=== PATIENT | male | born 1945 | race Caucasian/White ===

== ENCOUNTER 2018-06-19 23:06 | Inpatient (IN) | payer MEDICARE, OTHER, SELFPAY ==
[2018-06-19 23:06] VITALS: PULSE 99; RESP 20; O2SAT 93; BMI 30.7
--- NOTE | 2018-06-19 23:19 | EKG12_ITS ---
Test Reason : CP Blood Pressure : / mmHG Vent. Rate : 100 BPM Atrial Rate : 100 BPM P-R Int : 170 ms QRS Dur : 088 ms QT Int : 332 ms P-R-T Axes : 064 059 052 degrees QTc Int : 428 ms Normal sinus rhythm Normal ECG Confirmed by NELLY MARTINEZ, LIS ([id number]), art editor NADEEM VARNER ([id number] on 06/21/2018 3:23:55 PM Referred By: JOYN Confirmed By:LIS VILLEGAS MD
--- NOTE | 2018-06-19 23:20 | RAD_ITS ---
STUDY: X-RAY CHEST REASON FOR EXAM: Male, 73 years old. LEFT RIB PAIN TECHNIQUE: Single frontal view of the chest. COMPARISON: None. FINDINGS: Chronic appearing increased interstitial lung markings. There is an elevated right hemidiaphragm. There is no demonstrated pleural abnormality. Enlarged heart size. Normal mediastinum and jamey. Normal visualized pulmonary arteries. There is atherosclerotic calcification of the aortic arch with tortuosity. There are diffuse degenerative changes of the visualized thoracic spine. There is degenerative osteoarthritis of the bilateral shoulders. There is no demonstrated abnormality of the visualized soft tissue structures of the upper abdomen. RAD/Chest 1 View (Portable) IMPRESSION: There are no acute findings. Electronically Signed: Jass Garcia MD at 23:32 EDT , Service support ,
[2018-06-19] MEDS: Aspirin 81 MG TAB.CHEW 162 MG PO (23:27)
[2018-06-19 23:32] VITALS: BP 109/76; PULSE 98
[2018-06-19] MEDS: 0.9% Normal Saline 1,000 ML 150 ML IV (23:32)
[2018-06-19 23:34] VITALS: O2SAT 98
[2018-06-19 23:34] LABS: Absolute Lymphocyte Count 2.51 X10^3/ul (0.83-4.51); Basophil# 0.06 X10^3/uL; Basophil% 0.8 % (0-1); Eosinophil# 0.34 X10^3/uL; Eosinophils% 4.4 % (0-5); Hematocrit 47.7 % (40-54); Hemoglobin 16.1 g/dl (13.0-16.5); Lymphocyte # 2.51 X10^3/ul (4.0); Lymphocyte % 32.6 % (19-41); Mean Corp Hgb Conc 33.8 g/gl (32-36); Mean Corpuscular Hgb 33.3 pg (27.0-32.0); Mean Corpuscular Volume 98.6 fL (80-94); Mean Platelet Vol. 9.5 fl (6.2-12.0); Monocyte# 0.75 X10^3/uL; Monocyte% 9.7 % (0-10); Neutrophil # 3.98 X10^3/uL (2.7-7.7); Neutrophil % 51.7 % (47-70); Platelet Count 286 K/mm3 (150-450); RBC Distribution Width CV 13.4 % (11.6-14.6); RBC Distribution Width SD 48.3 fl (35.1-43.9); Red Blood Count 4.84 M/mm3 (4.6-6.2); White Blood Count 7.7 K/mm3 (4.4-11.0)
[2018-06-19 23:38] LABS: POSITIVE COUNT NO; POSITIVE DIFFERENTIAL NO; POSITIVE MORPHOLOGY NO
[2018-06-19 23:39] LABS: Prothrombin Time (Protime)PT. 12.9 SECONDS (11.7-14.9)
[2018-06-19 23:40] LABS: Partial Thromboplast Time 28.1 Seconds (24.1-36.2)
--- NOTE | 2018-06-19 23:40 | ED.VISSUMM ---
- ER Visit Summary Date of Service: 06/19/18 Chief Complaint: Left-sided chest pain History of Present Illness: The patient is a 73 M sudden left-sided chest pain at rest. States pain is a 10. Dyspnea. No radicular symptoms. History of COPD, diabetes, hypercholesterolemia. Family reports family history of MIs at a young age. Stress test over 25 years ago. Patient does admit to drinking alcohol this evening. Denies any similar pains in the past. History of DVT in his leg years ago with anticoagulation treatment. No recent travel, surgeries, or immobilizations. No history of heart cath. Tobacco history. Patient takes baby aspirin every morning. Physical Examination: General: Alert and oriented, mild intoxication with slurring of speech, appears mod distress HEENT: Normocephalic, atraumatic. Moist mucosa membranes Neck: supple, nontender. Cardiovascular: Regular rate and rhythm, no murmurs. Respiratory: Normal breath sounds, symmetric, no distress Abdomen: Soft, nontender, nondistended Extremities: Nontender, no edema, pulses intact ?4 Neuro: no focal neurological deficits. Test Results: EKG: Sinus rate of 100, no ST changes. EKG #2 unchanged. Chest x-ray negative. Cardiac workup negative. D-dimer L of 0.81. Alcohol 211. CTA chest no PE. Left-sided rib fractures 5 and 6. Nonspecific nodules. Emergency Department Course and Treatment: Patient presented with sudden left-sided chest pain. Cardiac workup negative. Given aspirin, one nitro was given with no improvement. Blood pressure dropped improved with IV fluids. Patient had DVT in the past, d-dimer obtained elevated. CT scan obtain no PE. No left-sided rib fractures 5 and 6. Nonspecific nodules right lung. He was treated with fentanyl IV x2. Given oxycodone. Alcohol is 211. Initial started out cardiac workup, later discussion with CT scan rib fracture, family then reports he had a fall shortly prior to arrival. This was not stated on his arrival with 3 family members present. Where patient continued pain on the left side, discuss with Dr. Butler who admit for pain control. Treatment Plan: [] Disposition: Admission Impression: 1. Chest wall pain 2. Acute left rib fractures 5 and 6 3. Alcohol intoxication This note was generated with [employer] software. It may contain incorrect words, spelling, and punctuation that were not noted in review of the chart prior to signing ED Disposition - Plan for ED Patient: Disposition: Acute Care Hospital [facility] Chief Complaint: Chest Pain Diagnosis: Left rib fracture, Chest wall pain, Alcohol intoxication Referrals: Tadeo Ferrer MD [Primary Care Provider] -
[2018-06-19 23:44] LABS: Anion Gap 7 (5-15); BUN 8 mg/dL (7-18); BUN/Creat Ratio 10.4 RATIO (10-20); Calcium,Total 8.8 mg/dL (8.5-10.1); Chloride 99 mmol/L (98-107); Creatinine, Serum 0.77 mg/dL (0.70-1.30); EST Glomerular Filtration Rate 107 mL/min (>60); Est Glom Filt Rate - Afr Amer 129 mL/min (>60); Estimated Creatinine Clearance 61.14 ml/min; Glucose 129 mg/dL (74-106); Potassium 4.2 mmol/L (3.5-5.1); Sodium Level 136 mmol/L (136-145)
[2018-06-19 23:48] VITALS: BP 81/71; PULSE 92; RESP 15
[2018-06-19 23:50] LABS: D-Dimer Quantitative (DVT/PE) 0.81 FEU/ug/m (0.27-0.49)
--- NOTE | 2018-06-19 23:52 | CT_ITS ---
STUDY: CTA CHEST REASON FOR EXAM: Male, 73 years old. Chest pain with with radiation to the left arm. Patient has elevated d-dimer. RADIATION DOSAGE (If Supplied By Facility): CTDIvol = ( 14.36 ) mGy, DLP = ( 658.30 ) mGycm TECHNIQUE: The examination was performed with the intravenous administration of 100 ml of Isovue 370 contrast material. Post-processing of the angiographic images was performed, with multiplanar reformation and 3D reconstruction. Individualized dose optimization techniques were used for this CT. COMPARISON: Chest radiograph dated June 19, 2018. FINDINGS: Cardiac monitoring leads are present. Normal enhancement of the main pulmonary artery and right and left pulmonary arteries. Normal enhancement of the bilateral peripheral pulmonary arteries. There is no demonstrated pulmonary embolism. There is prominence of the main pulmonary arteries without peripheral pulmonary vascular congestion. There is atherosclerotic calcification of the aortic arch with tortuosity. Maximum transverse dimension of the ascending thoracic aorta measures 3.3 cm. There is no demonstrated aortic dissection. Normal heart and pericardium. There is subcarinal lymphadenopathy with a prasanna mass measuring 3.9 x 2.1 x 1.4 cm in size. There is also a large right paratracheal node. There prominent left-sided hilar lymph nodes. The largest measure approximately 1.3 x 1.2 x 0.8 cm in size. The right hilar area also has a prominent lymph node to. Normal visualized trachea and bronchi. Patchy lucencies are visible at the right lung apex possibly related to sequela paraseptal emphysema. There is a nodular opacity within the anterior segment of the right upper lobe measuring approximately 6.4 mm in greatest dimension best seen on axial image #171. There is patchy bilateral basilar airspace consolidation and/or atelectasis. There is a well-circumscribed lucency in the right lower lobe that may represent a small pneumatocele. Normal pleura. Normal chest wall structures. There are degenerative changes of thoracic spine. There is increased thoracic kyphosis. There are acute left-sided rib fractures involving the fifth and sixth ribs. Normal visualized upper abdomen. CT/CTA Chest W/WO Contrast IMPRESSION: 1. No CTA demonstrated pulmonary embolism or arterial dissection. 2. Acute left-sided rib fractures. 3. Nonspecific mediastinal and hilar lymphadenopathy. 4. Nonspecific right apical pulmonary nodule. Suggest follow-up as per Fleischner criteria. 5. Bilateral basilar airspace disease and/or atelectasis. Electronically Signed: Alysia Ferrari MD at 1:28 EDT , Service support ,
--- NOTE | 2018-06-19 23:52 | ED.RN ---
D DIMER RESULT OF 0.[address] BORGES AWARE NITRO #2 & #3 HELD D/T HYPOTENSION
[2018-06-19] MEDS: fentaNYL 100 MCG/2 ML Ampul 50 MCG IV (23:56)
[2018-06-19 23:59] VITALS: BP 92/69; PULSE 99; RESP 22; O2SAT 94
[2018-06-20] VITALS (19 sets, daily range): BP systolic 107–135; BP diastolic 67–95; PULSE 87–109; RESP 16–22; TEMP 36.4–36.9; O2SAT 1–98; BMI 31.7
--- NOTE | 2018-06-20 00:43 | EKG12_ITS ---
Test Reason : REPEAT CP Blood Pressure : / mmHG Vent. Rate : 090 BPM Atrial Rate : 090 BPM P-R Int : 184 ms QRS Dur : 098 ms QT Int : 368 ms P-R-T Axes : 066 051 050 degrees QTc Int : 450 ms Normal sinus rhythm with sinus arrhythmia Normal ECG Confirmed by NELLY MARTINEZ, LIS ([id number]), deputy editor in chief NADEEM VARNER ([id number]) on 06/21/2018 3:23:44 PM Referred By: JONY Confirmed By:LIS VILLEGAS MD
[2018-06-20] MEDS: fentaNYL 100 MCG/2 ML Ampul 50 MCG IV (00:55)
[2018-06-20] MEDS: Ipratropium/Albuterol Sulfate 3 ML AMPUL.NEB INHALATION ×6 (01:20→23:01)
--- NOTE | 2018-06-20 01:38 | HP.PCM_ITS ---
Problem List (1) Left rib fracture Status: Acute Qualifiers: Encounter type: initial encounter Rib fracture type: multiple ribs Fracture type: closed Qualified Code(s): S22.42XA - Multiple fractures of ribs, left side, initial encounter for closed fracture (2) COPD with acute exacerbation Status: Acute (3) Alcohol abuse Status: Chronic (4) COPD (chronic obstructive pulmonary disease) Status: Chronic Qualifiers: COPD type: unspecified COPD Qualified Code(s): J44.9 - Chronic obstructive pulmonary disease, unspecified (5) Obesity (BMI 30.0-34.9) Status: Chronic (6) Diabetes mellitus, type II Status: Chronic Qualifiers: Diabetes mellitus terminal superintendent insulin use: without terminal superintendent use Diabetes mellitus complication status: with unspecified complications Qualified Code(s): E11.8 - Type 2 diabetes mellitus with unspecified complications (7) Tobacco use Status: Chronic (8) HLD (hyperlipidemia) Status: Chronic Qualifiers: Hyperlipidemia type: unspecified Qualified Code(s): E78.5 - Hyperlipidemia, unspecified (9) Chronic pain syndrome Status: Chronic History of Present Illness Date of Admission: 06/20/18 Chief Complaint: L sided chest pain, dyspnea The patient is a 73 y/o M w/ PMHx: Obesity, Hx DVT Remotely, Diabetes mellitus type II, Obesity, Chronic COPD, Tobacco use, Chronic Pain Syndrome, EtOH Abuse who presents to the [facility] ED on 06/20/18 with history of fall at home following significant EtOH intake (8-12 beers, occasional rum and coke also q , , Thursday) with fall onto his L side w/ onset severe sharp constant pain to the L side of his chest with worsened dyspnea, increased pain with movement, palpitation and deep inspiration at ~ 11:30 pm. Family notes that he appears baseline in regard to respiratory status; however, they do note that he tends to appear more short of breath w/ recent EtOH intake. In the ED patient has noted increased work of breathing, some accessory muscle usage and conversational dyspnea. In the ED work-up included afebrile, heart rate 99, BP 109/76--> 91/71 following nitroglycerin administration improvement to 118/95, Maurice rate 20, 93% on room air, CBC with WBC 7.7, hemoglobin 16.1, platelet 286 without market shift, unremarkable coags, d-dimer 0.81, BMP with glucose 129, troponin less than 0.015, alcohol 211, chest x-ray with no acute findings, CTPA w/ no evidence of PE or arterial dissection, acute left-sided fifth and sixth rib fractures, nonspecific mediastinal and hilar adenopathy, nonspecific right apical pulmonary nodule, bilateral basilar airspace disease and/or atelectasis. In the ED patient administered aspirin, DuoNeb, normal saline, fentanyl, nitroglycerin. Past Medical History Past Medical History (Chronic Problems): Chronic Problems Alcohol abuse (Chronic) COPD (chronic obstructive pulmonary disease) (Chronic) Obesity (BMI 30.0-34.9) (Chronic) Diabetes mellitus, type II (Chronic) Tobacco use (Chronic) HLD (hyperlipidemia) (Chronic) Chronic pain syndrome (Chronic) Allergies No Known Allergies Allergy (Verified 06/19/18 23:18) Home Medications: Ambulatory Orders Medication Instructions Recorded Albuterol IH (ProAir) [Proair Hfa 2 puff INHALATION Q4H PRN PRN 03/09/17 (SP)Vent Pts] Aspirin [Aspir-Low] 162 mg PO DAILY 03/09/17 Atorvastatin Calcium [Lipitor] 20 mg PO QHS 03/09/17 Budesonide/Formoterol 160/4.5 2 puff INHALATION BID 03/09/17 [Symbicort 160/4.5 Mcg Inhaler (SP)] Ipratropium/Albuterol Respimat 1 puff INHALATION BID 03/09/17 [Combivent Respimat Inhal [place]] Metformin HCl [Metformin HCl ER] 500 mg PO DAILY 03/09/17 Oxycodone HCl/Acetaminophen 1 tablet PO Q4H PRN PRN #10 tablet 03/09/17 [Percocet 5/325] Surgical History: no surgical history Psychiatric History: No pertinent psych hx Lives: Spouse/ Significant Other Smoking Status: Current every day smoker - 2 pack/day cigarette tobacco usage. Tobacco Use: Cigarettes Alcohol: Heavy - 8-12 beers, occasional rum and coke also q , , Thursday. Drugs: None - *Family History Maternal History Items: Diabetes Paternal History Items: Diabetes Review of Systems Constitutional: Reports: Weakness, Fatigue. Denies: Chills, Fever, Weight Change HEENT: Denies: Head Aches, Sinus Congestion, Sinus Drainage Cardiovascular: Reports: Chest Pain. Denies: Palpitations Respiratory: Reports: Shortness of Breath, Shortness of breath at rest, Shortne ss of breath upon exertion, Wheezing. Denies: Cough, Sputum production Gastrointestinal: Denies: Abdominal Pain, Nausea, Vomiting Genitourinary: Denies: Dysuria Musculoskeletal: Reports: Back Pain. Denies: Joint Pain, Joint Tenderness Skin: Denies: Rash, Wounds Neurological: Denies: Numbness, Tingling, Focal weakness Psychiatric: Denies: Anxiety, Depression, Homicidal Ideations, Suicidal Ideations Hematologic/ Lymphatic: Reports: Easy Bruising, Easy Bleeding VTE Information - Inpt Only VTE Present on Admission: No VTE Mechan Device Prophylaxis: SCD's VTE Pharm Prophylaxis ordered?: Yes Patient Problems: Active and Suspected Problems COPD with acute exacerbation (Acute) Left rib fracture (Acute) Subjective: Seated upright in the ED bed, fatigued appearing, increased work of breathing, accessory muscle usage, conversational dyspnea evident. Objective: Physical Examination: General: awake, alert, oriented x 3 and cooperative, seated upright in the ED bed, increased work of breathing, accessory muscle usage, increased RR, conversational dyspnea. Skin: normal color, turgor, no icterus, cyanosis. HEENT: AT/NC, EOMI, PERRLA, mildly dry MM, very thick neck, no carotid bruits, unable to discern JVD secondary to habitus. Lungs: Severely diminished BS, > BL bases, diffuse end expiratory wheezing, increased work of breathing, accessory muscle usage, increased RR, conversational dyspnea. Heart: Mildly tachycardic with regular rhythm; no gallop, rub audible, reproducible L sided lateral chest discomfort w/ palpation. Abdomen: soft, obese, NTTP, ND, normal BS, no HSM; however, habitus makes examination difficult. Extremities: no cyanosis, clubbing, or edema. Neurological: patient awake, alert, oriented x 3; cognitive function intact; pupils equally reactive to light and accomodation; cranial nerves II-XII grossly normal, moving all 4 extremities, no focal deficits, strength severely globally decreased secondary to acute presentation. Psychiatric: affect appears fatigued, no acute evidence of depressive or anxiety feelings. - Physical Exam Vital Signs Pulse Resp BP Pulse Ox 98 20 H 107/67 96 06/20/18 01:20 06/20/18 01:20 06/20/18 00:54 06/20/18 00:54 Oxygen Flow Rate (L/min) 2 Oxygen Delivery Method Nasal Cannula Weight: 190 lb 3.274 oz Body Mass Index (BMI) 30.7 Laboratory Tests Past 24 Hrs 06/19/18 06/19/18 06/19/18 23:10 23:10 23:10 WBC 7.7 RBC 4.84 Hgb 16.1 Hct 47.7 MCV 98.6 H MCH 33.3 H MCHC 33.8 RDW 13.4 RDW Differential 48.3 H Plt Count 286 MPV 9.5 Immature Gran % (Auto) 0.800 Neut % (Auto) 51.7 Lymph % (Auto) 32.6 Pepin % (Auto) 9.7 Eos % (Auto) 4.4 Baso % (Auto) 0.8 Absolute Neuts (auto) 4.0 Absolute Lymphs (auto) 2.51 Total Counted Not Reportable PT 12.9 INR 1.0 APTT 28.1 D-Dimer Quant (PE/DVT) 0.81 H* Sodium 136 Potassium 4.2 Chloride 99 Carbon Dioxide 30.0 Anion Gap 7 BUN 8 Creatinine 0.77 Estim Creat Clear Calc 61.14 Est GFR (MDRD) Af Amer 129 Est GFR (MDRD) Non-Af 107 BUN/Creatinine Ratio 10.4 Glucose 129 H Calcium 8.8 Troponin I < 0.015 Ethyl Alcohol 06/19/18 23:10 WBC RBC Hgb Hct MCV MCH MCHC RDW RDW Differential Plt Count MPV Immature Gran % (Auto) Neut % (Auto) Lymph % (Auto) Pepin % (Auto) Eos % (Auto) Baso % (Auto) Absolute Neuts (auto) Absolute Lymphs (auto) Total Counted PT INR APTT D-Dimer Quant (PE/DVT) Sodium Potassium Chloride Carbon Dioxide Anion Gap BUN Creatinine Estim Creat Clear Calc Est GFR (MDRD) Af Amer Est GFR (MDRD) Non-Af BUN/Creatinine Ratio Glucose Calcium Troponin I Ethyl Alcohol 211.0 Assessment/Plan All Active Problems COPD with acute exacerbation (Acute) Left rib fracture (Acute) The patient is a 73 y/o M w/ PMHx: Obesity, Hx DVT Remotely, Diabetes mellitus type II, Obesity, Chronic COPD, Tobacco use, Chronic Pain Syndrome, EtOH Abuse who presents to the [facility] ED on 06/20/18 with history of fall at home following significant EtOH intake (8-12 beers, occasional rum and coke also q , , Thursday) with fall onto his L side w/ onset severe sharp constant pain to the L side of his chest with worsened dyspnea, increased pain with movement, palpitation and deep inspiration at ~ 11:30 pm. (1) Acute Hypoxic Respiratory Failure secondary to Acute on chronic COPD exacerbation: Presentation w/ increased RR, accessory muscle usage, wheezing, conversational dyspnea, worsened by L sided rib fractures. CXR w/ chronic changes, CBC on admission w/ no marked WBC elevation or shift and afebrile. Will admit to MS, maintain on oxygen with wean as tolerated to room air, continue ATC duonebs, PRN albuterol, IV methylprednisolone, HOB, IS parameters, defer abx therapy. (2) Mechanical Fall w/ L sided 5-6th Rib Fractures: Encouraged safe sobriety, maintain on fall precautions, q 2 hour position changes, PT evaluation, PRN pain regimen. (3) EtOH Abuse w/ Acute Intoxication: Patient notes routine consumption of 8-12 beers and also 1-2 rum and coke every , , Thursday associated with social activities arranged weekly. Discussed that this is consistent with EtOH Abuse. Will maintain on CIWA protocol, MVI, thiamine and folic acid. (4) Diabetes mellitus type II: Hold oral home regimen, continue home insulin regimen, ADA diet, accu checks w/ ISS, nutrition consultation for education and teaching. (5) Chronic pain syndrome: Home percocet noted, holding w/ PRN oral and IV pain regimen as noted. (6) Tobacco Abuse: Encouraged cessation, inpatient consultation per RT, NR if desired. (7) Obesity: Weight loss and lifestyle changes encouraged, nutrition consulted for education and teaching. (8) Suspect FEMI: Encouraged outpatient sleep study, recently saw [facility], encouraged to set-up. (9) GERD: Famotidine. (10) Hx DVT: Noted remote history of LLE DVT, unclear if provoked, prophylaxis as noted. (11) DVT Prophylaxis: SCDs, lovenox. Code Visit Inpatient E&M: 89008 Init Hosp L3
[2018-06-20] MEDS: oxyCODONE 5 MG Tablet 10 MG PO (01:53)
[2018-06-20] MEDS: Morphine 2 MG/ML Syringe IV ×3 (02:20→23:41)
[2018-06-20 02:38] LABS: Absolute Neutrophil Count 11.8 X10^3/uL (2.0-7.7); Basophil# 0.03 X10^3/uL; Basophil% 0.2 % (0-1); Eosinophil# 0.05 X10^3/uL; Eosinophils% 0.3 % (0-5); Hemoglobin 15.5 g/dl (13.0-16.5); Lymphocyte % 9.8 % (19-41); Mean Corpuscular Hgb 32.6 pg (27.0-32.0); Mean Corpuscular Volume 98.7 fL (80-94); Mean Platelet Vol. 9.4 fl (6.2-12.0); Monocyte# 0.96 X10^3/uL; Monocyte% 6.7 % (0-10); Neutrophil # 11.83 X10^3/uL (2.7-7.7); Neutrophil % 82.6 % (47-70); Platelet Count 283 K/mm3 (150-450); RBC Distribution Width CV 13.5 % (11.6-14.6); RBC Distribution Width SD 48.3 fl (35.1-43.9); Red Blood Count 4.76 M/mm3 (4.6-6.2); White Blood Count 14.3 K/mm3 (4.4-11.0)
[2018-06-20 02:39] LABS: POSITIVE COUNT NO; POSITIVE DIFFERENTIAL NO; POSITIVE MORPHOLOGY NO
[2018-06-20 02:49] LABS: Magnesium 2.2 mg/dL (1.6-2.6); Phosphorus 3.6 mg/dL (2.5-4.9)
[2018-06-20] MEDS: MethylPREDNISolone 125 MG/2 ML Vial IV (02:51)
[2018-06-20] MEDS: Ketorolac 30 MG/ML Syringe IV ×3 (02:51→18:45)
[2018-06-20 03:00] LABS: Anion Gap 9 (5-15); BUN 10 mg/dL (7-18); BUN/Creat Ratio 10.5 RATIO (10-20); Calcium,Total 8.5 mg/dL (8.5-10.1); Chloride 99 mmol/L (98-107); Creatinine, Serum 0.95 mg/dL (0.70-1.30); EST Glomerular Filtration Rate 83 mL/min (>60); Est Glom Filt Rate - Afr Amer 101 mL/min (>60); Estimated Creatinine Clearance 64.36 ml/min; Glucose 156 mg/dL (74-106); Potassium 4.8 mmol/L (3.5-5.1); Sodium Level 134 mmol/L (136-145)
[2018-06-20] MEDS: LORazepam 2 MG/ML Syringe IV ×2 (03:22→14:13)
[2018-06-20 05:31] LABS: Bedside Glucose 165 mg/dL (70-110)
[2018-06-20] MEDS: Thiamine Hydrochloride 100 MG Tablet PO ×2 (08:48→16:39)
[2018-06-20] MEDS: Aspirin E.C. 81 MG Tablet 162 MG PO (08:48)
[2018-06-20] MEDS: Folic Acid 1 MG Tablet PO (08:49)
[2018-06-20] MEDS: Famotidine 20 MG Tablet PO ×2 (08:49→21:28)
[2018-06-20] MEDS: Enoxaparin 40 MG/0.4 ML Syringe SC (08:49)
[2018-06-20] MEDS: Multivitamins,Ther W-Minerals Tablet 1 TABLET PO (08:49)
[2018-06-20] MEDS: oxyCODONE 5 MG Tablet PO ×2 (09:09→21:26)
[2018-06-20] MEDS: Glucerna Shake 120 ML LIQUID PO ×4 (09:12→21:28)
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
[2018-06-20] MEDS: Insulin Lispro 100 UNIT/ML INSULN.PEN SQ ×3 (12:02→21:27)
[2018-06-20 12:16] LABS: Bedside Glucose 318 mg/dL (70-110)
[2018-06-20 16:50] LABS: Bedside Glucose 209 mg/dL (70-110)
[2018-06-20] MEDS: Acetaminophen 325 MG Tablet 650 MG PO (21:24)
[2018-06-20] MEDS: Atorvastatin Calcium 20 MG Tablet PO (21:28)
[2018-06-20 22:41] LABS: Bedside Glucose 261 mg/dL (70-110)
[2018-06-21] VITALS (16 sets, daily range): BP systolic 103–149; BP diastolic 63–86; PULSE 85–120; RESP 18–24; TEMP 36.3–36.9; O2SAT 89–95
[2018-06-21] MEDS: guaiFENesin 10 ML UDC (200MG/10ML) PO ×2 (00:25→05:04)
[2018-06-21] MEDS: Morphine 2 MG/ML Syringe IV ×3 (00:26→19:43)
[2018-06-21] MEDS: Ipratropium/Albuterol Sulfate 3 ML AMPUL.NEB INHALATION ×6 (02:07→22:46)
[2018-06-21 06:22] LABS: Absolute Lymphocyte Count 0.72 X10^3/ul (0.83-4.51); Absolute Neutrophil Count 15.7 X10^3/uL (2.0-7.7); Eosinophil# 0.01 X10^3/uL; Eosinophils% 0.1 % (0-5); Hematocrit 43.9 % (40-54); Hemoglobin 14.4 g/dl (13.0-16.5); Lymphocyte # 0.72 X10^3/ul (4.0); Mean Corp Hgb Conc 32.8 g/gl (32-36); Mean Corpuscular Hgb 32.5 pg (27.0-32.0); Mean Corpuscular Volume 99.1 fL (80-94); Mean Platelet Vol. 9.9 fl (6.2-12.0); Monocyte# 1.57 X10^3/uL; Monocyte% 8.7 % (0-10); Neutrophil # 15.65 X10^3/uL (2.7-7.7); Neutrophil % 86.9 % (47-70); Platelet Count 245 K/mm3 (150-450); RBC Distribution Width CV 13.5 % (11.6-14.6); RBC Distribution Width SD 49.1 fl (35.1-43.9); Red Blood Count 4.43 M/mm3 (4.6-6.2)
[2018-06-21 06:28] LABS: Differential Indicated SCAN CRITERIA MET; POSITIVE COUNT NO; POSITIVE DIFFERENTIAL YES; POSITIVE MORPHOLOGY NO
[2018-06-21] MEDS: Insulin Lispro 100 UNIT/ML INSULN.PEN SQ ×4 (06:37→21:47)
[2018-06-21 06:38] LABS: Anion Gap 10 (5-15); BUN 31 mg/dL (7-18); BUN/Creat Ratio 29.2 RATIO (10-20); Calcium,Total 8.6 mg/dL (8.5-10.1); Chloride 99 mmol/L (98-107); Creatinine, Serum 1.06 mg/dL (0.70-1.30); EST Glomerular Filtration Rate 73 mL/min (>60); Est Glom Filt Rate - Afr Amer 89 mL/min (>60); Estimated Creatinine Clearance 57.68 ml/min; Glucose 253 mg/dL (74-106); Magnesium 2.6 mg/dL (1.6-2.6); Potassium 5.1 mmol/L (3.5-5.1); Sodium Level 134 mmol/L (136-145)
[2018-06-21 06:46] LABS: Bedside Glucose 259 mg/dL (70-110)
[2018-06-21 07:18] LABS: Differential Comment SCANNED
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
[2018-06-21] MEDS: Acetaminophen 325 MG Tablet 650 MG PO (07:49)
[2018-06-21] MEDS: oxyCODONE 5 MG Tablet PO ×3 (07:50→22:32)
[2018-06-21] MEDS: Multivitamins,Ther W-Minerals Tablet 1 TABLET PO (08:06)
[2018-06-21] MEDS: Thiamine Hydrochloride 100 MG Tablet PO ×2 (08:07→16:37)
[2018-06-21] MEDS: Folic Acid 1 MG Tablet PO (08:07)
[2018-06-21] MEDS: Aspirin E.C. 81 MG Tablet 162 MG PO (08:10)
--- NOTE | 2018-06-21 09:32 | PCM.TXEXTCAR ---
- Diet 06/20/18 02:07 Diet: Calorie Controlled How many daily calories?: 1800 calorie - Routine Orders/Code Status Suppository Type: Dulcolax 10mg Suppository Frequency: Daily PRN Code Status: Full Code - Wound(s) left elbow Wound Type: Hematoma left forehead Wound Type: Abrasion - Therapies Physical Therapy: Eval and Treat Occupational Therapy: Eval and Treat Speech Therapy: Eval and Treat - Allergies/Procedures Done in Hospital Allergies/Adverse Reactions: Allergies No Known Allergies Allergy (Verified 06/20/18 02:14) - Type of Care/Length of Stay Estimated LOS: Convalescent Care Less Than 30 days Type of Care Needed: Skilled Rehab Potential: Good Prognosis: Good - Additional Orders/Day of Discharge Day of Discharge: 06/21/18 - Dietary and Speech Recommendations Dietitian Recommendations/Changes: Pt declines diet education - requesting he has a regular diet so he can order what he wants - he states he is starving on 1800 brandi diet and that he shouldn't have to starve and be in pain too. - Follow Up Care Primary Care Physician: Tadeo Ferrer MD [Primary Care Provider] - Please follow up with your Primary Care Physician in: in 2 weeks Please Follow Up With: Troy Jerry MD When: in 4 weeks
[2018-06-21] MEDS: Famotidine 20 MG Tablet PO ×2 (09:44→21:46)
[2018-06-21] MEDS: Enoxaparin 40 MG/0.4 ML Syringe SC (09:45)
[2018-06-21] MEDS: Glucerna Shake 120 ML LIQUID PO ×4 (09:46→21:47)
--- NOTE | 2018-06-21 10:21 | PCM.PN.HOSP ---
Patient Problems: Active and Suspected Problems COPD with acute exacerbation (Acute) Left rib fracture (Acute) Left rib fracture (Acute) Chest wall pain (Acute) Alcohol intoxication (Acute) Subjective: Seen and examined. Patient was found short of breath complaining of left-sided chest pain. Patient had left lower rib fracture and severe pain on cough or breathing. Chest x-ray reviewed. Shows small left apical pneumothorax with subcutaneous emphysema. Discussed with Dr. Jacob. Vitals/I&O's: Vital Signs Temp Pulse Resp BP Pulse Ox 98.1 F 101 H 20 H 122/63 H 92 06/21/18 07:46 06/21/18 08:00 06/21/18 07:54 06/21/18 07:46 06/21/18 07:46 Oxygen Flow Rate (L/min) 1 Oxygen Delivery Method Room Air Weight: 196 lb 10.437 oz Body Mass Index (BMI) 31.7 Intake and Output for Last 24 Hours 06/19/18 06/20/18 06/21/18 23:59 23:59 23:59 Intake Total 757 / 757 700 / 700 Output Total 475 / 475 Balance 282 / 282 700 / 700 General: Alert, Oriented x3, Cooperative HEENT: Atraumatic, PERRLA, EOMI, Normocephalic Neck: Supple, No JVD, Negative Carotid Bruits Lungs: Diminished, Rhonchi, Short of Breath, Tachypneic, Wheezes, - - Mild respiratory distress Cardiovascular: Regular rate, Normal S1, Normal S2, No murmurs Abdomen: Bowel Sounds Present, Soft, Non Tender Extremities: No edema, Capillary Refill Less than 3 Seconds Skin: No rashes, No breakdown Musculoskeletal: No Tenderness to Palpation of Joints or Extremities Neurological: Cranial nerves II-XII grossly intact Psych/Mental Status: Normal Affect, Appropriate Laboratory Results 06/20/18 11:58: POC Glucose 318 H 06/20/18 16:18: POC Glucose 209 H 06/20/18 21:23: POC Glucose 261 H 06/21/18 05:38: WBC 18.0 H, RBC 4.43 L, Hgb 14.4, Hct 43.9, MCV 99.1 H, MCH 32.5 H, MCHC 32.8, RDW 13.5, RDW Differential 49.1 H, Plt Count 245, MPV 9.9, Immature Gran % (Auto) 0.300, Neut % (Auto) 86.9 H, Lymph % (Auto) 4.0 L, Meigs % (Auto) 8.7, Eos % (Auto) 0.1, Baso % (Auto) 0.0, Absolute Neuts (auto) 15.7 H, Absolute Lymphs (auto) 0.72 L, Total Counted Not Reportable, Differential Comment SCANNED, Diff Path Review January06/21/18 05:38: Sodium 134 L, Potassium 5.1, Chloride 99, Carbon Dioxide 25.0, Anion Gap 10, BUN 31 H, Creatinine 1.06, Estim Creat Clear Calc 57.68, Est GFR (MDRD) Af Amer 89, Est GFR (MDRD) Non-Af 73, BUN/Creatinine Ratio 29.2 H, Glucose 253 H, Calcium 8.6, Magnesium 2.6 06/21/18 06:34: POC Glucose 259 H Current Medications Acetaminophen (Tylenol) 650 mg PO Q6H PRN PRN PRN Reason: Mild Pain (scale 0-3)/T>100.7 Last Admin: 06/21/18 07:49 Dose: 650 mg Al Hydroxide/Mg Hydroxide (Mylanta Ii) 30 ml PO Q6H PRN PRN PRN Reason: Gastric burning Albuterol Sulfate (Ventolin Aerosols) 2.5 mg INHALATION Q2H PRN PRN PRN Reason: SHORTNESS OF BREATH Albuterol/Ipratropium (Duoneb) 3 ml INHALATION Q4H.RT [facility] Last Admin: 06/21/18 07:32 Dose: 3 ml Aspir[facility] (Ecotrin) [facility] Last Admin: 06/21/18 08:10 Dose: 162 mg Atorvastatin Calcium (Lipitor) 20 mg PO QHS [facility] Last Admin: 06/20/18 21:28 Dose: 20 mg Dextrose (D50w Syringe) 0 gm IV X1 PRN; Protocol PRN Reason: Hypoglycemia Enoxaparin Sodium (Lovenox) 40 mg SC DAILY@1000 [facility] Last Admin: 06/21/18 09:45 Dose: 40 mg Famotidine (Pepcid) 20 mg PO BID [facility] Last Admin: 06/21/18 09:44 Dose: 20 mg Folic Acid (Folic Acid) 1 mg PO DAILY@0800 [facility] Stop: 06/22/18 08:01 Last Admin: 06/21/18 08:07 Dose: 1 mg Glucagon () 1 mg IM .X1 PRN PRN Reason: Hypoglycemia Guaifenesin (Robitussin) 10 ml PO Q4H PRN PRN PRN Reason: COUGH Last Admin: 06/21/18 05:04 Dose: 10 ml Insulin Human Lispro (Humalog Kwikpen (Bkc)) 0 unit SQ ACHS [facility]; Protocol Last Admin: 06/21/18 06:37 Dose: 3 units Lorazepam (Ativan) 2 mg PO Q2H PRN PRN; Protocol PRN Reason: CIWA score > 8 but <15 Lorazepam (Ativan) 2 mg IV Q2H PRN PRN; Protocol PRN Reason: CIWA score > 8 but <15 Last Admin: 06/20/18 14:13 Dose: 2 mg Lorazepam (Ativan) 2 mg PO UD PRN; Protocol PRN Reason: CIWA score >/=15. Lorazepam (Ativan) 2 mg IV UD PRN; Protocol PRN Reason: CIWA score >/=15. Magnesium Hydroxide (Milk Of Magnesia) 30 ml PO DAILY PRN PRN PRN Reason: Constipation Metformin HCl (Glucophage Xr) [facility] Last Admin: 06/21/18 08:06 Dose: 500 mg Methylprednisolone (Solu-Medrol) 40 mg IV Q8 [facility] Last Admin: 06/21/18 04:57 Dose: 40 mg Morphine Sulfate () 2 - 4 mg IV Q3H PRN PRN PRN Reason: Severe Pain (pain scale 6-10) Last Admin: 06/21/18 04:57 Dose: 4 mg Morphine Sulfate () 1 - 2 mg IV Q4H PRN PRN PRN Reason: Moderate Pain (pain scale 4-5) Multivitamins/Minerals (Multivitamin With Minerals) [facility] Last Admin: 06/21/18 08:06 Dose: 1 tablet Nicotine (Nicoderm Cq (Pbkc)) 21 mg TRANSDERM. DAILY [facility] Last Admin: 06/21/18 09:44 Dose: 21 mg Nicotine Polacrilex (Rugby Nicotine (Bkc)) 2 mg PO Q2H PRN PRN PRN Reason: nicotine craving breakthrough Nutritional Formula (Lactose Free) (Glucerna Shake) 120 ml PO 4X/DAY [facility] Last Admin: 06/21/18 09:46 Dose: 120 ml Ondansetron HCl (Zofran) 4 mg IV Q8H PRN PRN PRN Reason: NAUSEA Oxycodone HCl (Oxyir) 5 - 10 mg PO Q4H PRN PRN PRN Reason: Moderate Pain (pain scale 4-5) Last Admin: 06/21/18 07:50 Dose: 10 mg Promethazine HCl (Phenergan) 12.5 mg IV Q6H PRN PRN PRN Reason: NAUSEA/VOMITING Sodium Chloride () 5 - 30 ml IV UD PRN PRN Reason: SALINE FLUSH Thiamine HCl (Vitamin B1) 100 mg PO BIDCM [facility] Stop: 06/22/18 17:01 Last Admin: 06/21/18 08:07 Dose: 100 mg Medical Necessity - Tobacco Use Smoking Status: Current every day smoker Tobacco Use: Cigarettes Assessment/Plan All Active Problems COPD with acute exacerbation (Acute) Left rib fracture (Acute) Left rib fracture (Acute) Chest wall pain (Acute) Alcohol intoxication (Acute) This is a 73-year-old gentleman with history of chronic alcohol use, 8-12 cans beers along with vodka/hard drink about 4 days a week, COPD, nicotine dependence was admitted with left-sided chest pain after he fell down and hit his head after significant alcohol intake. Alcohol level in the ED is found 211. CT chest shows left-sided fifth and sixth rib fracture. Patient was admitted on the floor. 1. Acute left sided rib fractures due to mechanical fall: Patient was found to be short of breath, tachypneic and in severe left-sided lower chest pain, pulse ox 95% on 5 L of oxygen. Oxygen requirement has increased. Repeat chest x-ray today shows left lateral tiny pneumothorax. He advised intercostal nerve block by pain management. Positive pressure ventilation is contraindicated. PT and OT and respiratory therapy evaluation. 2. COPD exacerbation most probably exacerbated by recent fracture: CT chest reviewed shows emphysematous changes and right right lower lobe pneumatocele along with bibasilar atelectasis and infiltrates. On d bronchodilator. Discontinue Solu-Medrol and transition to prednisone. Incentive spirometry when pneumothorax resolved and pain is controlled. 3. Chronic alcohol use with acute alcohol intoxication, present on admission: On CIWA protocol. On multivitamin. Thiamine and folic acid. 4. Diabetes mellitus type 2: Blood sugar is uncontrolled. On IV Solu-Medrol also. Transition to prednisone. 5. Other chronic comorbidities include nicotine dependence, chronic alcohol use, obesity, GERD, suspected FEMI and remote history of DVT: Weight loss counseling done. Recommended outpatient sleep study when he is on baseline. Not on long-term anticoagulation. Multiple comorbidities complicates the present care and expect difficult and delay recovery DVT prophylaxis: On Lovenox Laboratory Results 06/20/18 16:18: POC Glucose 209 H 06/20/18 21:23: POC Glucose 261 H 06/21/18 05:38: WBC 18.0 H, RBC 4.43 L, Hgb 14.4, Hct 43.9, MCV 99.1 H, MCH 32.5 H, MCHC 32.8, RDW 13.5, RDW Differential 49.1 H, Plt Count 245, MPV 9.9, Immature Gran % (Auto) 0.300, Neut % (Auto) 86.9 H, Lymph % (Auto) 4.0 L, Meigs % (Auto) 8.7, Eos % (Auto) 0.1, Baso % (Auto) 0.0, Absolute Neuts (auto) 15.7 H, Absolute Lymphs (auto) 0.72 L, Total Counted Not Reportable, Differential Comment SCANNED, Diff Path Review January06/21/18 05:38: Sodium 134 L, Potassium 5.1, Chloride 99, Carbon Dioxide 25.0, Anion Gap 10, BUN 31 H, Creatinine 1.06, Estim Creat Clear Calc 57.68, Est GFR (MDRD) Af Amer 89, Est GFR (MDRD) Non-Af 73, BUN/Creatinine Ratio 29.2 H, Glucose 253 H, Calcium 8.6, Magnesium 2.6 06/21/18 06:34: POC Glucose 259 H 06/21/18 12:00: POC Glucose 319 H Clinical Impression(s) from Imaging Studies Chest X-Ray 06/19/18 23:20 IMPRESSION: There are no acute findings. Chest CTA 06/19/18 23:52 IMPRESSION: 1. No CTA demonstrated pulmonary embolism or arterial dissection. 2. Acute left-sided rib fractures. 3. Nonspecific mediastinal and hilar lymphadenopathy. 4. Nonspecific right apical pulmonary nodule. Suggest follow-up as per Fleischner criteria. 5. Bilateral basilar airspace disease and/or atelectasis. Chest X-Ray 06/21/18 10:32 IMPRESSION: Bibasilar atelectasis and/or infiltrates with blunting of both costo phrenic angles. Tiny lateral left pneumothorax. Subcutaneous emphysema overlying the lateral and anterior aspect of the left chest. Multiple left-sided rib fractures. Code Visit Inpatient E&M: 31961 Subs Hosp L3
--- NOTE | 2018-06-21 10:32 | RAD_ITS ---
STUDY: X-RAY CHEST REASON FOR EXAM: Male, 73 years old. History of left-sided fractures. Worsening shortness of breath. TECHNIQUE: PA and lateral views of the chest. COMPARISON: Comparison is made with prior examination dated June 19, 2018. FINDINGS: There now is evidence of a large amount of subcutaneous emphysema overlying the left thorax and anterior thorax. There is also evidence of increased markings at both lung bases suggestive of bibasilar atelectasis and/or infiltration. Tiny left lateral pneumothorax. Normal size heart. Normal mediastinum and jamey. Normal visualized pulmonary arteries. Normal visualized aortic arch and descending thoracic aorta. There are diffuse degenerative changes of the visualized thoracic spine. Once again, there is evidence of multiple left-sided rib fractures. There is no demonstrated abnormality of the visualized soft tissue structures of the upper abdomen. RAD/Chest PA and Lateral IMPRESSION: Bibasilar atelectasis and/or infiltrates with blunting of both costo phrenic angles. Tiny lateral left pneumothorax. Subcutaneous emphysema overlying the lateral and anterior aspect of the left chest. Multiple left-sided rib fractures. Electronically Signed: Uziel Balderas MD at 11:27 EDT Tel [phone], Service support ,
--- NOTE | 2018-06-21 10:59 | CASEMGMT ---
Social Work Note SW received consult for substance abuse. SW in to meet with pt. SW introduced self and role at [facility]. Pt is alert and orientated. Pt states that he lives with his who is able to assist pt when needed. Pt states that he is still in pain. SW informed pt that this worker will let medical staff know. SW discussed with pt HHC, outpatient therapy, and SNF. Pt states that he would like this worker to come back when his Oralia is at [facility]. SW explained that this worker will attempt to see pt later. SW explained Medicare requirements. Pt states understanding. Pt states that his was at [facility] before and that is probably where he would like to go if SNF is needed. Substance Abuse Hx: Pt confirms that he smokes a pack and half of cigarettes a day and that he drinks alcohol three times a week. Pt states that on Mondays and he drinks around 6-8 beers and on Thursday he drinks around 3-4. Pt states that he had too much to drink on Thursday and that is why he fell. Pt denied hurting himself any other time due to drinking. Pt denied receiving counseling services in the past and denied wanting substance abuse resources at this time. Mental Health Hx: Pt denied SW spoke with RN DAVID Palm who states pt will be made inpatient today but that medically pt won't get three midnight stay for qualifying stay at SNF. SW will follow up with pt once pt's Oralia is at [facility]. 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
[2018-06-21 12:05] LABS: Bedside Glucose 319 mg/dL (70-110)
[2018-06-21] MEDS: oxyCODONE CR 15 MG Tablet PO ×2 (12:08→21:46)
--- NOTE | 2018-06-21 13:50 | PCM.CONS.GEN ---
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-way use Diabetes mellitus complication status: with unspecified complications Qualified Code(s): E11.8 - Type 2 diabetes mellitus with unspecified complications (5) Tobacco use Status: Chronic (6) HLD (hyperlipidemia) Status: Chronic Qualifiers: Hyperlipidemia type: unspecified Qualified Code(s): E78.5 - Hyperlipidemia, unspecified (7) Chronic pain syndrome Status: Chronic (8) Left rib fracture Status: Acute Qualifiers: Encounter type: initial encounter Rib fracture type: multiple ribs Fracture type: closed Qualified Code(s): S22.42XA - Multiple fractures of ribs, left side, initial encounter for closed fracture (9) Left rib fracture Status: Acute Reason for Consult Date of Consultation: 06/21/18 Reason for Consultation: Pneumothorax History of Present Illness: The patient is a 73 year old M, with past medical history listed below, who presented to [facility] on 06/19/2018 secondary to left-sided chest pain. Patient reportedly has a history of alcoholism and had a fall at home after significant alcohol intake. Patient noted onset of severe pain with worsening dyspnea immediately after the fall. Patient was noted to have increased work of breathing, conversational dyspnea and some accessory muscle use. On presentation to the emergency room, patient was noted to be afebrile and saturating 93% on room air. D-dimer was within normal limits and alcohol level was increased at 211. A CT scan of the chest showed acute left-sided fifth and sixth rib fractures with nonspecific hilar adenopathy. Patient was given fentanyl, nitroglycerin and admitted to the floor. Over the last 2 days, patient has remained on room air, but was having significant pain. A chest x-ray completed today showed a tiny pneumothorax with subcutaneous emphysema. Patient's discharge was discontinued and a pulmonary consult was obtained. Patient reports his pain is unchanged from admission. Patient states that he has not been using the incentive spirometer secondary to pain. Patient does report attempting to walk around the hallways. Patient did describes the pain as sharp, 10 out of 10 and exacerbated with lying back. Patient does have a history of COPD and has been seen at the [facility] previously. Patient did have pulmonary function test, but is unaware of the results. Patient reports he has been compliant with his inhaler therapy and did not have any significant worsening in shortness of breath, change in sputum or cough prior to his fall. Patient does continue to smoke 2 packs/day. Patient denies any illicit drug use. Patient denies any occupational exposure. 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 Patient was placed on Coumadin in the past, but is currently only taking a baby aspirin for anticoagulation. Review of systems otherwise negative x10 systems. Past Medical History Past Medical History (Chronic Problems): Chronic Problems Alcohol abuse (Chronic) COPD (chronic obstructive pulmonary disease) (Chronic) Obesity (BMI 30.0-34.9) (Chronic) Diabetes mellitus, type II (Chronic) Tobacco use (Chronic) HLD (hyperlipidemia) (Chronic) Chronic pain syndrome (Chronic) Allergies No Known Allergies Allergy (Verified 06/20/18 02:14) Home Medications: Ambulatory Orders Medication Instructions Recorded Albuterol IH (ProAir) [Proair Hfa] 2 puff INHALATION Q4H PRN PRN 03/09/17 Aspirin [Aspir-Low] 81 mg PO DAILY 03/09/17 Atorvastatin Calcium [Lipitor] 20 mg PO QHS 03/09/17 Budesonide/Formoterol 160/4.5 2 puff INHALATION DAILY 03/09/17 [Symbicort 160/4.5 Mcg Inhaler (SP)] Ipratropium/Albuterol Respimat 1 puff INHALATION 4X/DAY PRN PRN 03/09/17 [Combivent Respimat Inhal [place]] Metformin HCl [Metformin HCl ER] 500 mg PO DAILY 03/09/17 Acetaminophen [Tylenol Tablet] 650 mg PO Q6H PRN PRN tablet 06/21/18 Cefadroxil [Duricef] 500 mg PO BID #3 cap 06/21/18 Folic Acid 1 mg PO DAILY@0800 tablet 06/21/18 Guaifenesin [Robitussin] 10 ml PO Q4H PRN PRN udc 06/21/18 Insulin Glargine,Hum.rec.anlog 75 unit SQ QHS #1 insuln.pen 06/21/18 [Lantus Solostar] Insulin Lispro [Humalog KwikPen] See Protocol SQ ACHS insuln.pen 06/21/18 Multivitamins,Ther W-Minerals 1 tablet PO DAILYCM tablet 06/21/18 [Multivitamin With Minerals] Nicotine Polacrilex [Nicotine Gum] 2 mg PO Q2H PRN PRN gum 06/21/18 Nicotine [Nicoderm Cq] 21 mg TRANSDERM. DAILY patch 06/21/18 Oxycodone HCl/Acetaminophen 1 tab PO Q4H PRN PRN #7 tab 06/21/18 [Percocet 5-325] Thiamine Hydrochloride [Vitamin B1] 100 mg PO DAILY tablet 06/21/18 Surgical History: no surgical history Psychiatric History: No pertinent psych hx Lives: Spouse/ Significant Other Smoking Status: Current every day smoker Tobacco Use: Cigarettes Alcohol: Heavy - 8-12 beers, occasional rum and coke also q , , Thursday. Drugs: None - *Family History Maternal History Items: Diabetes Paternal History Items: Diabetes Review of Systems Comment: See HPI Patient Problems: Active and Suspected Problems COPD with acute exacerbation (Acute) Left rib fracture (Acute) Left rib fracture (Acute) Chest wall pain (Acute) Alcohol intoxication (Acute) Objective: All imaging was personally reviewed. Patient does have some subpleural groundglass opacities with emphysematous changes on original CT. Patient also has rib fractures. Latest chest x-ray does show subcutaneous emphysema, but very minimal pneumothorax. - Physical Exam General: Alert, Oriented x3, Cooperative, No apparent distress, - - Agitated. Appears older than stated age. HEENT: Atraumatic, PERRLA, EOMI, Normocephalic, - - No scleral icterus or injection noted. Oral: Moist Mucosa, No Gingival or Mucosal Lesions/ Ulcerations, - - Mallampati 4 Neck: Supple, No JVD, No Nodes, Trachea Midline Lungs: No rhonchi, No wheeze, Diminished, Rales, - - Crepitus noted over the left chest Cardiovascular: Normal S1, Normal S2, No murmurs, No rub noted, No Gallop, Tachycardic Abdomen: Bowel Sounds Present, Soft, Non Tender, Non-Distended, Obese Extremities: No clubbing, No cyanosis, No edema, Capillary Refill Less than 3 Seconds Skin: No rashes, No breakdown, - - Overall rubor without diaphoresis was noted. Musculoskeletal: Tenderness - Palpation of the left chest Lymphatic: No Cervical, Supraclavicular, or Inguinal Adenopathy Neurological: Cranial nerves II-XII grossly intact, Neuro grossly intact, Motor Exam 5/5 strength throughout, Sensory exam intact to light touch and pain Psych/Mental Status: Agitated, Anxious, Restless Vital Signs Temp Pulse Resp BP Pulse Ox 36.7 C 120 H 20 H 122/63 H 92 06/21/18 07:46 06/21/18 11:37 06/21/18 11:37 06/21/18 07:46 06/21/18 07:46 Oxygen Flow Rate (L/min) 1 Oxygen Delivery Method Room Air Weight: 89.2 kg Body Mass Index (BMI) 31.7 Intake and Output for Last 24 Hours 06/19/18 06/20/18 06/21/18 23:59 23:59 23:59 Intake Total 757 / 757 700 / 700 Output Total 475 / 475 Balance 282 / 282 700 / 700 Laboratory Tests Past 24 Hrs 06/21/18 06/21/18 05:38 05:38 WBC 18.0 H RBC 4.43 L Hgb 14.4 Hct 43.9 MCV 99.1 H MCH 32.5 H MCHC 32.8 RDW 13.5 RDW Differential 49.1 H Plt Count 245 MPV 9.9 Immature Gran % (Auto) 0.300 Neut % (Auto) 86.9 H Lymph % (Auto) 4.0 L [place] % (Auto) 8.7 Eos % (Auto) 0.1 Baso % (Auto) 0.0 Absolute Neuts (auto) 15.7 H Absolute Lymphs (auto) 0.72 L Total Counted Not Reportable Differential Comment SCANNED Diff Path Review May foll Sodium 134 L Potassium 5.1 Chloride 99 Carbon Dioxide 25.0 Anion Gap 10 BUN 31 H Creatinine 1.06 Estim Creat Clear Calc 57.68 Est GFR (MDRD) Af Amer 89 Est GFR (MDRD) Non-Af 73 BUN/Creatinine Ratio 29.2 H Glucose 253 H Calcium 8.6 Magnesium 2.6 POC Glucose 06/21/18 06/21/18 06/20/18 12:00 06:34 21:23 POC Glucose 319 H 259 H 261 H 06/20/18 16:18 POC Glucose 209 H Clinical Impression(s) from Imaging Studies Chest X-Ray 06/19/18 23:20 IMPRESSION: There are no acute findings. Electronically Signed: Jass Garcia MD at 23:32 EDT , Service support , Chest CTA 06/19/18 23:52 IMPRESSION: 1. No CTA demonstrated pulmonary embolism or arterial dissection. 2. Acute left-sided rib fractures. 3. Nonspecific mediastinal and hilar lymphadenopathy. 4. Nonspecific right apical pulmonary nodule. Suggest follow-up as per Fleischner criteria. 5. Bilateral basilar airspace disease and/or atelectasis. Electronically Signed: Alysia Ferrari MD at 1:28 EDT , Service support , Chest X-Ray 06/21/18 10:32 IMPRESSION: Bibasilar atelectasis and/or infiltrates with blunting of both costo phrenic angles. Tiny lateral left pneumothorax. Subcutaneous emphysema overlying the lateral and anterior aspect of the left chest. Multiple left-sided rib fractures. Electronically Signed: Uziel Balderas MD at 11:27 EDT Tel [phone], Service support , Assessment/Plan All Active Problems COPD with acute exacerbation (Acute) Left rib fracture (Acute) Left rib fracture (Acute) Chest wall pain (Acute) Alcohol intoxication (Acute) RECOMMENDATIONS: 1. Add supplemental oxygen 2. Consult pain medicine for possible rib block 3. Encourage incentive spirometer 4. Likely okay to transition to prednisone therapy 5. Potential need for chest tube 6. NO NONINVASIVE VENTILATION without preemptive chest tube placement IMPRESSIONS: 1. Left pneumothorax secondary to acute left-sided rib fracture secondary to mechanical fall Patient with significant discomfort at this time and refusing to use incentive spirometer. Patient does have extensive subcutaneous emphysema appreciated, but lung is relatively expanded. Will attempt to add supplemental oxygen. Patient may require chest tube for control of pneumothorax. Attempting conservative management at this time. Will consult pain medicine for possible rib block. Patient should receive no positive pressure ventilation at this time unless a chest tube has been placed preemptively. Will obtain a chest x-ray in the morning. If patient has a pleural effusion, evaluation by cardiothoracic surgery may be indicated secondary to concern for hemothorax. If pneumothorax is worsened, a standard pneumo dart may be used to reduce tension. Any respiratory compromise over the next 24 hours should resulted in immediate chest x-ray. 2. COPD exacerbation secondary to rib fracture Patient does have extensive emphysematous changes and smoking history. Patient is currently on IV Solu-Medrol, but can likely be transitioned to prednisone therapy and wean over 12-14 days. Patient will be initiated on supplemental oxygen to help with pneumothorax. 3. Potential alcoholism Patient with reported significant alcohol intake. Patient is on CIWA protocol, multivitamin, thiamine and folic acid. Patient appears to be pre-contemplative at this time and is potentially going to sign out AMA secondary to an inability to smoke. 4. Diabetes mellitus/obesity/GERD/suspected FEMI/history of recurrent DVT Complicates care, management, recovery and prognosis. Patient should not receive any positive pressure ventilation at this time. Patient can have an outpatient sleep study. No anticoagulation given rib fractures. Code Visit Inpatient E&M: 99444 Init Hosp L3
--- NOTE | 2018-06-21 14:04 | CON.PCM_ITS ---
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 use Diabetes mellitus complication status: with unspecified complications Qualified Code(s): E11.8 - Type 2 diabetes mellitus with unspecified complications (5) Tobacco use Status: Chronic (6) HLD (hyperlipidemia) Status: Chronic Qualifiers: Hyperlipidemia type: unspecified Qualified Code(s): E78.5 - Hyperlipidemia, unspecified (7) Chronic pain syndrome Status: Chronic (8) Left rib fracture Status: Acute Qualifiers: Encounter type: initial encounter Rib fracture type: multiple ribs Fracture type: closed Qualified Code(s): S22.42XA - Multiple fractures of ribs, left side, initial encounter for closed fracture (9) Left rib fracture Status: Acute Reason for Consult Date of Consultation: 06/21/18 Reason for Consultation: Pneumothorax History of Present Illness: The patient is a 73 year old M, with past medical history listed below, who presented to [facility] on 06/19/2018 secondary to left-sided chest pain. Patient reportedly has a history of alcoholism and had a fall at home after significant alcohol intake. Patient noted onset of severe pain with worsening dyspnea immediately after the fall. Patient was noted to have increased work of breathing, conversational dyspnea and some accessory muscle use. On presentation to the emergency room, patient was noted to be afebrile and saturating 93% on room air. D-dimer was within normal limits and alcohol level was increased at 211. A CT scan of the chest showed acute left-sided fifth and sixth rib fractures with nonspecific hilar adenopathy. Patient was given fentanyl, nitroglycerin and admitted to the floor. Over the last 2 days, patient has remained on room air, but was having significant pain. A chest x-ray completed today showed a tiny pneumothorax with subcutaneous emphysema. Patient's discharge was discontinued and a pulmonary consult was obtained. Patient reports his pain is unchanged from admission. Patient states that he has not been using the incentive spirometer secondary to pain. Patient does report attempting to walk around the hallways. Patient did describes the pain as sharp, 10 out of 10 and exacerbated with lying back. Patient does have a history of COPD and has been seen at the [facility] previously. Patient did have pulmonary function test, but is unaware of the results. Patient reports he has been compliant with his inhaler therapy and did not have any significant worsening in shortness of breath, change in sputum or cough prior to his fall. Patient does continue to smoke 2 packs/day. Patient denies any illicit drug use. Patient denies any occupational exposure. 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 Patient was placed on Coumadin in the past, but is currently only taking a baby aspirin for anticoagulation. Review of systems otherwise negative x10 systems. Past Medical History Past Medical History (Chronic Problems): Chronic Problems Alcohol abuse (Chronic) COPD (chronic obstructive pulmonary disease) (Chronic) Obesity (BMI 30.0-34.9) (Chronic) Diabetes mellitus, type II (Chronic) Tobacco use (Chronic) HLD (hyperlipidemia) (Chronic) Chronic pain syndrome (Chronic) Allergies No Known Allergies Allergy (Verified 06/20/18 02:14) Home Medications: Ambulatory Orders Medication Instructions Recorded Albuterol IH (ProAir) [Proair Hfa] 2 puff INHALATION Q4H PRN PRN 03/09/17 Aspirin [Aspir-Low] 81 mg PO DAILY 03/09/17 Atorvastatin Calcium [Lipitor] 20 mg PO QHS 03/09/17 Budesonide/Formoterol 160/4.5 2 puff INHALATION DAILY 03/09/17 [Symbicort 160/4.5 Mcg Inhaler (SP)] Ipratropium/Albuterol Respimat 1 puff INHALATION 4X/DAY PRN PRN 03/09/17 [Combivent Respimat Inhal [place]] Metformin HCl [Metformin HCl ER] 500 mg PO DAILY 03/09/17 Acetaminophen [Tylenol Tablet] 650 mg PO Q6H PRN PRN tablet 06/21/18 Cefadroxil [Duricef] 500 mg PO BID #3 cap 06/21/18 Folic Acid 1 mg PO DAILY@0800 tablet 06/21/18 Guaifenesin [Robitussin] 10 ml PO Q4H PRN PRN udc 06/21/18 Insulin Glargine,Hum.rec.anlog 75 unit SQ QHS #1 insuln.pen 06/21/18 [Lantus Solostar] Insulin Lispro [Humalog KwikPen] See Protocol SQ ACHS insuln.pen 06/21/18 Multivitamins,Ther W-Minerals 1 tablet PO DAILYCM tablet 06/21/18 [Multivitamin With Minerals] Nicotine Polacrilex [Nicotine Gum] 2 mg PO Q2H PRN PRN gum 06/21/18 Nicotine [Nicoderm Cq] 21 mg TRANSDERM. DAILY patch 06/21/18 Oxycodone HCl/Acetaminophen 1 tab PO Q4H PRN PRN #7 tab 06/21/18 [Percocet 5-325] Thiamine Hydrochloride [Vitamin B1] 100 mg PO DAILY tablet 06/21/18 Surgical History: no surgical history Psychiatric History: No pertinent psych hx Lives: Spouse/ Significant Other Smoking Status: Current every day smoker Tobacco Use: Cigarettes Alcohol: Heavy - 8-12 beers, occasional rum and coke also q , , Thursday. Drugs: None - *Family History Maternal History Items: Diabetes Paternal History Items: Diabetes Review of Systems Comment: See HPI Patient Problems: Active and Suspected Problems COPD with acute exacerbation (Acute) Left rib fracture (Acute) Left rib fracture (Acute) Chest wall pain (Acute) Alcohol intoxication (Acute) Objective: All imaging was personally reviewed. Patient does have some subpleural groundglass opacities with emphysematous changes on original CT. Patient also has rib fractures. Latest chest x-ray does show subcutaneous emphysema, but very minimal pneumothorax. - Physical Exam General: Alert, Oriented x3, Cooperative, No apparent distress, - - Agitated. Appears older than stated age. HEENT: Atraumatic, PERRLA, EOMI, Normocephalic, - - No scleral icterus or injection noted. Oral: Moist Mucosa, No Gingival or Mucosal Lesions/ Ulcerations, - - Mallampati 4 Neck: Supple, No JVD, No Nodes, Trachea Midline Lungs: No rhonchi, No wheeze, Diminished, Rales, - - Crepitus noted over the left chest Cardiovascular: Normal S1, Normal S2, No murmurs, No rub noted, No Gallop, Tachycardic Abdomen: Bowel Sounds Present, Soft, Non Tender, Non-Distended, Obese Extremities: No clubbing, No cyanosis, No edema, Capillary Refill Less than 3 Seconds Skin: No rashes, No breakdown, - - Overall rubor without diaphoresis was noted. Musculoskeletal: Tenderness - Palpation of the left chest Lymphatic: No Cervical, Supraclavicular, or Inguinal Adenopathy Neurological: Cranial nerves II-XII grossly intact, Neuro grossly intact, Motor Exam 5/5 strength throughout, Sensory exam intact to light touch and pain Psych/Mental Status: Agitated, Anxious, Restless Vital Signs Temp Pulse Resp BP Pulse Ox 36.7 C 120 H 20 H 122/63 H 92 06/21/18 07:46 06/21/18 11:37 06/21/18 11:37 06/21/18 07:46 06/21/18 07:46 Oxygen Flow Rate (L/min) 1 Oxygen Delivery Method Room Air Weight: 89.2 kg Body Mass Index (BMI) 31.7 Intake and Output for Last 24 Hours 06/19/18 06/20/18 06/21/18 23:59 23:59 23:59 Intake Total 757 / 757 700 / 700 Output Total 475 / 475 Balance 282 / 282 700 / 700 Laboratory Tests Past 24 Hrs 06/21/18 06/21/18 05:38 05:38 WBC 18.0 H RBC 4.43 L Hgb 14.4 Hct 43.9 MCV 99.1 H MCH 32.5 H MCHC 32.8 RDW 13.5 RDW Differential 49.1 H Plt Count 245 MPV 9.9 Immature Gran % (Auto) 0.300 Neut % (Auto) 86.9 H Lymph % (Auto) 4.0 L [place] % (Auto) 8.7 Eos % (Auto) 0.1 Baso % (Auto) 0.0 Absolute Neuts (auto) 15.7 H Absolute Lymphs (auto) 0.72 L Total Counted Not Reportable Differential Comment SCANNED Diff Path Review May foll Sodium 134 L Potassium 5.1 Chloride 99 Carbon Dioxide 25.0 Anion Gap 10 BUN 31 H Creatinine 1.06 Estim Creat Clear Calc 57.68 Est GFR (MDRD) Af Amer 89 Est GFR (MDRD) Non-Af 73 BUN/Creatinine Ratio 29.2 H Glucose 253 H Calcium 8.6 Magnesium 2.6 POC Glucose 06/21/18 06/21/18 06/20/18 12:00 06:34 21:23 POC Glucose 319 H 259 H 261 H 06/20/18 16:18 POC Glucose 209 H Clinical Impression(s) from Imaging Studies Chest X-Ray 06/19/18 23:20 IMPRESSION: There are no acute findings. Electronically Signed: Jass Garcia MD at 23:32 EDT , Service support , Chest CTA 06/19/18 23:52 IMPRESSION: 1. No CTA demonstrated pulmonary embolism or arterial dissection. 2. Acute left-sided rib fractures. 3. Nonspecific mediastinal and hilar lymphadenopathy. 4. Nonspecific right apical pulmonary nodule. Suggest follow-up as per Fleischner criteria. 5. Bilateral basilar airspace disease and/or atelectasis. Electronically Signed: Alysia Ferrari MD at 1:28 EDT , Service support , Chest X-Ray 06/21/18 10:32 IMPRESSION: Bibasilar atelectasis and/or infiltrates with blunting of both costo phrenic angles. Tiny lateral left pneumothorax. Subcutaneous emphysema overlying the lateral and anterior aspect of the left chest. Multiple left-sided rib fractures. Electronically Signed: Uziel Balderas MD at 11:27 EDT Tel [phone], Service support , Assessment/Plan All Active Problems COPD with acute exacerbation (Acute) Left rib fracture (Acute) Left rib fracture (Acute) Chest wall pain (Acute) Alcohol intoxication (Acute) RECOMMENDATIONS: 1. Add supplemental oxygen 2. Consult pain medicine for possible rib block 3. Encourage incentive spirometer 4. Likely okay to transition to prednisone therapy 5. Potential need for chest tube 6. NO NONINVASIVE VENTILATION without preemptive chest tube placement IMPRESSIONS: 1. Left pneumothorax secondary to acute left-sided rib fracture secondary to mechanical fall Patient with significant discomfort at this time and refusing to use incentive spirometer. Patient does have extensive subcutaneous emphysema appreciated, but lung is relatively expanded. Will attempt to add supplemental oxygen. Patient may require chest tube for control of pneumothorax. Attempting conservative management at this time. Will consult pain medicine for possible rib block. Patient should receive no positive pressure ventilation at this time unless a chest tube has been placed preemptively. Will obtain a chest x-ray in the morning. If patient has a pleural effusion, evaluation by cardiothoracic surgery may be indicated secondary to concern for hemothorax. If pneumothorax is worsened, a standard pneumo dart may be used to reduce tension. Any respiratory compromise over the next 24 hours should resulted in immediate chest x-ray. 2. COPD exacerbation secondary to rib fracture Patient does have extensive emphysematous changes and smoking history. Patient is currently on IV Solu-Medrol, but can likely be transitioned to prednisone therapy and wean over 12-14 days. Patient will be initiated on supplemental oxygen to help with pneumothorax. 3. Potential alcoholism Patient with reported significant alcohol intake. Patient is on CIWA protocol, multivitamin, thiamine and folic acid. Patient appears to be pre- contemplative at this time and is potentially going to sign out AMA secondary to an inability to smoke. 4. Diabetes mellitus/obesity/GERD/suspected FEMI/history of recurrent DVT Complicates care, management, recovery and prognosis. Patient should not receive any positive pressure ventilation at this time. Patient can have an outpatient sleep study. No anticoagulation given rib fractures. Code Visit Inpatient E&M: 53378 Init Hosp L3
--- NOTE | 2018-06-21 14:34 | CASEMGMT ---
Social Work Note SW met with pt and pt's Oralia. SW discussed discharge planning with pt and pt's . SW educated pt and pt's Oralia on SNF, HHC, and outpatient therapy. SW explained that pt was in observation and that he is being made inpatient today so pt's first midnight won't be until tonight and pt will have to be at [facility] until for Medicare requirements. SW explained there has to be a medical reason to keep pt at [facility] and keeping him just for SNF placement is Medicare Fraud. SW informed pt that if he is medically ready to be discharged before it would be private pay for SNF. Pt states that if he is discharged before he will just go home at discharge. Pt states that his first choice for SNF would be [facility] and second choice would be [facility]. SW explained this worker will have to check on bed availability. Pt and pt's state understanding. SW faxed referral to Aide at [facility]. Plan: SNF pending acceptance and if pt will need to be medically kept at [facility] until . Brooklynn Bazan CLOCK ASSEMBLER, [employer]
--- NOTE | 2018-06-21 14:50 | CPS ---
Dr. Jacob wants 5 LPM no matter what SPO2 is.
--- NOTE | 2018-06-21 15:22 | CASEMGMT ---
Social Work Note ISRAEL spoke with Aide at [facility] [place]. Aide asked this worker about pt's behaviors. ISRAEL reviewed handoff communication and informed Aide that as of right now no behaviors have been reported. ISRAEL explained that when this worker talked to pt, pt was still in a lot of pain but was still able to answer questions and have a conversation with this worker. Aide states that she would like more updates on pt in the next few days and will make a determination based on pt's behaviors through the night and tomorrow. SW to follow along to assist with discharge planning. Plan: Discharge to [facility] [place] pending acceptance and three midnight stay Brooklynn Bazan TELEVISION MECHANIC, FACEPIECE LINE SUPERVISOR
[2018-06-21 17:35] LABS: Bedside Glucose 228 mg/dL (70-110)
[2018-06-21] MEDS: Lidocaine 5% Patch 2 PATCH TOPICAL (18:33)
[2018-06-21] MEDS: 0.9% NaCl Peripheral Flush Adult/Peds IV (19:43)
[2018-06-21] MEDS: Atorvastatin Calcium 20 MG Tablet PO (21:46)
[2018-06-21 22:10] LABS: Bedside Glucose 228 mg/dL (70-110)
[2018-06-22] VITALS (21 sets, daily range): BP systolic 115–147; BP diastolic 74–95; PULSE 84–109; RESP 16–22; TEMP 36.4–37.1; O2SAT 91–98; BMI 31.7
[2018-06-22] MEDS: Morphine 2 MG/ML Syringe IV ×3 (02:04→08:49)
[2018-06-22] MEDS: 0.9% NaCl Peripheral Flush Adult/Peds IV ×4 (02:04→23:10)
[2018-06-22] MEDS: oxyCODONE 5 MG Tablet PO ×4 (03:01→20:49)
[2018-06-22 05:36] LABS: Absolute Lymphocyte Count 1.01 X10^3/ul (0.83-4.51); Absolute Neutrophil Count 14.3 X10^3/uL (2.0-7.7); Hematocrit 44.6 % (40-54); Hemoglobin 14.8 g/dl (13.0-16.5); Lymphocyte # 1.01 X10^3/ul (4.0); Lymphocyte % 5.7 % (19-41); Mean Corp Hgb Conc 33.2 g/gl (32-36); Mean Corpuscular Volume 99.6 fL (80-94); Mean Platelet Vol. 9.7 fl (6.2-12.0); Monocyte% 13.5 % (0-10); Neutrophil # 14.26 X10^3/uL (2.7-7.7); Neutrophil % 80.3 % (47-70); Platelet Count 246 K/mm3 (150-450); RBC Distribution Width CV 13.7 % (11.6-14.6); RBC Distribution Width SD 50.1 fl (35.1-43.9); Red Blood Count 4.48 M/mm3 (4.6-6.2); White Blood Count 17.8 K/mm3 (4.4-11.0)
[2018-06-22 05:46] LABS: Anion Gap 7 (5-15); BUN 28 mg/dL (7-18); BUN/Creat Ratio 31.5 RATIO (10-20); Calcium,Total 8.7 mg/dL (8.5-10.1); Chloride 98 mmol/L (98-107); Creatinine, Serum 0.89 mg/dL (0.70-1.30); EST Glomerular Filtration Rate 90 mL/min (>60); Est Glom Filt Rate - Afr Amer 108 mL/min (>60); Glucose 174 mg/dL (74-106); Sodium Level 135 mmol/L (136-145)
[2018-06-22 05:53] LABS: Differential Indicated SCAN CRITERIA MET; POSITIVE COUNT NO; POSITIVE DIFFERENTIAL YES; POSITIVE MORPHOLOGY NO
--- NOTE | 2018-06-22 06:00 | RAD_ITS ---
STUDY: X-RAY CHEST REASON FOR EXAM: Male, 73 years old. History of rib fractures following a fall. TECHNIQUE: PA and lateral views of the chest. COMPARISON: Comparison is made with prior examination dated June 21, 2018. FINDINGS: EKG electrodes are seen. Since prior examination, there has been progression of the subcutaneous emphysema overlying the left anterior and lateral thoracic wall. There now is also evidence of subcutaneous emphysema overlying the right lateral upper abdominal wall. Stable increased markings at the lung bases suggestive of atelectasis. Stable tiny left lateral pneumothorax. Normal size heart. Normal mediastinum and jamey. Normal visualized pulmonary arteries. There is atherosclerotic calcification of the aortic arch with tortuosity. There are diffuse degenerative changes of the visualized thoracic spine. Stable multiple left-sided rib fractures. There is no demonstrated abnormality of the visualized soft tissue structures of the upper abdomen. RAD/Chest PA and Lateral IMPRESSION: Progressive subcutaneous emphysema worse in the left lateral chest. Stable atelectasis at the lung bases. Stable small left lateral pneumothorax. Electronically Signed: Uziel Balderas MD at 8:23 EDT Tel [phone], Service support ,
[2018-06-22 06:07] LABS: Differential Comment SCANNED
[2018-06-22] MEDS: Insulin Lispro 100 UNIT/ML INSULN.PEN SQ ×3 (06:28→20:55)
[2018-06-22 07:00] LABS: Bedside Glucose 169 mg/dL (70-110)
[2018-06-22] MEDS: Ipratropium/Albuterol Sulfate 3 ML AMPUL.NEB INHALATION ×5 (07:08→23:20)
--- NOTE | 2018-06-22 07:31 | CPS ---
Per Dr Jacob, pt needs to remain on 5L NC
[2018-06-22 07:59] LABS: Hemoglobin A1c 6.6 % (4.2-6.3)
--- NOTE | 2018-06-22 08:25 | PN_ITS ---
Patient Problems: Active and Suspected Problems COPD with acute exacerbation (Acute) Left rib fracture (Acute) Left rib fracture (Acute) Chest wall pain (Acute) Alcohol intoxication (Acute) Vitals/I&O's: Vital Signs Temp Pulse Resp BP Pulse Ox 98.2 F 107 H 22 H 134/74 H 98 06/22/18 01:59 06/22/18 07:08 06/22/18 07:08 06/22/18 01:59 06/22/18 07:14 Oxygen Flow Rate (L/min) 5 Oxygen Delivery Method Nasal Cannula Weight: 196 lb 10.437 oz Body Mass Index (BMI) 31.7 Intake and Output for Last 24 Hours 06/20/18 06/21/18 06/22/18 23:59 23:59 23:59 Intake Total 757 / 757 700 / 700 Output Total 475 / 475 825 / 825 200 / 200 Balance 282 / 282 -125 / -125 -200 / -200 Laboratory Results 06/21/18 12:00: POC Glucose 319 H 06/21/18 16:35: POC Glucose 228 H 06/21/18 21:45: POC Glucose 228 H 06/22/18 05:10: WBC 17.8 H, RBC 4.48 L, Hgb 14.8, Hct 44.6, MCV 99.6 H, MCH 33.0 H, MCHC 33.2, RDW 13.7, RDW Differential 50.1 H, Plt Count 246, MPV 9.7, Immature Gran % (Auto) 0.500, Neut % (Auto) 80.3 H, Lymph % (Auto) 5.7 L, Terrell % (Auto) 13.5 H, Eos % (Auto) 0.0, Baso % (Auto) 0.0, Absolute Neuts (auto) 14.3 H , Absolute Lymphs (auto) 1.01, Total Counted Not Reportable, Differential Comment SCANNED, Diff Path Review January06/22/18 05:10: Sodium 135 L, Potassium 5.0, Chloride 98, Carbon Dioxide 30.0, Anion Gap 7, BUN 28 H, Creatinine 0.89, Estim Creat Clear Calc 68.70, Est GFR (MDRD) Af Amer 108, Est GFR (MDRD) Non-Af 90, BUN/Creatinine Ratio 31.5 H, Glucose 174 H, Calcium 8.7 06/22/18 05:10: Hemoglobin A1c 6.6 H 06/22/18 06:26: POC Glucose 169 H Current Medications Acetaminophen (Tylenol) 650 mg PO Q6H PRN PRN PRN Reason: Mild Pain (scale 0-3)/T>100.7 Last Admin: 06/21/18 07:49 Dose: 650 mg Al Hydroxide/Mg Hydroxide (Mylanta Ii) 30 ml PO Q6H PRN PRN PRN Reason: Gastric burning Albuterol Sulfate (Ventolin Aerosols) 2.5 mg INHALATION Q2H PRN PRN PRN Reason: SHORTNESS OF BREATH Albuterol/Ipratropium (Duoneb) 3 ml INHALATION Q4H.RT [facility] Last Admin: 06/22/18 07:08 Dose: 3 ml [facility] Last Admin: 06/21/18 08:10 Dose: 162 mg Atorvastatin Calcium (Lipitor) 20 mg PO QHS [facility] Last Admin: 06/21/18 21:46 Dose: 20 mg Dextrose (D50w Syringe) 0 gm IV X1 PRN; Protocol PRN Reason: Hypoglycemia Enoxaparin Sodium (Lovenox) 40 mg SC DAILY@1000 [facility] Last Admin: 06/21/18 09:45 Dose: 40 mg Famotidine (Pepcid) 20 mg PO BID [facility] Last Admin: 06/21/18 21:46 Dose: 20 mg Glucagon () 1 mg IM .X1 PRN PRN Reason: Hypoglycemia Guaifenesin (Robitussin) 10 ml PO Q4H PRN PRN PRN Reason: COUGH Last Admin: 06/21/18 05:04 Dose: 10 ml Insulin Glargine (Lantus (Bkc)) 10 units SC DAILY [facility] Last Admin: 06/21/18 17:35 Dose: 10 u Insulin Human Lispro (Humalog Kwikpen (Bkc)) 0 unit SQ ACHS [facility]; Protocol Last Admin: 06/22/18 06:28 Dose: 1 units Lidocaine (Lidoderm Patch) 2 patch TOPICAL DAILY [facility]; Protocol Last Admin: 06/21/18 18:33 Dose: 2 patch Lorazepam (Ativan) 2 mg PO Q2H PRN PRN; Protocol PRN Reason: CIWA score > 8 but <15 Lorazepam (Ativan) 2 mg IV Q2H PRN PRN; Protocol PRN Reason: CIWA score > 8 but <15 Last Admin: 06/20/18 14:13 Dose: 2 mg Lorazepam (Ativan) 2 mg PO UD PRN; Protocol PRN Reason: CIWA score >/=15. Lorazepam (Ativan) 2 mg IV UD PRN; Protocol PRN Reason: CIWA score >/=15. Magnesium Hydroxide (Milk Of Magnesia) 30 ml PO DAILY PRN PRN PRN Reason: Constipation Metformin HCl [facility]ucophage Xr) [facility] Last Admin: 06/21/18 08:06 Dose: 500 mg Morphine Sulfate () 2 - 4 mg IV Q3H PRN PRN PRN Reason: Severe Pain (pain scale 6-10) Last Admin: 06/22/18 05:43 Dose: 2 mg Morphine Sulfate () 1 - 2 mg IV Q4H PRN PRN PRN Reason: Moderate Pain (pain scale 4-5) Multivitamins/Minerals ([facility]ivitamin With Minerals) [facility] Last Admin: 06/21/18 08:06 Dose: 1 tablet Nicotine (Nicoderm Cq (Pbkc)) 21 mg TRANSDERM. DAILY [facility] Last Admin: 06/21/18 09:44 Dose: 21 mg Nicotine Polacrilex (Rugby Nicotine (Bkc)) 2 mg PO Q2H PRN PRN PRN Reason: nicotine craving breakthrough Nutritional Formula (Lactose Free) (Glucerna Shake) 120 ml PO 4X/DAY [facility] Last Admin: 06/21/18 21:47 Dose: 120 ml Ondansetron HCl (Zofran) 4 mg IV Q8H PRN PRN PRN Reason: NAUSEA Oxycodone HCl (Oxyir) 5 - 10 mg PO Q4H PRN PRN PRN Reason: Moderate Pain (pain scale 4-5) Last Admin: 06/22/18 06:30 Dose: 10 mg Oxycodone HCl (Oxycontin) 15 mg PO BID [facility] Last Admin: 06/21/18 21:46 Dose: 15 mg Prednisone () 40 mg PO DAILY@0800 [facility] Promethazine HCl (Phenergan) 12.5 mg IV Q6H PRN PRN PRN Reason: NAUSEA/VOMITING Sodium Chloride () 5 - 30 ml IV UD PRN PRN Reason: SALINE FLUSH Last Admin: 06/22/18 05:43 Dose: 10 ml Thiamine HCl ([facility]itamin B1) [facility] Stop: 06/22/18 17:01 Last Admin: 06/21/18 16:37 Dose: 100 mg Medical Necessity - Tobacco Use Smoking Status: Current every day smoker Tobacco Use: Cigarettes Assessment/Plan All Active Problems COPD with acute exacerbation (Acute) Left rib fracture (Acute) Left rib fracture (Acute) Chest wall pain (Acute) Alcohol intoxication (Acute) This is a 73-year-old gentleman with history of chronic alcohol use, 8-12 cans beers along with vodka/hard drink about 4 days a week, COPD, nicotine dependence was admitted with left-sided chest pain after he fell down and hit his head after significant alcohol intake. Alcohol level in the ED is found 211. CT chest shows left-sided fifth and sixth rib fracture. Patient was admitted on the floor. 1. Acute left sided rib fractures due to mechanical fall: Patient was found to be short of breath, tachypneic and in severe left-sided lower chest pain, pulse ox 95% on 5 L of oxygen. Oxygen requirement has increased. Repeat chest x-ray today shows left lateral tiny pneumothorax. He advised intercostal nerve block by pain management. Positive pressure ventilation is contraindicated. PT and OT and respiratory therapy evaluation. 2. COPD exacerbation most probably exacerbated by recent fracture: CT chest reviewed shows emphysematous changes and right right lower lobe pneumatocele along with bibasilar atelectasis and infiltrates. On d bronchodilator. Discontinue Solu-Medrol and transition to prednisone. Incentive spirometry when pneumothorax resolved and pain is controlled. 3. Chronic alcohol use with acute alcohol intoxication, present on admission: On CIWA protocol. On multivitamin. Thiamine and folic acid. 4. Diabetes mellitus type 2: Blood sugar is uncontrolled. On IV Solu-Medrol also. Transition to prednisone. 5. Other chronic comorbidities include nicotine dependence, chronic alcohol use, obesity, GERD, suspected FEMI and remote history of DVT: Weight loss counseling done. Recommended outpatient sleep study when he is on baseline. Not on long-term anticoagulation. Multiple comorbidities complicates the present care and expect difficult and delay recovery DVT prophylaxis: On Lovenox Chest X-Ray 06/22/18 06:00 IMPRESSION: Progressive subcutaneous emphysema worse in the left lateral chest. Stable atelectasis at the lung bases. Stable small left lateral pneumothorax. Laboratory Results 06/20/18 16:18: POC Glucose 209 H 06/20/18 21:23: POC Glucose 261 H 06/21/18 05:38: WBC 18.0 H, RBC 4.43 L, Hgb 14.4, Hct 43.9, MCV 99.1 H, MCH 32.5 H, MCHC 32.8, RDW 13.5, RDW Differential 49.1 H, Plt Count 245, MPV 9.9, Immature Gran % (Auto) 0.300, Neut % (Auto) 86.9 H, Lymph % (Auto) 4.0 L, Terrell % (Auto) 8.7, Eos % (Auto) 0.1, Baso % (Auto) 0.0, Absolute Neuts (auto) 15.7 H, Absolute Lymphs (auto) 0.72 L, Total Counted Not Reportable, Differential Comment SCANNED, Diff Path Review January foll 06/21/18 05:38: Sodium 134 L, Potassium 5.1, Chloride 99, Carbon Dioxide 25.0, Anion Gap 10, BUN 31 H, Creatinine 1.06, Estim Creat Clear Calc 57.68, Est GFR (MDRD) Af Amer 89, Est GFR (MDRD) Non-Af 73, BUN/Creatinine Ratio 29.2 H, Glucose 253 H, Calcium 8.6, Magnesium 2.6 06/21/18 06:34: POC Glucose 259 H 06/21/18 12:00: POC Glucose 319 H Clinical Impression(s) from Imaging Studies Chest X-Ray 06/19/18 23:20 IMPRESSION: There are no acute findings. Chest CTA 06/19/18 23:52 IMPRESSION: 1. No CTA demonstrated pulmonary embolism or arterial dissection. 2. Acute left-sided rib fractures. 3. Nonspecific mediastinal and hilar lymphadenopathy. 4. Nonspecific right apical pulmonary nodule. Suggest follow-up as per Fleischner criteria. 5. Bilateral basilar airspace disease and/or atelectasis. Chest X-Ray 06/21/18 10:32 IMPRESSION: Bibasilar atelectasis and/or infiltrates with blunting of both costo phrenic angles. Tiny lateral left pneumothorax. Subcutaneous emphysema overlying the lateral and anterior aspect of the left chest. Multiple left-sided rib fractures.
--- NOTE | 2018-06-22 08:43 | PCM.PROGNOTE ---
Patient Problems: Active and Suspected Problems COPD with acute exacerbation (Acute) Left rib fracture (Acute) Left rib fracture (Acute) Chest wall pain (Acute) Alcohol intoxication (Acute) Subjective: Patient did okay overnight. Nursing reports that patient removed oxygen several times throughout the evening. Patient states the pain is well controlled, but nursing reports significant morphine and OxyIR overnight. Patient is reportedly to have a rib block later today. Patient reports subjective improvement in respiratory status. Objective: Chest x-ray was personally reviewed. There is increased subcutaneous emphysema, but pneumothorax appears to be stable. - Physical Exam General: Alert, Oriented x3, Cooperative, No apparent distress, - - More appropriate today. Obese. Speaking in full sentences. HEENT: Atraumatic, PERRLA, EOMI, Normocephalic, - - Scleral injection without icterus Oral: Moist Mucosa, No Gingival or Mucosal Lesions/ Ulcerations Neck: Supple, No JVD, No Nodes, Trachea Midline Lungs: No rhonchi, No wheeze, No rales, Diminished - Left, - - Crepitus noted throughout the left chest. Cardiovascular: Regular rate, Regular Rhythm, Normal S1, Normal S2, No murmurs, No rub noted, No Gallop Abdomen: Bowel Sounds Present, Soft, Non Tender, Non-Distended Extremities: No clubbing, No cyanosis, No edema, Capillary Refill Less than 3 Seconds Skin: No rashes, No breakdown, - - Ruber improved from yesterday Musculoskeletal: No Tenderness to Palpation of Joints or Extremities Lymphatic: No Cervical, Supraclavicular, or Inguinal Adenopathy Neurological: Cranial nerves II-XII grossly intact, Neuro grossly intact, Motor Exam 5/5 strength throughout Psych/Mental Status: Alert and oriented to time, place, person, mood and affect Vital Signs Temp Pulse Resp BP Pulse Ox 36.8 C 107 H 22 H 134/74 H 98 06/22/18 01:59 06/22/18 07:08 06/22/18 07:08 06/22/18 01:59 06/22/18 07:14 Oxygen Flow Rate (L/min) 5 Oxygen Delivery Method Nasal Cannula Weight: 89.2 kg Body Mass Index (BMI) 31.7 Intake and Output for Last 24 Hours 06/20/18 06/21/18 06/22/18 23:59 23:59 23:59 Intake Total 757 / 757 700 / 700 Output Total 475 / 475 825 / 825 200 / 200 Balance 282 / 282 -125 / -125 -200 / -200 Laboratory Tests Past 24 Hrs 06/22/18 06/22/18 06/22/18 05:10 05:10 05:10 WBC 17.8 H RBC 4.48 L Hgb 14.8 Hct 44.6 MCV 99.6 H MCH 33.0 H MCHC 33.2 RDW 13.7 RDW Differential 50.1 H Plt Count 246 MPV 9.7 Immature Gran % (Auto) 0.500 Neut % (Auto) 80.3 H Lymph % (Auto) 5.7 L Gregg % (Auto) 13.5 H Eos % (Auto) 0.0 Baso % (Auto) 0.0 Absolute Neuts (auto) 14.3 H Absolute Lymphs (auto) 1.01 Total Counted Not Reportable Differential Comment SCANNED Diff Path Review May foll Sodium 135 L Potassium 5.0 Chloride 98 Carbon Dioxide 30.0 Anion Gap 7 BUN 28 H Creatinine 0.89 Estim Creat Clear Calc 68.70 Est GFR (MDRD) Af Amer 108 Est GFR (MDRD) Non-Af 90 BUN/Creatinine Ratio 31.5 H Glucose 174 H Hemoglobin A1c 6.6 H Calcium 8.7 POC Glucose 06/22/18 06/21/18 06/21/18 06:26 21:45 16:35 POC Glucose 169 H 228 H 228 H 06/21/18 12:00 POC Glucose 319 H Clinical Impression(s) from Imaging Studies Chest X-Ray 06/21/18 10:32 IMPRESSION: Bibasilar atelectasis and/or infiltrates with blunting of both costo phrenic angles. Tiny lateral left pneumothorax. Subcutaneous emphysema overlying the lateral and anterior aspect of the left chest. Multiple left-sided rib fractures. Electronically Signed: Uziel Balderas MD at 11:27 EDT Tel [phone], Service support , Chest X-Ray 06/22/18 06:00 IMPRESSION: Progressive subcutaneous emphysema worse in the left lateral chest. Stable atelectasis at the lung bases. Stable small left lateral pneumothorax. Electronically Signed: Uziel Balderas MD at 8:23 EDT Tel [phone], Service support , Medical Necessity - Tobacco Use Smoking Status: Current every day smoker Tobacco Use: Cigarettes Assessment/Plan All Active Problems COPD with acute exacerbation (Acute) Left rib fracture (Acute) Left rib fracture (Acute) Chest wall pain (Acute) Alcohol intoxication (Acute) RECOMMENDATIONS: 1. Add supplemental oxygen 2. Await possible rib block 3. Encourage incentive spirometer 4. Transition to prednisone therapy 5. Potential need for chest tube 6. NO NONINVASIVE VENTILATION without preemptive chest tube placement IMPRESSIONS: 1. Left pneumothorax secondary to acute left-sided rib fracture secondary to mechanical fall Chest x-ray shows worsening subcutaneous emphysema, but pneumothorax is minimal. Patient has been removing oxygen for much of the evening. Stressed to the patient the importance of continuing supplemental oxygen to limit subcutaneous emphysema. Patient does not have any significant collapse of the lung, so chest tube is likely not indicated. Patient should not have any noninvasive ventilation and less chest tube is placed preemptively. 2. COPD exacerbation secondary to rib fracture Patient does have extensive emphysematous changes and smoking history. Wean prednisone therapy over 12-14 days. Patient will be initiated on supplemental oxygen to help with pneumothorax. Outpatient pulmonary function tests in 2-3 months would be appropriate. Patient will need to heal rib fracture prior to any breathing examination. 3. Potential alcoholism Patient with reported significant alcohol intake. Patient is on CIWA protocol, multivitamin, thiamine and folic acid. Patient appears to be pre-contemplative at this time and is potentially going to sign out AMA secondary to an inability to smoke. 4. Diabetes mellitus/obesity/GERD/suspected FEMI/history of recurrent DVT Complicates care, management, recovery and prognosis. Patient should not receive any positive pressure ventilation at this time. Patient can have an outpatient sleep study. No anticoagulation given rib fractures. Code Visit Inpatient E&M: 78317 Subs Hosp L3
--- NOTE | 2018-06-22 08:47 | PN_ITS ---
Patient Problems: Active and Suspected Problems COPD with acute exacerbation (Acute) Left rib fracture (Acute) Left rib fracture (Acute) Chest wall pain (Acute) Alcohol intoxication (Acute) Subjective: Patient did okay overnight. Nursing reports that patient removed oxygen several times throughout the evening. Patient states the pain is well controlled, but nursing reports significant morphine and OxyIR overnight. Patient is reportedly to have a rib block later today. Patient reports subjective improvement in respiratory status. Objective: Chest x-ray was personally reviewed. There is increased subcutaneous emphysema, but pneumothorax appears to be stable. - Physical Exam General: Alert, Oriented x3, Cooperative, No apparent distress, - - More appropriate today. Obese. Speaking in full sentences. HEENT: Atraumatic, PERRLA, EOMI, Normocephalic, - - Scleral injection without icterus Oral: Moist Mucosa, No Gingival or Mucosal Lesions/ Ulcerations Neck: Supple, No JVD, No Nodes, Trachea Midline Lungs: No rhonchi, No wheeze, No rales, Diminished - Left, - - Crepitus noted throughout the left chest. Cardiovascular: Regular rate, Regular Rhythm, Normal S1, Normal S2, No murmurs, No rub noted, No Gallop Abdomen: Bowel Sounds Present, Soft, Non Tender, Non-Distended Extremities: No clubbing, No cyanosis, No edema, Capillary Refill Less than 3 Seconds Skin: No rashes, No breakdown, - - Ruber improved from yesterday Musculoskeletal: No Tenderness to Palpation of Joints or Extremities Lymphatic: No Cervical, Supraclavicular, or Inguinal Adenopathy Neurological: Cranial nerves II-XII grossly intact, Neuro grossly intact, Motor Exam 5/5 strength throughout Psych/Mental Status: Alert and oriented to time, place, person, mood and affect Vital Signs Temp Pulse Resp BP Pulse Ox 36.8 C 107 H 22 H 134/74 H 98 06/22/18 01:59 06/22/18 07:08 06/22/18 07:08 06/22/18 01:59 06/22/18 07:14 Oxygen Flow Rate (L/min) 5 Oxygen Delivery Method Nasal Cannula Weight: 89.2 kg Body Mass Index (BMI) 31.7 Intake and Output for Last 24 Hours 06/20/18 06/21/18 06/22/18 23:59 23:59 23:59 Intake Total 757 / 757 700 / 700 Output Total 475 / 475 825 / 825 200 / 200 Balance 282 / 282 -125 / -125 -200 / -200 Laboratory Tests Past 24 Hrs 06/22/18 06/22/18 06/22/18 05:10 05:10 05:10 WBC 17.8 H RBC 4.48 L Hgb 14.8 Hct 44.6 MCV 99.6 H MCH 33.0 H MCHC 33.2 RDW 13.7 RDW Differential 50.1 H Plt Count 246 MPV 9.7 Immature Gran % (Auto) 0.500 Neut % (Auto) 80.3 H Lymph % (Auto) 5.7 L Rice % (Auto) 13.5 H Eos % (Auto) 0.0 Baso % (Auto) 0.0 Absolute Neuts (auto) 14.3 H Absolute Lymphs (auto) 1.01 Total Counted Not Reportable Differential Comment SCANNED Diff Path Review May foll Sodium 135 L Potassium 5.0 Chloride 98 Carbon Dioxide 30.0 Anion Gap 7 BUN 28 H Creatinine 0.89 Estim Creat Clear Calc 68.70 Est GFR (MDRD) Af Amer 108 Est GFR (MDRD) Non-Af 90 BUN/Creatinine Ratio 31.5 H Glucose 174 H Hemoglobin A1c 6.6 H Calcium 8.7 POC Glucose 06/22/18 06/21/18 06/21/18 06:26 21:45 16:35 POC Glucose 169 H 228 H 228 H 06/21/18 12:00 POC Glucose 319 H Clinical Impression(s) from Imaging Studies Chest X-Ray 06/21/18 10:32 IMPRESSION: Bibasilar atelectasis and/or infiltrates with blunting of both costo phrenic angles. Tiny lateral left pneumothorax. Subcutaneous emphysema overlying the lateral and anterior aspect of the left chest. Multiple left-sided rib fractures. Electronically Signed: Uziel Balderas MD at 11:27 EDT Tel [phone], Service support , Chest X-Ray 06/22/18 06:00 IMPRESSION: Progressive subcutaneous emphysema worse in the left lateral chest. Stable atelectasis at the lung bases. Stable small left lateral pneumothorax. Electronically Signed: Uziel Balderas MD at 8:23 EDT Tel [phone], Service support , Medical Necessity - Tobacco Use Smoking Status: Current every day smoker Tobacco Use: Cigarettes Assessment/Plan All Active Problems COPD with acute exacerbation (Acute) Left rib fracture (Acute) Left rib fracture (Acute) Chest wall pain (Acute) Alcohol intoxication (Acute) RECOMMENDATIONS: 1. Add supplemental oxygen 2. Await possible rib block 3. Encourage incentive spirometer 4. Transition to prednisone therapy 5. Potential need for chest tube 6. NO NONINVASIVE VENTILATION without preemptive chest tube placement IMPRESSIONS: 1. Left pneumothorax secondary to acute left-sided rib fracture secondary to mechanical fall Chest x-ray shows worsening subcutaneous emphysema, but pneumothorax is minimal. Patient has been removing oxygen for much of the evening. Stressed to the patient the importance of continuing supplemental oxygen to limit subcutaneous emphysema. Patient does not have any significant collapse of the lung, so chest tube is likely not indicated. Patient should not have any noninvasive ventilation and less chest tube is placed preemptively. 2. COPD exacerbation secondary to rib fracture Patient does have extensive emphysematous changes and smoking history. Wean prednisone therapy over 12-14 days. Patient will be initiated on supplemental oxygen to help with pneumothorax. Outpatient pulmonary function tests in 2-3 months would be appropriate. Patient will need to heal rib fracture prior to any breathing examination. 3. Potential alcoholism Patient with reported significant alcohol intake. Patient is on CIWA protocol, multivitamin, thiamine and folic acid. Patient appears to be pre- contemplative at this time and is potentially going to sign out AMA secondary to an inability to smoke. 4. Diabetes mellitus/obesity/GERD/suspected FEMI/history of recurrent DVT Complicates care, management, recovery and prognosis. Patient should not receive any positive pressure ventilation at this time. Patient can have an outpatient sleep study. No anticoagulation given rib fractures. Code Visit Inpatient E&M: 67334 Subs Hosp L3
--- NOTE | 2018-06-22 08:59 | PN_ITS ---
Patient Problems: Active and Suspected Problems COPD with acute exacerbation (Acute) Left rib fracture (Acute) Left rib fracture (Acute) Chest wall pain (Acute) Alcohol intoxication (Acute) Subjective: Pain is controlled now. As per the nursing note, patient had severe left-sided rib pain and was removing oxygen. Patient states if he does not move, his pain is controlled. Chest x-ray reviewed. Discussed with the vc++ developer. Vitals/I&O's: Vital Signs Temp Pulse Resp BP Pulse Ox 98.2 F 107 H 22 H 134/74 H 98 06/22/18 01:59 06/22/18 07:08 06/22/18 07:08 06/22/18 01:59 06/22/18 07:14 Oxygen Flow Rate (L/min) 5 Oxygen Delivery Method Nasal Cannula Weight: 196 lb 10.437 oz Body Mass Index (BMI) 31.7 Intake and Output for Last 24 Hours 06/20/18 06/21/18 06/22/18 23:59 23:59 23:59 Intake Total 757 / 757 700 / 700 Output Total 475 / 475 825 / 825 200 / 200 Balance 282 / 282 -125 / -125 -200 / -200 General: Alert, Oriented x3, Cooperative HEENT: Atraumatic, PERRLA, EOMI, Normocephalic Neck: Supple, No JVD, Negative Carotid Bruits Lungs: Diminished, Rhonchi, Short of Breath, - - Subcutaneous emphysema on left side. Tiny pneumothorax on left lateral site Left rib fracture Cardiovascular: Regular rate, No murmurs Abdomen: Bowel Sounds Present, Soft, Non Tender Extremities: No edema, Capillary Refill Less than 3 Seconds Skin: No rashes, No breakdown Musculoskeletal: No Tenderness to Palpation of Joints or Extremities Neurological: Cranial nerves II-XII grossly intact Psych/Mental Status: Normal Affect, Appropriate Laboratory Results 06/21/18 12:00: POC Glucose 319 H 06/21/18 16:35: POC Glucose 228 H 06/21/18 21:45: POC Glucose 228 H 06/22/18 05:10: WBC 17.8 H, RBC 4.48 L, Hgb 14.8, Hct 44.6, MCV 99.6 H, MCH 33.0 H, MCHC 33.2, RDW 13.7, RDW Differential 50.1 H, Plt Count 246, MPV 9.7, Immature Gran % (Auto) 0.500, Neut % (Auto) 80.3 H, Lymph % (Auto) 5.7 L, [place] % (Auto) 13.5 H, Eos % (Auto) 0.0, Baso % (Auto) 0.0, Absolute Neuts (auto) 14.3 H , Absolute Lymphs (auto) 1.01, Total Counted Not Reportable, Differential Comment SCANNED, Diff Path Review January06/22/18 05:10: Sodium 135 L, Potassium 5.0, Chloride 98, Carbon Dioxide 30.0, Anion Gap 7, BUN 28 H, Creatinine 0.89, Estim Creat Clear Calc 68.70, Est GFR (MDRD) Af Amer 108, Est GFR (MDRD) Non-Af 90, BUN/Creatinine Ratio 31.5 H, Glucose 174 H, Calcium 8.7 06/22/18 05:10: Hemoglobin A1c 6.6 H 06/22/18 06:26: POC Glucose 169 H Current Medications Acetaminophen (Tylenol) 650 mg PO Q6H PRN PRN PRN Reason: Mild Pain (scale 0-3)/T>100.7 Last Admin: 06/21/18 07:49 Dose: 650 mg Al Hydroxide/Mg Hydroxide (Mylanta Ii) 30 ml PO Q6H PRN PRN PRN Reason: Gastric burning Albuterol Sulfate (Ventolin Aerosols) 2.5 mg INHALATION Q2H PRN PRN PRN Reason: SHORTNESS OF BREATH Albuterol/Ipratropium (Duoneb) 3 ml INHALATION Q4H.RT [facility] Last Admin: 06/22/18 07:08 Dose: 3 ml Aspirin (Ecotrin) 162 mg PO DAILYCM [facility] Last Admin: 06/21/18 08:10 Dose: 162 mg Atorvastatin Calcium (Lipitor) 20 mg PO QHS [facility] Last Admin: 06/21/18 21:46 Dose: 20 mg Dextrose (D50w Syringe) 0 gm IV X1 PRN; Protocol PRN Reason: Hypoglycemia Enoxaparin Sodium (Lovenox) 40 mg SC DAILY@1000 [facility] Last Admin: 06/21/18 09:45 Dose: 40 mg Famotidine (Pepcid) 20 mg PO BID [facility] Last Admin: 06/21/18 21:46 Dose: 20 mg Glucagon () 1 mg IM .X1 PRN PRN Reason: Hypoglycemia Guaifenesin (Robitussin) 10 ml PO Q4H PRN PRN PRN Reason: COUGH Last Admin: 06/21/18 05:04 Dose: 10 ml Insulin Glargine (Lantus (Bkc)) 10 units SC DAILY [facility] Last Admin: 06/21/18 17:35 Dose: 10 u Insulin Human Lispro (Humalog Kwikpen (Bkc)) 0 unit SQ ACHS [facility]; Protocol Last Admin: 06/22/18 06:28 Dose: 1 units Lidocaine (Lidoderm Patch) 2 patch TOPICAL DAILY [facility]; Protocol Last Admin: 06/21/18 18:33 Dose: 2 patch Lorazepam (Ativan) 2 mg PO Q2H PRN PRN; Protocol PRN Reason: CIWA score > 8 but <15 Lorazepam (Ativan) 2 mg IV Q2H PRN PRN; Protocol PRN Reason: CIWA score > 8 but <15 Last Admin: 06/20/18 14:13 Dose: 2 mg Lorazepam (Ativan) 2 mg PO UD PRN; Protocol PRN Reason: CIWA score >/=15. Lorazepam (Ativan) 2 mg IV UD PRN; Protocol PRN Reason: CIWA score >/=15. Magnesium Hydroxide (Milk Of Magnesia) 30 ml PO DAILY PRN PRN PRN Reason: Constipation [facility]) [facility] Last Admin: 06/21/18 08:06 Dose: 500 mg Morphine Sulfate () 2 - 4 mg IV Q3H PRN PRN PRN Reason: Severe Pain (pain scale 6-10) Last Admin: 06/22/18 08:49 Dose: 2 mg Morphine Sulfate () 1 - 2 mg IV Q4H PRN PRN PRN Reason: Moderate Pain (pain scale 4-5) Multivitamins/Minerals (Multivitamin With Minerals) [facility] tablet [facility] Last Admin: 06/21/18 08:06 Dose: 1 tablet Nicotine (Nicoderm Cq (Pbkc)) 21 mg TRANSDERM. DAILY [facility] Last Admin: 06/21/18 09:44 Dose: 21 mg Nicotine Polacrilex (Rugby Nicotine (Bkc)) 2 mg PO Q2H PRN PRN PRN Reason: nicotine craving breakthrough Nutritional Formula (Lactose Free) (Glucerna Shake) 120 ml PO 4X/DAY [facility] Last Admin: 06/22/18 08:39 Dose: Not Given Ondansetron HCl (Zofran) 4 mg IV Q8H PRN PRN PRN Reason: NAUSEA Oxycodone HCl (Oxyir) 5 - 10 mg PO Q4H PRN PRN PRN Reason: Moderate Pain (pain scale 4-5) Last Admin: 06/22/18 06:30 Dose: 10 mg Oxycodone HCl (Oxycontin) 15 mg PO BID [facility] Last Admin: 06/21/18 21:46 Dose: 15 mg Prednisone () 40 mg PO DAILY@0800 [facility] Promethazine HCl (Phenergan) 12.5 mg IV Q6H PRN PRN PRN Reason: NAUSEA/VOMITING Sodium Chloride () 5 - 30 ml IV UD PRN PRN Reason: SALINE FLUSH Last Admin: 06/22/18 08:49 Dose: 10 ml Thiamine HCl (Vitamin B1) [facility] Stop: 06/22/18 17:01 Last Admin: 06/21/18 16:37 Dose: 100 mg Medical Necessity - Tobacco Use Smoking Status: Current every day smoker Tobacco Use: Cigarettes Assessment/Plan All Active Problems COPD with acute exacerbation (Acute) Left rib fracture (Acute) Left rib fracture (Acute) Chest wall pain (Acute) Alcohol intoxication (Acute) This is a 73-year-old gentleman with history of chronic alcohol use, 8-12 cans beers along with vodka/hard drink about 4 days a week, COPD, nicotine dependence was admitted with left-sided chest pain after he fell down and hit his head after significant alcohol intake. Alcohol level in the ED is found 211. CT chest shows left-sided fifth and sixth rib fracture. Patient was admitted on the floor. 1. Acute left sided rib fractures due to mechanical fall: Patient was found to be short of breath, tachypneic and in severe left-sided lower chest pain, pulse ox 95% on 5 L of oxygen. Oxygen requirement has increased. Repeat chest x-ray shows increase in subcutaneous emphysema but tiny left pneumothorax but left lung is not collapsed. At this point of time, chest tube is not indicated. Discussed with Dr. Jacob and he advised intercostal nerve block by pain management is a scheduled about 1 PM today. Positive pressure ventilation is contraindicated. PT and OT and respiratory therapy evaluation. 2. COPD exacerbation most probably exacerbated by recent fracture: CT chest reviewed shows emphysematous changes and right right lower lobe pneumatocele a long with bibasilar atelectasis and infiltrates. On d bronchodilator. Discontinue Solu-Medrol and transition to prednisone. Incentive spirometry when pneumothorax resolved and pain is controlled. 3. Chronic alcohol use with acute alcohol intoxication, present on admission: On CIWA protocol. On multivitamin. Thiamine and folic acid. 4. Diabetes mellitus type 2: Blood sugar is uncontrolled. On IV Solu-Medrol also. Transition to prednisone. 5. Other chronic comorbidities include nicotine dependence, chronic alcohol use, obesity, GERD, suspected FEMI and remote history of DVT: Weight loss counseling done. Recommended outpatient sleep study when he is on baseline. Not on long-term anticoagulation. Multiple comorbidities complicates the present care and expect difficult and delay recovery DVT prophylaxis: On Lovenox Laboratory Results 06/20/18 16:18: POC Glucose 209 H 06/20/18 21:23: POC Glucose 261 H 06/21/18 05:38: WBC 18.0 H, RBC 4.43 L, Hgb 14.4, Hct 43.9, MCV 99.1 H, MCH 32.5 H, MCHC 32.8, RDW 13.5, RDW Differential 49.1 H, Plt Count 245, MPV 9.9, Immature Gran % (Auto) 0.300, Neut % (Auto) 86.9 H, Lymph % (Auto) 4.0 L, [place] % (Auto) 8.7, Eos % (Auto) 0.1, Baso % (Auto) 0.0, Absolute Neuts (auto) 15.7 H, Absolute Lymphs (auto) 0.72 L, Total Counted Not Reportable, Differential Comment SCANNED, Diff Path Review January06/21/18 05:38: Sodium 134 L, Potassium 5.1, Chloride 99, Carbon Dioxide 25.0, Anion Gap 10, BUN 31 H, Creatinine 1.06, Estim Creat Clear Calc 57.68, Est GFR (MDRD) Af Amer 89, Est GFR (MDRD) Non-Af 73, BUN/Creatinine Ratio 29.2 H, Glucose 253 H, Calcium 8.6, Magnesium 2.6 06/21/18 06:34: POC Glucose 259 H 06/21/18 12:00: POC Glucose 319 H Clinical Impression(s) from Imaging Studies Chest X-Ray 06/19/18 23:20 IMPRESSION: There are no acute findings. Chest CTA 06/19/18 23:52 IMPRESSION: 1. No CTA demonstrated pulmonary embolism or arterial dissection. 2. Acute left-sided rib fractures. 3. Nonspecific mediastinal and hilar lymphadenopathy. 4. Nonspecific right apical pulmonary nodule. Suggest follow-up as per Fleischner criteria. 5. Bilateral basilar airspace disease and/or atelectasis. Chest X-Ray 06/21/18 10:32 IMPRESSION: Bibasilar atelectasis and/or infiltrates with blunting of both costo phrenic angles. Tiny lateral left pneumothorax. Subcutaneous emphysema overlying the lateral and anterior aspect of the left chest. Multiple left-sided rib fractures. Chest X-Ray 06/22/18 06:00 IMPRESSION: Progressive subcutaneous emphysema worse in the left lateral chest. Stable atelectasis at the lung bases. Stable small left lateral pneumothorax. Code Visit Inpatient E&M: 05297 [facility] Hosp L3
[2018-06-22 09:25] LABS: Pathologist Review Reviewed
--- NOTE | 2018-06-22 09:49 | CASEMGMT ---
Addendum entered by Brooklynn Bazan 06/22/18 11:37: SW updated pt and pt's that this worker is still waiting to hear from [facility] if they are able to accept. Pt and pt's states understanding. Original Note: Social Work Note SW faxed updated clinicals to [facility] [place]. Plan: Discharge to [facility] [place] pending acceptance Brooklynn Bazan BARREL BUILDER, CYLINDER PRESS OPERATOR HELPER
[2018-06-22 11:41] LABS: Bedside Glucose 144 mg/dL (70-110)
--- NOTE | 2018-06-22 12:09 | NURSING ---
REPORT CALLED TO [facility] IN [facility] FOR SURGERY
--- NOTE | 2018-06-22 13:15 | RAD_ITS ---
STUDY: X-RAY - THORACIC SPINE REASON FOR EXAM: Male, 73 years old. T4-6 intercostal block. TECHNIQUE: Fluoroscopic assistance was provided to Dr. Kolb. 40.1 seconds of fluoroscopy was used, and 3 fluoroscopic spot view(s) of the thoracic spine were obtained. COMPARISON: None. FINDINGS: The images demonstrate sequential positioning of a needle at the 4-6 costovertebral junctions. Small contrast injection is made at each site to document position. RAD/Thoracic Spine 3 Views IMPRESSION: 4-6 intercostal nerve blocks. Electronically Signed: Miguel Matias MD at 19:01 EDT , Service support ,
[2018-06-22 13:33] LABS: Pathologist Review Reviewed
[2018-06-22] MEDS: Bupivacaine Mpf 0.5% 30 ML VIAL (13:46)
[2018-06-22] MEDS: Triamcinolone Acetonide 40 MG/ML Vial (13:46)
[2018-06-22] MEDS: 0.9% Saline Lock 10 ML Syringe IV (13:47)
[2018-06-22] MEDS: Thiamine Hydrochloride 100 MG Tablet PO ×2 (14:52→16:41)
[2018-06-22] MEDS: Multivitamins,Ther W-Minerals Tablet 1 TABLET PO (14:52)
[2018-06-22] MEDS: predniSONE 20 MG Tablet 40 MG PO (14:52)
[2018-06-22] MEDS: Famotidine 20 MG Tablet PO ×2 (14:52→20:56)
[2018-06-22] MEDS: Aspirin E.C. 81 MG Tablet 162 MG PO (14:52)
[2018-06-22] MEDS: Lidocaine 5% Patch 2 PATCH TOPICAL (14:54)
[2018-06-22] MEDS: Enoxaparin 40 MG/0.4 ML Syringe SC (14:55)
[2018-06-22] MEDS: oxyCODONE CR 15 MG Tablet PO ×2 (14:58→23:08)
[2018-06-22] MEDS: Folic Acid 1 MG Tablet PO (15:04)
--- NOTE | 2018-06-22 16:29 | CASEMGMT ---
Social Work Note SW received call from Aide at [facility] [place] stating as long as pt doesn't develop any bizarre behaviors tonight pt is able to discharge to [facility] tomorrow. Plan: Discharge to [facility] tomorrow Brooklynn Bazan BRAND ACTIVATION MANAGER, PSYCHIATRIC NURSING AIDE
[2018-06-22] MEDS: Glucerna Shake 120 ML LIQUID PO ×2 (16:40→21:01)
[2018-06-22 16:45] LABS: Bedside Glucose 152 mg/dL (70-110)
[2018-06-22] MEDS: Atorvastatin Calcium 20 MG Tablet PO (20:56)
[2018-06-22 23:05] LABS: Bedside Glucose 337 mg/dL (70-110)
[2018-06-23 03:01] VITALS: PULSE 75
[2018-06-23 03:10] VITALS: BP 110/67; PULSE 79; RESP 20; TEMP 36.9; O2SAT 96
[2018-06-23 04:00] VITALS: PULSE 89; RESP 20
[2018-06-23] MEDS: Ipratropium/Albuterol Sulfate 3 ML AMPUL.NEB INHALATION ×2 (04:00→07:08)
--- NOTE | 2018-06-23 05:55 | RAD_ITS ---
STUDY: X-RAY CHEST REASON FOR EXAM: Male, 73 years old. Pneumothorax follow-up. TECHNIQUE: PA and lateral views of the chest. COMPARISON: PA and lateral chest x-ray June 22, 2018 FINDINGS: The residual lateral left pneumothorax is virtually resolved, with some minor thickening down the left lateral pleural stripe. The lungs are underexpanded, and there is persistent bibasilar volume loss and crowding/subsegmental atelectasis. The heart size is upper normal. Normal mediastinum and jamey. Normal visualized pulmonary arteries. There is stable atherosclerotic calcification of the aortic arch. There are stable multilevel degenerative changes of the visualized thoracic spine. 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 Subcutaneous emphysema in the soft tissues of the left chest wall grossly unchanged. There is been mild progression of subcutaneous emphysema now on the right, extending into the superficial right lateral chest wall/axilla. There is no demonstrated abnormality of the visualized soft tissue structures of the upper abdomen. RAD/Chest PA and Lateral IMPRESSION: 1. Left pneumothorax no longer apparent. There is mild pleural thickening at the lateral left base. 2. Suboptimal inspiratory effort with bibasilar crowding/atelectasis. 3. Mild worsening of subcutaneous emphysema on the right lateral chest wall/axilla. Subcutaneous emphysema on the left is unchanged. Electronically Signed: Miguel Matias MD at 12:12 EDT , Service support ,
[2018-06-23] MEDS: oxyCODONE 5 MG Tablet PO (06:49)
[2018-06-23] MEDS: Magnesium Hydroxide 30 ML UDC PO (06:49)
[2018-06-23] MEDS: Insulin Lispro 100 UNIT/ML INSULN.PEN SQ ×2 (06:50→12:17)
[2018-06-23 07:06] LABS: Bedside Glucose 169 mg/dL (70-110)
[2018-06-23 07:08] VITALS: PULSE 85; RESP 18; O2SAT 96
[2018-06-23 07:59] VITALS: PULSE 86
[2018-06-23 08:20] VITALS: BP 126/79; PULSE 98; RESP 18; TEMP 37; O2SAT 94
[2018-06-23 08:21] LABS: Absolute Lymphocyte Count 1.22 X10^3/ul (0.83-4.51); Absolute Neutrophil Count 9.1 X10^3/uL (2.0-7.7); Differential Indicated SCAN CRITERIA MET; Eosinophil# 0.01 X10^3/uL; Eosinophils% 0.1 % (0-5); Hemoglobin 14.5 g/dl (13.0-16.5); Lymphocyte # 1.22 X10^3/ul (4.0); Lymphocyte % 10.2 % (19-41); Mean Corp Hgb Conc 33.7 g/gl (32-36); Mean Corpuscular Hgb 32.7 pg (27.0-32.0); Mean Corpuscular Volume 97.1 fL (80-94); Mean Platelet Vol. 9.5 fl (6.2-12.0); Monocyte# 1.53 X10^3/uL; Monocyte% 12.8 % (0-10); Neutrophil # 9.11 X10^3/uL (2.7-7.7); Neutrophil % 76.4 % (47-70); POSITIVE COUNT NO; POSITIVE DIFFERENTIAL YES; POSITIVE MORPHOLOGY NO; Platelet Count 217 K/mm3 (150-450); RBC Distribution Width CV 13.7 % (11.6-14.6); RBC Distribution Width SD 49.5 fl (35.1-43.9); Red Blood Count 4.43 M/mm3 (4.6-6.2); White Blood Count 11.9 K/mm3 (4.4-11.0)
[2018-06-23] MEDS: Multivitamins,Ther W-Minerals Tablet 1 TABLET PO (08:25)
[2018-06-23] MEDS: Aspirin E.C. 81 MG Tablet 162 MG PO (08:25)
[2018-06-23] MEDS: Glucerna Shake 120 ML LIQUID PO (08:26)
[2018-06-23] MEDS: Famotidine 20 MG Tablet PO (08:26)
[2018-06-23] MEDS: predniSONE 20 MG Tablet 40 MG PO (08:26)
[2018-06-23 08:42] LABS: Anion Gap 5 (5-15); BUN 22 mg/dL (7-18); BUN/Creat Ratio 27.8 RATIO (10-20); Calcium,Total 8.6 mg/dL (8.5-10.1); Chloride 98 mmol/L (98-107); Creatinine, Serum 0.79 mg/dL (0.70-1.30); EST Glomerular Filtration Rate 103 mL/min (>60); Est Glom Filt Rate - Afr Amer 124 mL/min (>60); Estimated Creatinine Clearance 61.14 ml/min; Glucose 151 mg/dL (74-106); Potassium 4.6 mmol/L (3.5-5.1); Sodium Level 136 mmol/L (136-145)
[2018-06-23] MEDS: Enoxaparin 40 MG/0.4 ML Syringe SC (09:42)
[2018-06-23] MEDS: Lidocaine 5% Patch 2 PATCH TOPICAL (09:45)
[2018-06-23] MEDS: oxyCODONE CR 15 MG Tablet PO (09:46)
--- NOTE | 2018-06-23 09:53 | PN_ITS ---
Patient Problems: Active and Suspected Problems COPD with acute exacerbation (Acute) Left rib fracture (Acute) Left rib fracture (Acute) Chest wall pain (Acute) Alcohol intoxication (Acute) Subjective: Patient had rib block completed yesterday and reported some improvement following the procedure. However, after sleeping overnight, patient reports significant worsening this morning. Patient does not believe his dyspnea is any different compared to yesterday. Patient denies any productive cough. Objective: Morning chest x-ray was personally reviewed. Patient with extensive subcutaneous emphysema, but no pneumothorax changes noted. - Physical Exam General: Alert, Oriented x3, Cooperative, No apparent distress, - - More agitated today. Obese. Speaking in full sentences. HEENT: Atraumatic, PERRLA, EOMI, Normocephalic, - - Right scleral injection without icterus Oral: Moist Mucosa, No Gingival or Mucosal Lesions/ Ulcerations Neck: Supple, No JVD, No Nodes, Trachea Midline Lungs: No rhonchi, No wheeze, No rales, Diminished, - - Crepitus throughout the left chest Cardiovascular: Regular rate, Regular Rhythm, Normal S1, Normal S2, No murmurs, No rub noted, No Gallop Abdomen: Bowel Sounds Present, Soft, Non Tender, Non-Distended, Obese Extremities: No clubbing, No cyanosis, No edema, Capillary Refill Less than 3 Seconds Skin: No rashes, No breakdown Musculoskeletal: No Tenderness to Palpation of Joints or Extremities Lymphatic: No Cervical, Supraclavicular, or Inguinal Adenopathy Neurological: Cranial nerves II-XII grossly intact, Neuro grossly intact, Motor Exam 5/5 strength throughout Psych/Mental Status: Anxious, Restless Vital Signs Temp Pulse Resp BP Pulse Ox 37.0 C 98 18 126/79 H 94 06/23/18 08:20 06/23/18 08:20 06/23/18 08:20 06/23/18 08:20 06/23/18 08:20 Oxygen Flow Rate (L/min) 5 Oxygen Delivery Method Nasal Cannula Weight: 89.2 kg Body Mass Index (BMI) 31.7 Intake and Output for Last 24 Hours 06/21/18 06/22/18 06/23/18 23:59 23:59 23:59 Intake Total 700 / 700 300 / 300 610 / 610 Output Total 825 / 825 200 / 200 750 / 750 Balance -125 / -125 100 / 100 -140 / -140 Laboratory Tests Past 24 Hrs 06/22/18 06/23/18 06/23/18 05:10 08:00 08:00 WBC 11.9 H RBC 4.43 L Hgb 14.5 Hct 43.0 MCV 97.1 H MCH 32.7 H MCHC 33.7 RDW 13.7 RDW Differential 49.5 H Plt Count 217 MPV 9.5 Immature Gran % (Auto) 0.500 Neut % (Auto) 76.4 H Lymph % (Auto) 10.2 L [place] % (Auto) 12.8 H Eos % (Auto) 0.1 Baso % (Auto) 0.0 Absolute Neuts (auto) 9.1 H Absolute Lymphs (auto) 1.22 Total Counted Not Reportable Diff Path Review Reviewed Sodium 136 Potassium 4.6 Chloride 98 Carbon Dioxide 33.0 H Anion Gap 5 BUN 22 H Creatinine 0.79 Estim Creat Clear Calc 61.14 Est GFR (MDRD) Af Amer 124 Est GFR (MDRD) Non-Af 103 BUN/Creatinine Ratio 27.8 H Glucose 151 H Calcium 8.6 POC Glucose 06/23/18 06/22/18 06/22/18 06:48 20:54 16:39 POC Glucose 169 H 337 H 152 H 06/22/18 11:32 POC Glucose 144 H Clinical Impression(s) from Imaging Studies Thoracic Spine X-Ray 06/22/18 13:15 IMPRESSION: 4-6 intercostal nerve blocks. Electronically Signed: Miguel Matias MD at 19:01 EDT , Service support , Medical Necessity - Tobacco Use Smoking Status: Current every day smoker Tobacco Use: Cigarettes Assessment/Plan All Active Problems COPD with acute exacerbation (Acute) Left rib fracture (Acute) Left rib fracture (Acute) Chest wall pain (Acute) Alcohol intoxication (Acute) RECOMMENDATIONS: 1. Continue supplemental oxygen 2. Aggressive pain control 3. Encourage incentive spirometer 4. Wean steroid therapy over the next 12-14 days 5. Less potential need for chest tube 6. NO NONINVASIVE VENTILATION without preemptive chest tube placement IMPRESSIONS: 1. Left pneumothorax secondary to acute left-sided rib fracture secondary to mechanical fall Chest x-ray shows worsening subcutaneous emphysema, but pneumothorax is minimal. Patient has been better about continuing supplemental oxygen. Stressed to the patient the importance of continuing supplemental oxygen to limit subcutaneous emphysema. Patient does not have any significant collapse of the lung, so chest tube is likely not indicated. Patient should not have any noninvasive ventilation unless chest tube is placed preemptively. 2. COPD exacerbation secondary to rib fracture Patient does have extensive emphysematous changes and smoking history. Wean prednisone therapy over 12-14 days. Patient will be initiated on supplemental oxygen to help with pneumothorax. Outpatient pulmonary function tests in 2-3 months would be appropriate. Patient will need to heal rib fracture prior to any breathing examination. 3. Potential alcoholism Patient with reported significant alcohol intake. Patient is on CIWA protocol, multivitamin, thiamine and folic acid. Patient appears to be pre- contemplative at this time and is potentially going to sign out AMA secondary to an inability to smoke. 4. Diabetes mellitus/obesity/GERD/suspected FEMI/history of recurrent DVT Complicates care, management, recovery and prognosis. Patient should not receive any positive pressure ventilation at this time. Patient can have an outpatient sleep study. No anticoagulation given rib fractures. Code Visit Inpatient E&M: 98045 [facility] Hosp L2
--- NOTE | 2018-06-23 09:58 | CASEMGMT ---
Addendum entered by Laney Pang 06/23/18 13:50: is here now, SW spoke w/pt and in the hallway by the nurse's station. SW explained that physician is working on the discharge instructions at present, and we will get them sent off to [facility] as soon as they are completed. SW encouraged pt to stay at [facility] as he does not have oxygen set up for home if he goes there and leaves. Pt and state understanding, pt states that he would just call his PCP and get the prescription from him. SW explained that there is testing that needs done and that he would not be able to call the PCP. SW explained if he does not stay at [facility], he may need to come back to the ED. also reiterated to pt that he needs to wear the O2 or his lung could collapse. Pt acknowledged this and that it is his fault if he does not wear oxygen and his lung collapses. Pt is still insistent take pt to [facility], even though he will not have oxygen in transport. SW completed hospital exemption, faxed this with discharge instructions and med list to [facility], Schedule II to [facility]. SW explained to pt and that doctor wrote for O2 to be on to keep pt above 95%. SW explained to pt that this is the recommendation, he has the right to refuse. Pt states understanding. At this point pt is agreeing to go to [facility]. SW called Aide at [facility] and let her know that pt is on his way with his , let her know pt will want to talk w/them about his oxygen and that he will not wear it 13/04. Aide states that pt has that right, and they would just document pt is non compliant. ISRAEL explained that SW encouraged pt to stay at [facility] once he gets there. No further needs, pt to [facility] today. MASSIMO Akers, COMPUTER PATTERNMAKER Original Note: Addendum entered by Laney Pang 06/23/18 13:24: SW spoke w/physician, pt needs O2 to keep O2 level above 92%, also physician states pt should go to SNF for medical monitoring. SW spoke to pt about this, pt is now sitting fully dressed out by the elevators. Pt is in agreement w/going to [facility], but is going to talk to them before going in that he does not want to wear the oxygen all day every day. If they say he has to he will not stay. SW encouraged pt to stay as if he does not, oxygen is not set up for pt at home. Pt states understanding, states he will go without it or just ask his PCP to get it for him. SW again gently explained pt should really have oxygen when he leaves, so if he does not stay at [facility] it will not be set up. Pt then talked about [place] and that this is not [place], and that he cannot be made to do something he does not want to do, [place]. SW acknowledged it is his right to refuse the oxygen here and at [facility]. Pt also states his will drive him, SW explained he should wear O2 in transport, pt states he knows this but still wants his to drive him. Pt is asking for the papers to be done as soon as possible, SW explained the doctor is working on the papers now, and once they are done SW will give them to the to take w/them to [facility]. SW now awaiting discharge instructions. MASSIMO Akers, COMPUTER PATTERNMAKER Original Note: Addendum entered by Laney Pang 06/23/18 12:48: SW spoke w/pt and , explained that Medicare will cover custodial placement, pt has had a qualifying stay. Pt is walking with little to no assist, but does need oxygen, 5LPM at present. Pt does not have oxygen at home. Pt explained to SW that he wants to leave as soon as possible. Pt wants to take him to [facility]. SW spoke w/ about placement, she states that initially they were told pt had to go due to pain and difficulty ambulating. acknowledges that pt is doing better and having less pain. However, pt is to be on the oxygen and in the past would not wear it at home. states whatever the doctor thinks she will go along with. She did ask if [facility] is a smoking facility, as this may be a factor in whether or not pt would stay at the custodial. SW will find out, and SW also explained will speak to pt. SW spoke w/[facility], they do not allow smoking. SW spoke w/pt, let him know that [facility] does not allow smoking. Pt states he is okay with this. SW explained also that would not be able to take pt since he needs to be on the oxygen all the time. Pt states if the doctor writes in the orders he has to be on oxygen all the time and needs to be on oxygen all the time at [facility], he will just go home. SW explained will ask the doctor. SW texted physician, he is going to check w/the extension work director. SW also asked pt if he were to go home, we will likely need to order oxygen for pt at home. Pt is agreeable to this but again states he will not wear it all the time, states it's his choice, and that this is not [place]. SW waiting to hear back from physician regarding pt's oxygen needs, and will then speak w/pt and after that. MASSIMO Akers, COMPUTER PATTERNMAKER Original Note: As per the chart, pt was appropriate overnight. SW called [facility], confirmed that they can take pt today if he is ready. SW received a message from , SW called back, message left. SW will continue to follow for anticipated discharge to [facility] later today. MASSIMO Akers, COMPUTER PATTERNMAKER
--- NOTE | 2018-06-23 12:27 | NURSING ---
Addendum entered by Allyn Campbell 06/23/18 16:34: after multiple attempts to call report to the [facility], this RN was able to speak with a nurse at 1530. asked to give report about pt, and they stated that pt refused admission to their facility due to their non-smoking policy. they offered to refer him to a smoking facility, but he refused and stated he would just go home. spoke with ISRAEL Gillette as Laney had left for the day to update. they were also notified by the [facility] and informed ED about pt possibly returning due to O2 requirements. Original Note: Addendum entered by Allyn Campbell 06/23/18 14:09: pt was very belligerent regarding discharge. making demands about leaving prior to discharge paperwork, stating I have been patient for 4 days now and I have rights. agreed that the pt had rights which he was demonstrating by refusing to wear oxygen. pt very upset and would not wait for discharge information in room. informed pt that due to patient privacy, he cannot wait by the desk for the discharge, but that he is welcome to wait by the elevators or in the waiting room. pt chose to wait by elevators but frequently coming up to nurses station. pt has spoke multiple times with ISRAEL Davison, charge nurse, and this nurse. Original Note: pt is walking in hallway, stating he is ready to leave. requesting to go outside. states the hospital shouldn't be a group home. explained to patient we are still waiting on discharge orders. at this time, he is refusing to wear supplemental oxygen. explained purpose to pt and he continue to refuse.
[2018-06-23 12:36] LABS: Bedside Glucose 209 mg/dL (70-110)
--- NOTE | 2018-06-23 13:40 | PCM.TXEXTCAR ---
- Diet 06/22/18 14:57 ADA [Diet: Cardiac: Calorie-Controlled] Is pt able to select menu?: Yes How many daily calories?: 1800 calorie - Routine Orders/Code Status Suppository Type: Dulcolax 10mg Suppository Frequency: Daily PRN Code Status: Full Code - Wound(s) left elbow Wound Type: Hematoma left forehead Wound Type: Abrasion LT BACK AREA Wound Type: Puncture - Therapies Weight Bearing: Weight bearing as tolerated Physical Therapy: Eval and Treat Occupational Therapy: Eval and Treat Speech Therapy: Eval and Treat - Allergies/Procedures Done in Hospital Allergies/Adverse Reactions: Allergies No Known Allergies Allergy (Verified 06/20/18 02:14) - Type of Care/Length of Stay Estimated LOS: Convalescent Care Less Than 30 days Type of Care Needed: Skilled Rehab Potential: Good Prognosis: Good - Additional Orders/Day of Discharge Additional Orders: Patient had left lower rib fractures and subcutaneous emphysema. Needs further respiratory care like incentive spirometry and chest physiotherapy Day of Discharge: 06/21/18 - Dietary and Speech Recommendations Dietitian Recommendations/Changes: Pt declines diet education - requesting he has a regular diet so he can order what he wants - he states he is starving on 1800 brandi diet and that he shouldn't have to starve and be in pain too. - Follow Up Care Primary Care Physician: Tadeo Ferrer MD [Primary Care Provider] - Please follow up with your Primary Care Physician in: in 2 weeks Please Follow Up With: Souleymane Jacob MD When: in 4 weeks
--- NOTE | 2018-06-23 13:42 | DS.PCM_ITS ---
Discharge Date and Diagnosis Date of Admission: 06/20/18 Date of Discharge: 06/23/18 - Primary Discharge Diagnosis Active and Suspected Problems COPD with acute exacerbation (Acute) Left rib fracture (Acute) Left rib fracture (Acute) Chest wall pain (Acute) Alcohol intoxication (Acute) Acute left sided rib fractures due to mechanical fall with tiny left lateral pneumothorax: - Secondary Discharge Diagnosis Chronic Problems Alcohol abuse (Chronic) COPD (chronic obstructive pulmonary disease) (Chronic) Obesity (BMI 30.0-34.9) (Chronic) Diabetes mellitus, type II (Chronic) Tobacco use (Chronic) HLD (hyperlipidemia) (Chronic) Chronic pain syndrome (Chronic) Hospital Course and Treatment Imaging Results: 06/23/18 05:55 CXR [Chest PA and Lateral] [RAD] AM (NON MEDS) Summary of Care Provided: This is a 73-year-old gentleman with history of chronic alcohol use, 8-12 cans beers along with vodka/hard drink about 4 days a week, COPD, nicotine dependence was admitted with left-sided chest pain after he fell down and hit his head after significant alcohol intake. Alcohol level in the ED is found 211. CT chest shows left-sided fifth and sixth rib fracture. Patient was admitted on the floor. Patient was seen and examined today. Patient initially was upset but was advised SNF for further respiratory monitoring of refracture, pain control, incentive spirometry. Patient had mild shortness of breath when he slept but he felt comfortable on the recliner. Patient can move left upper extremity and has no significant rib pain. General: Alert, Oriented x3, Cooperative HEENT: Atraumatic, PERRLA, EOMI, Normocephalic Neck: Supple, No JVD, Negative Carotid Bruits Lungs: Diminished, Rhonchi, Short of Breath, - - Subcutaneous emphysema on left side. No significant rib tenderness. Cardiovascular: Regular rate, No murmurs Abdomen: Bowel Sounds Present, Soft, Non Tender Extremities: No edema, Capillary Refill Less than 3 Seconds Skin: No rashes, No breakdown Musculoskeletal: No Tenderness to Palpation of Joints or Extremities Neurological: Cranial nerves II no longer apparent seen XII grossly intact Psych/Mental Status: Normal Affect, Appropriate 1. Acute left sided rib fractures due to mechanical fall with tiny left lateral pneumothorax: Patient was found to be short of breath, tachypneic and in severe left-sided lower chest pain, pulse ox 95% on 5 L of oxygen. Oxygen requirement has increased. Repeat chest x-ray shows increase in subcutaneous emphysema but tiny left pneumothorax but left lung is not collapsed. At this point of time, chest tube is not indicated. Patient had intercostal nerve block by pain management on 06/22. Positive pressure ventilation is contraindicated. Repeat chest x-ray was done. Left pneumothorax was not seen on x-rays but mild pleural thickening at the lateral left base. 2. COPD exacerbation most probably exacerbated by recent fracture: CT chest reviewed shows emphysematous changes and right right lower lobe pneumatocele along with bibasilar atelectasis and infiltrates. On d bronchodilator. Discontinue Solu-Medrol and transition to prednisone. Incentive spirometry when pneumothorax resolved and pain is controlled. Patient is discharged on tapering dose of prednisone. Advised to continue incentive spirometry, chest physiotherapy. 3. Chronic alcohol use with acute alcohol intoxication, present on admission: On CIWA protocol. Discharged on vitamin, thiamine and folic acid. 4. Diabetes mellitus type 2: Blood sugar is uncontrolled. Transition to prednisone. 5. Other chronic comorbidities include nicotine dependence, chronic alcohol use, obesity, GERD, suspected FEMI and remote history of DVT: Weight loss counseling done. Recommended outpatient sleep study when he is on baseline. Not on long-term anticoagulation. Multiple comorbidities complicates the present care and expect difficult and delay recovery DVT prophylaxis: On Lovenox Discharge medication reconciliation done. Follow-up instructions completed. Patient discharged to SNF. His prescription was given for Percocet 1 tablet q. 4 hourly as needed for severe pain total 7 tablets. Total time spent, exact 35 minutes on discharge meds reconciliation, examination, review of imaging and blood test and discussion with the patient on follow-up instructions. Clinical Impression(s) from Imaging Studies Chest X-Ray 06/23/18 05:55 IMPRESSION: 1. Left pneumothorax no longer apparent. There is mild pleural thickening at the lateral left base. 2. Suboptimal inspiratory effort with bibasilar crowding/atelectasis. 3. Mild worsening of subcutaneous emphysema on the right lateral chest wall/axilla. Subcutaneous emphysema on the left is unchanged. Home Medications: Medications to take at Discharge Albuterol IH (ProAir) [Proair Hfa] 2 puff INHALATION Q4H PRN PRN 03/09/17 Aspirin [Aspir-Low] 81 mg PO DAILY 03/09/17 Atorvastatin Calcium [Lipitor] 20 mg PO QHS 03/09/17 Budesonide/Formoterol 160/4.5 [Symbicort 160/4.5 Mcg Inhaler (SP)] 2 puff INHALATION DAILY 03/09/17 Ipratropium/Albuterol Respimat [Combivent Respimat Inhal [place]] 1 puff INHALATION 4X/DAY PRN PRN 03/09/17 Metformin HCl [Metformin HCl ER] 500 mg PO DAILY 03/09/17 Acetaminophen [Tylenol Tablet] 650 mg PO Q6H PRN PRN tablet 06/21/18 Folic Acid 1 mg PO DAILY@0800 tablet 06/21/18 Guaifenesin [Robitussin] 10 ml PO Q4H PRN PRN udc 06/21/18 Insulin Glargine,Hum.rec.anlog [Lantus Solostar] 75 unit SQ QHS #1 insuln.pen 06/21/18 Insulin Lispro [Humalog KwikPen] See Protocol SQ ACHS insuln.pen 06/21/18 Multivitamins,Ther W-Minerals [Multivitamin With Minerals] 1 tablet PO DAILYCM tablet 06/21/18 Nicotine Polacrilex [Nicotine Gum] 2 mg PO Q2H PRN PRN gum 06/21/18 Nicotine [Nicoderm Cq] 21 mg TRANSDERM. DAILY patch 06/21/18 Oxycodone HCl/Acetaminophen [Percocet 5-325] 1 tab PO Q4H PRN PRN #7 tab 06/21/18 Thiamine Hydrochloride [Vitamin B1] 100 mg PO DAILY tablet 06/21/18 Following Prescrptions Were Given to Patient: Oxycodone HCl/Acetaminophen [Percocet 5-325] 1 tab PO Q4H PRN PRN #7 tab PRN Reason: Severe Pain (6-06/30) Insulin Glargine,Hum.rec.anlog [Lantus Solostar] 75 unit SQ QHS #1 insuln.pen Primary Care Physician: Tadeo Ferrer MD [Primary Care Provider] - Please follow up with your Primary Care Physician in: in 2 weeks Please Follow Up With: Souleymane Jacob MD When: in 4 weeks Medical Necessity - Tobacco Use Smoking Status: Current every day smoker Tobacco Use: Cigarettes Meaningful Use Info Meaningful Use Diagnoses (Choose all that apply): None applicable Code Visit Inpatient E&M: 37046 Disch Hosp
== END 2018-06-23 13:52 | disposition home or self-care (01) | DRG 184 ==
LOC: ED 06-20 01:48 → MS2 06-20 02:01 → ED 06-20 02:10 → MS2 06-20 07:18
PROVIDERS: Anesthesiology; Anesthesiology Pain Medicine; Student in an Organized Health Care Education/Training Program; Admitting Provider Family Medicine; Emergency Provider Emergency Medicine; Family Provider Internal Medicine; PCP Internal Medicine; Visit Provider Internal Medicine
PROC: 3E0R3BZ Introduction of Anesthetic Agent into Spinal Canal, Percutaneous Approach (ICD-10-PCS; CPT 62281; principal; 2018-06-22 08:05)
DX: S22.42XA Multiple fractures of ribs, left side, initial encounter for closed fracture (principal); J44.1 Chronic obstructive pulmonary disease with (acute) exacerbation; S27.0XXA Traumatic pneumothorax, initial encounter; F10.129 Alcohol abuse with intoxication, unspecified; Y90.7 Blood alcohol level of 200-239 mg/100 ml; W10.9XXA Fall (on) (from) unspecified stairs and steps, initial encounter; F17.210 Nicotine dependence, cigarettes, uncomplicated; E11.65 Type 2 diabetes mellitus with hyperglycemia; K21.9 Gastro-esophageal reflux disease without esophagitis; E66.9 Obesity, unspecified; G89.4 Chronic pain syndrome; Z79.4 Long term (current) use of insulin; Z68.31 Body mass index [BMI] 31.0-31.9, adult; E78.5 Hyperlipidemia, unspecified; Z86.718 Personal history of other venous thrombosis and embolism
CPT/HCPCS: 36415; 64490; 71045; 71046; 71275; 72072; 80048; 80320; 82962; 83036; 83735; 84100; 84484; 85025; 85379; 85610; 85730; 93005; 94640; 97116; 97161; 97165; 97530; 97802; 99283; 99406; Q9967; A4216; G0480

== ENCOUNTER 2024-03-18 17:40 | Emergency (ER) | payer MEDICARE, OTHER, SELFPAY ==
[2024-03-18 17:41] VITALS: BP 142/62; PULSE 101; RESP 20; TEMP 36.1; O2SAT 94
[2024-03-18 18:01] VITALS: BMI 31.5
[2024-03-18] MEDS: HYDROcodone Bitartrate/Apap 5/325 Tablet PO (18:20)
[2024-03-18 18:28] LABS: Mucous, Urine 0 SEEN /hpf (<or=2+)
[2024-03-18 18:31] LABS: Color, Urine Yellow (Yellow); Glucose, Dipstick Normal (Normal); Ketone-Dipstick 5 mg/dl (Negative); Leukocyte Esterase-Dipstick 25 /ul (Negative); Nitrite-Dipstick Negative (Negative); Occult Blood-Urine Negative /ul (Negative); Protein-Dipstick 30 mg/dl (Negative); Specific Gravity, Urine 1.025 (1.002-1.030); Urine Bilirubin Dipstick Negative (Negative); Urine Clarity Sl. Cloudy (Clear); Urine Urobilinogen 1 mg/dl (Normal)
[2024-03-18 18:55] LABS: Red Blood Cells-Urine 0-5 SEEN /hpf (0-5); White Blood Cells 0-5 SEEN /hpf (0-5)
[2024-03-18 18:56] LABS: Bacteria 2+ /hpf (None Seen); Renal Epithelial Cells 0-5 SEEN /hpf (0-5); Squamous Epithelial Cells - UA 0-5 SEEN /hpf (0-5); Transitional Epithelial - Ur 0-5 SEEN /hpf (0-5)
[2024-03-18 18:57] LABS: Hyaline Cast 10-25 SEEN /lpf (0-5)
--- NOTE | 2024-03-18 19:03 | EDS_ITS ---
HPI History of Present Illness Chief Complaint: Edema Detail of Chief Complaint: Edema of lower extremities and posterior right thigh pain Informant: patient Onset/Context/Timing Onset: Days and Weeks Context: Sudden Onset (The posterior right thigh pain started abruptly a couple of days ago.) Timing: Continuous Quality: Pain Location: Posterior thigh Current Severity: Mild Maximum Severity: Severe [facility] Medical History (Updated 03/18/24 @ 20:[address] Danny Bernard MD) Hyperlipemia Diabetes COPD (chronic obstructive pulmonary disease) Home Medications ?Medication ?Instructions ?Recorded ?Last Taken ?Type albuterol sulfate 90 mcg/actuation 2 puff inhalation Q4H PRN PRN 03/09/17 Unknown History aerosol inhaler (ProAir HFA) Shortness Of Breath aspirin 81 mg tablet,delayed 81 mg PO DAILY heart health 03/09/17 06/19/18 History release (Aspir-Low) atorvastatin 20 mg tablet 20 mg PO QHS chlosterol 03/09/17 06/18/18 History ipratropium 20 mcg-albuterol 100 1 puff inhalation 4X/DAY PRN PRN 03/09/17 06/19/18 History mcg/actuation mist for inhalation Sob &/Or Wheezing (Combivent Respimat) metformin 500 mg 24 hr 500 mg PO DAILY DM2 03/09/17 06/19/18 History tablet,extended release (gastric retention) folic acid 1 mg tablet 1 mg PO DAILY@0800 06/21/18 Unknown Rx guaifenesin 100 mg/5 mL oral liquid 10 ml PO Q4H PRN PRN COUGH 06/21/18 Unknown Rx insulin glargine 100 unit/mL (3 75 unit (0.75 mL) SQ QHS ##1 06/21/18 Unknown Rx mL) subcutaneous pen insulin lispro 100 unit/mL See Protocol SQ ACHS 06/21/18 Unknown Rx subcutaneous pen (Humalog KwikPen (U-100) Insulin) multivitamin,co-pqun-zseetrkn 27 1 tab PO DAILYCM 06/21/18 Unknown Rx mg-0.4 mg tablet (Therems-M) nicotine (polacrilex) 2 mg gum 2 mg PO Q2H PRN PRN nicotine 06/21/18 Unknown Rx craving breakthrough nicotine 21 mg/24 hr daily 21 mg TRANSDERM. DAILY 06/21/18 Unknown Rx transdermal patch hydrocodone-acetaminophen 5-325mg 1 tab PO Q6H PRN PRN Pain 3 days 03/18/24 Unknown Rx 5mg-325mg #10 TABLETS Allergy/AdvReac Type Severity Reaction Status Date / Time No Known Allergies Allergy Verified 03/18/24 18:09 Family History no significant family his Social History (Updated 03/18/24 @ 18:03 by Marisol House) household members: spouse housing: house current occupational status: retired Smoking Status: Current every day smoker tobacco type: cigarettes ROS ROS ED Constitutional Constitutional ED: Denies chills, fever(s), subjective, sweats or weight loss Eyes Eyes: Denies blurry vision, change in vision or diplopia Cardiovascular Cardiovascular: Denies chest pain, orthopnea, palpitations or paroxysmal nocturnal dyspnea Respiratory/Chest Respiratory/Chest: Denies cough, dyspnea, dyspnea on exertion, orthopnea or paroxysmal nocturnal dyspnea Gastrointestinal Gastrointestinal: Denies abdominal pain, diarrhea, melena, nausea or vomiting Musculoskeletal Musculoskeletal: Reports other Details: Pain posterior right thigh ; Denies arthralgias, back pain, myalgias or neck pain Integumentary Denies rash Neurologic Neurologic: Denies headache(s), paresthesias or weakness Endocrine Endocrinology: Denies cold intolerance or heat intolerance Hematologic/Lymphatic Hematologic/Lymphatic: Reports systems reviewed and no addt'l complaints, except as documented EXAM Physical Exam Const Vital Signs: 03/18/24 17:41 03/18/24 19:41 Temperature 97 F L Temperature Source Temporal Pulse Rate 101 H 108 H Respiratory Rate 20 H 18 Blood Pressure 142/62 H 118/77 Blood Pressure Mean 88 90 Pulse Ox 94 92 Oxygen Delivery Method Room Air Room Air Positive well nourished and well developed General Appearance ED: well developed and NAD; Negative for pallor HEENT Reports moist mucous membranes HEENT Narrative: Head is atraumatic normocephalic. Ears normal. Nares patent. Posterior pharynx is normal. Eyes PERRL and EOMs intact bilaterally General Eye ED: Negative for pale conjunctiva or scleral icterus Neck no lymphadenopathy, supple and no JVD Chest Wall inspection of chest normal and palpation of chest normal Resp normal respiratory effort and clear to auscultation bilaterally Cardio regular rate, regular rhythm, S1 normal heart sound and S2 normal heart sound GI normal to inspection, nondistended, normoactive bowel sounds, non-tender, non- distended and no masses; Negative for hepatosplenomegaly Back/Spine no CVA tenderness Extremity normal to inspection Extremity Narrative: There is no asymmetry, discoloration, leg vein distention, palpable cords tenderness on the distribution deep venous system. General Extremety ED: Yes edema General Extremity: edema Neuro oriented x3, CN's II-XII intact bilaterally and no sensory deficits noted Sensorium / Orientation: alert Psych mental status grossly normal Skin no rashes or lesions noted, no wounds and skin turgor normal General Skin Exam: Negative for jaundice or pallor MDM MDM MDM Narrative Medical decision making narrative: Per patient is sitting a lot and he endorses after his informed me of this. He also has been standing more. Has not been as active. Movement causes discomfort in the posterior right thigh. He denies orthopnea or PND. He denies history of congestive heart failure. He denies history of renal disease. UA was obtained since patient has proteinuria comprehensive metabolic panel was obtained to assess albumin and protein. Suspect this is dependent lymphedema. Lab Data Attestation: I reviewed the patient's lab results. Lab results narrative: Since patient does have proteinuria and hyaline casts we will obtain a comprehensive metabolic panel to assess total protein and albumin. Urine reveals bacteriuria without pyuria. Furthermore he is asymptomatic. Send patient has evidence of asymptomatic bacteriuria. Comprehensive metabolic panel was a normal albumin. BUN and creatinine are normal with a GFR of 78. Glucose is slightly evaded 113. Labs: Laboratory Results - last 24 hr 03/18/24 03/18/24 18:20 19:14 Sodium 138 Potassium 4.7 Chloride 102 Carbon Dioxide 30.0 Anion Gap 6 BUN 21 H Creatinine 0.99 Estim Creat Clear Calc 63.99 Est GFR (MDRD) Af Amer 94 Est GFR (MDRD) Non-Af 78 BUN/Creatinine Ratio 21.2 H Glucose 113 H Calcium 9.7 Total Bilirubin 0.60 AST 26 ALT 32 Alkaline Phosphatase 71 Total Protein 8.4 H Albumin 3.9 Globulin 4.5 H Albumin/Globulin Ratio 0.9 Urine Color Yellow Urine Clarity Sl. Cloudy Urine pH 5.0 Ur Specific [place] 1.025 Urine Protein 30 H Urine Glucose (UA) Normal Urine Ketones 5 H Urine Occult Blood Negative Urine Nitrite Negative Urine Bilirubin Negative Urine Urobilinogen 1 H Ur Leukocyte Esterase 25 H Urine RBC 0-5 SEEN Urine WBC 0-5 SEEN Ur Squamous Epith Cells 0-5 SEEN Ur Transition Epith Cell 0-5 SEEN Ur Renal Epithelial Cell 0-5 SEEN Urine Bacteria 2+ Hyaline Casts 10-25 SEEN Urine Mucus 0 SEEN Treatment and Re-Evaluation :: Patient and were informed of results and treatment plan Patient states his pain is improved markedly with [place]. Prescription was sent to pharmacy. Discharge Plan Triage Chief Complaint: Edema ED Provider: Danny Bernard Dx/Rx/DC Orders Clinical Impression: Lymphedema of both lower extremities, Obesity (BMI 30.0-34.9), Diabetes mellitus, type II, HLD (hyperlipidemia), Proteinuria Instructions: ED Peripheral Edema, Bilateral Prescriptions: New hydrocodone-acetaminophen 5-325 mg tablet 1 tab PO Q6H PRN PRN (Reason: Pain) 3 Days Qty: 10 0RF No Action atorvastatin 20 MG tablet 20 mg PO QHS aspirin [Aspir-Low] 81 MG tablet,delayed release (DR/EC) 81 mg PO DAILY albuterol sulfate [ProAir HFA] 1 PUFF inhaler 2 puff inhalation Q4H PRN PRN (Reason: Shortness Of Breath) metformin 500 MG tablet,ER marcel.retention 24 hr 500 mg PO DAILY Combivent Respimat 1 PUFF inhaler 1 puff inhalation 4X/DAY PRN PRN (Reason: Sob &/Or Wheezing) nicotine (polacrilex) 2 MG gum 2 mg PO Q2H PRN PRN (Reason: nicotine craving breakthrough) 0RF nicotine 21 MG patch 21 mg TRANSDERM. DAILY 0RF folic acid 1 MG tablet 1 mg PO DAILY@0800 0RF Therems-M 1 TABLET tablet 1 tab PO DAILYCM 0RF guaifenesin 10 ML liquid 10 ml PO Q4H PRN PRN (Reason: COUGH) 0RF insulin lispro [Humalog KwikPen Insulin] 100 UNIT/ML insulin pen See Protocol SQ ACHS 0RF Protocol: 4. Sliding Scale Insulin High-Med Dosing Condition: 150-199 mg/dl = 2 units Condition: 200-259 mg/dl = 4 units Condition: 260-324 mg/dl = 6 units Condition: 325-374 mg/dl = 8 units Condition: 375-409 mg/dl = 10 units Condition: 410-449 mg/dl = 11 units Condition: Greater than 449 call physician Protocol Text: - Use for Total Daily Dose of Insulin 56-80 units - Patient who are insulin resistant or septic HIGH MEDIUM DOSING ALGORITHM insulin glargine 100 UNIT/ML insulin pen 75 unit SQ QHS Qty: 1 0RF Rx Instructions: Hold if H is glucose is less than 130 mg/dL Primary Care Provider: Tadeo Ferrer Referrals: Tadeo Ferrer MD [Primary Care Provider] - 1-2 Weeks Activity Restrictions/Additional Instructions: 1. You need to move more. 2. If you are sitting your toes have to be above your nose. 3. Recommend purchasing knee-high compressive stockings/hose. Print Language: Spanish Disposition Disposition: Home, Self Care
[2024-03-18 19:41] VITALS: BP 118/77; PULSE 108; RESP 18; O2SAT 92
[2024-03-18 19:41] LABS: ALB/GLOB Ratio 0.9 RATIO (0.9-2.4); AST(SGOT) 26 U/L (15-37); Alanine Aminotransfer ALT/SGPT 32 U/L (16-61); Albumin, Serum 3.9 g/dL (3.2-5.0); Alkaline Phosphatase 71 U/L (45-117); Anion Gap 6 (5-15); BUN 21 mg/dL (7-18); BUN/Creat Ratio 21.2 RATIO (10-20); Calcium,Total 9.7 mg/dL (8.5-10.1); Chloride 102 mmol/L (98-107); Creatinine, Serum 0.99 mg/dL (0.70-1.30); EST Glomerular Filtration Rate 78 mL/min (>60); Est Glom Filt Rate - Afr Amer 94 mL/min (>60); Estimated Creatinine Clearance 63.99 ml/min; Globulin 4.5 g/dL (2.2-4.2); Glucose 113 mg/dL (74-106); Potassium 4.7 mmol/L (3.5-5.1); Protein, Total 8.4 g/dL (6.4-8.2); Sodium Level 138 mmol/L (136-145)
[2024-03-18 20:20] VITALS: BP 145/86; PULSE 89; RESP 19; TEMP 36.6; O2SAT 93
== END 2024-03-18 20:21 | disposition home or self-care (01) ==
PROVIDERS: Emergency Provider Emergency Medicine; PCP Internal Medicine; Visit Provider Emergency Medicine
DX: I89.0 Lymphedema, not elsewhere classified (principal); J44.9 Chronic obstructive pulmonary disease, unspecified; E11.9 Type 2 diabetes mellitus without complications; E66.9 Obesity, unspecified; E78.5 Hyperlipidemia, unspecified; R60.0 Localized edema; R80.9 Proteinuria, unspecified; M79.651 Pain in right thigh; F17.210 Nicotine dependence, cigarettes, uncomplicated
CPT/HCPCS: 80053; 81001; 99282

== ENCOUNTER 2025-08-14 19:06 | Emergency (ER) | payer MEDICARE, OTHER, SELFPAY ==
[2025-08-14 19:07] VITALS: BP 151/85; PULSE 93; RESP 16; TEMP 36.6; O2SAT 94; BMI 30.1
[2025-08-14 19:35] LABS: Hematocrit 48.2 % (40-54); Hemoglobin 15.6 g/dL (13.0-16.5); Immature Granulocytes Count 0.040 X10^3/uL (0.0-0.0); Mean Corp Hgb Conc 32.4 g/dL (32-36); Mean Corpuscular Volume 99.2 fL (80-94); Mean Platelet Vol. 9.2 fl (6.2-12.0); NRBC Flagged by Analyzer 0 % (0-5); Platelet Count 277 K/mm3 (150-450); RBC Distribution Width CV 13.7 % (11.6-14.6); RBC Distribution Width SD 50.4 fl (35.1-43.9); Red Blood Count 4.86 M/mm3 (4.6-6.2); White Blood Count 7.9 K/mm3 (4.4-11.0)
--- OUTSIDE RECORDS SUMMARY | 2025-08-14 19:51 | XMS RPT_ITS | CCD ---
Author Organization [facility] Care Team Providers Care Caster Helper Name Role Phone Tadeo Ferrer MD Primary Care Provider [phone] Tadeo Ferrer Primary Care Unavailable Danny Bernard Attending Unavailable Tadeo Ferrer MD Primary Care Provider [phone] Ariela MILKING MACHINE TECHNICIAN.Araceli SOTO Unavailable TADEO FERRER Referring Unavailable TADEO FERRER Primary Care Unavailable TADEO FERRER Primary Care Unavailable ARACELI TITUS Attending Unavailable TADEO FERRER Primary Care Unavailable SERVANDO BROWNE Attending Unavailable TADEO FERRER Attending Unavailable TADEO FERRER Primary Care Unavailable TADEO FERRER Primary Care Unavailable ARACELI TITUS Referring Unavailable ABEBE DUNLAP Referring Unavailable TADEO FERRER Primary Care Unavailable TADEO FERRER Primary Care Unavailable ABEBE DUNLAP Attending Unavailable Medications Current Medications Medication Drug Class(es) Dates Sig (Normalized) Sig (Original) 8 hr acetaminophen 650 mg extended release oral tablet (20 sources) take 1 tablet by mouth every eight hours as needed acetaminophen 650 mg CR tablet Indications: Closed fracture of multiple ribs of left side with routine healing, subsequent encounter Take 650 mg by mouth every 8 hours as needed. Active Comment on above: Take 650 mg by mouth every 8 hours as needed. acetaminophen 325 mg / HYDROcodone bitartrate 5 mg oral tablet (2 sources) Opioid Agonist Start: 01-25-2025 End: 01-28-2025 take 1 tablet by mouth every eight hours as needed for pain HYDROcodone-acetami nophen (NORCO) 5-325 mg per tablet Indications: Acute pain of left shoulder Take 1 tablet by mouth every 8 hours as needed for pain for up to 3 days. 10 tablet 01/25/2025 01/28/2025 Active Start: 07-28-2024 End: 07-31-2024 take 1 tablet by mouth every eight hours as needed for pain HYDROcodone-acetaminophen (NORCO) 5-325 mg per tablet Indications: Chronic left shoulder pain Take 1 tablet by mouth every 8 hours as needed for pain for up to 3 days. 10 tablet 07/28/2024 07/31/2024 Active [id number] actuat albuterol 0.09 mg/actuat metered dose inhaler (20 sources) beta2-Adrenergic Agonist Start: 11-24-2022 End: 12-27-2024 take 2 puff(s) by inhalation every four hours as needed for wheezing albuterol HFA (VENTOLIN HFA) 90 mcg/actuation inhaler Indications: Chronic obstructive pulmonary disease with acute exacerbation (HCC) Inhale 2 puffs as instructed every 4 hours as needed for wheezing/shortness of breath. 1 each 3 12/27/2024 Active Start: 08-07-2021 End: 05-05-2022 take 2 puff(s) by inhalation every four hours as needed for wheezing albuterol HFA (VENTOLIN HFA) 90 mcg/actuation inhaler Indications: Chronic obstructive pulmonary disease with acute exacerbation (HCC) Inhale 2 Puffs as instructed every 4 hours as needed for wheezing/shortness of breath. 5 Each 3 2022 Active Comment on above: Inhale 2 Puffs as in structed every 4 hours as needed for wheezing/shortness of breath. 120 actuat albuterol 0.1 mg/actuat / ipratropium bromide 0.02 mg/actuat inhalation spray (20 sources) Anticholinergic, beta2-Adrenergic Agonist Start: 023 End: 024 take 20-100 ug by inhalation four times daily ipratropium 20 mcg-albuterol 100 mcg (COMBIVENT RESPIMAT) 20-100 mcg/actuation inhaler Indications: Chronic obstructive pulmonary disease, unspecified COPD type (HCC) Inhale 1 Puff as instructed four times daily. 3 Each 3 2024 Active Start: 12-23-2021 take 20-100 ug by in halation four times daily ipratropium 20 mcg-albuterol 100 mcg (COMBIVENT RESPIMAT) 20-100 mcg/actuation inhaler Inhale 1 Puff as instructed four times daily. 3 Inhaler 3 12/23/2021 Active Comment on above: Inhale 1 Puff as ins tructed four times daily. aspirin 81 mg oral tablet (20 sources) Platelet Aggregation Inhibitor, Nonsteroidal Anti-inflammatory Drug Start: 01-25-20 ASPIRIN 81 MG TAB Take two tablet daily. 0 01/24/2009 Active Comment on above: Take two tablet joanna y. atorvastatin 20 mg oral tablet (20 sources) HMG-CoA Reductase Inhibitor Start: 10-15-19 take 1 tablet by mouth once daily at bedtime atorvastatin (LIPITOR) 20 mg tablet Take 1 tablet by mouth daily at bedtime. 90 tablet 3 10/15/2024 Active Start: 09-09-2023 take 1 tablet by aysha th once daily at bedtime atorvastatin (LIPITOR) 20 mg tablet Take 1 tablet by mouth daily at bedtime. 90 tablet 3 09/09/2023 Active Start: 10-30-2021 End: 10-23-2022 take 1 tablet by mouth once daily at bedtime atorvastatin (LIPITOR) 20 mg tablet Take 1 tablet by mouth daily at bedtime. 90 tablet 3 10/23/2022 Active Comment on above: Take 1 tablet by aysha th daily at bedtime. Budesonide / formoterol (8 sources) Corticosteroid, beta2-Adrenergic Agonist Start: End: 3 take 2 puff(s) by inhalation twice daily budesonide-formoterol (SYMBICORT) 160-4.5 mcg/actuation inhaler USE 2 PUFFS TWICE DAILY DIRECTED 3 Inhaler 3 2022 10/16/2022 Discontinued (Not on Formulary) Start: 2022 take 2 puff(s) by in halation twice daily budesonide-formoterol (SYMBICORT) 160-4.5 mcg/actuation inhaler USE 2 PUFFS TWICE DAILY DIRECTED 3 Inhaler 3 2022 Active Start: 12-19-2020 End: 05-05-2022 take 2 puff(s) by inhalation twice daily budesonide-formoterol (SYMBICORT) 160-4.5 mcg/actuation inhaler USE 2 PUFFS TWICE DAILY DIRECTED 3 Inhaler 3 12/19/2020 05/05/2022 Discontinued Start: 12-19-2020 take 2 puff(s) by in halation twice daily budesonide-formoterol (SYMBICORT) 160-4.5 mcg/actuation inhaler USE 2 PUFFS TWICE DAILY DIRECTED 3 Inhaler 3 12/19/2020 Active Comment on above: USE 2 PUFFS TWICE DA KAE DIRECTED ipratropium bromide 0.042 mg/actuat metered dose nasal spray (20 sources) Anticholinergic Start: 021 End: ipratropium bromide (ATROVENT) 42 mcg (0.06 %) nasal spray Indications: Rhinitis, unspecified type Use 1 spray in the nose three times a day. 15 mL 3 12/27/2024 Active Comment on above: Use 1 [place] in the n ose three times daily. 24 hr metFORMIN hydrochloride 500 mg extended release oral tablet (20 sources) Biguanide Start: take 2 tablets by mouth once daily at breakfast metFORMIN ER (GLUCOPHAGE XR) 500 mg 24 hr tablet Indications: Diabetes mellitus without complication (HCC) Take 2 tablets by mouth daily with breakfast. 180 tablet 3 10/15/2024 Active Start: 10-08-2023 take 2 tablets by mo uth once daily at breakfast metFORMIN ER (GLUCOPHAGE XR) 500 mg 24 hr tablet Indications: Diabetes mellitus without complication (HCC) Take 2 tablets by mouth daily with breakfast. 180 tablet 3 10/08/2023 Active Start: 12-27-2021 End: 10-08-2022 take 2 tablets by mouth once daily at breakfast metFORMIN ER (GLUCOPHAGE XR) 500 mg 24 hr tablet Indications: Diabetes mellitus without complication (HCC) Take 2 tablets by mouth daily with breakfast. 180 tablet 3 10/08/2022 Active Comment on above: Take 1 tablet by aysha th daily with breakfast. Take 2 tablets by mo uth daily with breakfast. methylPREDNISolone (1 source) Corticosteroid Start: 2022 End: 2022 methylPREDNISolone (MEDROL, GABRIEL,) 4 mg Dose-Pack Indications: Rash Follow dosing instructions, take with food. 21 tablet 0 04/16/2023 04/22/2023 Active Comment on above: Follow dosing instru ctions, take with food. Multivitamin preparation (7 sources) multivitamin (MU LTIPLE VITAMIN ORAL) Take by mouth. Active naproxen 500 mg oral tablet (20 sources) Nonsteroidal Anti-inflammatory Drug Start: 2017 take 1 tablet by mouth twice daily as needed for pain naproxen (NAPROSYN) 500 mg tablet Indications: Closed fracture of multiple ribs of left side with routine healing, subsequent encounter Take 1 tablet by mouth twice daily as needed for Pain (for pain/inflammation). Take with food. 60 tablet 2 07/07/2018 Active Comment on above: Take 1 tablet by aysha th twice daily as needed for Pain (for pain/inflammation). Take with food. predniSONE 10 mg oral tablet (1 source) Start: 2024 End: 2024 take 3 tablets by mouth once daily predniSONE (DELTASONE) 10 mg tablet Take 3 tablets by mouth once daily for 5 days. 15 tablet 05/17/2025 05/22/2025 Active triamcinolone acetonide 1 mg/ml topical cream (2 sources) Corticosteroid Start: 2024 End: 2024 triamcinolone acetonide (KENALOG) 0.1 % cream Apply 1 application to affected area three times a day for 7 days. Apply sparingly to area for rash/itching. 80 g 05/17/2025 05/24/2025 Active Start: 04-16-2023 End: 04-26-2023 triamcinolone acetonide (KATE ALOG) 0.1 % cream Indications: Rash Apply 1 application to affected area three times daily for 10 days. Apply sparingly to area for rash/itching. 80 g 0 04/16/2023 04/26/2023 Active Comment on above: Apply 1 application to affected area three times daily for 10 days. Apply sparingly to area for rash/itching. 30 actuat umeclidinium 0.0625 mg/actuat / vilanterol 0.025 mg/actuat dry powder inhaler (20 sources) Anticholinergic, beta2-Adrenergic Agonist Start: 10-20-19 24 End: 11-04-19 25 take 1 puff(s) by inhalation once daily umeclidinium-vilan terol (ANORO ELLIPTA) 62.5-25 mcg/actuation inhaler Indications: Chronic obstructive pulmonary disease, unspecified COPD type (HCC) Inhale 1 Inhalation as instructed once daily. Inhale one puff once daily. DO NOT CLICK OPEN UNTIL READY FOR DOSE 3 Each 3 11/04/2024 Active Start: 04-10-2023 take 1 puff(s) by inhalation once daily umeclidinium-vilanterol (ANORO ELLIPTA) 62.5-25 mcg/actuation inhaler Indications: Chronic obstructive pulmonary disease, unspecified COPD type (HCC) Inhale 1 Inhalation as instructed once daily. Inhale one puff once daily. DO NOT CLICK OPEN UNTIL READY FOR DOSE 3 Each 1 04/10/2023 Active Start: 10-16-2022 take 1 puff(s) by inhalation once daily umeclidinium-vilanterol (ANORO ELLIPTA) 62.5-25 mcg/actuation inhaler Indications: Chronic obstructive pulmonary disease, unspecified COPD type (HCC) Inhale 1 Inhalation as instructed once daily. Inhale one puff once daily. DO NOT CLICK OPEN UNTIL READY FOR DOSE 180 Each 1 10/16/2022 Active Comment on above: Inhale 1 Inhalation as instructed once daily. Inhale one puff once daily. DO NOT CLICK OPEN UNTIL READY FOR DOSE Completed/Discontinued Medications Medication Drug Class(es) Dates Sig (Normalized) Sig (Original) folic acid 1 mg oral tablet (20 sources) End: 01-25-2025 take 1 tablet by mouth once daily folic acid 1 mg tablet Take 1 mg by mouth once daily. 01/25/2025 Discontinued (Discontinued by Patient) Comment on above: Take 1 mg by mouth o nce daily. sennosides (SENOKOT ORAL) (19 sources) End: 07-28-2024 sennosides (SENOKOT ORAL) Take by mouth. 07/28/2024 Discontinued sennosides (SENO ROMEO ORAL) Take by mouth. Active sennosides (SENO ROMEO ORAL) Take by mouth. 0 Active Comment on above: Take by mouth. Problems Active Problems Problem Classification Problem Date Documented Da te Episodic/Chronic Alcohol-related disorders (20 sources) Alcoholism; Translations: [Alcohol dependence, uncomplicated] Onset: 07-10-2009 07-10-2009 Chronic Cardiac dysrhythmias (5 sources) Cardiac arrhythmia; Translations: [Cardiac arrhythmia, unspecified] Onset: 01-25-2025 07-28-2024 Chronic Chronic obstructive pulmonary disease and bronchiectasis (20 sources) Chronic obstructive lung disease; Translations: [Chronic obstructive pulmonary disease, unspecified] Onset: 05-08-2021 05-08-2021 Chronic Diabetes mellitus without complication (20 sources) Diabetes mellitus without complication; Translations: [Type 2 diabetes mellitus without complications] Onset: 07-05-2014 09-17-2015 Chronic Disorders of lipid metabolism (20 sources) Mixed hyperlipidemia; Translations: [Mixed hyperlipidemia] Onset: 11-25-2005 09-17-2015 Chronic Immunizations and screening for infectious disease (7 sources) Vaccination needed; Translations: [Encounter for immunization] Episodic Other connective tissue disease (1 source) Swelling of lower limb; Translations: [Other specified soft tissue disorders] 03-18-2024 Episodic Other hematologic conditions (20 sources) Secondary polycythemia; Translations: [Secondary polycythemia] 12-01-2005 Episodic Other lower respiratory disease (1 source) Multiple nodules of lung; Translations: [Other nonspecific abnormal finding of lung field] 10-10-2024 Episodic Other non-traumatic joint disorders (1 source) Chronic pain of left upper limb; Translations: [Pain in left shoulder] 07-28-2024 Episodic Other nutritional; endocrine; and metabolic disorders (20 sources) Obese class I; Translations: [Obesity, unspecified] Onset: 03-14-2019 03-14-2019 Chronic Other skin disorders (2 sources) Eruption; Translations: [Rash and other nonspecific skin eruption] 04-16-2023 Episodic Other skin disorders (1 source) Rash and other nonspecific skin eruption; Translations: [Rash] Onset: 05-17-2025 Episodic Other upper respiratory disease (4 sources) Rhinitis; Translations: [Chronic rhinitis] Chronic Residual codes; unclassified (1 source) Localized edema; Translations: [Localized edema] Onset: 03-28-2024 Episodic Substance-related disorders (20 sources) Tobacco user; Translations: [Nicotine dependence, unspecified, uncomplicated] Onset: 12-01-2005 12-01-2005 Chronic Past or Other Problems Problem Classification Problem Date Documented Da te Episodic/Chronic Diabetes mellitus without complication (14 sources) Impaired fasting glycemia; Translations: [Impaired fasting glucose] Resolved: 5 09-17-2015 Episodic Esophageal disorders (14 sources) Gastroesophageal reflux disease; Translations: [Gastro-esophageal reflux disease without esophagitis] Resolved: 6 06-30-2006 Chronic Gastrointestinal hemorrhage (14 sources) Lower gastrointestinal hemorrhage; Translations: [Gastrointestinal hemorrhage, unspecified] Onset: 1 Resolved: 3 04-05-2013 Episodic Inflammatory conditions of male genital organs (14 sources) Balanoposthitis; Translations: [Balanoposthitis] Resolved: 6 06-30-2006 Chronic Other connective tissue disease (14 sources) Lateral epicondylitis of left humerus; Translations: [Lateral epicondylitis, left elbow] Onset: 7 Resolved: 9 03-14-2019 Episodic Other gastrointestinal disorders (14 sources) Occult blood in stools; Translations: [Other fecal abnormalities] Onset: 6 Resolved: 1 06-28-2021 Episodic Other lower respiratory disease (14 sources) Solitary nodule of lung; Translations: [Solitary pulmonary nodule] Onset: 8 Resolved: 0 05-02-2020 Episodic Other non-traumatic joint disorders (20 sources) Shoulder pain; Translations: [Pain in unspecified shoulder] Onset: 0 06-28-2021 Episodic Other non-traumatic joint disorders (2 sources) Pain in left shoulder; Translations: [Pain in joint, shoulder region] Onset: 5 01-25-2025 Episodic Other nutritional; endocrine; and metabolic disorders (14 sources) Obesity; Translations: [Obesity, unspecified] Resolved: 1 05-08-2021 Chronic Other screening for suspected conditions (not mental disorders or infectious disease) (20 sources) Patient encounter status; Translations: [Encounter for screening for malignant neoplasm of colon] Onset: 5 Resolved: 5 Episodic Phlebitis; thrombophlebitis and thromboembolism (14 sources) Venous thrombosis; Translations: [Phlebitis and thrombophlebitis of unspecified site] Resolved: 6 06-30-2006 Episodic Residual codes; unclassified (14 sources) Insomnia; Translations: [Insomnia, unspecified] Onset: 4 Resolved: 9 03-14-2019 Episodic Results Test Name Value Interpretation Reference Range Facility ALBUMIN/CREATININE RATIO, UR INEon 07-31-2025 Albumin DL <= 20 mg/L (U) [Mass/Vol] 57.6 mg/L Normal [facility] Comment on above: Order Comment: Speci men Type: URINE SPECIMENOrdering Facility: [facility] Address: [address] [place] [address] Performed By: #### U ACR ####[facility] [id number] [address] [place] Albumin/Creatinine (U) [Mass ratio] 25 mg/g Normal <30 [facility] Comment on above: Order Comment: Speci men Type: URINE SPECIMENOrdering Facility: [facility] Address: [address] [place] [address] Result Comment: Adul t Male and Female Nephrotic Criteria: <30 mg/g is considered normal to mildly increased 30-300 mg/g is considered moderately increased >300 mg/g is considered severely increased KDIGO. (2013). KDIGO 2012 Clinical Practice Guideline for the Evaluation and Management of Chronic Kidney Disease. Official Journal of the International Society of Nephrology, 3(1), 1-150. Performed By: #### U ACR ####[facility] [id number] [place] [address] [place] Creatinine (U) [Mass/Vol] 229.5 mg/dL Normal 20.0-300.0 [facility] Comment on above: Order Comment: Speci men Type: URINE SPECIMENOrdering Facility: [facility] Address: [address] [place] [address] Performed By: #### U ACR ####[facility] [id number] [place] [id number] [place] [facility] CNOVon 07-31-2025 CNOV Office Visit (INTMWS ) KALYN VALDOVINOS ([id number]) 1945 M Date Time Provider Department 07/31/25 1:40 PM TADEO FERRER INTMWS During your visit today, we recorded the following information about you: Temperature Pulse Blood pressure Weight 97.5 degrees 76/minute 130/90 82.6 kg Height 1.6 m Tadeo Ferrer MD 07/31/2025 2:56 PM Signed Kalyn Valdovinos is a 80 year old male here for a Medicare Wellness visit. Medicare Health Risk Assessment General Health Fair Exercise: Minutes/Day Exercise: Days/Week 1 day Alcohol: Daily Use 2-3 times a week Alcohol: Drinks/Day 5 or 6 Alcohol: 6 or more drinks Weekly Feel off balance Yes Concerns: Teeth/Dentures No Concerns: Sexual function No Troubled by feelings Angry Frequency: Eating healthy diet Nearly every day ADLs requiring help Cooking; Grocery shopping; Housework Safety precautions in home/vehicle Yes Smoke, vape, chews tobacco Yes, but I'm not ready to quit Difficulty hearing Yes, I wear a hearing aid Difficulty seeing No Current Providers Specialists: I have reviewed specialist-related care of the patient in the medical record. Current care team: Patient Care Team: Tadeo Ferrer MD as PCP - General Araceli Titus APRN.PICK UP TRUCK DRIVER as Crm Business Analyst (Internal Medicine) Abebe Dunlap APRN, CNP (Lung Cancer Screening) Outside specialists seen: Cortney Pulido MD (Ophthalmology) Snehal Carrasco DPM (Podiatry) [facility]. Medical/Family history review Reviewed and updated problem list, medical/surgical/family /social history, medications, and allergies. Opioid use review Prescribed: No opioid use on file in the last 90 days Patient-reported: No opioid use on file in the last 90 days Depression screening Anxiety screening Cognitive screening Mini Cog Score: 5 Cognitive screening reviewed and No further action needed (score 3-5). Functional Observation Was the patient's Timed Up AND Go test unsteady or >= 12 seconds? No Advance Directives Patient did not wish or was not able to name a surrogate decision maker or provide an advance care plan Measurements BP 130/90 (BP Site: Left Arm, BP Position: Sitting, BP Cuff Size: Large Adult) Pulse 76 Temp 36.4 ?C (97.5 ?F) (Temporal) Ht 160 cm (5' 3) Wt 82.6 kg (182 lb 1.6 oz) BMI 32.26 kg/m? Vision Screening: Follows with optometry/ophthalmology Right: 20/30 Left: 20/ 40 Both: 20/40 Assessment/Plan Medicare annual wellness visit, subsequent (Z00.00) - Counseled on healthy diet and regular exercise - Fall avoidance information provided - Personalized prevention plan provided - Discussed need for and benefit of weight loss. BMI 32.26 kg/(m2) - Smoking cessation encouraged; discussed risks to health and quitting strategies. Patient is not ready to quit - Counseled patient on alcohol intake and associated health risks MD Nabil Pat, Tadeo Khan MD 07/31/2025 2:56 PM Signed Subjective Kalyn Valdovinos is a 80 year old male. He had no new concerns. He requested copies of lab results when available (he just had these drawn). He was raking more and requesting medication for shoulder pain. Review of Systems Constitutional: Negative for fatigue and fever. HENT: Negative for congestion. Respiratory: No new symptoms. Cardiovascular: Positive for leg swelling. Negative for chest pain and palpitations. Gastrointestinal: Negative for abdominal pain and diarrhea. Genitourinary: Negative for difficulty urinating. Neurological: Negative for dizziness and headaches. ACTIVE PROBLEM LIST Mixed Hyperlipidemia Polycythemia, Secondary Chronic Alcoholism ([facility]) Tobacco Use Disorder Copd (Chronic Obstructive Pulmonary Disease) ([facility]) Chronic Shoulder Pain Diabetes Mellitus Without Complication ([facility]) Obesity, Class I, Bmi 30-34.9 Cardiac Arrhythmia Current Outpatient Medications Medication Sig albuterol HFA (VENTOLIN HFA) 90 mcg/actuation inhaler Inhale 2 puffs as instructed every 4 hours as needed for wheezing/shortness of breath. ipratropium bromide (ATROVENT) 42 mcg (0.06 %) nasal spray Use 1 spray in the nose three times a day. umeclidinium-vilanterol (ANORO ELLIPTA) 62.5-25 mcg/actuation inhaler Inhale 1 Inhalation as instructed once daily. Inhale one puff once daily. DO NOT CLICK OPEN UNTIL READY FOR DOSE metFORMIN ER (GLUCOPHAGE XR) 500 mg 24 hr tablet Take 2 tablets by mouth daily with breakfast. atorvastatin (LIPITOR) 20 mg tablet Take 1 tablet by mouth daily at bedtime. multivitamin (MULTIPLE VITAMIN ORAL) Take by mouth. ipratropium 20 mcg-albuterol 100 mcg (COMBIVENT RESPIMAT) 20-100 mcg/actuation inhaler Inhale 1 Puff as instructed four times daily. acetaminophen 650 mg CR tablet Take 650 mg by mouth every 8 hours as needed. naproxen (NAPROSYN) 500 mg tablet Take 1 tablet by mouth (more content not included)... Normal [facility] Comprehensive metabolic 2000 panelon 07-31-2025 Albumin [Mass/Vol] 4.0 g/dL Normal 3.9-4.9 [facility] Comment on above: Order Comment: Speci men Type: BLOOD SPECIMENOrdering Facility: [facility] Address: [address] [place] [address] Performed By: #### 2 4331-1, ####[facility] [id number] [place] [address] [place] ALP [Catalytic activity/Vol] 74 U/L Normal 38-113 [facility] Comment on above: Order Comment: Speci men Type: BLOOD SPECIMENOrdering Facility: [facility] Address: [address] [place] [address] Performed By: #### 2 4331-, ####[facility] [id number] [place] [address] [place] ALT [Catalytic activity/Vol] 21 U/L Normal 10-54 [facility] Comment on above: Order Comment: Speci men Type: BLOOD SPECIMENOrdering Facility: [facility] Address: [address] [place] [address] Performed By: #### 2 4331-1, ####[facility] [id number] [place] [address] [place] Anion gap [Moles/Vol] 11 mmol/L Normal 8-15 [facility] Comment on above: Order Comment: Speci men Type: BLOOD SPECIMENOrdering Facility: [facility] Address: [address] [place] [address] Performed By: #### 2 4331-1, ####[facility] [id number] [place] [id number] [place] AST [Catalytic activity/Vol] 26 U/L Normal 14-40 [facility] Comment on above: Order Comment: Speci men Type: BLOOD SPECIMENOrdering Facility: [facility] Address: [address] [place] [address] Performed By: #### 2 4331-1, ####[facility] [id number] [place] [address] [place] Bilirubin [Mass/Vol] 0.7 mg/dL Normal 0.2-1.3 [facility] Comment on above: Order Comment: Speci men Type: BLOOD SPECIMENOrdering Facility: [facility] Address: [address] [place] [address] Performed By: #### 2 4331-1, ####[facility] [id number] [place] [address] [place] Calcium [Mass/Vol] 9.2 mg/dL Normal 8.5-10.2 [facility] Comment on above: Order Comment: Speci men Type: BLOOD SPECIMENOrdering Facility: [facility] Address: [address] [place] [address] Performed By: #### 2 4331-1, ####[facility] [id number] [place] [id number] [place] Chloride [Moles/Vol] 101 mmol/L Normal 98-107 [facility] Comment on above: Order Comment: Speci men Type: BLOOD SPECIMENOrdering Facility: [facility] Address: [address] [place] [address] Performed By: #### 2 4331-1, 67699-1 ####[facility] LABCLIA [id number] [place] [address] [place] CO2 [Moles/Vol] 26 mmol/L Normal 22-30 [facility] Comment on above: Order Comment: Speci men Type: BLOOD SPECIMENOrdering Facility: [facility] Address: [address] [place] [address] Performed By: #### 2 433-, ####[facility] LABCLIA [id number] [place] [address] [place] Creatinine [Mass/Vol] 0.83 mg/dL Normal 0.73-1.22 [facility] Comment on above: Order Comment: Speci men Type: BLOOD SPECIMENOrdering Facility: [facility] Address: [address] [place] [address] Performed By: #### 2 433-, 20238-4 ####[facility] LABCLIA [id number] [place] [address] [place] eGFRcr SerPlBld CKD-EPI 2020 90 mL/min/1.73m??? Normal >=60 [facility] Comment on above: Order Comment: Speci men Type: BLOOD SPECIMENOrdering Facility: [facility] Address: [address] [place] [address] Result Comment: Nava mated Glomerular Filtration Rate (eGFR) is calculated using the 2020 CKD-EPI creatinine equation. This equation utilizes serum creatinine, sex, and age as parameters. The creatinine assay has traceable calibration to isotope dilution-mass spectrometry. Refer to KDIGO guidelines for clinical interpretation. In patients with unstable renal function, e.g. those with acute kidney injury, the eGFR may not accurately reflect actual GFR. Performed By: #### 2 4331-1, 94282-0 ####[facility] LABCLIA [id number] [place] [id number] [place] Glucose [Mass/Vol] 125 mg/dL High 74-99 [facility] Comment on above: Order Comment: Speci men Type: BLOOD SPECIMENOrdering Facility: [facility] Address: [address] [place] [address] Result Comment: The [place] Diabetes Association (ADA) provides guidance for cutoff values for fasting glucose and random glucose. The ADA defines fasting as no caloric intake for at least 8 hours. Fasting plasma glucose results between 100 to 125 mg/dL indicate increased risk for diabetes (prediabetes). Fasting plasma glucose results greater than or equal to 126 mg/dL meet the criteria for diagnosis of diabetes. In the absence of unequivocal hyperglycemia, results should be confirmed by repeat testing. In a patient with classic symptoms of hyperglycemia or hyperglycemic crisis, random plasma glucose results greater than or equal to 200 mg/dL meet the criteria for diagnosis of diabetes. Reference: Standards of Medical Care in Diabetes 2016, [place] Diabetes Association. Diabetes Care. 2016.39(Suppl 1). Performed By: #### 2 4331-1, 56718-8 ####[facility] LABCLIA [id number] [place] [address] [place] Potassium [Moles/Vol] 4.6 mmol/L Normal 3.7-5.1 [facility] Comment on above: Order Comment: Speci men Type: BLOOD SPECIMENOrdering Facility: [facility] Address: [address] [place] [address] Performed By: #### 2 4331-, ####[facility] LABCLIA [id number] [place] [address] [place] Protein [Mass/Vol] 7.5 g/dL Normal 6.3-8.0 [facility] Comment on above: Order Comment: Speci men Type: BLOOD SPECIMENOrdering Facility: [facility] Address: [address] [place] [address] Performed By: #### 2 4331-, ####[facility] LABCLIA [id number] [place] [address] [place] Sodium [Moles/Vol] 138 mmol/L Normal 136-144 [facility] Comment on above: Order Comment: Speci men Type: BLOOD SPECIMENOrdering Facility: [facility] Address: [address] [place] [address] Performed By: #### 2 4331-1, 55279-6 ####[facility] LABCLIA [id number] [place] [address] [place] Urea nitrogen [Mass/Vol] 14 mg/dL Normal 9-24 [facility] Comment on above: Order Comment: Speci men Type: BLOOD SPECIMENOrdering Facility: [facility] Address: [address] [place] [address] Performed By: #### 2 4331-1, 20879-5 ####[facility] LABCLIA [id number] [place] [address] [place] HbA1c (Bld)on 07-31-2025 Average glucose Estimated from glycated hemoglobin (Bld) [Mass/Vol] 151 mg/dL Normal [facility] Comment on above: Order Comment: Speci men Type: BLOOD SPECIMENOrdering Facility: [facility] Address: [address] [place] [address] Result Comment: eAG: (Estimated average glucose) is a calculated value from HgbA1c and is public utilities sales representative of the average blood glucose level in the last 2-3 month period. Performed By: #### 5 5454-3 ####[facility] LABIA [id number] [address] [place] HbA1c (Bld) [Mass fraction] 6.9 % High 4.3-5.6 [facility] Comment on above: Order Comment: Speci men Type: BLOOD SPECIMENOrdering Facility: [facility] Address: [address] [place] [address] Result Comment: [place] Diabetes Association guidelines indicate that patients with HgbA1c in the range 5.7-6.4% are at increased risk for development of diabetes, and intervention by lifestyle modification may be beneficial. HgbA1c greater or equal to 6.5% is considered diagnostic of diabetes. Performed By: #### 5 5454-3 ####[facility] LABCLIA [id number] [place] [address] [place] Lipid 1996 panelon 11-10-202 5 Cholesterol [Mass/Vol] 142 mg/dL Normal <200 [facility] Comment on above: Order Comment: Speci men Type: BLOOD SPECIMENOrdering Facility: [facility] Address: [address] [place] [address] Result Comment: <200 mg/dL, Desirable 200-239 mg/dL, Borderline high >239 mg/dL, High Performed By: #### 2 4331-1, 25825-5 ####[facility] LABCLIA [id number] [place] [address] [place] Cholesterol in HDL [Mass/Vol] 39 mg/dL Low >39 [facility] Comment on above: Order Comment: Speci men Type: BLOOD SPECIMENOrdering Facility: [facility] Address: [address] [place] [address] Result Comment: 40-5 9 mg/dL, Acceptable >59 mg/dL, High: Negative risk factor for coronary heart disease <40 mg/dL, Low: Positive risk factor for coronary heart disease Performed By: #### 2 4331-1, 89555-3 ####[facility] LABCLIA [id number] [address] [place] Cholesterol in LDL [Mass/Vol] 76 mg/dL Normal <100 [facility] Comment on above: Order Comment: Luli men Type: BLOOD SPECIMENOrdering Facility: [facility] Address: [address] [place] [address] Result Comment: <100 mg/dL, Optimal 100-129 mg/dL, Near optimal/above optimal 130-159 mg/dL, Borderline high 160-189 mg/dL, High >189 mg/dL, Very high Secondary prevention optimal LDL Cholesterol levels are recommended to be <70 mg/dL LDL cholesterol is calculated using the Geronimo-NIH equation. Performed By: #### 2 4331-1, 82452-2 ####[facility] LABCLIA [id number] [place] [address] [place] Cholesterol in LDL/Cholesterol in HDL [Mass ratio] 1.95 {ratio} Normal <2.54 [facility] Comment on above: Order Comment: Speci men Type: BLOOD SPECIMENOrdering Facility: [facility] Address: [address] [place] [address] Result Comment: Derrick goldsmith: 1. National Cholesterol Education Program ATP III Guideline At-A-Glance Quick Desk Reference: National Heart, Lung, and Blood [place]. National Institutes of Health. 2001: NIH Publication No. 01-3305. 2. An International Atherosclerosis Society position paper: global recommendations for the management of dyslipidemia: executive summary, Atherosclerosis. 2014: 232(2):410-413. Performed By: #### 2 4331-1, 94812-8 ####[facility] LABCLIA [id number] [place] [address] [place] Cholesterol in VLDL [Mass/Vol] 24 mg/dL Normal <30 [facility] Comment on above: Order Comment: Speci men Type: BLOOD SPECIMENOrdering Facility: [facility] Address: [address] [place] [address] Performed By: #### 2 4331-1, 82910-7 ####[facility] LABCLIA [id number] [place] [address] [place] Cholesterol non HDL [Mass/Vol] 103 mg/dL Normal <130 [facility] Comment on above: Order Comment: Speci men Type: BLOOD SPECIMENOrdering Facility: [facility] Address: [address] [place] [address] Result Comment: <130 mg/dL, Optimal 130-159 mg/dL, Near optimal/above optimal 160-189 mg/dL, Borderline high 190-219 mg/dL, High >219 mg/dL, Very high Secondary prevention optimal non HDL Cholesterol levels are recommended to be <100 mg/dL Performed By: #### 2 4331-1, 64204-7 ####[facility] LABCLIA [id number] [place] [address] [place] Cholesterol.total/Ch olesterol in HDL [Mass ratio] 3.64 {ratio} Normal <5.10 [facility] Comment on above: Order Comment: Speci men Type: BLOOD SPECIMENOrdering Facility: [facility] Address: [address] [place] [address] Performed By: #### 2 4331-1, 26013-9 ####[facility] LABCLIA [id number] [place] [id number] [place] FASTING TIME 12 hrs Normal [facility] Comment on above: Order Comment: Speci men Type: BLOOD SPECIMENOrdering Facility: [facility] Address: [address] [place] [address] Performed By: #### 2 4331-1, 09050-9 ####[facility] LABCLIA [id number] [place] [address] [place] Triglyceride [Mass/Vol] 155 mg/dL High <150 [facility] Comment on above: Order Comment: Speci men Type: BLOOD SPECIMENOrdering Facility: [facility] Address: [address] [place] [address] Result Comment: <150 mg/dL, Normal 150-199 mg/dL, Borderline high 200-499 mg/dL, High >499 mg/dL, Very high Performed By: #### 2 4331-1, 85522-7 ####[facility] LABCLIA [id number] [place] [address] [place] CNOVon 05-17-2025 CNOV Office Visit ([facility]) ARUNAKALYN Frieda ([id number]) 1945 M Date Time Provider Department 05/17/25 3:15 PM SERVANDO BROWNE During your visit today, we recorded the following information about you: Temperature Pulse Respiration Blood pressure 98.5 degrees 107/minute 20/minute 136/94 Weight 83.1 kg Servando Browne APRN.PICK UP TRUCK DRIVER 05/17/2025 4:02 PM Signed [facility] Subjective Kalyn Valdovinos is a 80 year old male. Patient presents with: Rash: X3 weeks HPI Nontoxic-appearing male presents urgent care chief complaint rash. Duration of symptoms 2 weeks. Associate symptoms pruritic rash. Presents today for evaluation. OTC medications none. No recent lifestyle or biomedical changes. Overall feels well. No fevers. No antibiotic use. No nausea vomiting or abdominal pain. No headaches or dizziness. Past medical history prescription medications allergies reviewed. Review of Systems Constitutional: Negative for chills, diaphoresis, fatigue and fever. HENT: Negative for congestion, ear discharge, ear pain, rhinorrhea, sinus pressure, sinus pain, sneezing and sore throat. Eyes: Negative for pain, discharge, redness, itching and visual disturbance. Respiratory: Negative for cough, chest tightness, shortness of breath and wheezing. Cardiovascular: Negative for chest pain. Gastrointestinal: Negative for abdominal pain, constipation, diarrhea, nausea and vomiting. Musculoskeletal: Negative for joint swelling, neck pain and neck stiffness. Skin: Positive for rash. Neurological: Negative for dizziness, weakness and headaches. Objective BP 136/94 Pulse 107 Temp 36.9 ?C (98.5 ?F) Resp 20 Wt 83.1 kg (183 lb 3.2 oz) SpO2 94% BMI 31.84 kg/m? Physical Exam Constitutional: Appearance: Normal appearance. HENT: Head: Normocephalic. Nose: Nose normal. No congestion or rhinorrhea. Mouth/Throat: Mouth: Mucous membranes are moist. Pharynx: Oropharynx is clear. No oropharyngeal exudate or posterior oropharyngeal erythema. Eyes: Conjunctiva/sclera: Conjunctivae normal. Cardiovascular: Rate and Rhythm: Normal rate. Pulmonary: Effort: Pulmonary effort is normal. Breath sounds: Normal breath sounds. No wheezing, rhonchi or rales. Musculoskeletal: General: Normal range of motion. Cervical back: Normal range of motion and neck supple. No rigidity. Lymphadenopathy: Cervical: No cervical adenopathy. Skin: General: Skin is warm. Findings: No rash. Comments: Erythematous base rash with some macular papular reasons. Spares palms and hands. No mucosal membrane involvement desquamation of skin Neurological: Mental Status: He is alert. {ASSESSMENT/PLAN: 1. Rash - ICD9: 782.1, ICD10: R21 Diagnosis rash. Treat hydrocortisone contact dermatitis. No evidence of infection. We discussed use of triamcinolone cream and Zyrtec first. Do not use cream on face. Can use low potency corticosteroid such as hydrocortisone cream. If symptom control is not achieved can use prednisone. Encouraged to check sugars frequently and monitor her diet. Patient was educated on supportive therapies. Patient will follow up with primary care provider as needed. Patient was instructed to immediately proceed to emergency room for any new, worsening, or symptoms lasting longer than anticipated. The patient's clinical presentation is otherwise unremarkable at this time. Based on exam and clinical finding, the patient is stable for discharge. Plan of care was discussed with patient. Patient verbalizes understanding and agrees to plan of care. This note was generated using [employer] software. It may contain errors in wording, punctuation, or spelling. Servando Browne APRN.PICK UP TRUCK DRIVER History and Record Review Clinical information obtained from an independent historian. History obtained from or confirmed by: parent. External record(s) reviewed: prior outpatient record. Disposition The patient was discharged. OTC Medications were advised: Procedures Servando Browne APRN.BRITTANY 05/17/2025 3:42 PM Addendum Today I recommend using topical steroid cream that I prescribed. Recommend using Kenalog cream 2-3 times a day. Do not use on face or head. Do not use on genitalia. Also recommend using Zyrtec or Claritin 1 tablet every 24 hours. If symptoms are not improving can use prednisone once a day. If using prednisone need to be mindful of blood glucose levels. Recommended checking blood sugars daily and monitoring diet closely. Allergies As of Date: 05/17/2025 (No Known Allergies) Date Reviewed: 05/17/2025 Reviewed by: Servando Browne APRN.PICK UP TRUCK DRIVER - Fully Assessed Reason for Visit: Rash [1087] Cmt: X3 weeks Primary Visit Diagnosis:Rash [R21] Order(s):predniSONE (DELTASONE) 10 mg tabletTake 3 tablets by mouth once daily for 5 days.Disp: 15 tabletRfl: 0 triamcinolone acetonide (more content not included)... Normal [facility] CNOVon 01-25-2025 CNOV Office Visit (INTMWS ) KALYN VALDOVINOS ([id number]) 1945 M Date Time Provider Department 01/25/25 3:00 PM ARIELA ARACELI M INTMWS During your visit today, we recorded the following information about you: Pulse Respiration Blood pressure Weight 92/minute 12/minute 114/70 83 kg Araceli Titus, MILKING MACHINE TECHNICIAN.PICK UP TRUCK DRIVER 01/25/2025 3:47 PM Signed CC: Patient presents with: Follow Up: 6 months HPI Recording using [employer] software for draft documentation of the visit was discussed with the patient/authorized public utilities sales representative; all questions welcomed and answered. Patient/authorized public utilities sales representative agreed to proceed Kalyn is a 79-year-old male with a history of DM, COPD, and hypercholesterolemia, presenting for a 6-month follow-up. Kalyn reports recent lab results showing an HbA1c of 7.1%, a slight increase from a previous result of 6.9%. He is currently taking metformin and denies any side effects such as diarrhea. He does not monitor his blood glucose levels at home. He also takes a multivitamin and consumes 3-4 servings of fruits and vegetables daily. He reports chronic shoulder and leg pain, with the shoulder pain being more severe. The pain intensifies during this time of year due to increased physical activity, such as yard work. He has not undergone any surgeries for his shoulder and maintains good range of motion. For pain management, he takes hydrocodone as needed, up to 2-3 tablets per day, and uses Tylenol for milder pain. He requests a refill of hydrocodone, noting he has 2 tablets remaining from a previous prescription of 10 tablets per year. Kalyn has a history of COPD and uses an albuterol inhaler as needed, which he finds effective. He also uses Anoro Ellipta once daily but expresses concerns about its cost. He denies any significant issues with COPD management. Review of Systems Constitutional: Negative for chills, diaphoresis and fatigue. Respiratory: Positive for cough and wheezing. Negative for shortness of breath. Cardiovascular: Negative for chest pain, palpitations and leg swelling. PAST MEDICAL HISTORY Diagnosis Date Balanoposthitis Chronic airway obstruction, not elsewhere classified Chronic alcoholism (HCC) Esophageal reflux H/O asbestosis Impaired fasting glucose Nondependent alcohol abuse Nonspecific abnormal results of liver function study Nonspecific abnormal toxicology 02/16/2018 Inconsistent controlled medication use. Obesity, unspecified Other and unspecified hyperlipidemia Phlebitis and thrombophlebitis of unspecified site 1997 Polycythemia, secondary Tobacco use disorder PAST SURGICAL HISTORY Procedure Laterality Date RIGHT HEART CATHETERIZATION 2001 Cardiac cath, R heart ALLERGIES Patient has no known allergies. MEDICATIONS albuterol HFA (VENTOLIN HFA) 90 mcg/actuation inhaler Inhale 2 puffs as instructed every 4 hours as needed for wheezing/shortness of breath. ipratropium bromide (ATROVENT) 42 mcg (0.06 %) nasal spray Use 1 spray in the nose three times a day. umeclidinium-vilanterol (ANORO ELLIPTA) 62.5-25 mcg/actuation inhaler Inhale 1 Inhalation as instructed once daily. Inhale one puff once daily. DO NOT CLICK OPEN UNTIL READY FOR DOSE metFORMIN ER (GLUCOPHAGE XR) 500 mg 24 hr tablet Take 2 tablets by mouth daily with breakfast. atorvastatin (LIPITOR) 20 mg tablet Take 1 tablet by mouth daily at bedtime. multivitamin (MULTIPLE VITAMIN ORAL) Take by mouth. ipratropium 20 mcg-albuterol 100 mcg (COMBIVENT RESPIMAT) 20-100 mcg/actuation inhaler Inhale 1 Puff as instructed four times daily. acetaminophen 650 mg CR tablet Take 650 mg by mouth every 8 hours as needed. naproxen (NAPROSYN) 500 mg tablet Take 1 tablet by mouth twice daily as needed for Pain (for pain/inflammation). Take with food. HYDROcodone-acetaminoph en (NORCO) 5-325 mg per tablet Take 1 tablet by mouth every 8 hours as needed for pain for up to 3 days. ASPIRIN 81 MG TAB Take two tablet daily. FAMILY HISTORY Problem Relation Age of Onset Cancer Father of liver cancer Alzheimer's Disease Mother Diabetes Mother Diabetes Sister Stroke Brother Carotid disease Asthma Brother Cancer Sister Cancer started in spine. Cancer Brother Lung, metastatic to spine, liver, nodes. Social History Tobacco Use Smoking status: Every Day Current packs/day: 1.50 Average packs/day: 1.5 packs/day for 55.7 years (83.6 ttl pk-yrs) Types: Cigarettes Start date: 1969 Smokeless tobacco: Never Tobacco comments: Patient states after he retired he started smoking more Vaping Use Vaping status: Never Used Substance Use Topics Alcohol use: Yes Alcohol/week: 13.8 standard drinks of alcohol Types: 6 Cans of Beer (12oz), 6 Mixed Drinks per week Comment: No blackouts, no shakes. Drug use: No Comment: Infrequent marijuana us (more content not included)... Normal [facility] Basic metabolic 2000 panelon 01-20-2025 Anion gap [Moles/Vol] 10 mmol/L Normal 8-15 [facility] Comment on above: Order Comment: Speci men Type: BLOOD SPECIMENOrdering Facility: [facility] Address: [address] [place] [address] Performed By: #### 2 4321-2 ####[facility] LABCLIA [id number] [place] [address] [place] Calcium [Mass/Vol] 9.5 mg/dL Normal 8.5-10.2 [facility] Comment on above: Order Comment: Speci men Type: BLOOD SPECIMENOrdering Facility: [facility] Address: [address] [place] [address] Performed By: #### 2 4321-2 ####[facility] LABCLIA [id number] [place] [address] [place] Chloride [Moles/Vol] 100 mmol/L Normal 98-107 [facility] Comment on above: Order Comment: Speci men Type: BLOOD SPECIMENOrdering Facility: [facility] Address: [address] [place] [address] Performed By: #### 2 4321-2 ####[facility] LABCLIA [id number] [place] [address] [place] CO2 [Moles/Vol] 27 mmol/L Normal 22-30 [facility] Comment on above: Order Comment: Speci men Type: BLOOD SPECIMENOrdering Facility: [facility] Address: [address] [place] [id number] Performed By: #### 2 4321-2 ####[facility] LABIA [id number] [place] [id number] [place] Creatinine [Mass/Vol] 0.81 mg/dL Normal 0.73-1.22 [facility] Comment on above: Order Comment: Speci men Type: BLOOD SPECIMENOrdering Facility: [facility] Address: [address] [place] [id number] Performed By: #### 2 4321-2 ####[facility] LABIA [id number] [place] [address] [place] Creatinine and Glomerular filtration rate.predicted panel (S/P/Bld) 91 mL/min/1.73m??? Normal >=60 [facility] Comment on above: Order Comment: Luli men Type: BLOOD SPECIMENOrdering Facility: [facility] Address: [address] [place] [address] Result Comment: Nava mated Glomerular Filtration Rate (eGFR) is calculated using the 2020 CKD-EPI creatinine equation. This equation utilizes serum creatinine, sex, and age as parameters. The creatinine assay has traceable calibration to isotope dilution-mass spectrometry. Refer to KDIGO guidelines for clinical interpretation. In patients with unstable renal function, e.g. those with acute kidney injury, the eGFR may not accurately reflect actual GFR. Performed By: #### 2 4321-2 ####[facility] LABIA [id number] [place] [id number] [place] Glucose [Mass/Vol] 176 mg/dL High 74-99 [facility] Comment on above: Order Comment: Luli men Type: BLOOD SPECIMENOrdering Facility: [facility] Address: [address] [place] [address] Result Comment: The [place] Diabetes Association (ADA) provides guidance for cutoff values for fasting glucose and random glucose. The ADA defines fasting as no caloric intake for at least 8 hours. Fasting plasma glucose results between 100 to 125 mg/dL indicate increased risk for diabetes (prediabetes). Fasting plasma glucose results greater than or equal to 126 mg/dL meet the criteria for diagnosis of diabetes. In the absence of unequivocal hyperglycemia, results should be confirmed by repeat testing. In a patient with classic symptoms of hyperglycemia or hyperglycemic crisis, random plasma glucose results greater than or equal to 200 mg/dL meet the criteria for diagnosis of diabetes. Reference: Standards of Medical Care in Diabetes 2016, [place] Diabetes Association. Diabetes Care. 2016.39(Suppl 1). Performed By: #### 2 4321-2 ####[facility] LABIA [id number] [place] [id number] [place] Potassium [Moles/Vol] 4.7 mmol/L Normal 3.7-5.1 [facility] Comment on above: Order Comment: Yissel etienne Type: BLOOD SPECIMENOrdering Facility: [facility] Address: [address] [place] [address] Performed By: #### 2 4321-2 ####[facility] LABIA [id number] [place] [id number] [place] Sodium [Moles/Vol] 137 mmol/L Normal 136-144 [facility] Comment on above: Order Comment: Yissel etienne Type: BLOOD SPECIMENOrdering Facility: [facility] Address: [address] [place] [address] Performed By: #### 2 1-2 ####[facility] LABIA [id number] [place] [id number] [place] Urea nitrogen [Mass/Vol] 18 mg/dL Normal 9-24 [facility] Comment on above: Order Comment: Yissel etienne Type: BLOOD SPECIMENOrdering Facility: [facility] Address: [address] [place] [address] Performed By: #### 2 4321-2 ####[facility] LABIA [id number] [address] [address] [place] HbA1c (Bld)on 01-20-2025 Average glucose Estimated from glycated hemoglobin (Bld) [Mass/Vol] 157 mg/dL Normal [facility] Comment on above: Order Comment: Yissel etienne Type: BLOOD SPECIMEN [facility] Address: [address] [place] [address] Result Comment: eAG: (Estimated average glucose) is a calculated value from HgbA1c and is public utilities sales representative of the average blood glucose level in the last 2-3 month period. Performed By: #### 5 5454-3 #### [facility] LAB CLIA [id number] [address] [place] [address] [place] HbA1c (Bld) [Mass fraction] 7.1 % High 4.3-5.6 [facility] Comment on above: Order Comment: Yissel etienne Type: BLOOD SPECIMEN [facility] Address: [address] [place] [address] Result Comment: Amer [place] Diabetes Association guidelines indicate that patients with HgbA1c in the range 5.7-6.4% are at increased risk for development of diabetes, and intervention by lifestyle modification may be beneficial. HgbA1c greater or equal to 6.5% is considered diagnostic of diabetes. Performed By: #### 5 5454-3 #### [facility] LAB CLIA [id number] [address] [place] [address] [place] CNCOon 10-11-2024 CNCO Letter Text Normal [facility] CNOVon 10-10-2024 CNOV Office Visit (PULMWS ) KALYN VALDOVINOS ([id number]) 1945 M Date Time Provider Department 10/10/24 1:30 PM ABEBE DUNLAP PULKhangWS During your visit today, we recorded the following information about you: Weight 82.1 kg Abebe Dunlap APRN.[employer] 10/10/2024 1:28 PM Signed LUNG SCREENING ANNUAL VISIT PRIMARY CARE PHYSICIAN: Tadeo Ferrer MD PULMONARY PROVIDER: none Results will be communicated via letter or electronic record if applicable. Visit Delivery: In Person Patient Visit Type: established Current or Ex-smoker? [Current Exam Type: annual LDCT Number of Pack Years: 83 Current smoker (=0) The patient's smoking history is similar to prior year shared decision visit. The reason for the discrepancy is NA Chief Complaint: Established patient in lung cancer screening program here for annual follow-up. Impression / Recommendations Kalyn Valdovinos presents for annual lung cancer screening annual exam and nodule evaluation. Plan: Indeterminate pulmonary nodules: Previously identified nodules appear stable and no new nodules of concern were seen on the exam. Low dose CT Scan to be repeated in one year. If secondary insurance will cover the LDCT. Pt to check after 09/2025. Plan subject to change pending final radiology report and recommendations. Nature of the lung nodule(s) and the options for further evaluation discussed in detail with patient. Kalyn Valdovinos expressed understanding and is in agreement with plan. 2. Encounter for screening for malignant neoplasm of respiratory organs I have determined that the patient is eligible for continued low dose CT screening based on age, absence of signs or symptoms of lung cancer, smoking history and total pack years. The patient was counseled on the importance of adherence to annual LDCT lung cancer screening, impact of comorbidities and ability or willingness to undergo diagnosis and treatment. The patient understands and feels comfortable with it: Yes, per USPSTF guidelines. However, Medicare coverage stops at age 77 yo. Pt to check with secondary insurance regarding coverage. 3. Nicotine Dependence The patient was counseled on the importance of smoking cessation if current smoker and, if appropriate, offered additional tobacco cessation counseling services - Smoking Cessation Counseling. SMOKING CESSATION COUNSELING Smoking cessation methods including Behavior Modification were discussed with the patient and assistance offered. The medical conditions adversely affected by cigarette use include:COPD, Emphysema, and Lung Cancer. Counseled on benefits of quitting smoking, recommended cessation or reduction to prevent development and/or progression of emphysema. The patient is currently not ready to quit. I personally spent 1 minutes in counseling. The time spent in smoking cessation counseling is exclusive of any other counseling during this visit. I spent a total of 30 minutes on the date of the service which included preparing to see the patient, rxso-mt-zckx patient care, completing clinical documentation, performing a medically appropriate examination, counseling and educating the patient/family/caregive r, ordering medications, tests, or procedures, communicating with other HCPs (not separately reported), independently interpreting results (not separately reported), communicating results to the patient/family/caregive r, and care coordination (not separately reported). Abebe Dunlap APRN.[facility] October 10, 2024 11:39 AM History of Present Illness: Kalyn Valdovinos is a 79 year old male who is presenting today for annual lung cancer screening LDCT and nodule surveillance/management . Patient has multiple nodules found on previous lung cancer screening LDCT. Last LDCT was performed on 09/02/2023 and was LUNG RADS Category 2. Previous potentially significant incidental findings on imaging: None. Patient is a current smoker with a 83 pack year history. Patient is currently still smoking 1.5 PPD cigarettes daily. Patient will continue to be eligible for lung cancer screening until age 82, Medicare coverage until age 79 yo. The patient does not have any symptoms or signs of lung cancer. Patient denies SOB with their daily activity. Admits to shortness of breath with activity like shoveling snow. Denies chest pain associated with this activity. Wheezing sometimes. Patient denies feeling of chest tightness/congestion in the chest. Patient does not have a new or concerning cough, and denies hemoptysis. Patient does have a chronic daily cough. Denies regular or recent fevers/chills. Patient does not have any significant unintentional weight loss. ST about a month ago x 1 day. (more content not included)... Normal [facility] CT Chest for screening WO co ntraston 10-10-2024 IMPRESSION: LungRADS category: 2 LungRADS modifier: None LungRADS 0 reason: n/a Recommendations: Continue annual screening with LDCT in 12 months. ====== Reference: [employer]. Lung CT Screening Reporting and Data System (Lung-RADS). Available at: http://www.acr.org/Qual ity-Safety/Resources/Tabitha ngRADS Aircraft Maintenance Engineer: RADHA Transcribe Date/Time: Oct 10 2024 12:12P Dictated by : EDWARD GALEANO MD This examination was interpreted and the report reviewed and electronically signed by: EDWARD GALEANO MD on Oct 10 2024 12:19PM [facility] DIVISION OF RADIOLOGY * * *Final Report* * * DATE OF EXAM: Oct 10 2024 11:09AM [facility] 0[facility] - CT LUNG SCREEN [facility] / PROCEDURE REASON: multiple diagnoses * * * * Physician Interpretation * * * * EXAMINATION: CHEST CT WITHOUT CONTRAST (LOW-DOSE CT LUNG CANCER SCREENING PROTOCOL) CLINICAL HISTORY: Lung cancer LDCT screening ? absence of signs or symptoms of lung cancer. Nicotine dependence (cigarettes). Subsequent (annual) Technique: Spiral CT acquisition of the chest from the thoracic inlet to the upper abdomen without contrast. MQ: CTLCS_6 Patient characteristics: * Hkfl-th-Iqtii: 1945; Age at exam: 79 years * Gender: Male * Lung Disease: Asymptomatic (no signs or symptoms of lung disease) * Number of Pack Years: 83 * Current smoker (=0) or Number of Years since Quit: 0 * Ordering provider and NPI: ABEBE DUNLAP [id number] * Interpreting radiologist and NPI: Jolly [id number] Exam acquisition parameters: * Exam Date: 10/10/2024 11:09 AM * Site: [facility] * * CT System Flight Engineer Inspector: [employer] * CT System Model: Sensation * Tube Current-Time (mA-sec): 27 * Peak Voltage (kV): 120V * Scan Time (sec): 10.78 * Scan Volume (z-length, cm): -28.65 * Pitch: 0.75 * Slice Thickness (mm): 1.5 * CT Dose-Length Product: 87 mGy*cm * CT Dose Index: 2.09mGy * CT Dose Reduction Method: Automated exposure control(AEC) and iterative recon COMPARISON: Prior lung screen dated 09/02/2023 RESULT: Are nodules present? Yes, 1-5 nodules Lung nodule comments: 4 mm right lung base nodule (212) unchanged. 4 mm left lung base nodule (212) unchanged. Few other scattered tiny nodules unchanged. Other findings: Moderate coronary calcifications. Mild degenerative changes of the thoracic spine. Bronchial thickening, mild upper lobe predominant emphysema, mid to lower lobe predominant subpleural reticulation and septal thickening presumably smoking-related interstitial lung disease. Scattered lower lung atelectasis. Incidental coronary calcium as automatically processed and calculated using AI: Total Coronary Calcium Score = [100+] Agatston Units Percentile Rank (age and gender matched relative to reference population): [25th-75th] percentile* [* https://www.fletcher-nhlbi. org/calcium/input.aspx] DIVISION OF RADIOLOGY Provider, [facility] - 10/10/2024 * * *Final Report* * * DATE OF EXAM: Oct 10 2024 11:09AM [facility] 0562 - CT LUNG SCREEN [facility] / PROCEDURE REASON: multiple diagnoses * * * * Physician Interpretation * * * * EXAMINATION: CHEST CT WITHOUT CONTRAST (LOW-DOSE CT LUNG CANCER SCREENING PROTOCOL) CLINICAL HISTORY: Lung cancer LDCT screening ? absence of signs or symptoms of lung cancer. Nicotine dependence (cigarettes). Subsequent (annual) Technique: Spiral CT acquisition of the chest from the thoracic inlet to the upper abdomen without contrast. MQ: CTLCS_6 Patient characteristics: * Qkmp-rz-Gaxsy: 1945; Age at exam: 79 years * Gender: Male * Lung Disease: Asymptomatic (no signs or symptoms of lung disease) * Number of Pack Years: 83 * Current smoker (=0) or Number of Years since Quit: 0 * Ordering provider and NPI: ABEBE DUNLAP [id number] * Interpreting radiologist and NPI: Jolly [id number] Exam acquisition parameters: * Exam Date: 10/10/2024 11:09 AM * Site: [facility] * * CT System Flight Engineer Inspector: [employer] * CT System Model: Sensation * Tube Current-Time (mA-sec): 27 * Peak Voltage (kV): 120V * Scan Time (sec): 10.78 * Scan Volume (z-length, cm): -28.65 * Pitch: 0.75 * Slice Thickness (mm): 1.5 * CT Dose-Length Product: 87 mGy*cm * CT Dose Index: 2.09mGy * CT Dose Reduction Method: Automated exposure control(AEC) and iterative recon COMPARISON: Prior lung screen dated 09/02/2023 RESULT: Are nodules present? Yes, 1-5 nodules Lung nodule comments: 4 mm right lung base nodule (212) unchanged. 4 mm left lung base nodule (212) unchanged. Few other scattered tiny nodules unchanged. Other findings: Moderate coronary calcifications. Mild degenerative changes of the thoracic spine. Bronchial thickening, mild upper lobe predominant emphysema, mid to lower lobe predominant subpleural reticulation and septal thickening presumably smoking-related interstitial lung disease. Scattered lower lung atelectasis. Incidental coronary calcium as automatically processed and calculated using AI: Total Coronary Calcium Score = [100+] Agatston Units Percentile Rank (age and gender matched relative to reference population): [25th-75th] percentile* [* https://www.fletcher-nhlbi. org/calcium/input.aspx] IMPRESSION IMPRESSION: LungRADS category: 2 LungRADS modifier: None LungRADS 0 reason: n/a Recommendations: Continue annual screening with LDCT in 12 months. ====== Reference: [employer]. Lung CT Screening Reporting and Data System (Lung-RADS). Available at: http://www.acr.org/Qual ity-Safety/Resources/Tabitha ngRADS Aircraft Maintenance Engineer: RADHA Transcribe Date/Time: Oct 10 2024 12:12P Dictated by : EDWARD GALEANO MD This examination was interpreted and the report reviewed and electronically signed by: EDWARD GALEANO MD on Oct 10 2024 12:19PM EST [facility] Radiology Study observation (narrative) [facility] CT Chest for screening WO co ntrastOrdered By: [facility] Provider on 10-10-[address] [facility] [address] LUNG SCREEN WO IVCONon CT LUNG SCREEN WO IVCON * * *Final Report* * * DATE OF EXAM: Oct 10 2024 11:09AM [facility] 0[facility] - CT LUNG SCREEN WO IVCON / PROCEDURE REASON: multiple diagnoses * * * * Physician Interpretation * * * * EXAMINATION: CHEST CT WITHOUT CONTRAST (LOW-DOSE CT LUNG CANCER SCREENING PROTOCOL) CLINICAL HISTORY: Lung cancer LDCT screening ? absence of signs or symptoms of lung cancer. Nicotine dependence (cigarettes). Subsequent (annual) Technique: Spiral CT acquisition of the chest from the thoracic inlet to the upper abdomen without contrast. MQ: CTLCS_6 Patient characteristics: * Goob-zj-Usciq: 1945; Age at exam: 79 years * Gender: Male * Lung Disease: Asymptomatic (no signs or symptoms of lung disease) * Number of Pack Years: 83 * Current smoker (=0) or Number of Years since Quit: 0 * Ordering provider and NPI: ABEBE DUNLAP [id number] * Interpreting radiologist and NPI: Jolly [id number] Exam acquisition parameters: * Exam Date: 10/10/2024 11:09 AM * Site: [facility] * * CT System Flight Engineer Inspector: [employer] * CT System Model: Sensation * Tube Current-Time (mA-sec): 27 * Peak Voltage (kV): 120V * Scan Time (sec): 10.78 * Scan Volume (z-length, cm): -28.65 * Pitch: 0.75 * Slice Thickness (mm): 1.5 * CT Dose-Length Product: 87 mGy*cm * CT Dose Index: 2.09mGy * CT Dose Reduction Method: Automated exposure control(AEC) and iterative recon COMPARISON: Prior lung screen dated 09/02/2023 RESULT: Are nodules present? Yes, 1-5 nodules Lung nodule comments: 4 mm right lung base nodule (212) unchanged. 4 mm left lung base nodule (212) unchanged. Few other scattered tiny nodules unchanged. Other findings: Moderate coronary calcifications. Mild degenerative changes of the thoracic spine. Bronchial thickening, mild upper lobe predominant emphysema, mid to lower lobe predominant subpleural reticulation and septal thickening presumably smoking-related interstitial lung disease. Scattered lower lung atelectasis. Incidental coronary calcium as automatically processed and calculated using AI: Total Coronary Calcium Score = [100+] Agatston Units Percentile Rank (age and gender matched relative to reference population): [25th-75th] percentile* [* https://www.fletcher-nhlbi. org/calcium/input.aspx] IMPRESSION: LungRADS category: 2 LungRADS modifier: None LungRADS 0 reason: n/a Recommendations: Continue annual screening with LDCT in 12 months. ====== Reference: [employer]. Lung CT Screening Reporting and Data System (Lung-RADS). Available at: http://www.acr.org/Qual ity-Safety/Resources/Tabitha ngRADS Aircraft Maintenance Engineer: PSCDisha Transcribe Date/Time: Oct 10 2024 12:12P Dictated by : EDWARD GALEANO MD This examination was interpreted and the report reviewed and electronically signed by: EDWARD GALEANO MD on Oct 10 2024 12:19PM EST [id number] Normal [facility] Metabolic Prof ilon 03-18-2024 Albumin [Mass/Vol] 3.9 g/dL Normal 3.2-5.0 [facility] Comment on above: Performed By: #### L 500.4050 #### [facility] [address] [place], [place], [id number] Albumin/Globulin [Mass ratio] 0.9 {ratio} Normal 0.9-2.4 [facility] Comment on above: Performed By: #### L 500.4050 #### [facility] [address] [place], [address] ALK P 71 U/L Normal 45-117 [facility] Comment on above: Performed By: #### L 500.4050 #### [facility] [address] [place], [address] ALT [Catalytic activity/Vol] 32 U/L Normal 16-61 [facility] Comment on above: Performed By: #### L 500.4050 #### [facility] [address] [place], [address] AST [Catalytic activity/Vol] 26 U/L Normal 15-37 [facility] Comment on above: Performed By: #### L 500.4050 #### [facility] [address] [place], [address] Bilirubin [Mass/Vol] 0.60 mg/dL Normal 0.20-1.[address] [facility] Comment on above: Result Comment: For patients on eltrombopag therapy, use of Dimension [place] TBIL is not recommended. Performed By: #### L 500.4050 #### [facility] [address] [place], [address] BUN/CRE 21.2 RATIO High 10-20 [facility] Comment on above: Performed By: #### L 500.4050 #### [facility] [address] [place], [address] CA,Total 9.7 mg/dL Normal 8.5-10.1 [facility] Comment on above: Performed By: #### L 500.4050 #### [facility] [address] [place], [address] Chloride [Moles/Vol] 102 mmol/L Normal 98-[address] [facility] Comment on above: Performed By: #### L 500.4050 #### [facility] [address] [place], [address] CO2 [Moles/Vol] 30.0 mmol/L Normal 21.0-32.0 [facility] Comment on above: Performed By: #### L 500.4050 #### [facility] [address] [place], [address] Creatinine [Mass/Vol] 0.99 mg/dL Normal 0.70-1.30 [facility] Comment on above: Result Comment: The validity of the calculated GFR GFRAA in patients over 70 years has not been determined. Clinical correlation is essential. Performed By: #### L 500.4050 #### [facility] [address] [place], [address] ECRCL 63.99 ml/min Normal [facility] Comment on above: Performed By: #### L 500.4050 #### [facility] [address] [place], [address] EST GFR - AA 94 mL/min Normal >60 [facility] Comment on above: Result Comment: Afri can [place] GFR Calc Performed By: #### L 500.4050 #### [facility] [address] [place], [address] GAP 6 Normal 5-15 [facility] Comment on above: Performed By: #### L 500.4050 #### [facility] [address] [place], [address] GFR/1.73 sq M.predicted among non-blacks MDRD (S/P/Bld) [Vol rate/Area] 78 mL/min/{1.73_m2} Normal >60 [facility] Comment on above: Result Comment: Non- GFR Calc Performed By: #### L 500.4050 #### [facility] [address] [place], [address] Globulin (S) [Mass/Vol] 4.5 g/dL High 2.2-4.2 [facility] Comment on above: Performed By: #### L 500.4050 #### [facility] [address] [place], [address] Glucose [Mass/Vol] 113 mg/dL High 74-106 [facility] Comment on above: Result Comment: Fast ing Glucose result from 100 to 125 mg/dL suggests IMPAIRED HOMEOSTASIS per A.D.A. criteria. Performed By: #### L 500.4050 #### [facility] [address] [place], [address] Potassium [Moles/Vol] 4.7 mmol/L Normal 3.5-5.1 [facility] Comment on above: Performed By: #### L 500.4050 #### [facility] [address] [place], [address] Sodium [Moles/Vol] 138 mmol/L Normal 136-145 [facility] Comment on above: Performed By: #### L 500.4050 #### [facility] [address] [place], [address] T PROT 8.4 g/dL High 6.4-8.2 [facility] Comment on above: Performed By: #### L 500.4050 #### [facility] [address] [place], [address] Urea nitrogen [Mass/Vol] 21 mg/dL High 7-18 [facility] Comment on above: Performed By: #### L 500.4050 #### [facility] [address] [place], [address] Emergency Department Summary on 03-18-2024 Emergency Department Summary [facility] Medical Records Department [address] [place] [address] Emergency Department Summary 03/18/24 MR#: [id number] Acct: [id number] Name: KALYN VALDOVINOS Rep #: [id number] : 1945 78 From: Danny Bernard MD PCP: Dr. Tadeo Ferrer MD Status:REG ER Location: ED HPI History of Present Illness Chief Complaint: Edema Detail of Chief Complaint: Edema of lower extremities and posterior right thigh pain Informant: patient Onset/Context/Timing Onset: Days and Weeks Context: Sudden Onset (The posterior right thigh pain started abruptly a couple of days ago.) Timing: Continuous Quality: Pain Location: Posterior thigh Current Severity: Mild Maximum Severity: Severe [facility] Medical History (Updated 03/18/24 @ 20:[address] Danny Bernard MD) Hyperlipemia Diabetes COPD (chronic obstructive pulmonary disease) Home Medications ???Medication ???Instructions ???Recorded ???Last Taken ???Type albuterol sulfate 90 mcg/actuation 2 puff inhalation Q4H PRN PRN 03/09/17 Unknown History aerosol inhaler (ProAir HFA) Shortness Of Breath aspirin 81 mg tablet,delayed 81 mg PO DAILY heart health 03/09/17 06/19/18 History release (Aspir-Low) atorvastatin 20 mg tablet 20 mg PO QHS chlosterol 03/09/17 06/18/18 History ipratropium 20 mcg-albuterol 100 1 puff inhalation 4X/DAY PRN PRN 03/09/17 06/19/18 History mcg/actuation mist for inhalation Sob /Or Wheezing (Combivent Respimat) metformin 500 mg 24 hr 500 mg PO DAILY DM2 03/09/17 06/19/18 History tablet,extended release (gastric retention) folic acid 1 mg tablet 1 mg PO DAILY@0800 06/21/18 Unknown Rx guaifenesin 100 mg/5 mL oral liquid 10 ml PO Q4H PRN PRN COUGH 06/21/18 Unknown Rx insulin glargine 100 unit/mL (3 75 unit (0.75 mL) SQ QHS ##1 06/21/18 Unknown Rx mL) subcutaneous pen insulin lispro 100 unit/mL See Protocol SQ ACHS 06/21/18 Unknown Rx subcutaneous pen (Humalog KwikPen (U-100) Insulin) multivitamin,tx-iron-mi nerals 27 1 tab PO DAILYCM 06/21/18 Unknown Rx mg-0.4 mg tablet (Therems-M) nicotine (polacrilex) 2 mg gum 2 mg PO Q2H PRN PRN nicotine 06/21/18 Unknown Rx craving breakthrough nicotine 21 mg/24 hr daily 21 mg TRANSDERM. DAILY 06/21/18 Unknown Rx transdermal patch hydrocodone-acetaminoph en 5-325mg 1 tab PO Q6H PRN PRN Pain 3 days 03/18/24 Unknown Rx 5mg-325mg #10 TABLETS Allergy/AdvReac Type Severity Reaction Status Date / Time No Known Allergies Allergy Verified 03/18/24 18:09 Family History no significant family his Social History (Updated 03/18/24 @ 18:03 by Marisol House) household members: spouse housing: house current occupational status: retired Smoking Status: Current every day smoker tobacco type: cigarettes ROS ROS ED Constitutional Constitutional ED: Denies chills, fever(s), subjective, sweats or weight loss Eyes Eyes: Denies blurry vision, change in vision or diplopia Cardiovascular Cardiovascular: Denies chest pain, orthopnea, palpitations or paroxysmal nocturnal dyspnea Respiratory/Chest Respiratory/Chest: Denies cough, dyspnea, dyspnea on exertion, orthopnea or paroxysmal nocturnal dyspnea Gastrointestinal Gastrointestinal: Denies abdominal pain, diarrhea, melena, nausea or vomiting Musculoskeletal Musculoskeletal: Reports other Details: Pain posterior right thigh ; Denies arthralgias, back pain, myalgias or neck pain Integumentary Denies rash Neurologic Neurologic: Denies headache(s), paresthesias or weakness Endocrine Endocrinology: Denies cold intolerance or heat intolerance Hematologic/Lymphatic Hematologic/Lymphatic: Reports systems reviewed and no addt'l complaints, except as documented EXAM Physical Exam Const Vital Signs: 03/18/24 17:41 03/18/24 19:41 Temperature 97 F L Temperature Source Temporal Pulse Rate 101 H 108 H Respiratory Rate 20 H 18 Blood Pressure 142/62 H 118/77 Blood Pressure Mean 88 90 Pulse Ox 94 92 Oxygen Delivery Method Room Air Room Air Positive well nourished and well developed General Appearance ED: well developed and NAD; Negative for pallor HEENT Reports moist mucous membranes HEENT Narrative: Head is atraumatic normocephalic. Ears normal. Nares patent. Posterior pharynx is normal. Eyes PERRL and EOMs intact bilaterally General Eye ED: Negative for pale conjunctiva or scleral icterus Neck no lymphadenopathy, supple and no JVD Chest Wall inspection of chest normal and palpation of chest normal Resp normal respiratory effort and clear to auscultation bilaterally Cardio regular rate, regular rhythm, S1 normal heart sound and S2 normal heart sound GI normal to inspection, nondistended, normoactive bowel sounds, non-tender, non-distended and no masses; Negative for hepatosplenomegaly Back/Spine (more content not included)... Normal [facility] Urinalysis, Completeon 03-18 CAST,HYALINE 10-25 SEEN Normal 0-5 [facility] Comment on above: Order Comment: CLEAN CATCH Performed By: #### [id number] #### [facility] [address] [place], [address] BACTERIA 2+ /hpf Normal None Seen [facility] Comment on above: Order Comment: CLEAN CATCH Performed By: #### L [id number] #### [facility] [address] [place], [address] EPI,RENAL 0-5 SEEN Normal 0-5 [facility] Comment on above: Order Comment: CLEAN CATCH Performed By: #### L [id number] #### [facility] [address] [place], [address] EPI,SQUAMOUS 0-5 SEEN Normal 0-5 [facility] Comment on above: Order Comment: CLEAN CATCH Performed By: #### L [id number] #### [facility] [address] [place], [address] EPI,TRANSITION 0-5 SEEN Normal 0-5 [facility] Comment on above: Order Comment: CLEAN CATCH Performed By: #### L [id number] #### [facility] [address] [place], [address] RBC 0-5 SEEN Normal 0-5 [facility] Comment on above: Order Comment: CLEAN CATCH Performed By: #### L [id number] #### [facility] [address] [place], [address] WBC 0-5 SEEN Normal 0-5 [facility] Comment on above: Order Comment: CLEAN CATCH Performed By: #### L [id number] #### [facility] [address] [place], [address] Mucus Ql (Urine sed) 0 SEEN Normal [facility] Comment on above: Order Comment: CLEAN CATCH Performed By: #### L [id number] #### [facility] [address], [address] CNPNon 09-04-2023 CNPN Telephone ([facility]) KALYN VALDOVINOS ([id number]) 1945 M Date Time Provider Department 09/04/23 [facility] DUNLAP [facility] During your visit today, we recorded the following information about you: Abebe Dunlap APRN.CNP 09/04/2023 11:23 AM Signed Left message on mobile phone number for pt to call back regarding results. Abebe Dunlap APRN.CNP 09/04/2023 3:21 PM Signed Spoke with patient and the following results were discussed: LDCT Lung Screen Results LungRADS category: 2 Incidentals: none Recommendations: Continue annual screening with LDCT in 12 months. Patient verbalized understanding of the results and had no other questions or concerns at this time. Abebe Dunlap APRN.CNP September 04, 2023 3:21 PM Allergies As of Date: 09/04/2023 (No Known Allergies) Date Reviewed: 08/21/2023 Reviewed by: Sheila Lal, RT(R) - Fully Assessed Reason for Visit: Results [95] Primary Visit Diagnosis:Tobacco use disorder [F17.200] Order(s):CT LUNG SCREEN WO DREWON [[id number]] Order #: [id number] FUTURE Prescriptions as of 09/04/2023 - ipratropium bromide (ATROVENT) 42 mcg (0.06 %) nasal spray Use 1 [place] in the nose three times daily. - umeclidinium-vilanterol (ANORO ELLIPTA) 62.5-25 mcg/actuation inhaler Inhale 1 Inhalation as instructed once daily. Inhale one puff once daily. DO NOT CLICK OPEN UNTIL READY FOR DOSE - ipratropium 20 mcg-albuterol 100 mcg (COMBIVENT RESPIMAT) 20-100 mcg/actuation inhaler Inhale 1 Puff as instructed four times daily. - albuterol HFA (VENTOLIN HFA) 90 mcg/actuation inhaler Inhale 2 Puffs as instructed every 4 hours as needed for wheezing/shortness of breath. - atorvastatin (LIPITOR) 20 mg tablet Take 1 tablet by mouth daily at bedtime. - metFORMIN ER (GLUCOPHAGE XR) 500 mg 24 hr tablet Take 2 tablets by mouth daily with breakfast. - sennosides (SENOKOT ORAL) Take by mouth. - acetaminophen 650 mg CR tablet Take 650 mg by mouth every 8 hours as needed. - folic acid 1 mg tablet Take 1 mg by mouth once daily. - naproxen (NAPROSYN) 500 mg tablet Take 1 tablet by mouth twice daily as needed for Pain (for pain/inflammation). Take with food. - ASPIRIN 81 MG TAB Take two tablet daily. Problem List As Of Date 09/04/2023 Noted Resolved Mixed hyperlipidemia [E78.2] 11/25/2005 BALANOPOSTHITIS [N47.6] 06/30/2006 ESOPHAGEAL REFLUX [K21.9] 06/30/2006 THROMBOPHLEBITIS NOS [I80.9] 06/30/2006 Nonspecific abnormal results of liver function * 09/17/2015 SECONDARY POLYCYTHEMIA [D75.1] Chronic Alcoholism [F10.20] Obesity, unspecified [E66.9] 05/08/2021 TOBACCO USE DISORDER [F17.200] COPD (chronic obstructive pulmonary disease) (H* Impaired fasting glucose [R73.01] 09/17/2015 Chronic shoulder pain [M25.519, G89.29] 12/19/2009 LGI bleed [K92.2] 05/23/2011 04/05/2013 Insomnia [G47.00] 12/05/2013 03/14/2019 Diabetes mellitus without complication (HCC) [E*07/05/2014 Occult GI bleeding [R19.5] 09/28/2015 06/28/2021 Lateral epicondylitis, left elbow [M77.12] 11/20/2016 03/14/2019 Incidental pulmonary nodule, > 3mm and < 8mm [R*07/07/2018 05/02/2020 Obesity, Class I, BMI 30-34.9 [E66.9] 03/14/2019 Encounter Status:Closed by ABEBE DUNLAP on 09/04/23 [facility] Vital Signs Date Time Vital Sign Value Performing Clinician Norma huff 05-17-2025 15:25-0400 Body mass index (BMI) [Ratio] 31.84 kg/m2 Servando Browne MILKING MACHINE TECHNICIAN.PICK UP TRUCK DRIVER Work Phone: [facility] 05-17-2025 15:25-0400 Body temperature 98.49 [degF] Servando Browne MILKING MACHINE TECHNICIAN.PICK UP TRUCK DRIVER Work Phone: [facility] 05-17-2025 15:25-0400 Body weight 83.1 kg Servando Browne MILKING MACHINE TECHNICIAN.PICK UP TRUCK DRIVER Work Phone: [facility] 05-17-2025 15:25-0400 Diastolic blood pressure 94 mm[Hg] Servando Browne MILKING MACHINE TECHNICIAN.PICK UP TRUCK DRIVER Work Phone: [facility] 05-17-2025 15:25-0400 Heart rate 107 /min Servando Browne MILKING MACHINE TECHNICIAN.PICK UP TRUCK DRIVER Work Phone: [facility] 05-17-2025 15:25-0400 Respiratory rate 20 /min Servando Browne MILKING MACHINE TECHNICIAN.PICK UP TRUCK DRIVER Work Phone: [facility] 05-17-2025 15:25-0400 SaO2% (BldA) [Mass fraction] 94 % Servando Browne MILKING MACHINE TECHNICIAN.PICK UP TRUCK DRIVER Work Phone: [facility] 05-17-2025 15:25-0400 Systolic blood pressure 136 mm[Hg] Servando Browne MILKING MACHINE TECHNICIAN.PICK UP TRUCK DRIVER Work Phone: [facility] 01-25-2025 15:12-0400 Body mass index (BMI) [Ratio] 31.81 kg/m2 Araceli Titus MILKING MACHINE TECHNICIAN.PICK UP TRUCK DRIVER Work Phone: [facility] 01-25-2025 15:12-0400 Body weight 83 kg Araceli Titus MILKING MACHINE TECHNICIAN.PICK UP TRUCK DRIVER Work Phone: [facility] 01-25-2025 15:12-0400 Diastolic blood pressure 70 mm[Hg] Araceli Ariela MILKING MACHINE TECHNICIAN.PICK UP TRUCK DRIVER Work Phone: [facility] 01-25-2025 15:12-0400 Heart rate 92 /min Araceli ParrishAriela MILKING MACHINE TECHNICIAN.PICK UP TRUCK DRIVER Work Phone: [facility] 01-25-2025 15:12-0400 Respiratory rate 12 /min Araceli ParrishAriela MILKING MACHINE TECHNICIAN.PICK UP TRUCK DRIVER Work Phone: [facility] 01-25-2025 15:12-0400 SaO2% (BldA) [Mass fraction] 94 % Araceli ParrishAriela MILKING MACHINE TECHNICIAN.PICK UP TRUCK DRIVER Work Phone: [facility] 01-25-2025 15:12-0400 Systolic blood pressure 114 mm[Hg] Araceli Ariela MILKING MACHINE TECHNICIAN.PICK UP TRUCK DRIVER Work Phone: [facility] 10-10-2024 11:11-0500 Body mass index (BMI) [Ratio] 31.46 kg/m2 Abebe Dunlap MILKING MACHINE TECHNICIAN.PICK UP TRUCK DRIVER Work Phone: [facility] 10-10-2024 11:11-0500 Body weight 82.1 kg Abebe Dunlap MILKING MACHINE TECHNICIAN.PICK UP TRUCK DRIVER Work Phone: [facility] 07-28-2024 12:59-0500 Body height 161.5 cm Tadeo Ferrer MD Work Phone: [facility] 07-28-2024 12:59-0500 Body mass index (BMI) [Ratio] 31.77 kg/m2 Tadeo Ferrer MD Work Phone: [facility] 07-28-2024 12:59-0500 Body temperature 98.4 [degF] Tadeo Ferrer MD Work Phone: [facility] 07-28-2024 12:59-0500 Body weight 82.9 kg Tadeo Ferrer MD Work Phone: [facility] 07-28-2024 12:59-0500 Diastolic blood pressure 66 mm[Hg] Tadeo Ferrer MD Work Phone: [facility] 07-28-2024 12:59-0500 Heart rate 88 /min Tadeo Ferrer MD Work Phone: [facility] 07-28-2024 12:59-0500 SaO2% (BldA) [Mass fraction] 93 % Tadeo Ferrer MD Work Phone: [facility] 07-28-2024 12:59-0500 Systolic blood pressure 128 mm[Hg] Tadeo Ferrer MD Work Phone: [facility] 01-25-2024 13:41-0400 Body mass index (BMI) [Ratio] 31.58 kg/m2 Tadeo Ferrer MD Work Phone: [facility] 01-25-2024 13:41-0400 Body temperature 97.81 [degF] Tadeo Ferrer MD Work Phone: [facility] 01-25-2024 13:41-0400 Body weight 83.46 kg Tadeo Ferrer MD Work Phone: [facility] 01-25-2024 13:41-0400 Diastolic blood pressure 64 mm[Hg] Tadeo Ferrer MD Work Phone: [facility] 01-25-2024 13:41-0400 Heart rate 48 /min Tadeo Ferrer MD Work Phone: [facility] 01-25-2024 13:41-0400 Respiratory rate 28 /min Tadeo Ferrer MD Work Phone: [facility] 01-25-2024 13:41-0400 SaO2% (BldA) [Mass fraction] 94 % Tadeo Ferrer MD Work Phone: [facility] 01-25-2024 13:41-0400 Systolic blood pressure 110 mm[Hg] Tadeo Ferrer MD Work Phone: [facility] 08-11-2023 13:49-0500 Body weight 83.37 kg Abebe [place] MILKING MACHINE TECHNICIAN.PICK UP TRUCK DRIVER Work Phone: [facility] 08-11-2023 13:49-0500 Diastolic blood pressure 78 mm[Hg] Abebe [place] MILKING MACHINE TECHNICIAN.PICK UP TRUCK DRIVER Work Phone: [facility] 08-11-2023 13:49-0500 Heart rate 90 /min Abebe [place] MILKING MACHINE TECHNICIAN.PICK UP TRUCK DRIVER Work Phone: [facility] 08-11-2023 13:49-0500 Respiratory rate 20 /min Abebe [place] MILKING MACHINE TECHNICIAN.PICK UP TRUCK DRIVER Work Phone: [facility] 08-11-2023 13:49-0500 SaO2% (BldA) [Mass fraction] 92 % Abebe [place] MILKING MACHINE TECHNICIAN.PICK UP TRUCK DRIVER Work Phone: [facility] 08-11-2023 13:49-0500 Systolic blood pressure 118 mm[Hg] Abebe [place] MILKING MACHINE TECHNICIAN.PICK UP TRUCK DRIVER Work Phone: [facility] 07-27-2023 13:39-0500 Body height 162.6 cm Tadeo Ferrer MD Work Phone: [facility] 07-27-2023 13:39-0500 Body temperature 97.59 [degF] Tadeo Ferrer MD Work Phone: [facility] 07-27-2023 13:39-0500 Body weight 83.46 kg Tadeo Ferrer MD Work Phone: [facility] 07-27-2023 13:39-0500 Diastolic blood pressure 62 mm[Hg] Tadeo Ferrer MD Work Phone: [facility] 07-27-2023 13:39-0500 Heart rate 108 /min Tadeo Ferrer MD Work Phone: [facility] 07-27-2023 13:39-0500 Respiratory rate 20 /min Tadeo Ferrer MD Work Phone: [facility] 07-27-2023 13:39-0500 SaO2% (BldA) [Mass fraction] 93 % Tadeo Ferrer MD Work Phone: [facility] 07-27-2023 13:39-0500 Systolic blood pressure 120 mm[Hg] Tadeo Ferrer MD Work Phone: [facility] 04-16-2023 14:36-0400 Body temperature 98.4 [degF] Aj Valentin MILKING MACHINE TECHNICIAN.PICK UP TRUCK DRIVER Work Phone: [facility] 04-16-2023 14:36-0400 Body weight 81.74 kg Aj Valentin MILKING MACHINE TECHNICIAN.PICK UP TRUCK DRIVER Work Phone: [facility] 04-16-2023 14:36-0400 Diastolic blood pressure 80 mm[Hg] Aj Valentin MILKING MACHINE TECHNICIAN.PICK UP TRUCK DRIVER Work Phone: [facility] 04-16-2023 14:36-0400 Heart rate 72 /min Aj Valentin MILKING MACHINE TECHNICIAN.PICK UP TRUCK DRIVER Work Phone: [facility] 04-16-2023 14:36-0400 Respiratory rate 18 /min Aj Valentin MILKING MACHINE TECHNICIAN.PICK UP TRUCK DRIVER Work Phone: [facility] 04-16-2023 14:36-0400 SaO2% (BldA) [Mass fraction] 96 % Aj Valentin MILKING MACHINE TECHNICIAN.PICK UP TRUCK DRIVER Work Phone: [facility] 04-16-2023 14:36-0400 Systolic blood pressure 146 mm[Hg] Aj Valentin MILKING MACHINE TECHNICIAN.PICK UP TRUCK DRIVER Work Phone: [facility] 07-16-2022 15:38-0400 Body weight 85.73 kg Tadeo Ferrer MD Work Phone: [facility] 07-16-2022 15:38-0400 Diastolic blood pressure 70 mm[Hg] Tadeo Ferrer MD Work Phone: [facility] 07-16-2022 15:38-0400 Heart rate 93 /min Tadeo Ferrer MD Work Phone: [facility] 07-16-2022 15:38-0400 Respiratory rate 18 /min Tadeo Ferrer MD Work Phone: [facility] 07-16-2022 15:38-0400 SaO2% (BldA) [Mass fraction] 95 % Tadeo Ferrer MD Work Phone: [facility] 07-16-2022 15:38-0400 Systolic blood pressure 116 mm[Hg] Tadeo Ferrer MD Work Phone: [facility] Encounters Encounter Date Encounter Type Care Provider Facility Start: 07-31-2025 End: 07-31-2025 ambulatory TADEO FERRER Facility:[facility] Start: 05-17-2025 End: 05-17-2025 Office outpatient visit 25 minutes Servando Browne MILKING MACHINE TECHNICIAN.PICK UP TRUCK DRIVER Work Phone: [facility] Comment on above: Rash (Primary Dx) Start: 05-17-2025 End: 05-17-2025 ambulatory TADEO FERRER Facility:[facility] Start: 01-25-2025 End: 01-25-2025 Office outpatient visit 25 minutes Araceli Titus MILKING MACHINE TECHNICIAN.PICK UP TRUCK DRIVER Work Phone: [facility] Comment on above: Acute pain of left s houlder (Primary Dx); Chronic obstructive pulmonary disease, unspecified COPD type (HCC); Chronic alcoholism (HCC); Diabetes mellitus without complication (HCC); Mixed hyperlipidemia; Cardiac arrhythmia, unspecified cardiac arrhythmia type Start: 01-25-2025 End: 01-25-2025 ambulatory TADEO FERRER Facility:[facility] Start: 01-21-2025 End: 01-21-2025 Follow-up encounter Tadeo Ferrer MD Work Phone: [facility] Start: 01-20-2025 End: 01-20-2025 ambulatory TADEO FERRER Facility:[facility] Start: 12-27-2024 End: 12-27-2024 Refill Tadeo Ferrer MD Work Phone: [address] [place] [address] Comment on above: Refill Request Start: 11-04-2024 End: 11-04-2024 Refill Tadeo Ferrer MD Work Phone: [facility] Comment on above: Refill Request Start: 11-02-2024 End: 11-02-2024 Refill Tadeo Ferrer MD Work Phone: [facility] Comment on above: Refill Request Start: 10-10-2024 End: 10-10-2024 Patient encounter procedure Abebe Dunlap APRN.PICK UP TRUCK DRIVER Work Phone: [facility] Comment on above: Multiple lung nodule s (Primary Dx); Encounter for screening for lung cancer; Tobacco use disorder Start: 10-10-2024 End: 10-10-2024 ambulatory TADEO FERRER Facility:[facility] Start: 10-10-2024 End: 10-10-2024 Subsequent hospital visit by physician [facility] ([facility]) Work Phone: [facility] Comment on above: Tobacco use disorder [F17.200] Start: 09-30-2024 End: 09-30-2024 Orders Only Abebe Dunlap APRN.PICK UP TRUCK DRIVER Work Phone: [facility] Comment on above: Tobacco use disorder (Primary Dx); Encounter for screening for lung cancer Start: 07-28-2024 End: 07-28-2024 Patient encounter procedure Tadeo Ferrer MD Work Phone: [facility] Comment on above: Medicare annual well ness visit, subsequent (Primary Dx); Need for influenza vaccination; Screening for depression; Encounter for screening examination for other mental health and behavioral disorders; Need for COVID-19 vaccine; Chronic alcoholism (HCC); Chronic left shoulder pain; Cardiac arrhythmia, unspecified cardiac arrhythmia type; Tobacco use disorder; Mixed hyperlipidemia; Polycythemia, secondary; Chronic obstructive pulmonary disease, unspecified COPD type (HCC); Diabetes mellitus without complication (HCC) Start: 06-27-2024 End: 06-27-2024 Refill Tadeo Ferrer MD Work Phone: [address] [place] [address] Comment on above: Refill Request Start: 05-05-2024 Refill Tadeo harris MD Work Phone: [facility] Comment on above: Refill Request Start: 03-18-2024 End: 03-18-2024 Emergency department patient visit Tadeo Ferrer Facility:[facility] Start: 03-18-2024 End: 03-18-2024 Patient encounter procedure Marily MARIE Work Phone: [facility] Comment on above: Leg swelling (Primar y Dx) Start: 01-25-2024 End: 01-25-2024 Patient encounter procedure Tadeo Ferrer MD Work Phone: [facility] Comment on above: Need for COVID-19 va ccine (Primary Dx); Mixed hyperlipidemia; Diabetes mellitus without complication (HCC); Chronic obstructive pulmonary disease, unspecified COPD type (HCC); Screening for prostate cancer Start: 09-04-2023 Telephone encounter Abebe perera APRN.PICK UP TRUCK DRIVER Work Phone: [facility] Comment on above: Results Start: 08-11-2023 End: 08-11-2023 Patient encounter procedure Abebe Dunlap MILKING MACHINE TECHNICIAN.PICK UP TRUCK DRIVER Work Phone: [facility] Comment on above: Encounter for screen ing for lung cancer (Primary Dx); Tobacco use disorder Start: 07-27-2023 End: 07-27-2023 Patient encounter procedure Tadeo Ferrer MD Work Phone: [facility] Comment on above: Medicare annual well ness visit, subsequent (Primary Dx); Need for influenza vaccination; Tobacco use disorder; Chronic obstructive pulmonary disease, unspecified COPD type (HCC); Mixed hyperlipidemia; Diabetes mellitus without complication (HCC); Chronic alcoholism (HCC); Polycythemia, secondary; Need for COVID-19 vaccine; Screening for colon cancer Start: 06-01-2023 Refill Tadeo harris MD Work Phone: [facility] Comment on above: Refill Request Start: 04-16-2023 End: 04-16-2023 Patient encounter procedure Aj Hanson APRN.PICK UP TRUCK DRIVER Work Phone: [facility] Comment on above: Rash (Primary Dx) Start: 03-11-2023 Refill Tadeo harris MD Work Phone: [facility] Comment on above: Refill Request Start: 10-23-2022 Refill Tadeo harris MD Work Phone: [facility] Comment on above: Refill Request Start: 10-15-2022 Telephone encounter Tadeo schultz MD Work Phone: [address] [place] [address] Comment on above: Refill Request Start: 10-08-2022 Telephone encounter Tadeo schultz MD Work Phone: [facility] Comment on above: Medication Question Start: 07-16-2022 End: 07-16-2022 Patient encounter procedure Tadeo Frerer MD Work Phone: [facility] Comment on above: Medicare annual well ness visit, subsequent (Primary Dx); Chronic obstructive pulmonary disease, unspecified COPD type (HCC); Diabetes mellitus without complication (HCC); Mixed hyperlipidemia; Tobacco use disorder; Chronic alcoholism (HCC); Need for COVID-19 vaccine; Colon cancer screening Start: 07-11-2022 End: 07-11-2022 ambulatory Mi Nurse Work Phone: [facility] Start: 07-03-2022 Telephone encounter Tadeo schultz MD Work Phone: [facility] [place] Comment on above: Returning Patient's Call Start: 05-05-2022 Refill Tadeo harris MD Work Phone: [facility] [place] Comment on above: Refill Request Start: 02-13-2022 End: 02-13-2022 Nursing evaluation of patient and report Mi Nurse Work Phone: [facility] [place] Comment on above: Need for vaccination (Primary Dx) Procedures Date Procedure Procedure Detail Performing Clinician Start: 10-10-2024 CT LUNG SCREEN VIVIANE Dunlap APRN.PICK UP TRUCK DRIVER Work Phone: Start: 07-28-2024 [employer] COVI D-19 VACCINE AGE 12+ YR (COMIRNATY) Tadeo Ferrer MD Work Phone: Start: 07-28-2024 Adult depression scr eening assessment Tadeo Ferrer MD Work Phone: Start: 07-27-2023 [employer] COVI D-19 VACCINE ( SEASON) AGE 12+ YR Tadeo Ferrer MD Work Phone: Start: 07-27-2023 INFLUENZA VACCINE, P RSV FREE, AGE 65+ YR, HIGH DOSE, QUADRIVALENT (FLUZONE HIGH-DOSE) Tadeo Ferrer MD Work Phone: Start: 07-16-2022 [employer] COVI D-19 BIVALENT BOOSTER VACCINE, AGE 12+ YR Tadeo Ferrer MD Work Phone: Start: 07-16-2022 Ecg routine ecg w/le ast 12 lds w/i&r [facility] Provider Start: 07-11-2022 INFLUENZA SEASONAL QUADRIVALENT HIGH DOSE AGE 65+ Tadeo Ferrer MD Work Phone: Start: 02-13-2022 [employer] COVI D-19 VACCINE, AGE 12+ YR (ATTE TOP) Tadeo Ferrer MD Work Phone: Start: 06-28-2021 Adult depression scr eening assessment Mi Nurse Work Phone: Plan of Treatment Date Care Activity Detail Author Start: 01-22-2033 Urine microalbumin profile [facility] Start: 01-25-2026 Annual PCP Team Field Marketer saulo Disease Visit Annual PCP Team Chronic Disease Visit [facility] Start: 01-25-2026 Covid-19 Vaccine ( season) Covid-19 Vaccine ( season) [facility] Comment on above: Postponed from 01/25 (Declined at this time) Start: 10-10-2025 Screening for malign ant neoplasm of lung Lung Cancer Screening [facility] Start: 09-29-2025 Glaucoma screening Dilated Retinal E xam [facility] Start: 07-31-2025 End: 07-31-2025 Patient encounter procedure 07/31/2025 1:40 PM EST Office Visit [facility] [address] [place] [address] Tadeo Ferrer MD [address] [place] [address] Medicare Wellness 6 months [facility] Comment on above: Medicare Wellness 6 months Start: 07-28-2025 Annual PCP Team Field Marketer saulo Disease Visit Annual PCP Team Chronic Disease Visit [facility] Start: 07-28-2025 Anxiety Screening Anxiety Screening [facility] Start: 07-28-2025 Depression Screening Depression Scre ening [facility] Start: 07-28-2025 Diabetic foot examination Diabetic Foot Exam [facility] Start: 07-28-2025 Medicare Annual Wellness Visit Medicare Annual Wellness Visit [facility] Start: 07-25-2025 Hepatitis B screening Urine Al bumin:Creatinine Ratio [facility] Start: 07-25-2025 Hepatitis B surface antibody level LDL Cholesterol [facility] Start: 07-23-2025 Hemoglobin A1c measurement HbA1C [facility] Start: 07-22-2025 End: 10-21-2025 Comprehensive metabolic 2000 panel - Serum or Plasma COMPREHENSIVE METABOLIC PANEL Lab Routine Mixed hyperlipidemia Expected: 07/22/2025 (Approximate), Expires: 10/21/[address] [facility] Work Phone: Comment on above: Expected: 07/22/2025 (Approximate), Expires: 10/21/2025 Start: 07-22-2025 End: 10-27-2025 Hemoglobin A1c in Blood HEMOGLOBIN A1C Lab Routine Diabetes mellitus without complication (HCC) Expected: 07/22/2025 (Approximate), Expires: 10/27/2025 [facility] Comment on above: Expected: 07/22/2025 (Approximate), Expires: 10/27/2025 Start: 07-22-2025 End: 10-27-2025 Lipid 1996 panel - Serum or Plasma LIPID PANEL, FASTING Lab Routine Mixed hyperlipidemia Expected: 07/22/2025 (Approximate), Expires: 10/27/2025 [facility] Comment on above: Expected: 07/22/2025 (Approximate), Expires: 10/27/2025 Start: 07-22-2025 End: 10-21-2025 Microalbumin/Creatinine [Mass Ratio] in Urine ALBUMIN/CREATININE RATIO, URINE Lab Routine Diabetes mellitus without complication (HCC) Expected: 07/22/2025 (Approximate), Expires: 10/21/2025 [facility] Comment on above: Expected: 07/22/2025 (Approximate), Expires: 10/21/2025 Start: 07-11-2025 Glaucoma screening Dilated Retinal E xam [facility] Start: 05-22-2025 Influenza vaccination Influenza Vacc ine (#1) [facility] Start: 01-25-2025 End: 04-26-2025 Basic metabolic 2000 panel - Serum or Plasma BASIC METABOLIC PANEL Lab Routine Diabetes mellitus without complication (HCC) Expected: 01/25/2025, Expires: 04/26/2025 [facility] Comment on above: Expected: 01/25/2025 , Expires: 04/26/2025 Start: 01-25-2025 Covid-19 Vaccine () Covid-19 Vaccine () [facility] Start: 01-25-2025 End: 04-26-2025 Hemoglobin A1c in Blood HEMOGLOBIN A1C Lab Routine Diabetes mellitus without complication (HCC) Expected: 01/25/2025, Expires: 04/26/2025 [facility] Comment on above: Expected: 01/25/2025 , Expires: 04/26/2025 Start: 01-25-2025 End: 01-25-2025 Patient encounter procedure [facility] Comment on above: 6 month follow-up Start: 01-24-2025 Annual PCP Team Field Marketer saulo Disease Visit Annual PCP Team Chronic Disease Visit [facility] Start: 01-22-2025 Hemoglobin A1c measurement HbA1C [facility] Start: 10-10-2024 End: 10-10-2024 Patient encounter procedure 10/10/2024 1:30 PM EST Office Visit Pulmonary Medicine [address] [place] [address] Abebe Dunlap APRN.[employer]IVER [address] [place] [address] Lung Pul[facility] Medicine Comment on above: Lung Start: 10-10-2024 End: 10-10-2024 Patient encounter procedure 10/10/2024 11:40 AM EST Appointment Cat Scan [address] [place] [address] LDCT Cat Scan Comment on above: LDCT Start: 09-21-2024 Advance Directive Discussion Advance Directive Discussion [facility] Start: 09-02-2024 Screening for malign ant neoplasm of lung Lung Cancer Screening [facility] Start: 07-29-2024 Hepatitis B screening Urine Al bumin:Creatinine Ratio [facility] Start: 07-29-2024 Hepatitis B surface antibody level LDL Cholesterol [facility] Start: 07-28-2024 End: 07-28-2024 Patient encounter procedure 07/28/2024 1:00 PM EST Office Visit [facility] [address] [place] [address] Tadeo Ferrer MD [address] [place] [address] Medicare Wellness - 6 month follow up [facility] Comment on above: Medicare Wellness - 6 month follow up Start: 07-27-2024 Annual PCP Team Field Marketer saulo Disease Visit Annual PCP Team Chronic Disease Visit [facility] Start: 07-27-2024 End: 10-26-2024 Comprehensive metabolic 2000 panel - Serum or Plasma COMPREHENSIVE METABOLIC PANEL Lab Routine Mixed hyperlipidemia Expected: 07/27/2024, Expires: 10/26/2024 [facility] Comment on above: Expected: 07/27/2024 , Expires: 10/26/2024 Start: 07-27-2024 End: 10-26-2024 Hemoglobin A1c in Blood HEMOGLOBIN A1C Lab Routine Diabetes mellitus without complication (HCC) Expected: 07/27/2024, Expires: 10/26/2024 [facility] Comment on above: Expected: 07/27/2024 , Expires: 10/26/2024 Start: 07-27-2024 Hemoglobin A1c measurement HbA1C [facility] Start: 07-27-2024 End: 10-26-2024 Lipid 1996 panel - Serum or Plasma LIPID PANEL BASIC Lab Routine Mixed hyperlipidemia Expected: 07/27/2024, Expires: 10/26/2024 [facility] Comment on above: Expected: 07/27/2024 , Expires: 10/26/2024 Start: 07-27-2024 End: 10-26-2024 Microalbumin/Creatinine [Mass Ratio] in Urine ALBUMIN/CREATININE RATIO, URINE Lab Routine Diabetes mellitus without complication (HCC) Expected: 07/27/2024, Expires: 10/26/2024 [facility] Comment on above: Expected: 07/27/2024 , Expires: 10/26/2024 Start: 07-27-2024 End: 10-26-2024 PSA/PROSTATE SPECIFIC ANTIGEN SCREENING PSA/PROSTATE SPECIFIC ANTIGEN SCREENING Lab Routine Screening for prostate cancer Expected: 07/27/2024, Expires: 10/26/2024 [facility] Comment on above: Expected: 07/27/2024 , Expires: 10/26/2024 Start: 07-06-2024 Glaucoma screening Dilated Retinal E xam [facility] Start: 07-06-2024 Hepatitis C antibody , confirmatory test Dilated Retinal Exam [facility] Start: 07-01-2024 3 comp foot exam completed Diabetic Foot Exam [facility] Start: 07-01-2024 Diabetic foot examination Diabetic Foot Exam [facility] Start: 05-22-2024 Covid-19 Vaccine ( season) Covid-19 Vaccine () [facility] Start: 05-22-2024 Influenza vaccination Influenza Vacc ine (#1) [facility] Start: 01-27-2024 Hemoglobin A1c measurement HbA1C [facility] Start: 01-27-2024 Hemoglobin A1c/Hemoglobin.total in Blood HbA1C [facility] Start: 01-25-2024 End: 04-25-2024 Basic metabolic 2000 panel - Serum or Plasma BASIC METABOLIC PNL Lab Routine Diabetes mellitus without complication (HCC) Expected: 01/25/2024, Expires: 04/25/[address] [facility] Work Phone: Comment on above: Expected: 01/25/2024 , Expires: 04/25/2024 Start: 01-25-2024 End: 04-25-2024 CBC panel - Blood by Automated count CBC Lab Routine Polycythemia, secondary Expected: 01/25/2024, Expires: 04/25/[address] [facility] Work Phone: Comment on above: Expected: 01/25/2024 , Expires: 04/25/2024 Start: 01-25-2024 End: 04-25-2024 Hemoglobin A1c in Blood HGB A1C Lab Routine Diabetes mellitus without complication (HCC) Expected: 01/25/2024, Expires: 04/25/[address] [facility] Work Phone: Comment on above: Expected: 01/25/2024 , Expires: 04/25/2024 Start: 01-23-2024 ANNUAL PCP TEAM EVP STRATEGY SAULO DISEASE VISIT ANNUAL PCP TEAM CHRONIC DISEASE VISIT [facility] Start: 11-25-2023 Covid-19 Vaccine () Covid-19 Vaccine () [facility] Start: 09-21-2023 Advance Directive Discussion Advance Directive Discussion [facility] Start: 09-21-2023 Behavioral Health Screening Behavioral Health Screening [facility] Start: 07-22-2023 Hemoglobin A1c/Hemoglobin.total in Blood HBA1C [facility] Start: 07-16-2023 3 comp foot exam completed DIABETIC FOOT EXAM [facility] Start: 07-16-2023 ANNUAL PCP TEAM EVP STRATEGY SAULO DISEASE VISIT ANNUAL PCP TEAM CHRONIC DISEASE VISIT [facility] Start: 07-16-2023 Influenza vaccination LUNG CANCER SC MIRNANING [facility] Comment on above: Postponed from 04/07 (Declined at this time) Start: 07-16-2023 Zoledronic acid therapy ALPHA- 1 ANTITRYPSIN DEFICIENCY SCREENING [facility] Comment on above: Postponed from 05/06 (Declined at this time) Start: 07-01-2023 Hepatitis B screening URINE AL BUMIN:CREATININE RATIO [facility] Start: 07-01-2023 Hepatitis B surface antibody level LDL CHOLESTEROL [facility] Start: 07-01-2023 Hepatitis C antibody , confirmatory test DILATED RETINAL EXAM [facility] Start: 05-22-2023 Influenza vaccination INFLUENZA (#1) [facility] Start: 05-15-2023 COLOGUARD (FIT-DNA) COLOGUARD (FIT-D NA) [facility] Start: 05-15-2023 COLORECTAL CANCER SCREENING COLORECTAL CANCER SCREENING [facility] Start: 01-14-2023 End: 03-16-2023 Basic metabolic 2000 panel - Serum or Plasma BASIC METABOLIC PNL Lab Routine Diabetes mellitus without complication (HCC) Expected: 01/14/2023, Expires: 03/16/[address] [facility] Work Phone: Comment on above: Expected: 01/14/2023 , Expires: 03/16/2023 Start: 01-14-2023 End: 03-16-2023 Hemoglobin A1c in Blood HGB A1C Lab Routine Diabetes mellitus without complication (HCC) Expected: 01/14/2023, Expires: 03/16/[address] [facility] Work Phone: Comment on above: Expected: 01/14/2023 , Expires: 03/16/2023 Start: 12-30-2022 Hemoglobin A1c/Hemoglobin.total in Blood HBA1C [facility] Start: 12-27-2022 ANNUAL PCP TEAM EVP STRATEGY SAULO DISEASE VISIT ANNUAL PCP TEAM CHRONIC DISEASE VISIT [facility] Start: 11-16-2022 COVID-19 VACCINE (6 - Moderna series) COVID-19 VACCINE (6 - Moderna series) [facility] Start: 09-21-2022 ADVANCE DIRECTIVE DISCUSSION ADVANCE DIRECTIVE DISCUSSION [facility] Start: 09-21-2022 DEPRESSION ASSESSMENT DEPRESSION ASS ESSMENT [facility] Start: 06-28-2022 3 comp foot exam completed DIABETIC FOOT EXAM [facility] Start: 06-28-2022 Adult depression screening assessment DEPRESSION SCREENING [facility] Start: 06-27-2022 Hepatitis C antibody , confirmatory test DILATED RETINAL EXAM [facility] Start: 06-24-2022 Hemoglobin A1c/Hemoglobin.total in Blood HBA1C [facility] Start: 06-21-2022 Hepatitis B screening URINE AL BUMIN:CREATININE RATIO [facility] Start: 06-21-2022 Hepatitis B surface antibody level LDL CHOLESTEROL [facility] Start: 05-22-2022 Influenza vaccination INFLUENZA (#1) [facility] Start: 2022 RSV Vaccine (1 - 1-d ose 75+ series) RSV Vaccine (1 - 1-dose 75+ series) [facility] Start: 04-10-2022 COVID-19 VACCINE (5 - Booster for Moderna series) COVID-19 VACCINE (5 - Booster for Moderna series) [facility] Start: 09-21-2021 ADVANCE DIRECTIVE DISCUSSION ADVANCE DIRECTIVE DISCUSSION [facility] Start: 09-21-2021 DEPRESSION ASSESSMENT DEPRESSION ASS ESSMENT [facility] Start: 10-07-2020 FECAL OCCULT BLOOD FECAL OCCULT BLOO D [facility] Start: 04-07-2020 Influenza vaccination LUNG CANCER SC REENING [facility] Start: 10-08-2019 COLORECTAL CANCER SCREENING COLORECTAL CANCER SCREENING [facility] Start: 10-15-2017 Urine microalbumin profile DTAP,TDAP,TD (2 - Td or Tdap) [facility] Start: 2007 RSV Vaccine (1 - 1-d ose 60+ series) RSV Vaccine (1 - 1-dose 60+ series) [facility] Start: 1992 COLOGUARD (FIT-DNA) COLOGUARD (FIT-D NA) [facility] Start: 1992 Colonoscopy COLONOSCOPY [facility] Start: [address] COLONOGRAPHY [facility] Start: 1992 SIGMOIDOSCOPY SIGMOIDOSCOPY [facility] Start: 1977 Zoledronic acid therapy ALPHA- 1 ANTITRYPSIN DEFICIENCY SCREENING [facility] Start: 1965 Anxiety Screening Anxiety Screening [facility] Start: 1965 Depression Screening Depression Scre ening [facility] COLOGUARD COLOGUARD Lab Ro utine Screening for colon cancer Ordered: 07/27/[address] [facility] Work Phone: Comment on above: Ordered: 07/27/2023 End: 10-30-2025 CT Chest for screening WO contrast CT LUNG SCREEN WO IVCON Radiology Routine Tobacco use disorder Encounter for screening for lung cancer 1 Occurrences starting 09/30/2024 until 10/30/[address] [facility] Work Phone: Comment on above: 1 Occurrences starti ng 09/30/2024 until 10/30/2025 End: 09-09-2024 CT LUNG SCREEN WO IVCON CT LUNG SCREEN WO IVCON Radiology Routine Tobacco use disorder 1 Occurrences starting 08/11/2023 until 09/09/[address] [facility] Work Phone: Comment on above: 1 Occurrences starti ng 08/11/2023 until 09/09/2024 End: 10-03-2024 CT LUNG SCREEN WO IVCON CT LUNG SCREEN WO IVCON Radiology Routine Tobacco use disorder 1 Occurrences starting 09/04/2023 until 10/03/[address] [facility] Work Phone: Comment on above: 1 Occurrences starti ng 09/04/2023 until 10/03/2024 ECG COMPLETE ECG COMPLETE ECG 07/16/2022 4:25 PM EDT [facility] ECG COMPLETE ECG COMPLETE ECG Routine Cardiac arrhythmia, unspecified cardiac arrhythmia type Ordered: 07/28/[address] [facility] Work Phone: Comment on above: Ordered: 07/28/2024 [employer]ION[employer] COVID-19 VACCINE ( SEASON) AGE 12+ YR PFIZER-[employer]IONTECH COVID-19 VACCINE () AGE 12+ YR Immunization/Injection Routine Need for COVID-19 vaccine Ordered: 01/25/[address] [facility] Work Phone: Comment on above: Ordered: 01/25/2024 [facility] Immunizations Immunization Date Immunization Notes Care Provider Albert rolle 07-28-2024 COVID-19 vaccine, ag e 12+ yr (P[employer]BIONTE[employer] COMIRNATY) Tadeo Ferrer MD Work Phone: [facility] 07-28-2024 influenza, high dose seasonal, preservative-free Tadeo Ferrer MD Work Phone: [facility] 07-28-2024 influenza virus vaccine, unspecified formulation Servando Browne APRN.CNP Work Phone: [facility] 07-27-2023 COVID-19 vaccine, ag e 12+ yr, season (P[employer]ION[employer]) Tadeo Ferrer MD Work Phone: [facility] Work Phone: 07-27-2023 influenza (HD-IIV4) vaccine, age 65+ yr, high dose, quadrivalent, PF (FLUZONE HIGH-DOSE) Tadeo Ferrer MD Work Phone: [facility] Work Phone: 07-27-2023 influenza virus vaccine, unspecified formulation Tadeo Ferrer MD Work Phone: [facility] 01-22-2023 tetanus toxoid, redu rafal diphtheria toxoid, and acellular pertussis vaccine, adsorbed Tadeo Ferrer MD Work Phone: [facility] Work Phone: 07-16-2022 COVID-19 booster vaccine, age 12+ yr, bivalent ([employer]) Tadeo Ferrer MD Work Phone: [facility] 07-11-2022 influenza, high-dose , quadrivalent vaccine (FLUZONE HIGH DOSE QUADRIVALENT) Mi Nurse Work Phone: [facility] Work Phone: 02-13-2022 COVID-19 vaccine, ag e 12+ yr ([employer]) Mi Nurse Work Phone: [facility] Work Phone: 06-28-2021 influenza, high-dose , quadrivalent vaccine (FLUZONE HIGH DOSE QUADRIVALENT) Mi Nurse Work Phone: [facility] 12-19-2020 COVID-19 vaccine, fu ll dose (MODERNA) Mi Nurse Work Phone: [facility] Work Phone: 07-14-2020 influenza, high-dose , quadrivalent vaccine (FLUZONE HIGH DOSE QUADRIVALENT) Mi Nurse Work Phone: [facility] 07-22-2019 influenza, high dose seasonal, preservative-free Mi Nurse Work Phone: [facility] 06-24-2018 zoster vaccine recombinant Mi Nurse Work Phone: [facility] Work Phone: 06-14-2018 influenza, high dose seasonal, preservative-free Mi Nurse Work Phone: [facility] Work Phone: 04-12-2018 zoster vaccine recombinant Mi Nurse Work Phone: [facility] Work Phone: 06-08-2017 influenza, high dose seasonal, preservative-free Mi Nurse Work Phone: [facility] 06-27-2016 influenza, high dose seasonal, preservative-free Mi Nurse Work Phone: [facility] Work Phone: 09-17-2015 pneumococcal conjuga te vaccine, 13 valent Mi Nurse Work Phone: [facility] 07-26-2015 influenza, high dose seasonal, preservative-free Mi Nurse Work Phone: [facility] 07-05-2014 influenza, seasonal, injectable Mi Nurse Work Phone: [facility] 07-05-2014 pneumococcal polysaccharide vaccine, 23 valent Mi Nurse Work Phone: [facility] 06-25-2013 influenza virus vaccine, unspecified formulation Mi Nurse Work Phone: [facility] Work Phone: 08-09-2012 influenza virus vaccine, unspecified formulation Mi Nurse Work Phone: [facility] Work Phone: 09-10-2009 novel [id number], preservative-free, injectable Mi Nurse Work Phone: [facility] Work Phone: 07-10-2009 influenza virus vaccine, unspecified formulation Mi Nurse Work Phone: [facility] Work Phone: 10-15-2007 tetanus toxoid, redu rafal diphtheria toxoid, and acellular pertussis vaccine, adsorbed Mi Nurse Work Phone: [facility] Work Phone: 09-15-2007 pneumococcal polysaccharide vaccine, 23 valent Wy Nurse Work Phone: [facility] NEGATED: Highlighted row has not occurred!01-25-2024 COVID-19 vaccine, age 12+ yr, season ([employer]) Tadeo Ferrer MD Work Phone: [facility] Comment on above: Deferred: Medication Unavailable Payers Date Payer Category Payer Self-pay 2015 Private Health Insurance [facility] AARP SUPPLEMENT [id number] 2015-Present [phone] [address] [place] [address] Indemnity [id number] 2015 Private Health Insurance [id number] 2015 Unknown [id number] 2012 Medicare MEDICARE MEDICAR E A AND B [id number] 2012-Present [phone] [place] [address] Medicare [id number] 2012 Medicare [id number] 2012 Medicare [id number] Unknown [id number] Social History Date Type Detail Facility Start: 1967 End: 07-28-2024 Tobacco smoking status NHIS Smokes tobacco daily [facility] Work Phone: Start: 1967 History of tobacco use Cigarette Smo ker [facility] Work Phone: Start: 06-28-2021 End: 05-17-2025 Alcohol intake Current drinker of alcohol (finding) [facility] Start: 06-28-2021 End: 01-22-2023 Alcohol intake [facility] Work Phone: Start: 10-07-2019 End: 07-16-2022 History SDOH Alcohol Frequency 4 [facility] Start: 10-07-2019 End: 07-16-2022 History SDOH Alcohol Std Drinks 3 [facility] Start: 10-07-2019 End: 07-16-2022 History SDOH Alcohol Binge 2 [facility] Start: 10-22-2011 History SDOH Alcohol Comment No blackouts, no shakes. [facility] Start: 1945 Sex Assigned At Not on file [facility] Start: 02-02-2022 End: 02-12-2022 Exposure to SARS-CoV-2 (event) Not sure [facility] Work Phone: Start: 06-28-2021 End: 07-28-2024 Tobacco use and exposure Smokeless tobacco non-user [facility] Work Phone: Start: 07-16-2022 History SDOH Physica l Activity DPW 0 [facility] Start: 07-16-2022 End: 01-22-2023 Alcohol Use Disorder Identification Test - Consumption [AUDIT-C] [facility] Work Phone: How often to you hav e a drink containing alcohol? 2-3 time sa week [facility] Work Phone: How many standard dr inks containing alcohol do you have on a typical day? 3 or 4 [facility] Work Phone: How often do you hav e 6 or more drinks on 1 occasion? Monthly [facility] Work Phone: Start: 08-22-2012 Adult Depression Scr eening Assessment 0 [facility] Work Phone: How often do you hav e 6 or more drinks on 1 occasion? Monthly [facility] Work Phone: Start: 08-11-2023 Tobacco Comment Patient states after he retired he started smoking more [facility] How many standard dr inks containing alcohol do you have on a typical day? 5 or 6 [facility] How often do you hav e 6 or more drinks on 1 occasion? Weekly [facility] Functional Status Date Assessment Result Facility 02-16-2018 Are you deaf, or do you have serious difficulty hearing No 02/16/2018 4:21 PM [facility] 02-16-2018 Are you blind, or do you have serious difficulty seeing, even when wearing glasses No 02/16/2018 4:21 PM Tadeo Urena MD No [facility] 02-16-2018 Do you have serious difficulty walking or climbing stairs No 02/16/2018 4:21 PM EDT Tadeo Ferrer MD No [facility] 02-16-2018 Do you have difficul ty dressing or bathing No 02/16/2018 4:21 PM EDT Tadeo Ferrer MD No [facility] 02-16-2018 Because of a physica l, mental, or emotional condition, do you have difficulty doing errands alone such as visiting a physician's office or shopping No 02/16/2018 4:21 PM EDT Tadeo Ferrer MD No [facility] Mental Status Date Assessment Result Facility 02-16-2018 Because of a physica l, mental, or emotional condition, do you have serious difficulty concentrating, remembering, or making decisions No 02/16/2018 4:21 PM EDT Tadeo Ferrer MD No [facility] Clinical Notes 07-07-2018 to 07-31-2025 Patient InstructionsServando Browne APRN.[facility] - 05/17/2025 3:26 PM EDTHersAraceli dinaa APRN.[facility] - 01/25/2025 3:42 PM EDTTelephone Megan - Angela Hay - 12/27/2024 9:22 AM EDT Note Date & Type Note Facility 07-31-2025 Note HNO ID: [id number] Author: TADEO FERRER MD Service: ? Author Type: Physician Type: Progress Notes Filed: 07/31/2025 14:56 Note Text: Subjective Kalyn Valdovinos is a 80 year old male. He had no new concerns. He requested copies of lab results when available (he just had these drawn). He was raking more and requesting medication for shoulder pain. Review of Systems Constitutional: Negative for fatigue and fever. HENT: Negative for congestion. Respiratory: No new symptoms. Cardiovascular: Positive for leg swelling. Negative for chest pain and palpitations. Gastrointestinal: Negative for abdominal pain and diarrhea. Genitourinary: Negative for difficulty urinating. Neurological: Negative for dizziness and headaches. ACTIVE PROBLEM LIST Mixed Hyperlipidemia Polycythemia, Secondary Chronic Alcoholism (Hcc) Tobacco Use Disorder Copd (Chronic Obstructive Pulmonary Disease) ([facility]) Chronic Shoulder Pain Diabetes Mellitus Without Complication ([facility]) Obesity, Class I, Bmi 30-34.9 Cardiac Arrhythmia Current Outpatient Medications Medication Sig albuterol HFA (VENTOLIN HFA) 90 mcg/actuation inhaler Inhale 2 puffs as instructed every 4 hours as needed for wheezing/shortness of breath. ipratropium bromide (ATROVENT) 42 mcg (0.06 %) nasal spray Use 1 spray in the nose three times a day. umeclidinium-vilanterol (ANORO ELLIPTA) 62.5-25 mcg/actuation inhaler Inhale 1 Inhalation as instructed once daily. Inhale one puff once daily. DO NOT CLICK OPEN UNTIL READY FOR DOSE metFORMIN ER (GLUCOPHAGE XR) 500 mg 24 hr tablet Take 2 tablets by mouth daily with breakfast. atorvastatin (LIPITOR) 20 mg tablet Take 1 tablet by mouth daily at bedtime. multivitamin (MULTIPLE VITAMIN ORAL) Take by mouth. ipratropium 20 mcg-albuterol 100 mcg (COMBIVENT RESPIMAT) 20-100 mcg/actuation inhaler Inhale 1 Puff as instructed four times daily. acetaminophen 650 mg CR tablet Take 650 mg by mouth every 8 hours as needed. naproxen (NAPROSYN) 500 mg tablet Take 1 tablet by mouth twice daily as needed for Pain (for pain/inflammation). Take with food. ASPIRIN 81 MG TAB Take two tablet daily. No current facility-administered medications for this visit. Objective BP 130/90 (BP Site: Left Arm, BP Position: Sitting, BP Cuff Size: Large Adult) Pulse 76 Temp 36.4 ?C (97.5 ?F) (Temporal) Ht 160 cm (5' 3) Wt 82.6 kg (182 lb 1.6 oz) BMI 32.26 kg/m? Physical Exam Constitutional: General: He is not in acute distress. Appearance: He is not ill-appearing. HENT: Head: Normocephalic. Nose: No congestion or rhinorrhea. Eyes: Conjunctiva/sclera: Conjunctivae normal. Cardiovascular: Rate and Rhythm: Normal rate and regular rhythm. Heart sounds: No murmur heard. No gallop. Pulmonary: Effort: No respiratory distress. Breath sounds: Wheezing present. No rhonchi or rales. Abdominal: Tenderness: There is no abdominal tenderness. Musculoskeletal: Right lower leg: No edema. Left lower leg: No edema. Neurological: General: No focal deficit present. Mental Status: He is alert. Feet:Shoes and socks removed, No deformities, ulcers, calluses, abnormal pulses Decreased bilaterally, sensitive to 10 gm monofilament, and nails notable for Deformed, Hypertrophic, or Yellowish ASSESSMENT/PLAN: 1. Medicare annual wellness visit, subsequent - ICD9: V70.0, ICD10: Z00.00 (primary diagnosis) - See wellness visit. 2. Encounter for immunization - ICD9: V03.89, ICD10: Z23 - INFLUENZA VACCINE, PRSV FREE, AGE 65+ YR, HIGH DOSE, TRIVALENT (FLUZONE HIGH-DOSE) 3. Screening for depression - ICD9: V79.0, ICD10: Z13.31 - DEPRESSION SCREENING 4. Encounter for screening examination for other mental health and behavioral disorders - ICD9: V79.8, ICD10: Z13.39 - ANXIETY SCREENING 5. Chronic alcoholism (HCC) - ICD9: 303.90, ICD10: F10.20 - Reduction recommended. 6. Diabetes mellitus without complication (HCC) - ICD9: 250.00, ICD10: E11.9 - Control undetermined, due for labs - Continue current medications - BASIC METABOLIC PANEL - HEMOGLOBIN A1C 7. Chronic obstructive pulmonary disease, unspecified COPD type (HCC) - ICD9: 496, ICD10: J44.9 - Symptoms controlled - Continue current medications 8. Obesity, Class I, BMI 30-34.9 - ICD9: 278.00, ICD10: E66.811 Stable - Behavioral intervention 9. Mixed hyperlipidemia - ICD9: 272.2, ICD10: E78.2 - Control undetermined, due for labs - Continue current medications - Counseled on healthy diet and regular exercise 10. Chronic left shoulder pain - ICD9: 719.41, 338.29, ICD10: M25.512, G89.29 Discussed medication dosage, usage, goals of therapy, and side effects. - MELOXICAM 15 MG TABLET 11. Polycythemia, secondary - ICD9: 289.0, ICD10: D75.1 - Recheck. - COMPLETE BLOOD COUNT 12. Tobacco use disorder - ICD9: 305.1, ICD10: F17.200 - Cessation encouraged. 13. Cardiac arrhythmia, unspecified cardiac arrhythmia type - ICD9: (more content not included)... [facility] 07-31-2025 Note HNO ID: [id number] Author: TADEO FERRER MD Service: ? Author Type: Physician Type: Progress Notes Filed: 07/31/2025 14:56 Note Text: Kalyn Valdovinos is a 80 year old male here for a Medicare Wellness visit. Medicare Health Risk Assessment General Health Fair Exercise: Minutes/Day Exercise: Days/Week 1 day Alcohol: Daily Use 2-3 times a week Alcohol: Drinks/Day 5 or 6 Alcohol: 6 or more drinks Weekly Feel off balance Yes Concerns: Teeth/Dentures No Concerns: Sexual function No Troubled by feelings Angry Frequency: Eating healthy diet Nearly every day ADLs requiring help Cooking; Grocery shopping; Housework Safety precautions in home/vehicle Yes Smoke, vape, chews tobacco Yes, but I'm not ready to quit Difficulty hearing Yes, I wear a hearing aid Difficulty seeing No Current Providers Specialists: I have reviewed specialist-related care of the patient in the medical record. Current care team: Patient Care Team: Tadeo Ferrer MD as PCP - General Araceli Titus APRN.PICK UP TRUCK DRIVER as Crm Business Analyst (Internal Medicine) Abebe Dunlap APRN, CNP (Lung Cancer Screening) Outside specialists seen: Cortney Pulido MD (Ophthalmology) Snehal Carrasco DPM (Podiatry) [facility]. Medical/Family history review Reviewed and updated problem list, medical/surgical/family/social history, medications, and allergies. Opioid use review Prescribed: No opioid use on file in the last 90 days Patient-reported: No opioid use on file in the last 90 days Depression screening Anxiety screening Cognitive screening Mini Cog Score: 5 Cognitive screening reviewed and No further action needed (score 3-5). Functional Observation Was the patient's Timed Up AND Go test unsteady or >= 12 seconds? No Advance Directives Patient did not wish or was not able to name a surrogate decision maker or provide an advance care plan Measurements BP 130/90 (BP Site: Left Arm, BP Position: Sitting, BP Cuff Size: Large Adult) Pulse 76 Temp 36.4 ?C (97.5 ?F) (Temporal) Ht 160 cm (5' 3) Wt 82.6 kg (182 lb 1.6 oz) BMI 32.26 kg/m? Vision Screening: Follows with optometry/ophthalmology Right: 20/30 Left: 20/ 40 Both: 20/40 Assessment/Plan Medicare annual wellness visit, subsequent (Z00.00) - Counseled on healthy diet and regular exercise - Fall avoidance information provided - Personalized prevention plan provided - Discussed need for and benefit of weight loss. BMI 32.26 kg/(m2) - Smoking cessation encouraged; discussed risks to health and quitting strategies. Patient is not ready to quit - Counseled patient on alcohol intake and associated health risks Tadeo Ferrer MD [facility] 05-17-2025 Instructions Servando Browne APRN.BRITTANY - 05/17/2025 3:41 PM EDT Today I recommend using topical steroid cream that I prescribed. Recommend using Kenalog cream 2-3 times a day. Do not use on face or head. Do not use on genitalia. Also recommend using Zyrtec or Claritin 1 tablet every 24 hours. If symptoms are not improving can use prednisone once a day. If using prednisone need to be mindful of blood glucose levels. Recommended checking blood sugars daily and monitoring diet closely. documented in this encounter [facility] 05-17-2025 Note HNO ID: [id number] Author: SERVANDO BROWNE APRN.BRITTANY Service: ? Author Type: Nurse Practitioner Type: Progress Notes Filed: 05/17/2025 16:02 Note Text: [facility] Yoon Kalyn Valdovinos is a 80 year old male. Patient presents with: Rash: X3 weeks HPI Nontoxic-appearing male presents urgent care chief complaint rash. Duration of symptoms 2 weeks. Associate symptoms pruritic rash. Presents today for evaluation. OTC medications none. No recent lifestyle or biomedical changes. Overall feels well. No fevers. No antibiotic use. No nausea vomiting or abdominal pain. No headaches or dizziness. Past medical history prescription medications allergies reviewed. Review of Systems Constitutional: Negative for chills, diaphoresis, fatigue and fever. HENT: Negative for congestion, ear discharge, ear pain, rhinorrhea, sinus pressure, sinus pain, sneezing and sore throat. Eyes: Negative for pain, discharge, redness, itching and visual disturbance. Respiratory: Negative for cough, chest tightness, shortness of breath and wheezing. Cardiovascular: Negative for chest pain. Gastrointestinal: Negative for abdominal pain, constipation, diarrhea, nausea and vomiting. Musculoskeletal: Negative for joint swelling, neck pain and neck stiffness. Skin: Positive for rash. Neurological: Negative for dizziness, weakness and headaches. Objective BP 136/94 Pulse 107 Temp 36.9 ?C (98.5 ?F) Resp 20 Wt 83.1 kg (183 lb 3.2 oz) SpO2 94% BMI 31.84 kg/m? Physical Exam Constitutional: Appearance: Normal appearance. HENT: Head: Normocephalic. Nose: Nose normal. No congestion or rhinorrhea. Mouth/Throat: Mouth: Mucous membranes are moist. Pharynx: Oropharynx is clear. No oropharyngeal exudate or posterior oropharyngeal erythema. Eyes: Conjunctiva/sclera: Conjunctivae normal. Cardiovascular: Rate and Rhythm: Normal rate. Pulmonary: Effort: Pulmonary effort is normal. Breath sounds: Normal breath sounds. No wheezing, rhonchi or rales. Musculoskeletal: General: Normal range of motion. Cervical back: Normal range of motion and neck supple. No rigidity. Lymphadenopathy: Cervical: No cervical adenopathy. Skin: General: Skin is warm. Findings: No rash. Comments: Erythematous base rash with some macular papular reasons. Spares palms and hands. No mucosal membrane involvement desquamation of skin Neurological: Mental Status: He is alert. {ASSESSMENT/PLAN: 1. Rash - ICD9: 782.1, ICD10: R21 Diagnosis rash. Treat hydrocortisone contact dermatitis. No evidence of infection. We discussed use of triamcinolone cream and Zyrtec first. Do not use cream on face. Can use low potency corticosteroid such as hydrocortisone cream. If symptom control is not achieved can use prednisone. Encouraged to check sugars frequently and monitor her diet. Patient was educated on supportive therapies. Patient will follow up with primary care provider as needed. Patient was instructed to immediately proceed to emergency room for any new, worsening, or symptoms lasting longer than anticipated. The patient's clinical presentation is otherwise unremarkable at this time. Based on exam and clinical finding, the patient is stable for discharge. Plan of care was discussed with patient. Patient verbalizes understanding and agrees to plan of care. This note was generated using [employer] software. It may contain errors in wording, punctuation, or spelling. Servando Browne APRN.PICK UP TRUCK DRIVER History and Record Review Clinical information obtained from an independent historian. History obtained from or confirmed by: parent. External record(s) reviewed: prior outpatient record. Disposition The patient was discharged. OTC Medications were advised: Procedures [facility] 05-17-2025 History of Present illness Narrative Images from the original note were not included. [facility] Subjective Kalyn Valdovinos is a 80 year old male. Patient presents with: Rash: X3 weeks HPI Nontoxic-appearing male presents urgent care chief complaint rash. Duration of symptoms 2 weeks. Associate symptoms pruritic rash. Presents today for evaluation. OTC medications none. No recent lifestyle or biomedical changes. Overall feels well. No fevers. No antibiotic use. No nausea vomiting or abdominal pain. No headaches or dizziness. Past medical history prescription medications allergies reviewed. Review of Systems Constitutional: Negative for chills, diaphoresis, fatigue and fever. HENT: Negative for congestion, ear discharge, ear pain, rhinorrhea, sinus pressure, sinus pain, sneezing and sore throat. Eyes: Negative for pain, discharge, redness, itching and visual disturbance. Respiratory: Negative for cough, chest tightness, shortness of breath and wheezing. Cardiovascular: Negative for chest pain. Gastrointestinal: Negative for abdominal pain, constipation, diarrhea, nausea and vomiting. Musculoskeletal: Negative for joint swelling, neck pain and neck stiffness. Skin: Positive for rash. Neurological: Negative for dizziness, weakness and headaches. Objective BP 136/94 Pulse 107 Temp 36.9 C (98.5 F) Resp 20 Wt 83.1 kg (183 lb 3.2 oz) SpO2 94% BMI 31.84 kg/m Physical Exam Constitutional: Appearance: Normal appearance. HENT: Head: Normocephalic. Nose: Nose normal. No congestion or rhinorrhea. Mouth/Throat: Mouth: Mucous membranes are moist. Pharynx: Oropharynx is clear. No oropharyngeal exudate or posterior oropharyngeal erythema. Eyes: Conjunctiva/sclera: Conjunctivae normal. Cardiovascular: Rate and Rhythm: Normal rate. Pulmonary: Effort: Pulmonary effort is normal. Breath sounds: Normal breath sounds. No wheezing, rhonchi or rales. Musculoskeletal: General: Normal range of motion. Cervical back: Normal range of motion and neck supple. No rigidity. Lymphadenopathy: Cervical: No cervical adenopathy. Skin: General: Skin is warm. Findings: No rash. Comments: Erythematous base rash with some macular papular reasons. Spares palms and hands. No mucosal membrane involvement desquamation of skin Neurological: Mental Status: He is alert. {ASSESSMENT/PLAN: 1. Rash - ICD9: 782.1, ICD10: R21 Diagnosis rash. Treat hydrocortisone contact dermatitis. No evidence of infection. We discussed use of triamcinolone cream and Zyrtec first. Do not use cream on face. Can use low potency corticosteroid such as hydrocortisone cream. If symptom control is not achieved can use prednisone. Encouraged to check sugars frequently and monitor her diet. Patient was educated on supportive therapies. Patient will follow up with primary care provider as needed. Patient was instructed to immediately proceed to emergency room for any new, worsening, or symptoms lasting longer than anticipated. The patient's clinical presentation is otherwise unremarkable at this time. Based on exam and clinical finding, the patient is stable for discharge. Plan of care was discussed with patient. Patient verbalizes understanding and agrees to plan of care. This note was generated using [employer] software. It may contain errors in wording, punctuation, or spelling. Servando Browne APRN.BRITTANY History and Record Review Clinical information obtained from an independent historian. History obtained from or confirmed by: parent. External record(s) reviewed: prior outpatient record. Disposition The patient was discharged. OTC Medications were advised: Procedures documented in this encounter [facility] 01-25-2025 Note HNO ID: [id number] Author: ARACELI TITUS APRN.BRITTANY Service: ? Author Type: Nurse Practitioner Type: Progress Notes Filed: 01/25/2025 15:47 Note Text: CC: Patient presents with: Follow Up: 6 months HPI Recording using [employer] software for draft documentation of the visit was discussed with the patient/authorized public utilities sales representative; all questions welcomed and answered. Patient/authorized public utilities sales representative agreed to proceed Kalyn is a 79-year-old male with a history of DM, COPD, and hypercholesterolemia, presenting for a 6-month follow-up. Kalyn reports recent lab results showing an HbA1c of 7.1%, a slight increase from a previous result of 6.9%. He is currently taking metformin and denies any side effects such as diarrhea. He does not monitor his blood glucose levels at home. He also takes a multivitamin and consumes 3-4 servings of fruits and vegetables daily. He reports chronic shoulder and leg pain, with the shoulder pain being more severe. The pain intensifies during this time of year due to increased physical activity, such as yard work. He has not undergone any surgeries for his shoulder and maintains good range of motion. For pain management, he takes hydrocodone as needed, up to 2-3 tablets per day, and uses Tylenol for milder pain. He requests a refill of hydrocodone, noting he has 2 tablets remaining from a previous prescription of 10 tablets per year. Kalyn has a history of COPD and uses an albuterol inhaler as needed, which he finds effective. He also uses Anoro Ellipta once daily but expresses concerns about its cost. He denies any significant issues with COPD management. Review of Systems Constitutional: Negative for chills, diaphoresis and fatigue. Respiratory: Positive for cough and wheezing. Negative for shortness of breath. Cardiovascular: Negative for chest pain, palpitations and leg swelling. PAST MEDICAL HISTORY Diagnosis Date Balanoposthitis Chronic airway obstruction, not elsewhere classified Chronic alcoholism (HCC) Esophageal reflux H/O asbestosis Impaired fasting glucose Nondependent alcohol abuse Nonspecific abnormal results of liver function study Nonspecific abnormal toxicology 02/16/2018 Inconsistent controlled medication use. Obesity, unspecified Other and unspecified hyperlipidemia Phlebitis and thrombophlebitis of unspecified site 1997 Polycythemia, secondary Tobacco use disorder PAST SURGICAL HISTORY Procedure Laterality Date RIGHT HEART CATHETERIZATION 2001 Cardiac cath, R heart ALLERGIES Patient has no known allergies. MEDICATIONS albuterol HFA (VENTOLIN HFA) 90 mcg/actuation inhaler Inhale 2 puffs as instructed every 4 hours as needed for wheezing/shortness of breath. ipratropium bromide (ATROVENT) 42 mcg (0.06 %) nasal spray Use 1 spray in the nose three times a day. umeclidinium-vilanterol (ANORO ELLIPTA) 62.5-25 mcg/actuation inhaler Inhale 1 Inhalation as instructed once daily. Inhale one puff once daily. DO NOT CLICK OPEN UNTIL READY FOR DOSE metFORMIN ER (GLUCOPHAGE XR) 500 mg 24 hr tablet Take 2 tablets by mouth daily with breakfast. atorvastatin (LIPITOR) 20 mg tablet Take 1 tablet by mouth daily at bedtime. multivitamin (MULTIPLE VITAMIN ORAL) Take by mouth. ipratropium 20 mcg-albuterol 100 mcg (COMBIVENT RESPIMAT) 20-100 mcg/actuation inhaler Inhale 1 Puff as instructed four times daily. acetaminophen 650 mg CR tablet Take 650 mg by mouth every 8 hours as needed. naproxen (NAPROSYN) 500 mg tablet Take 1 tablet by mouth twice daily as needed for Pain (for pain/inflammation). Take with food. HYDROcodone-acetaminophen (NORCO) 5-325 mg per tablet Take 1 tablet by mouth every 8 hours as needed for pain for up to 3 days. ASPIRIN 81 MG TAB Take two tablet daily. FAMILY HISTORY Problem Relation Age of Onset Cancer Father of liver cancer Alzheimer's Disease Mother Diabetes Mother Diabetes Sister Stroke Brother Carotid disease Asthma Brother Cancer Sister Cancer started in spine. Cancer Brother Lung, metastatic to spine, liver, nodes. Social History Tobacco Use Smoking status: Every Day Current packs/day: 1.50 Average packs/day: 1.5 packs/day for 55.7 years (83.6 ttl pk-yrs) Types: Cigarettes Start date: 1969 Smokeless tobacco: Never Tobacco comments: Patient states after he retired he started smoking more Vaping Use Vaping status: Never Used Substance Use Topics Alcohol use: Yes Alcohol/week: 13.8 standard drinks of alcohol Types: 6 Cans of Beer (12oz), 6 Mixed Drinks per week Comment: No blackouts, no shakes. Drug use: No Comment: Infrequent marijuana use. BP 114/70 Pulse 92 Resp 12 Wt 83 kg (182 lb 15.7 oz) SpO2 94% BMI 31.81 kg/m? Physical Exam Vitals reviewed. Constitutional: Appearance: Normal appearance. Cardiovascular: Rate and Rhythm: Normal rate. Rhythm irregular. Heart sounds: Normal (more content not included)... [facility] 01-25-2025 History of Present illness Narrative CC: Patient presents with: Follow Up: 6 months HPI Recording using [employer] software for draft documentation of the visit was discussed with the patient/authorized public utilities sales representative; all questions welcomed and answered. Patient/authorized public utilities sales representative agreed to proceed Kalyn is a 79-year-old male with a history of DM, COPD, and hypercholesterolemia, presenting for a 6-month follow-up. Kalyn reports recent lab results showing an HbA1c of 7.1%, a slight increase from a previous result of 6.9%. He is currently taking metformin and denies any side effects such as diarrhea. He does not monitor his blood glucose levels at home. He also takes a multivitamin and consumes 3-4 servings of fruits and vegetables daily. He reports chronic shoulder and leg pain, with the shoulder pain being more severe. The pain intensifies during this time of year due to increased physical activity, such as yard work. He has not undergone any surgeries for his shoulder and maintains good range of motion. For pain management, he takes hydrocodone as needed, up to 2-3 tablets per day, and uses Tylenol for milder pain. He requests a refill of hydrocodone, noting he has 2 tablets remaining from a previous prescription of 10 tablets per year. Kalyn has a history of COPD and uses an albuterol inhaler as needed, which he finds effective. He also uses Anoro Ellipta once daily but expresses concerns about its cost. He denies any significant issues with COPD management. Review of Systems Constitutional: Negative for chills, diaphoresis and fatigue. Respiratory: Positive for cough and wheezing. Negative for shortness of breath. Cardiovascular: Negative for chest pain, palpitations and leg swelling. PAST MEDICAL HISTORY Diagnosis Date Balanoposthitis Chronic airway obstruction, not elsewhere classified Chronic alcoholism (HCC) Esophageal reflux H/O asbestosis Impaired fasting glucose Nondependent alcohol abuse Nonspecific abnormal results of liver function study Nonspecific abnormal toxicology 02/16/2018 Inconsistent controlled medication use. Obesity, unspecified Other and unspecified hyperlipidemia Phlebitis and thrombophlebitis of unspecified site 1997 Polycythemia, secondary Tobacco use disorder PAST SURGICAL HISTORY Procedure Laterality Date RIGHT HEART CATHETERIZATION 2001 Cardiac cath, R heart ALLERGIES Patient has no known allergies. MEDICATIONS albuterol HFA (VENTOLIN HFA) 90 mcg/actuation inhaler Inhale 2 puffs as instructed every 4 hours as needed for wheezing/shortness of breath. ipratropium bromide (ATROVENT) 42 mcg (0.06 %) nasal spray Use 1 spray in the nose three times a day. umeclidinium-vilanterol (ANORO ELLIPTA) 62.5-25 mcg/actuation inhaler Inhale 1 Inhalation as instructed once daily. Inhale one puff once daily. DO NOT CLICK OPEN UNTIL READY FOR DOSE metFORMIN ER (GLUCOPHAGE XR) 500 mg 24 hr tablet Take 2 tablets by mouth daily with breakfast. atorvastatin (LIPITOR) 20 mg tablet Take 1 tablet by mouth daily at bedtime. multivitamin (MULTIPLE VITAMIN ORAL) Take by mouth. ipratropium 20 mcg-albuterol 100 mcg (COMBIVENT RESPIMAT) 20-100 mcg/actuation inhaler Inhale 1 Puff as instructed four times daily. acetaminophen 650 mg CR tablet Take 650 mg by mouth every 8 hours as needed. naproxen (NAPROSYN) 500 mg tablet Take 1 tablet by mouth twice daily as needed for Pain (for pain/inflammation). Take with food. HYDROcodone-acetaminophen (NORCO) 5-325 mg per tablet Take 1 tablet by mouth every 8 hours as needed for pain for up to 3 days. ASPIRIN 81 MG TAB Take two tablet daily. FAMILY HISTORY Problem Relation Age of Onset Cancer Father of liver cancer Alzheimer's Disease Mother Diabetes Mother Diabetes Sister Stroke Brother Carotid disease Asthma Brother Cancer Sister Cancer started in spine. Cancer Brother Lung, metastatic to spine, liver, nodes. Social History Tobacco Use Smoking status: Every Day Current packs/day: 1.50 Average packs/day: 1.5 packs/day for 55.7 years (83.6 ttl pk-yrs) Types: Cigarettes Start date: 1969 Smokeless tobacco: Never Tobacco comments: Patient states after he retired he started smoking more Vaping Use Vaping status: Never Used Substance Use Topics Alcohol use: Yes Alcohol/week: 13.8 standard drinks of alcohol Types: 6 Cans of Beer (12oz), 6 Mixed Drinks per week Comment: No blackouts, no shakes. Drug use: No Comment: Infrequent marijuana use. BP 114/70 Pulse 92 Resp 12 Wt 83 kg (182 lb 15.7 oz) SpO2 94% BMI 31.81 kg/m Physical Exam Vitals reviewed. Constitutional: Appearance: Normal appearance. Cardiovascular: Rate and Rhythm: Normal rate. Rhythm irregular. Heart sounds: Normal heart sounds. No murmur heard. Pulmonary: Effort: Pulmonary effort is normal. Breath sounds: Normal breath sounds. No wheezing, rhonchi or rales. Musculoskeletal: Left shoulder: Tenderness present. No swelling, deformity or crepitus. Normal range of motion. Normal strength. Skin: General: Skin is warm and dry. Neurological: Mental Status: He is alert. Psychiatric: Mood and Affect: Mood normal. Health maintenance reviewed with patient: RSV Vaccine(1 - 1-dose 75+ series) Never done Advance Directive Discussion due on 09/21/2024 Covid-19 Vaccine( season) due on 01/25/2026 HbA1C due on 07/23/2025 Urine Albumin:Creatinine Ratio due on 07/25/2025 LDL Cholesterol due on 07/25/2025 Diabetic Foot Exam due on 07/28/2025 Depression Screening due on 07/28/2025 Anxiety Screening due on 07/28/2025 Dilated Retinal Exam due on 09/29/2025 Lung Cancer Screening due on 10/10/2025 Annual PCP Team Chronic Disease Visit due on 01/25/2026 DTaP,Tdap,Td Vaccine(3 - Td or Tdap) due on 01/22/2033 Influenza Vaccine Completed Hepatitis C Screening Completed Shingrix Vaccine Completed Pneumococcal Vaccine: 50+ Completed Colorectal Cancer Screening Discontinued DATA REVIEWED: Most recent labs Latest Ref Rng 01/20/2025 Glucose 74 - 99 mg/dL 176 (H) BUN 9 - 24 mg/dL 18 Creatinine 0.73 - 1.22 mg/dL 0.81 Sodium 136 - 144 mmol/L 137 Potassium 3.7 - 5.1 mmol/L 4.7 Chloride 98 - 107 mmol/L 100 CO2 22 - 30 mmol/L 27 Anion Gap 8 - 15 mmol/L 10 Calcium 8.5 - 10.2 mg/dL 9.5 eGFR >=60 mL/min/1.73m 91 Hemoglobin A1C 4.3 - 5.6 % 7.1 (H) Estimated Average Glucose mg/dL 157 Legend: (H) High Assessment/Plan 1. Acute pain of left shoulder (M25.512) Chronic shoulder pain exacerbated by increased physical activity, particularly yard work. No history of surgery or significant injuries. Maintains good range of motion. Currently managed with hydrocodone and occasional Tylenol. - Refilled hydrocodone prescription; patient advised that this may be the last refill for the year as per previous agreement. - Educated patient on the risks of exceeding recommended Tylenol dosage due to its presence in hydrocodone. - Advised to monitor pain levels and avoid overexertion. 2. Chronic obstructive pulmonary disease, unspecified COPD type (HCC) (J44.9) Stable on current inhaler regimen. Uses albuterol inhaler prn with good effect. Reports increased expense of Anoro Ellipta but acknowledges its efficacy in reducing the need for rescue inhaler use. - Continue Anoro Ellipta 1 puff daily. - Discussed potential for less expensive alternatives with primary care provider before next refill. 3. Chronic alcoholism (HCC) (F10.20) Declines need for intervention 4. Diabetes mellitus without complication (HCC) (E11.9) HbA1c is 7.1%, slightly increased from previous 6.9% but remains within acceptable range. No reported side effects from metformin. Patient does not monitor blood glucose at home. - Continue metformin as prescribed. - Ordered blood work for next appointment. - Scheduled follow-up in 6 months. 5. Mixed hyperlipidemia (E78.2) Managed with medication; recent refill obtained. 6. Cardiac arrhythmia, unspecified cardiac arrhythmia type (I49.9) First noted at [facility] in July. EKG showed sinus arrhythmia, no further work-up was done. Patient remains asymptomatic, no new or unusual chest pain or palpitations reported Prescription instructions reviewed with patient as applicable. Potential red flag symptoms discussed with the patient. Reviewed appropriate action plan to take if red flag symptoms occur. Patient agreeable to treatment plan. Araceli Titus APRN.[employer]IVER documented in this encounter [facility] 12-27-2024 Telephone encounter Note Prescription Refill Information The patient has been identified by name and date of : Yes Caregiver verified no other encounters exist for this prescription request: Yes Caregiver confirmed with patient/requestor that no other refills are due, in the near future, with this provider at this time: Yes The last office visit in the department: 07/28/2024 Does the patient have a future office visit with this provider/department: Yes Requested Prescriptions Pending Prescriptions Disp Refills albuterol HFA (VENTOLIN HFA) 90 mcg/actuation inhaler 1 each 3 Sig: Inhale 2 puffs as instructed every 4 hours as needed for wheezing/shortness of breath. ipratropium bromide (ATROVENT) 42 mcg (0.06 %) nasal spray 15 mL 3 Sig: Use 1 spray in the nose three times a day. Angela Hay December 27, 2024 9:24 AM [facility] 12-27-2024 Miscellaneous Notes Prescription Refill Information The patient has been identified by name and date of : Yes Caregiver verified no other encounters exist for this prescription request: Yes Caregiver confirmed with patient/requestor that no other refills are due, in the near future, with this provider at this time: Yes The last office visit in the department: 07/28/2024 Does the patient have a future office visit with this provider/department: Yes Requested Prescriptions Pending Prescriptions Disp Refills albuterol HFA (VENTOLIN HFA) 90 mcg/actuation inhaler 1 each 3 Sig: Inhale 2 puffs as instructed every 4 hours as needed for wheezing/shortness of breath. ipratropium bromide (ATROVENT) 42 mcg (0.06 %) nasal spray 15 mL 3 Sig: Use 1 spray in the nose three times a day. Angela Hay December 27, 2024 9:24 AM documented in this encounter [facility] 11-04-2024 Telephone encounter Note The patient has been identified by name and date of : Yes Caregiver verified no other encounters exist for this prescription request: Yes Caregiver confirmed with patient/requestor that no other refills are due, in the near future, with this provider at this time: Yes The last office visit in the department: 07/28/2024 Does the patient have a future office visit with this provider/department: Yes 01/25/2025 Requested Prescriptions Pending Prescriptions Disp Refills umeclidinium-vilanterol (ANORO ELLIPTA) 62.5-25 mcg/actuation inhaler 3 Each 3 Sig: Inhale 1 Inhalation as instructed once daily. Inhale one puff once daily. DO NOT CLICK OPEN UNTIL READY FOR DOSE Corry Herring RN November 04, 2024 12:17 PM [facility] 11-04-2024 Miscellaneous Notes The patient has been identified by name and date of : Yes Caregiver verified no other encounters exist for this prescription request: Yes Caregiver confirmed with patient/requestor that no other refills are due, in the near future, with this provider at this time: Yes The last office visit in the department: 07/28/2024 Does the patient have a future office visit with this provider/department: Yes 01/25/2025 Requested Prescriptions Pending Prescriptions Disp Refills umeclidinium-vilanterol (ANORO ELLIPTA) 62.5-25 mcg/actuation inhaler 3 Each 3 Sig: Inhale 1 Inhalation as instructed once daily. Inhale one puff once daily. DO NOT CLICK OPEN UNTIL READY FOR DOSE Corry Herring RN November 04, 2024 12:17 PM documented in this encounter [facility] 11-02-2024 Telephone encounter Note Last apt 07/28/2024 Next apt 01/25/2025 Patient has been identified by name and date of : Yes Last office visit in this department: 07/28/2024 RX INSTRUCTIONS: Patient aware RX will be sent to pharmacy. No need to notify patient. Patient phones requesting refills as follows: Requested Prescriptions Pending Prescriptions Disp Refills albuterol HFA (VENTOLIN HFA) 90 mcg/actuation inhaler 1 Each 3 Sig: Inhale 2 Puffs as instructed every 4 hours as needed for wheezing/shortness of breath. Please review and advise. Taty Ahn [facility] 11-02-2024 Miscellaneous Notes Last apt 07/28/2024 Next apt 01/25/2025 Patient has been identified by name and date of : Yes Last office visit in this department: 07/28/2024 RX INSTRUCTIONS: Patient aware RX will be sent to pharmacy. No need to notify patient. Patient phones requesting refills as follows: Requested Prescriptions Pending Prescriptions Disp Refills albuterol HFA (VENTOLIN HFA) 90 mcg/actuation inhaler 1 Each 3 Sig: Inhale 2 Puffs as instructed every 4 hours as needed for wheezing/shortness of breath. Please review and advise. Taty Ahn documented in this encounter [facility] 10-10-2024 Instructions Abebe Dunlap APRN.CNP - 10/10/2024 11:49 AM EST Check with insurance after 09/[address] Lung Screening is covered. Medicare stops paying for screening CT scans after age 78. However, your secondary insurance may [place] it. [place] [address] for diagnosis codes Z72.0 and F17.200. documented in this encounter [facility] 10-10-2024 History of Present illness Narrative Radiology Service Progress Note PATIENT NAME: Kalyn Valdovinos DATE OF SERVICE: October 10, 2024 TIME: 1:05 PM PATIENT IDENTITY VERIFICATION COMPLETED USING TWO (2) IDENTIFIERS: Name and Date of confirmed by patient verbally. FALL SCREENING: Has the patient had 2 falls in the last year or 1 fall with injury or currently using an Ambulatory Assistive Device (Walker, Cane, Wheelchair, Crutches, etc.)? No PATIENT GENDER DATA: Assigned male at PATIENT RELEVANT IMPLANT DATA REVIEWED: Yes PATIENT PRESENTS WITH AN IMPLANTABLE OR ATTACHED EMPLOYEE WELLNESS/FITNESS COORDINATOR: No RADIOLOGY DEPARTMENT: CT; Exam(s) Completed: Lung Screening PERIPHERAL IV DATA: Not applicable SIGNED BY: RT Allen(R) October 10, 2024 1:05 PM documented in this encounter [facility] 10-10-2024 Note HNO ID: [id number] Author: SHEILA LAL RT(R) Service: ? Author Type: Grinding [employer] Polishing Laborer Type: Progress Notes Filed: 10/10/2024 13:05 Note Text: Radiology Service Progress Note PATIENT NAME: Kalyn Vadlovinos DATE OF SERVICE: October 10, 2024 TIME: 1:05 PM PATIENT IDENTITY VERIFICATION COMPLETED USING TWO (2) IDENTIFIERS: Name and Date of confirmed by patient verbally. FALL SCREENING: Has the patient had 2 falls in the last year or 1 fall with injury or currently using an Ambulatory Assistive Device (Walker, Cane, Wheelchair, Crutches, etc.)? No PATIENT GENDER DATA: Assigned male at PATIENT RELEVANT IMPLANT DATA REVIEWED: Yes PATIENT PRESENTS WITH AN IMPLANTABLE OR ATTACHED EMPLOYEE WELLNESS/FITNESS COORDINATOR: No RADIOLOGY DEPARTMENT: CT; Exam(s) Completed: Lung Screening PERIPHERAL IV DATA: Not applicable SIGNED BY: RT Allen(R) October 10, 2024 1:05 PM [facility] 10-10-2024 Note HNO ID: [id number] Author: ABEBE DUNLAP APRN.BRITTANY Service: ? Author Type: Nurse Practitioner Type: Progress Notes Filed: 10/10/2024 13:28 Note Text: LUNG SCREENING ANNUAL VISIT PRIMARY CARE PHYSICIAN: Tadeo Ferrer MD PULMONARY PROVIDER: none Results will be communicated via letter or electronic record if applicable. Visit Delivery: In Person Patient Visit Type: established Current or Ex-smoker? [Current Exam Type: annual LDCT Number of Pack Years: 83 Current smoker (=0) The patient's smoking history is similar to prior year shared decision visit. The reason for the discrepancy is NA Chief Complaint: Established patient in lung cancer screening program here for annual follow-up. Impression / Recommendations Kalyn Valdovinos presents for annual lung cancer screening annual exam and nodule evaluation. Plan: Indeterminate pulmonary nodules: Previously identified nodules appear stable and no new nodules of concern were seen on the exam. Low dose CT Scan to be repeated in one year. If secondary insurance will cover the LDCT. Pt to check after 09/2025. Plan subject to change pending final radiology report and recommendations. Nature of the lung nodule(s) and the options for further evaluation discussed in detail with patient. Kalyn Malave Aruna expressed understanding and is in agreement with plan. 2. Encounter for screening for malignant neoplasm of respiratory organs I have determined that the patient is eligible for continued low dose CT screening based on age, absence of signs or symptoms of lung cancer, smoking history and total pack years. The patient was counseled on the importance of adherence to annual LDCT lung cancer screening, impact of comorbidities and ability or willingness to undergo diagnosis and treatment. The patient understands and feels comfortable with it: Yes, per USPSTF guidelines. However, Medicare coverage stops at age 77 yo. Pt to check with secondary insurance regarding coverage. 3. Nicotine Dependence The patient was counseled on the importance of smoking cessation if current smoker and, if appropriate, offered additional tobacco cessation counseling services - Smoking Cessation Counseling. SMOKING CESSATION COUNSELING Smoking cessation methods including Behavior Modification were discussed with the patient and assistance offered. The medical conditions adversely affected by cigarette use include:COPD, Emphysema, and Lung Cancer. Counseled on benefits of quitting smoking, recommended cessation or reduction to prevent development and/or progression of emphysema. The patient is currently not ready to quit. I personally spent 1 minutes in counseling. The time spent in smoking cessation counseling is exclusive of any other counseling during this visit. I spent a total of 30 minutes on the date of the service which included preparing to see the patient, [id number] patient care, completing clinical documentation, performing a medically appropriate examination, counseling and educating the patient/family/caregiver, ordering medications, tests, or procedures, communicating with other HCPs (not separately reported), independently interpreting results (not separately reported), communicating results to the patient/family/caregiver, and care coordination (not separately reported). Abebe Dunlap APRN.[facility] October 10, 2024 11:39 AM History of Present Illness: Kalyn Valdovinos is a 79 year old male who is presenting today for annual lung cancer screening LDCT and nodule surveillance/management. Patient has multiple nodules found on previous lung cancer screening LDCT. Last LDCT was performed on 09/02/2023 and was LUNG RADS Category 2. Previous potentially significant incidental findings on imaging: None. Patient is a current smoker with a 83 pack year history. Patient is currently still smoking 1.5 PPD cigarettes daily. Patient will continue to be eligible for lung cancer screening until age 80, Medicare coverage until age 77 yo. The patient does not have any symptoms or signs of lung cancer. Patient denies SOB with their daily activity. Admits to shortness of breath with activity like shoveling snow. Denies chest pain associated with this activity. Wheezing sometimes. Patient denies feeling of chest tightness/congestion in the chest. Patient does not have a new or concerning cough, and denies hemoptysis. Patient does have a chronic daily cough. Denies regular or recent fevers/chills. Patient does not have any significant unintentional weight loss. ST about a month ago x 1 day. Went away. Uses Anoro daily at 6 am. Uses as needed inhaler 3-4 times a day. Modified Medical Research [place] Dyspnea Scale (MMRC) I only get breathless with strenous exercise 0 Last 12 Encounter Wt [place] (more content not included)... [facility] 10-10-2024 History of Present illness Narrative Images from the original note were not included. LUNG SCREENING ANNUAL VISIT PRIMARY CARE PHYSICIAN: Tadeo Ferrer MD PULMONARY PROVIDER: none Results will be communicated via letter or electronic record if applicable. Visit Delivery: In Person Patient Visit Type: established Current or Ex-smoker? [Current Exam Type: annual LDCT Number of Pack Years: 83 Current smoker (=0) The patient's smoking history is similar to prior year shared decision visit. The reason for the discrepancy is NA Chief Complaint: Established patient in lung cancer screening program here for annual follow-up. Impression / Recommendations Kalyn Valdovinos presents for annual lung cancer screening annual exam and nodule evaluation. Plan: Indeterminate pulmonary nodules: Previously identified nodules appear stable and no new nodules of concern were seen on the exam. Low dose CT Scan to be repeated in one year. If secondary insurance will cover the LDCT. Pt to check after 09/2025. Plan subject to change pending final radiology report and recommendations. Nature of the lung nodule(s) and the options for further evaluation discussed in detail with patient. Kalyn Valdovinos expressed understanding and is in agreement with plan. 2. Encounter for screening for malignant neoplasm of respiratory organs I have determined that the patient is eligible for continued low dose CT screening based on age, absence of signs or symptoms of lung cancer, smoking history and total pack years. The patient was counseled on the importance of adherence to annual LDCT lung cancer screening, impact of comorbidities and ability or willingness to undergo diagnosis and treatment. The patient understands and feels comfortable with it: Yes, per USPSTF guidelines. However, Medicare coverage stops at age 77 yo. Pt to check with secondary insurance regarding coverage. 3. Nicotine Dependence The patient was counseled on the importance of smoking cessation if current smoker and, if appropriate, offered additional tobacco cessation counseling services - Smoking Cessation Counseling. SMOKING CESSATION COUNSELING Smoking cessation methods including Behavior Modification were discussed with the patient and assistance offered. The medical conditions adversely affected by cigarette use include:COPD, Emphysema, and Lung Cancer. Counseled on benefits of quitting smoking, recommended cessation or reduction to prevent development and/or progression of emphysema. The patient is currently not ready to quit. I personally spent 1 minutes in counseling. The time spent in smoking cessation counseling is exclusive of any other counseling during this visit. I spent a total of 30 minutes on the date of the service which included preparing to see the patient, [id number] patient care, completing clinical documentation, performing a medically appropriate examination, counseling and educating the patient/family/caregiver, ordering medications, tests, or procedures, communicating with other HCPs (not separately reported), independently interpreting results (not separately reported), communicating results to the patient/family/caregiver, and care coordination (not separately reported). Abebe Dunlap APRN.[facility] October 10, 2024 11:39 AM History of Present Illness: Kalyn Valdovinos is a 79 year old male who is presenting today for annual lung cancer screening LDCT and nodule surveillance/management. Patient has multiple nodules found on previous lung cancer screening LDCT. Last LDCT was performed on 09/02/2023 and was LUNG RADS Category 2. Previous potentially significant incidental findings on imaging: None. Patient is a current smoker with a 83 pack year history. Patient is currently still smoking 1.5 PPD cigarettes daily. Patient will continue to be eligible for lung cancer screening until age 80, Medicare coverage until age 79 yo. The patient does not have any symptoms or signs of lung cancer. Patient denies SOB with their daily activity. Admits to shortness of breath with activity like shoveling snow. Denies chest pain associated with this activity. Wheezing sometimes. Patient denies feeling of chest tightness/congestion in the chest. Patient does not have a new or concerning cough, and denies hemoptysis. Patient does have a chronic daily cough. Denies regular or recent fevers/chills. Patient does not have any significant unintentional weight loss. ST about a month ago x 1 day. Went away. Uses Anoro daily at 6 am. Uses as needed inhaler 3-4 times a day. Modified Medical Research [place] Dyspnea Scale (MMRC) I only get breathless with strenous exercise 0 Last 12 Encounter Wt Readings: Date: Wt: 10/10/2024 82.1 kg (181 lb) 07/28/2024 82.9 kg (182 lb 12.2 oz) 01/25/2024 83.5 kg (184 lb) 08/11/2023 83.4 kg (183 lb 12.8 oz) 07/27/2023 83.5 kg (184 lb) 04/16/2023 81.7 kg (180 lb 3.2 oz) 01/22/2023 85.3 kg (188 lb) 07/16/2022 85.7 kg (189 lb) 12/27/2021 85.3 kg (188 lb) 05/31/2020 86.3 kg (190 lb 3.2 oz) 05/02/2020 85.3 kg (188 lb) 10/06/2019 88.5 kg (195 lb) Social History Tobacco Use: Types: Cigarettes Past Medical History: PAST MEDICAL HISTORY Diagnosis Date Balanoposthitis Chronic airway obstruction, not elsewhere classified Chronic alcoholism (HCC) Esophageal reflux H/O asbestosis Impaired fasting glucose Nondependent alcohol abuse Nonspecific abnormal results of liver function study Nonspecific abnormal toxicology 02/16/2018 Inconsistent controlled medication use. Obesity, unspecified Other and unspecified hyperlipidemia Phlebitis and thrombophlebitis of unspecified site 1998 Polycythemia, secondary Tobacco use disorder Family Hx: FAMILY HISTORY Problem Relation Age of Onset Cancer Father of liver cancer Alzheimer's Disease Mother Diabetes Mother Diabetes Sister Stroke Brother Carotid disease Asthma Brother Cancer Sister Cancer started in spine. Cancer Brother Lung, metastatic to spine, liver, nodes. Surgical Hx: PAST SURGICAL HISTORY Procedure Laterality Date RIGHT HEART CATHETERIZATION 2001 Cardiac cath, R heart Allergies: ALLERGIES No Known Allergies Review Of Systems: See HPI for ROS All of the remainder systems were reviewed and negative. PHYSICAL EXAMINATION: Wt 181 lb (82.1kg) BP (P) 128/80 Pulse (P) 107 Resp (P) 16 Wt 82.1 kg (181 lb) SpO2 (P) 96% BMI 31.46 kg/m General appearance: well appearing, in no acute distress, and alert Skin: skin color, texture, turgor normal, no rashes or lesions Neck: Supple, no adenopathy; thyroid symmetric, normal size Respiratory: airway congestion noted. No wheezing Cardiovascular: Negative. RRR without murmur, gallop, or rubs. No ectopy Musculoskeletal: Extremities normal. No deformities, edema, or skin discoloration. Neuro: Oriented X 3 Data Review I have visually reviewed imaging and testing below CT imaging done today was reviewed and analyzed independently and compared to prior CT chest imaging by practitioner and awaiting radiology review. All previously noted lung nodules are stable. No new nodules noted. Imaging * * *Final Report* * * DATE OF EXAM: Sep 02 2023 3:20PM [facility] 0562 - CT LUNG SCREEN WO IVCON / PROCEDURE REASON: Tobacco use disorder * * * * Physician Interpretation * * * * EXAMINATION: CHEST CT WITHOUT CONTRAST (LOW-DOSE CT LUNG CANCER SCREENING PROTOCOL) CLINICAL HISTORY: Lung cancer LDCT screening ? absence of signs or symptoms of lung cancer. Nicotine dependence (cigarettes). Baseline (initial) Technique: Spiral CT acquisition of the chest from the thoracic inlet to the upper abdomen without contrast. 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 Yes, 1-5 nodules If No, go to IMPRESSION. If yes, proceed with characterization of the FIVE largest nodules. Nodule 1: This Solid nodule is located in the Left Lower Lobe on slice number 222 with an average diameter of 4.4 mm. Stable since 04/07/2019 Nodule 2: This Solid nodule is located in the Right Lower Lobe on slice number 211 with an average diameter of 4.2 mm. Stable since 04/07/2019 Nodule 3: This Calcified nodule is located in the Left Lower Lobe on slice number 182 with an average diameter of 3.2 mm. Stable since 04/07/2019 Nodule 4: This Calcified nodule is located in the Right Upper Lobe on slice number 78 with an average diameter of 2.3 mm. Stable since 04/07/2019 If this is an ANNUAL LDCT for LCS, please ensure nodule number is the same as in the prior evaluation. Other lung nodule comments: None Other findings: The trachea and central airways appear patent and devoid of endobronchial lesion. There are mild, upper lobe predominant centrilobular and paraseptal emphysematous changes. No dominant bulla is identified. 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 The lungs are clear of focal consolidation. An 18 x 13 mm thin-walled cyst of the right lower lobe (5:200) is again noted. No pleural effusion or pneumothorax is identified. There is nonspecific pleural thickening posteriorly in the right hemithorax, likely postinflammatory in nature. A few coarse calcifications of the pleura are noted posteriorly in the right hemithorax (for example, 6:181). The thyroid gland appears unremarkable. No supraclavicular lymphadenopathy is identified. A few mildly enlarged mediastinal lymph nodes appear unchanged since the prior exam. A 10 mm right paratracheal lymph node (6:103) appears unchanged since the prior exam. A 12 mm subcarinal lymph node (6:131) also appears unchanged. Additional subcentimeter lymph nodes are identified in the bilateral paratracheal regions and the AP window. The esophagus appears non-dilated. The thoracic aorta appears normal in course and caliber. There are atherosclerotic calcifications of the thoracic aorta and both the right and left coronary artery circulations. The main and central pulmonary arteries are within normal limits of diameter. The overall heart size is within normal limits. There is no pericardial effusion. Visualized portions of the upper abdomen disclose no acute process. The vertebral body heights appear symmetric and well-maintained. There are mild degenerative changes in the thoracic spine. No lytic or destructive osseous lesion is identified. There are remote fractures of the lateral aspects of the left fourth through sixth ribs. The soft tissues of the chest wall appear unremarkable. Emphysema: Mild (5-25%), Centrilobular, Upper lobe Coronary Artery Calcifications: Circumflex None; Left Anterior Descending Mild; Right Coronary Minimum Cardiovascular Technologist (topogram) images: No additional findings. Last CT Chest - Impression Only CT CHEST W IVCON Exam End: 04/07/2019 3:29 PM (Final result) Impression: IMPRESSION: Mild emphysema with mild, diffuse bronchiectasis. Mild biapical fibrosis. Trace bilateral pleural effusions, left greater than right, with associated mild left-sided pleural thickening. Mild reticulation is seen within peripheral lungs and lower lobes, bilaterally, suggesting early interstitial lung disease. No areas of honeycombing are seen to suggest pulmonary fibrosis. Mild left basilar atelectasis. Prominent, less than 1 cm mediastinal and bilateral hilar lymph nodes, ... Last XR Chest - Impression Only XR CHEST 2V FRONTAL/LAT Exam End: 03/01/2018 4:32 PM (Final result) Impression: IMPRESSION: Small RIGHT pleural effusion versus pleural thickening or lateral focal diaphragmatic eventration. This is probably stable less likely mildly increased. Aircraft Maintenance Engineer: RADHA ... Pulmonary Function Testing: SPIROMETRY WITH DILATOR IF OBSTRUCTED ([id number]) - ordered on 05/14/18 Formerly [facility] 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 4 puffs of albuterol (360mcg) delivered by MDI via valved holding chamber, HR pre 95, HR post 95. Medications and allergies were reviewed for possible drug interactions per policy MM-102. No Contraindications or sensitivities were noted. DLCO is not hemoglobin corrected. DLCO did not meet criter ia for 90% of IVC; however, results are repeatable. IMPRESSION: Spirometry shows no obstruction. The reduced FVC suggests mild restriction. Recommend lung volumes if clinically indicated. There is no significant bronchodilator response. The diffusing capacity is moderately reduced. The presence of a reduced DLCO that normalizes when corrected for volume is consistent with a non-parenchymal disorder but does not rule out parenchymal or pulmonary vascular disease. The diffusing capacity corrected for volume is normal. Electronically Signed On 05-20-2018 17:09:44 EDT by Quintin Shannon [facility] [address] 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: Serene Keith RCP Temp: 21 PBar: 742 PF Reference: ######## Spirometry Hb: gm/dL Ref Pre Pre Post Post Post Jacob % Ref Jacob % Ref % Chg FVC Liters 3.45 2.30 67 2.39 69 4 FEV1 Liters 2.51 1.62 65 1.64 65 1 FEV1/FVC % 73 71 69 OHT81-77% L/sec 1.90 0.97 51 0.94 49 -4 [id number] L/sec 2.34 0.97 41 1.17 50 20 PEF L/sec 7.00 5.55 79 5.82 83 5 HWO021% Sec 5.95 7.14 20 MVV L/min 100 f BPM Lung Volumes TLC Liters 5.85 VC Liters 3.45 IC Liters 2.38 FRC N2 Liters 3.04 ERV Liters 1.19 RV Liters 2.15 RV/TLC % 36 Diffusing Capacity DLCO mL/mmHg/min 23.5 12.6 54 DL Adj mL/mmHg/min 23.5 12.6 54 DLCO/VA mL/mHg/min/L 4.23 3.91 93 DL/VA Adj mL/mHg/min/L 4.23 3.91 93 VA Liters 5.56 3.22 58 IVC Liters 1.89 82 BHT Sec 11.12 Resistance Raw cmH2O/L/sec 1.84 sGaw L/s/cmH2O/L 0.203 Respiratory Muscle Force PI max cmH2O 104 PE max cmH2O 195 null documented in this encounter [facility] 07-28-2024 Instructions Tadeo Ferrer MD - 07/28/2024 1:58 PM EST Schedule LDCT for lung cancer screening September 02, 2024 Get RSV vaccine from your pharmacy. Does patient have an advanced directive or durable power of back joiner in place? No Screening schedule The following prevention plan is recommended: Depression Screening Never done Anxiety Screening Never done RSV Vaccine(1 - 1-dose 75+ series) Never done Advance Directive Discussion due on 09/21/2023 Influenza Vaccine(1) due on 05/22/2024 Covid-19 Vaccine( season) due on 05/22/2024 Diabetic Foot Exam due on 07/01/2024 WHAT YOU CAN DO TO PREVENT FALLS Many falls can be prevented. By making some changes, you can lower your chances of falling. Four things YOU can do to prevent falls for you* and your caregiver 1. Begin a regular exercise program Exercise is one of the most important ways to lower your chances of falling. It makes you stronger and helps you feel better. Exercises that improve balance and coordination (like Koffi Chi) are the most helpful. Lack of exercise leads to weakness and increases your chances of falling. Ask your doctor or health care provider about the best type of exercise program for you. 2. Have your health care provider review your medicines Have your doctor or pharmacist review all the medicines you take, even [id number] medicines. As you get older, the way medicines work in your body can change. Some medicines, or combinations of medicines, can make you sleepy or dizzy and can cause you to fall. 3. Have your vision checked Have your eyes checked by an eye doctor at least once a year. You may be wearing the wrong glasses or have a condition like glaucoma or cataracts that limits your vision. Poor vision can increase your chances of falling. 4. Make your home safer About half of all falls happen at home. To make your home safer: Remove things you can trip over (like papers, books, clothes, and shoes) from stairs and places where you walk. Remove small throw rugs or use double-sided tape to keep the rugs from slipping. Keep items you use often in cabinets you can reach easily without using a step stool. Have grab bars put in next to your toilet and in the tub or shower. Use non-slip mats in the bathtub and on shower floors. Improve the lighting in your home. As you get older, you need brighter lights to see well. Hang light-weight curtains or shades to reduce glare. Have handrails and lights put in on all staircases. Wear shoes both inside and outside the house. Avoid going barefoot or wearing slippers. For more information, contact: Centers for Disease Control and Prevention www.cdc.gov/injury * This information may not apply if you have certain medical conditions. documented in this encounter [facility] 07-28-2024 History of Present illness Narrative This note was created using [employer]. Subjective Kalyn Valdovinos is a 79 year old male. He had no new concerns. He gets flare ups of chronic left shoulder pain and requested 10 tablets of [place] for rare use. He normally took one tablet and iced his shoulder with good results. His other conditions were more or less stable, with ongoing risks from smoking and alcohol. He had no desire to change risky habits. Review of Systems Constitutional: Negative for chills, fatigue and fever. HENT: Negative for congestion. Eyes: Negative for visual disturbance. Respiratory: Positive for shortness of breath. Cardiovascular: Negative for chest pain, palpitations and leg swelling. Gastrointestinal: Negative for constipation and diarrhea. Genitourinary: Negative for difficulty urinating and dysuria. Musculoskeletal: Positive for arthralgias. Neurological: Negative for dizziness and headaches. ACTIVE PROBLEM LIST Mixed Hyperlipidemia Polycythemia, Secondary Chronic Alcoholism (Hcc) Tobacco Use Disorder Copd (Chronic Obstructive Pulmonary Disease) (Hcc) Chronic Shoulder Pain Diabetes Mellitus Without Complication ([facility]) Obesity, Class I, Bmi 30-34.9 Social History Tobacco Use Smoking status: Every Day Current packs/day: 1.50 Average packs/day: 1.5 packs/day for 55.2 years (82.8 ttl pk-yrs) Types: Cigarettes Start date: 1969 Smokeless tobacco: Never Tobacco comments: Patient states after he retired he started smoking more Vaping Use Vaping status: Never Used Substance Use Topics Alcohol use: Yes Alcohol/week: 13.8 standard drinks of alcohol Types: 6 Cans of Beer (12oz), 6 Mixed Drinks per week Comment: No blackouts, no shakes. Drug use: No Comment: Infrequent marijuana use. Current Outpatient Medications Medication Sig albuterol HFA (VENTOLIN HFA) 90 mcg/actuation inhaler Inhale 2 Puffs as instructed every 4 hours as needed for wheezing/shortness of breath. ipratropium 20 mcg-albuterol 100 mcg (COMBIVENT RESPIMAT) 20-100 mcg/actuation inhaler Inhale 1 Puff as instructed four times daily. umeclidinium-vilanterol (ANORO ELLIPTA) 62.5-25 mcg/actuation inhaler Inhale 1 Inhalation as instructed once daily. Inhale one puff once daily. DO NOT CLICK OPEN UNTIL READY FOR DOSE metFORMIN ER (GLUCOPHAGE XR) 500 mg 24 hr tablet Take 2 tablets by mouth daily with breakfast. atorvastatin (LIPITOR) 20 mg tablet Take 1 tablet by mouth daily at bedtime. ipratropium bromide (ATROVENT) 42 mcg (0.06 %) nasal spray Use 1 [place] in the nose three times daily. acetaminophen 650 mg CR tablet Take 650 mg by mouth every 8 hours as needed. folic acid 1 mg tablet Take 1 mg by mouth once daily. naproxen (NAPROSYN) 500 mg tablet Take 1 tablet by mouth twice daily as needed for Pain (for pain/inflammation). Take with food. ASPIRIN 81 MG TAB Take two tablet daily. No current facility-administered medications for this visit. Objective BP 128/66 (BP Site: Left Arm, BP Position: Sitting, BP Cuff Size: Large Adult) Pulse 88 Temp 36.9 C (98.4 F) (Temporal) Ht 161.5 cm (5' 3.6) Wt 82.9 kg (182 lb 12.2 oz) SpO2 93% BMI 31.77 kg/m Physical Exam Constitutional: General: He is not in acute distress. Appearance: He is not diaphoretic. HENT: Head: Normocephalic. Nose: No congestion or rhinorrhea. Eyes: General: No scleral icterus. Conjunctiva/sclera: Conjunctivae normal. Cardiovascular: Rate and Rhythm: Normal rate. Rhythm irregular. Heart sounds: S1 normal and S2 normal. No murmur heard. Abdominal: Tenderness: There is no abdominal tenderness. Musculoskeletal: Left shoulder: No tenderness. Decreased range of motion. Right lower leg: No edema. Left lower leg: No edema. Lymphadenopathy: Cervical: No cervical adenopathy. Skin: Comments: Small healing abrasion left cerna. Neurological: General: No focal deficit present. Mental Status: He is alert. Feet:Shoes and socks removed, normal distal pulses, sensitive to 10 gm monofilament, and nails notable for Deformed, Hypertrophic, or Yellowish Latest Ref Rng 07/25/2024 Protein, Total 6.3 - 8.0 g/dL 7.1 Albumin 3.9 - 4.9 g/dL 3.8 (L) Calcium 8.5 - 10.2 mg/dL 9.5 Bilirubin, Total 0.2 - 1.3 mg/dL 0.6 Alkaline Phosphatase 38 - 113 U/L 65 AST 14 - 40 U/L 22 ALT 10 - 54 U/L 18 Glucose 74 - 99 mg/dL 130 (H) BUN 9 - 24 mg/dL 14 Creatinine 0.73 - 1.22 mg/dL 0.94 Sodium 136 - 144 mmol/L 141 Potassium 3.7 - 5.1 mmol/L 4.2 Chloride 98 - 107 mmol/L 102 CO2 22 - 30 mmol/L 25 Anion Gap 8 - 15 mmol/L 14 eGFR >=60 mL/min/1.73m 83 Cholesterol, Total <200 mg/dL 145 Triglyceride <150 mg/dL 122 HDL Cholesterol >39 mg/dL 43 Non HDL Cholesterol <130 mg/dL 102 Fasting Time hrs 12 VLDL Cholesterol <30 mg/dL 24 TC:HDL Ratio <5.10 3.37 LDL Cholesterol <100 mg/dL 78 LDL:HDL Ratio <2.54 1.81 Creatinine, Ur Random (UCRR) 20.0 - 300.0 mg/dL 163.0 Albumin, Urine Random mg/L 30.9 Albumin/Creat Ratio <30 mg/g 19 Hemoglobin A1C 4.3 - 5.6 % 6.9 (H) Estimated Average Glucose mg/dL 151 PSA Screening <2.60 ng/mL 2.38 Legend: (L) Low (H) High EKG RESULTS: normal sinus rhythm and marked sinus arrhythmia. Assessment and Plan 1. Medicare annual wellness visit, subsequent - ICD9: V70.0, ICD10: Z00.00 (primary diagnosis) See wellness visit. 2. Need for influenza vaccination - ICD9: V04.81, ICD10: Z23 - INFLUENZA VACCINE, PRSV FREE, AGE 65+ YR, HIGH DOSE, TRIVALENT (FLUZONE HIGH-DOSE) 3. Screening for depression - ICD9: V79.0, ICD10: Z13.31 - DEPRESSION SCREENING 4. Encounter for screening examination for other mental health and behavioral disorders - ICD9: V79.8, ICD10: Z13.39 - ANXIETY SCREENING 5. Need for COVID-19 vaccine - ICD9: V04.89, ICD10: Z23 - P[employer] COVID-19 VACCINE AGE 12+ YR (COMIRNATY) 6. Chronic alcoholism (HCC) - ICD9: 303.90, ICD10: F10.20 - Moderation or abstinence recommended. 7. Chronic left shoulder pain - ICD9: 719.41, 338.29, ICD10: M25.512, G89.29 Risks of opioids reviewed. This is only for 10 tablets per year as we agreed. - HYDROCODONE 5 MG-ACETAMINOPHEN 325 MG TABLET 8. Cardiac arrhythmia, unspecified cardiac arrhythmia type - ICD9: 427.9, ICD10: I49.9 - ECG COMPLETE 9. Tobacco use disorder - ICD9: 305.1, ICD10: F17.200 - Cessation encouraged. 10. Mixed hyperlipidemia - ICD9: 272.2, ICD10: E78.2 - Controlled - Continue current medications 11. Polycythemia, secondary - ICD9: 289.0, ICD10: D75.1 Stable. 12. Chronic obstructive pulmonary disease, unspecified COPD type (HCC) - ICD9: 496, ICD10: J44.9 - Continue care. His albuterol HFA coverage may lapse. 13. Diabetes mellitus without complication (HCC) - ICD9: 250.00, ICD10: E11.9 - Controlled - Continue current medications - BASIC METABOLIC PANEL - HEMOGLOBIN A1C Tadeo Ferrer MD Kalyn Valdovinos is a 79 year old male here for a Medicare wellness visit. Medicare Health Risk Assessment General Health Fair Exercise: Minutes/Day 30 min Exercise: Days/Week 3 days Alcohol: Daily Use 2-3 times a week Alcohol: Drinks/Day 5 or 6 Alcohol: 6 or more drinks Weekly Feel off balance Yes Concerns: Teeth/Dentures No Concerns: Sexual function No Troubled by feelings None of the above Frequency: Eating healthy diet Nearly every day ADLs requiring help Cooking; Grocery shopping; Housework Safety precautions in home/vehicle Yes Smoke, vape, chews tobacco Yes, but I'm not ready to quit Difficulty hearing Yes, I wear a hearing aid Difficulty seeing No Current Providers Specialists: I have reviewed specialist-related care of the patient in the medical record. Current care team: Patient Care Team: Tadeo Ferrer MD as PCP - General Outside specialists seen: Dr. Cruz, CHACHA. Dr. Snehal Carrasco DPM. Abebe Dunlap, MILKING MACHINE TECHNICIAN, PICK UP TRUCK DRIVER. Medical/Family history review Reviewed and updated problem list, medical/surgical/family/social history, medications, and allergies. Opioid use review Opioid Medications (last 90 days) No data to display Anxiety/Depression screening PHQ-2 Score: 1 (Lower risk for depression) EDGARD-2 Score: 0 (Lower risk for anxiety) Recommendation: no further intervention at this time Cognitive screening Mini Cog Score: 5 Cognitive screening reviewed and No further action needed (score 3-5). Functional Observation Was the patient's Timed Up & Go test unsteady or >= 12 seconds? No Advance Care Planning Patient was not able to provide a surrogate decision maker or written advance directives Measurements BP 128/66 (BP Site: Left Arm, BP Position: Sitting, BP Cuff Size: Large Adult) Pulse 88 Temp 36.9 C (98.4 F) (Temporal) Ht 161.5 cm (5' 3.6) Wt 82.9 kg (182 lb 12.2 oz) SpO2 93% BMI 31.77 kg/m Vision Screening: Follows with optometry/ophthalmology Right: 20/50 Left: 20/ 40 Both: 20/40 Assessment/Plan Medicare annual wellness visit, subsequent (Z00.00) - Counseled on healthy diet and regular exercise - Fall avoidance information provided - Personalized prevention plan provided - Discussed need for and benefit of weight loss. BMI 31.77 kg/(m^2) - Counseled patient on alcohol intake and associated health risks - Smoking cessation advised. documented in this encounter [facility] 06-27-2024 Telephone encounter Note Prescription Refill Information The patient has been identified by name and date of : Yes Caregiver verified no other encounters exist for this prescription request: Yes Caregiver confirmed with patient/requestor that no other refills are due, in the near future, with this provider at this time: Yes The last office visit in the department: Does the patient have a future office visit with this provider/department: Yes Requested Prescriptions Pending Prescriptions Disp Refills albuterol HFA (VENTOLIN HFA) 90 mcg/actuation inhaler 5 Each 3 Sig: Inhale 2 Puffs as instructed every 4 hours as needed for wheezing/shortness of breath. Macy Ahn June 27, 2024 1:21 PM [facility] 06-27-2024 Miscellaneous Notes Prescription Refill Information The patient has been identified by name and date of : Yes Caregiver verified no other encounters exist for this prescription request: Yes Caregiver confirmed with patient/requestor that no other refills are due, in the near future, with this provider at this time: Yes The last office visit in the department: Does the patient have a future office visit with this provider/department: Yes Requested Prescriptions Pending Prescriptions Disp Refills albuterol HFA (VENTOLIN HFA) 90 mcg/actuation inhaler 5 Each 3 Sig: Inhale 2 Puffs as instructed every 4 hours as needed for wheezing/shortness of breath. Macy Ahn June 27, 2024 1:21 PM documented in this encounter [facility] 05-05-2024 Telephone encounter Note The patient has been identified by name and date of : Yes Caregiver verified no other encounters exist for this prescription request: Yes Caregiver confirmed with patient/requestor that no other refills are due, in the near future, with this provider at this time: Yes The last office visit in the department: 01/25/2024 Does the patient have a future office visit with this provider/department: Yes 07/28/2024 Requested Prescriptions Pending Prescriptions Disp Refills ipratropium 20 mcg-albuterol 100 mcg (COMBIVENT RESPIMAT) 20-100 mcg/actuation inhaler 3 Each 3 Sig: Inhale 1 Puff as instructed four times daily. Corry Herring RN May 05, 2024 11:34 AM [facility] 05-05-2024 Miscellaneous Notes The patient has been identified by name and date of : Yes Caregiver verified no other encounters exist for this prescription request: Yes Caregiver confirmed with patient/requestor that no other refills are due, in the near future, with this provider at this time: Yes The last office visit in the department: 01/25/2024 Does the patient have a future office visit with this provider/department: Yes 07/28/2024 Requested Prescriptions Pending Prescriptions Disp Refills ipratropium 20 mcg-albuterol 100 mcg (COMBIVENT RESPIMAT) 20-100 mcg/actuation inhaler 3 Each 3 Sig: Inhale 1 Puff as instructed four times daily. Corry Herring RN May 05, 2024 11:34 AM documented in this encounter [facility] 03-18-2024 History of Present illness Narrative 78-year-old male presents for right leg pain and swelling. Patient started getting right leg pain a few days ago. He is having difficulty walking due to hip and leg pain. The pain goes from his hip down to his posterior knee. He also has right foot swelling that is new. Patient has history of DVT, not on any blood thinners. Patient is in a wheelchair currently and appears uncomfortable due to pain. He has been taking Aleve with no improvement. Due to severe pain and leg swelling, did recommend evaluation in the emergency room for further workup. It is 5:30 PM on Thursday and I am unable to get any lab testing or imaging. Patient and agreeable. She will take him now. documented in this encounter [facility] 01-25-2024 History of Present illness Narrative This note was created using [employer]. Subjective Kalyn Valdovinos is a 78 year old male. He had no concerns, and was rushing to another appointment. His labs were just drawn and results were pending. Review of Systems Constitutional: Negative for fever and unexpected weight change. Respiratory: Negative for cough and shortness of breath. Cardiovascular: Negative for chest pain, palpitations and leg swelling. ACTIVE PROBLEM LIST Mixed Hyperlipidemia Polycythemia, Secondary Chronic Alcoholism (Hcc) Tobacco Use Disorder Copd (Chronic Obstructive Pulmonary Disease) ([facility]) Chronic Shoulder Pain Diabetes Mellitus Without Complication ([facility]) Obesity, Class I, Bmi 30-34.9 Social History Tobacco Use Smoking status: Every Day Packs/day: 1.50 Years: 56.00 Additional pack years: 0.00 Total pack years: 84.00 Types: Cigarettes Start date: 1969 Smokeless tobacco: Never Tobacco comments: Patient states after he retired he started smoking more Vaping Use Vaping Use: Never used Substance Use Topics Alcohol use: Yes Alcohol/week: 13.8 standard drinks of alcohol Types: 6 Cans of Beer (12oz), 6 Mixed Drinks per week Comment: No blackouts, no shakes. Drug use: No Comment: Infrequent marijuana use. Current Outpatient Medications Medication Sig umeclidinium-vilanterol (ANORO ELLIPTA) 62.5-25 mcg/actuation inhaler Inhale 1 Inhalation as instructed once daily. Inhale one puff once daily. DO NOT CLICK OPEN UNTIL READY FOR DOSE metFORMIN ER (GLUCOPHAGE XR) 500 mg 24 hr tablet Take 2 tablets by mouth daily with breakfast. atorvastatin (LIPITOR) 20 mg tablet Take 1 tablet by mouth daily at bedtime. ipratropium bromide (ATROVENT) 42 mcg (0.06 %) nasal spray Use 1 [place] in the nose three times daily. ipratropium 20 mcg-albuterol 100 mcg (COMBIVENT RESPIMAT) 20-100 mcg/actuation inhaler Inhale 1 Puff as instructed four times daily. albuterol HFA (VENTOLIN HFA) 90 mcg/actuation inhaler Inhale 2 Puffs as instructed every 4 hours as needed for wheezing/shortness of breath. acetaminophen 650 mg CR tablet Take 650 mg by mouth every 8 hours as needed. folic acid 1 mg tablet Take 1 mg by mouth once daily. naproxen (NAPROSYN) 500 mg tablet Take 1 tablet by mouth twice daily as needed for Pain (for pain/inflammation). Take with food. ASPIRIN 81 MG TAB Take two tablet daily. sennosides (SENOKOT ORAL) Take by mouth. (Patient not taking: Reported on 08/11/2023) No current facility-administered medications for this visit. Objective BP 110/64 (BP Site: Left Arm, BP Position: Sitting, BP Cuff Size: Large Adult) Pulse (!) 48 Temp 36.6 C (97.8 F) (Temporal) Resp 28 Wt 83.5 kg (184 lb) SpO2 94% BMI 31.58 kg/m Physical Exam Constitutional: General: He is not in acute distress. Cardiovascular: Rate and Rhythm: Regular rhythm. Bradycardia present. Heart sounds: No murmur heard. No gallop. Pulmonary: Effort: No respiratory distress. Breath sounds: Decreased breath sounds present. No wheezing or rales. Musculoskeletal: Right lower leg: No edema. Left lower leg: No edema. Neurological: General: No focal deficit present. Mental Status: He is alert. Assessment and Plan 1. Need for COVID-19 vaccine - ICD9: V04.89, ICD10: Z23 (primary diagnosis) - [employer] COVID-19 VACCINE (2022- [place]) AGE 12+ YR 2. Mixed hyperlipidemia - ICD9: 272.2, ICD10: E78.2 - Control undetermined, due for labs - Continue current medications - Counseled on healthy diet and regular exercise - COMPREHENSIVE METABOLIC PANEL - LIPID PANEL BASIC 3. Diabetes mellitus without complication (HCC) - ICD9: 250.00, ICD10: E11.9 - Control undetermined, due for labs - Continue current medications - HEMOGLOBIN A1C - ALBUMIN/CREATININE RATIO, URINE 4. Chronic obstructive pulmonary disease, unspecified COPD type (HCC) - ICD9: 496, ICD10: J44.9 Stable. 5. Screening for prostate cancer - ICD9: V76.44, ICD10: Z12.5 - Risks/benefits of prostate cancer screening discussed. screening PSA ordered - PSA/PROSTATE SPECIFIC ANTIGEN SCREENING Tadeo Ferrer MD documented in this encounter [facility] 09-04-2023 Miscellaneous Notes Spoke with patient and the following results were discussed: LDCT Lung Screen Results LungRADS category: 2 Incidentals: none Recommendations: Continue annual screening with LDCT in 12 months. Patient verbalized understanding of the results and had no other questions or concerns at this time. Abebe Dunlap APRN.CNP September 04, 2023 3:21 PM Left message on mobile phone number for pt to call back regarding results. documented in this encounter [facility] 08-11-2023 Instructions Abebe Dunlap APRN.CNP - 08/11/2023 2:[address] Lung Screen Results The CT scan that you will have done will show if you have any nodules (small spots) in your lungs that are suspicious for cancer. Around 90% of the patients who have this scan done are found to have at least one nodule. Most nodules are benign (not cancer) and of no harm to you at all. A specialist will make a scientific evaluation about whether or not a nodule is worrisome based on its size and shape. The radiologist who will read your scan will put it into one of four categories: LUNG-RADS Category Description Overall Probability of Malignancy Recommended Follow-Up 1 Negative No nodules and definitely benign (non-cancerous nodules) Essentially 0. 1 Year - Follow-up Low dose CT 2 Benign Appearance or Behavior Nodules with a very low likelihood of becoming cancer due to size or lack of growth Less than 1% 1 Year - Follow-up Low dose CT 3 Probably Benign Probably benign finding, short term follow-up recommended 1 to 2% 6 Months - Follow-up Low dose CT 4 Suspicious Findings for which additional diagnostic testing and/or biopsy is recommended Will be calculated based on nodule characteristics. Dependent on what is seen on the exam. (3 month follow-up CT, PET-CT, or biopsy) At times, we may see something outside of the lungs on the scan that could be a health concern. Below are some of the most common findings: S Clinically Significant or Potentially Clinically Significant Findings (non lung cancer) Referral or additional imaging/labs depending on result. Approximately 10% of people receive this result. Coronary Artery Calcifications (Moderate or Severe) - Referral to cardiology for further work-up and recommendations. Thyroid Nodule - TSH level and Thyroid Ultrasound dependent on size, referral to endocrinology. Adrenal Nodule - blood work and referral to endocrinology. Others Lung Cancer Screening hotline: [phone] Lung Cancer Screening [phone] Billing Questions: or [email or web address] Providers: (Kindra Mabry CNP; Reina Mckenna PA-C; Julia Linda PICK UP TRUCK DRIVER; Brooklynn James PICK UP TRUCK DRIVER, Robyn Pinedo PICK UP TRUCK DRIVER; Sheila Leiva PICK UP TRUCK DRIVER; Allyssa Hernandez PA-C; Abebe Dunlap CNP; Ana Reardon CNP; Rossana Crowell PA-C; Sharla Loo PICK UP TRUCK DRIVER; Paris Tran PICK UP TRUCK DRIVER; Cherelle Lucas [facility]): [phone] documented in this encounter [facility] 08-11-2023 History of Present illness Narrative Images from the original note were not included. LUNG SCREENING VISIT PRIMARY CARE PHYSICIAN: Tadeo Ferrer MD PULMONARY PROVIDER: none Results will be communicated via letter or electronic record if applicable. Visit Delivery: In Person Patient Visit Type: New to Screening Current or Ex-smoker? [Current Exam Type: baseline LDCT Number of Pack Years: 84 Current smoker (=0) REQUESTER: The referring provider advised the patient to have screening. HISTORY OF PRESENT ILLNESS: Kalyn Valdovinos is a 78 year old Active smoker who presents for lung screening. Saw a financial services education consultant in the past as part of an Asbestos lawsuit. It was several years ago. Chart history reviewed: Pt saw Dr. Shannon 05/11/2018 for COPD consult x 1. John showed no obstruction and mild restriction. Diffusing capacity moderately reduced. Pt takes Anoro daily from PCP. Respiratory symptoms include: SOB: Yes, with activity and with talking too much Chest tightness: No Coughing: Yes: With mucus Clear unsure of color Hemoptysis: No Wheezing: Yes Fever/Chills: No Recent Respiratory Infection: NO 6 mos ago had upper airway/sinus Unintentional weight loss: No Last 6 Encounter Wt Readings: Date: Wt: 08/11/2023 83.4 kg (183 lb 12.8 oz) 07/27/2023 83.5 kg (184 lb) 04/16/2023 81.7 kg (180 lb 3.2 oz) 01/22/2023 85.3 kg (188 lb) 07/16/2022 85.7 kg (189 lb) 12/27/2021 85.3 kg (188 lb) ECOG PERFORMANCE STATUS: 0- Fully active, able to carry on all pre-disease performance w/o restriction. Modified Medical Research [place] Dyspnea Scale (MMRC) I only get breathless with strenous exercise 0 PAST MEDICAL HISTORY Diagnosis Date abnormal chest x-ray Balanoposthitis Chronic airway obstruction, not elsewhere classified Chronic alcoholism (HCC) Esophageal reflux H/O asbestosis Impaired fasting glucose Nondependent alcohol abuse Nonspecific abnormal results of liver function study Nonspecific abnormal toxicology 02/16/2018 Inconsistent controlled medication use. Obesity, unspecified Other and unspecified hyperlipidemia Phlebitis and thrombophlebitis of unspecified site 1997 Polycythemia, secondary Tobacco use disorder PAST SURGICAL HISTORY Procedure Laterality Date RIGHT HEART CATHETERIZATION 2001 Cardiac cath, R heart FAMILY HISTORY Problem Relation Age of Onset Cancer Father of liver cancer Alzheimer's Disease Mother Diabetes Mother Diabetes Sister Stroke Brother Carotid disease Asthma Brother Cancer Sister Cancer started in spine. Cancer Brother Lung, metastatic to spine, liver, nodes. ipratropium bromide (ATROVENT) 42 mcg (0.06 %) nasal spray Use 1 [place] in the nose three times daily. umeclidinium-vilanterol (ANORO ELLIPTA) 62.5-25 mcg/actuation inhaler Inhale 1 Inhalation as instructed once daily. Inhale one puff once daily. DO NOT CLICK OPEN UNTIL READY FOR DOSE ipratropium 20 mcg-albuterol 100 mcg (COMBIVENT RESPIMAT) 20-100 mcg/actuation inhaler Inhale 1 Puff as instructed four times daily. albuterol HFA (VENTOLIN HFA) 90 mcg/actuation inhaler Inhale 2 Puffs as instructed every 4 hours as needed for wheezing/shortness of breath. atorvastatin (LIPITOR) 20 mg tablet Take 1 tablet by mouth daily at bedtime. metFORMIN ER (GLUCOPHAGE XR) 500 mg 24 hr tablet Take 2 tablets by mouth daily with breakfast. acetaminophen 650 mg CR tablet Take 650 mg by mouth every 8 hours as needed. folic acid 1 mg tablet Take 1 mg by mouth once daily. naproxen (NAPROSYN) 500 mg tablet Take 1 tablet by mouth twice daily as needed for Pain (for pain/inflammation). Take with food. ASPIRIN 81 MG TAB Take two tablet daily. sennosides (SENOKOT ORAL) Take by mouth. (Patient not taking: Reported on 08/11/2023) ALLERGIES No Known Allergies The medications and allergies were reviewed and reconciled for this patient and deemed current. Lung Cancer Risk Factors: 1.Tobacco Use: Start Age 22, Quit Age: N/A, Average packs per day 1.5, Pack Years 86 2. Passive Smoke Exposure: No, 3. Personal hx of malignancy: No, Type of Cancer: 4. 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 Race: White 6. Education: Less than High School 7. BMI:Body mass index is 31.55 kg/m . Patient-entered Height: 5'4 Patient-entered Weight: 183 pounds 8. COPD: Yes 9. Pneumonia in the past 5 years: No 10. Is there a history of lung cancer in a first degree relative? No 11. Is there a history of lung cancer in a non-first degree relative? No 12. Is there a history of any other cancer in a first degree relative? Yes Father liver cancer, sister spine cancer, brother-pt does not think he had lung cancer although it is listed in the chart. Health Maintenance Immunization History Administered Date(s) Administered COVID-19 original vaccine, age 12+ yr, monovalent ([employer] - TATE TOP) 02/13/2022 COVID-19 original vaccine, full dose, monovalent (MODERNA) 11/21/2020 12/19/2020 07/25/2021 COVID-19 vaccine, age 12+ yr, 2022-24 season ([employer]) 07/27/2023 COVID-19 vaccine, age 12+ yr, bivalent (PFIZER-BIONTECH) 07/16/2022 influenza (HD-IIV3) vaccine, age 65+ yr, high dose, PF (FLUZONE HIGH-DOSE) 07/26/2015 06/27/2016 06/08/2017 06/14/2018 07/22/2019 influenza (HD-IIV4) vaccine, age 65+ yr, high dose, quadrivalent, PF (FLUZONE HIGH-DOSE) 07/14/2020 06/28/2021 07/11/2022 07/27/2023 influenza (IIV3) vaccine, age 3+ yr, trivalent (AFLURIA, FLULAVAL, FLUVIRIN, FLUZONE) 07/05/2014 influenza vaccine, unspecified formulation 07/10/2009 08/09/2012 06/25/2013 novel influenza (Q3E9-15) vaccine, PF 09/10/2009 pneumococcal (PCV13) vaccine, 13 valent (PREVNAR 13) 09/17/2015 pneumococcal (PPV23) vaccine, 23 valent (PNEUMOVAX 23) 09/15/2007 07/05/2014 tetanus diphtheria pertussis (Tdap) vaccine, age 7+ yr (ADACEL, BOOSTRIX) 10/15/2007 01/22/2023 zoster (RZV) vaccine, recombinant (SHINGRIX) 04/12/2018 06/24/2018 Colonoscopy: 10/10/2019 Mammogram: DATA REVIEW I have directly visualized the testing documented:04/07/2019 Ct chest Prior Imaging: Last CT/CTA Chest/Lungs CT CHEST W IVCON Exam End: 04/07/2019 3:29 PM (Final result) Narrative: * * *Final Report* * * DATE OF EXAM: Apr 07 2019 3:29PM [facility] 0539 - CT CHEST W IVCON / PROCEDURE REASON: Lung nodules * * * * Physician Interpretation * * * * EXAMINATION: CHEST CT WITH CONTRAST CLINICAL HISTORY: Lung nodules Technique: Spiral CT acquisition of the chest from the thoracic inlet to the upper abdomen following IV contrast. MQ: CTCWR_5 Contrast: 50 mL Omnipaque [address] Dose-Length Product: 346 mGy*cm CT Dose Reduction Employed: Automated exposure control(AEC) and iterative recon Comparison: Chest radiograph dated 03/01/2018. Prior chest CT dated 12/01/2011. RESULT: Limitations: None. Lines, tubes, and devices: None. Lung parenchyma and pleura: There is mild biapical fibrosis. There is mild emphysema with mild, diffuse bronchiectasis. Again seen is mild reticulation within the periphery of the lungs and lower lobes, bilaterally, suggesting early interstitial lung disease. No areas of honeycombing are seen to suggest pulmonary fibrosis. Trace bilateral pleural effusions, left greater than right, with associated mild left pleural thickening. Associated bibasilar atelectasis. There is no pneumothorax or endobronchial lesion. A calcified granuloma is incidentally seen within the left lung base. Thoracic inlet, heart, and mediastinum: There are prominent, not pathologically enlarged mediastinal and bilateral hilar lymph nodes, likely reactive. No bharti axillary adenopathy is identified. Incidentally noted is mild bilateral gynecomastia. The heart is normal in size, and there is no significant pericardial effusion. Atherosclerotic calcifications are present within the thoracic aorta and coronary arteries. There is mild mural thickening of the esophagus. Consider esophagitis. Bones and soft tissues: There is osteopenia, scoliosis, and multilevel degenerative change within the visualized spine. A few bone islands are incidentally seen within the osseous structures. Loose bodies overlie the right shoulder. There is no destructive bony lesion. Upper abdomen: No abnormality in the imaged upper abdomen. Impression: IMPRESSION: Mild emphysema with mild, diffuse bronchiectasis. Mild biapical fibrosis. Trace bilateral pleural effusions, left greater than right, with associated mild left-sided pleural thickening. Mild reticulation is seen within peripheral lungs and lower lobes, bilaterally, suggesting early interstitial lung disease. No areas of honeycombing are seen to suggest pulmonary fibrosis. Mild left basilar atelectasis. Prominent, less than 1 cm mediastinal and bilateral hilar lymph nodes, likely reactive. Mild, nonspecific mural thickening of the esophagus. Consider esophagitis. Aircraft Maintenance Engineer: PSCB Transcribe Date/Time: Apr 08 2019 11:07A Dictated by : RIAZ STEINER MD This examination was interpreted and the report reviewed and electronically signed by: RIAZ STEINER MD on Apr 08 2019 11:12AM EST Last CT Chest - Impression Only CT CHEST W IVCON Exam End: 04/07/2019 3:29 PM (Final result) Impression: IMPRESSION: Mild emphysema with mild, diffuse bronchiectasis. Mild biapical fibrosis. Trace bilateral pleural effusions, left greater than right, with associated mild left-sided pleural thickening. Mild reticulation is seen within peripheral lungs and lower lobes, bilaterally, suggesting early interstitial lung disease. No areas of honeycombing are seen to suggest pulmonary fibrosis. Mild left basilar atelectasis. Prominent, less than 1 cm mediastinal and bilateral hilar lymph nodes, ... Last XR Chest - Impression Only XR CHEST 2V FRONTAL/LAT Exam End: 03/01/2018 4:32 PM (Final result) Impression: IMPRESSION: Small RIGHT pleural effusion versus pleural thickening or lateral focal diaphragmatic eventration. This is probably stable less likely mildly increased. Aircraft Maintenance Engineer: RADHA ... Pulmonary Function Testing: SPIROMETRY WITH DILATOR IF OBSTRUCTED ([id number]) - ordered on 05/14/18 [facility] 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 4 puffs of albuterol (360mcg) delivered by MDI via valved holding chamber, HR pre 95, HR post 95. Medications and allergies were reviewed for possible drug interactions per policy MM-102. No Contraindications or sensitivities were noted. DLCO is not hemoglobin corrected. DLCO did not meet criter ia for 90% of IVC; however, results are repeatable. IMPRESSION: Spirometry shows no obstruction. The reduced FVC suggests mild restriction. Recommend lung volumes if clinically indicated. There is no significant bronchodilator response. The diffusing capacity is moderately reduced. The presence of a reduced DLCO that normalizes when corrected for volume is consistent with a non-parenchymal disorder but does not rule out parenchymal or pulmonary vascular disease. The diffusing capacity corrected for volume is normal. Electronically Signed On 05-20-2018 17:09:44 EDT by Quintin Shannon [facility] [address] 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: Serene Keith RCP Temp: 21 PBar: 742 PF Reference: ######## Spirometry Hb: gm/dL Ref Pre Pre Post Post Post Jacob % Ref Jacob % Ref % Chg FVC Liters 3.45 2.30 67 2.39 69 4 FEV1 Liters 2.51 1.62 65 1.64 65 1 FEV1/FVC % 73 71 69 AMK14-51% L/sec 1.90 0.97 51 0.94 49 -4 KnoHTS97-17 L/sec 2.34 0.97 41 1.17 50 20 PEF L/sec 7.00 5.55 79 5.82 83 5 WZJ300% Sec 5.95 7.14 20 MVV L/min 100 f BPM Lung Volumes TLC Liters 5.85 VC Liters 3.45 IC Liters 2.38 FRC N2 Liters 3.04 ERV Liters 1.19 RV Liters 2.15 RV/TLC % 36 Diffusing Capacity DLCO mL/mmHg/min 23.5 12.6 54 DL Adj mL/mmHg/min 23.5 12.6 54 DLCO/VA mL/mHg/min/L 4.23 3.91 93 DL/VA Adj mL/mHg/min/L 4.23 3.91 93 VA Liters 5.56 3.22 58 IVC Liters 1.89 82 BHT Sec 11.12 Resistance Raw cmH2O/L/sec 1.84 sGaw L/s/cmH2O/L 0.203 Respiratory Muscle Force PI max cmH2O 104 PE max cmH2O 195 PHYSICAL EXAM: BP 118/78 Pulse 90 Resp 20 Wt 83.4 kg (183 lb 12.8 oz) SpO2 92% BMI 31.55 kg/m Deferred ASSESSMENT and RECOMMENDATIONS: 1. Screening for lung cancer: Six year risk for lung cancer: 20.59% I have determined that the patient is eligible for a low dose CT based on age, absence of signs or symptoms of lung cancer, and total pack years: Yes. The patient and I engaged in shared decision making, including the use of one or more decision aids, to include benefits, harms, follow-up diagnostic testing, over-diagnosis, false positive rate, and total radiation exposure. The patient understands and feels comfortable with it: Yes. The patient was counseled on the importance of adherence to annual LDCT lung cancer screening, impact of comorbidities and ability or willingness to undergo diagnosis and treatment. The patient understands and feels comfortable with it:Yes. 2. Nicotine dependence: The patient was counseled on the importance of smoking cessation if current smoker and, if appropriate, offered additional tobacco cessation counseling services - Smoking Cessation Counseling. SMOKING CESSATION COUNSELING Smoking cessation methods including Behavior Modification were discussed with the patient and assistance offered. Pt does not feel he can quit smoking. Encouraged reduction in amount smoked daily. The medical conditions adversely affected by cigarette use include:COPD, Emphysema, and Lung Cancer. The patient is currently not ready to quit. I personally spent 3 minutes in counseling. The time spent in smoking cessation counseling is exclusive of any other counseling during this visit. Abebe Dunlap APRN.[email or web address] NPI #: [id number], [id number] 2:14 PM documented in this encounter [facility] 07-27-2023 Instructions Tadeo Ferrer MD - 07/27/2023 2:33 PM EST FASTING BLOOD WORK AND URINE TEST SOON. FASTING BLOOD WORK AGAIN IN 6 MONTHS. GET RSV VACCINE FROM YOUR PHARMACY. documented in this encounter [facility] 07-27-2023 History of Present illness Narrative This note was created using Kontronriter. Subjective Kalyn Valdovinos is a 78 year old male. He had no new concerns. Smoking and alcohol consumption had not changed by choice. He did not do his labs yet. He just saw his foot doctor and sees her every 6 months. Review of Systems Constitutional: Negative for appetite change, chills, fever and unexpected weight change. HENT: Negative. Respiratory: No change. Cardiovascular: Positive for leg swelling. Negative for chest pain and palpitations. Gastrointestinal: Negative for abdominal pain, blood in stool, constipation and diarrhea. Genitourinary: Negative for difficulty urinating. Neurological: Negative for light-headedness and headaches. ACTIVE PROBLEM LIST Mixed Hyperlipidemia Polycythemia, Secondary Chronic Alcoholism (Hcc) Tobacco Use Disorder Copd (Chronic Obstructive Pulmonary Disease) ([facility]) Chronic Shoulder Pain Diabetes Mellitus Without Complication ([facility]) Obesity, Class I, Bmi 30-34.9 Social History Tobacco Use Smoking status: Every Day Packs/day: 1.50 Years: 54.00 Additional pack years: 0.00 Total pack years: 81.00 Types: Cigarettes Start date: 1967 Smokeless tobacco: Never Vaping Use Vaping Use: Never used Substance Use Topics Alcohol use: Yes Alcohol/week: 13.8 standard drinks of alcohol Types: 6 Cans of Beer (12oz), 6 Mixed Drinks per week Comment: No blackouts, no shakes. Drug use: No Comment: Infrequent marijuana use. Current Outpatient Medications Medication Sig ipratropium bromide (ATROVENT) 42 mcg (0.06 %) nasal spray Use 1 [place] in the nose three times daily. umeclidinium-vilanterol (ANORO ELLIPTA) 62.5-25 mcg/actuation inhaler Inhale 1 Inhalation as instructed once daily. Inhale one puff once daily. DO NOT CLICK OPEN UNTIL READY FOR DOSE ipratropium 20 mcg-albuterol 100 mcg (COMBIVENT RESPIMAT) 20-100 mcg/actuation inhaler Inhale 1 Puff as instructed four times daily. albuterol HFA (VENTOLIN HFA) 90 mcg/actuation inhaler Inhale 2 Puffs as instructed every 4 hours as needed for wheezing/shortness of breath. atorvastatin (LIPITOR) 20 mg tablet Take 1 tablet by mouth daily at bedtime. metFORMIN ER (GLUCOPHAGE XR) 500 mg 24 hr tablet Take 2 tablets by mouth daily with breakfast. sennosides (SENOKOT ORAL) Take by mouth. acetaminophen 650 mg CR tablet Take 650 mg by mouth every 8 hours as needed. folic acid 1 mg tablet Take 1 mg by mouth once daily. naproxen (NAPROSYN) 500 mg tablet Take 1 tablet by mouth twice daily as needed for Pain (for pain/inflammation). Take with food. ASPIRIN 81 MG TAB Take two tablet daily. No current facility-administered medications for this visit. Objective BP 120/62 (BP Site: Left Arm, BP Position: Sitting, BP Cuff Size: Large Adult) Pulse 108 Temp 36.4 C (97.6 F) (Temporal) Resp 20 Ht 162.6 cm (5' 4) Wt 83.5 kg (184 lb) SpO2 93% BMI 31.58 kg/m Physical Exam Constitutional: General: He is not in acute distress. Appearance: He is obese. He is not diaphoretic. HENT: Head: Normocephalic. Eyes: General: No scleral icterus. Conjunctiva/sclera: Conjunctivae normal. Cardiovascular: Rate and Rhythm: Regular rhythm. Tachycardia present. Heart sounds: No murmur heard. No gallop. Pulmonary: Breath sounds: Decreased breath sounds, wheezing and rhonchi present. Abdominal: Palpations: Abdomen is soft. Tenderness: There is no abdominal tenderness. Musculoskeletal: Right lower leg: No edema. Left lower leg: No edema. Neurological: Mental Status: He is alert. Gait: Gait normal. Assessment and Plan 1. Medicare annual wellness visit, subsequent - ICD9: V70.0, ICD10: Z00.00 (primary diagnosis) See wellness note. 2. Need for influenza vaccination - ICD9: V04.81, ICD10: Z23 - INFLUENZA VACCINE, PRSV FREE, AGE 65+ YR, HIGH DOSE, QUADRIVALENT (FLUZONE HIGH-DOSE) 3. Tobacco use disorder - ICD9: 305.1, ICD10: F17.200 - Cessation encouraged. - CONSULT LUNG CANCER SCREENING CLINIC 4. Chronic obstructive pulmonary disease, unspecified COPD type (HCC) - ICD9: 496, ICD10: J44.9 Stable. 5. Mixed hyperlipidemia - ICD9: 272.2, ICD10: E78.2 - Control undetermined, due for labs - Continue current medications 6. Diabetes mellitus without complication (HCC) - ICD9: 250.00, ICD10: E11.9 - Control undetermined, due for labs - Continue current medications - BASIC METABOLIC PNL - HGB A1C 7. Chronic alcoholism (HCC) - ICD9: 303.90, ICD10: F10.20 - Moderation recommended. 8. Polycythemia, secondary - ICD9: 289.0, ICD10: D75.1 Recheck. - CBC 9. Need for COVID-19 vaccine - ICD9: V04.89, ICD10: Z23 - [employer] COVID-19 VACCINE (2022- SEASON) AGE 12+ YR 10. Screening for colon cancer - ICD9: V76.51, ICD10: Z12.11 We discussed pros and cons of colon cancer screening at age 78. He understood he may need to do a colonoscopy if this is abnormal. We agreed to screen one more time. - ESTEFANI Ferrer MD Kalyn Valdovinos is a 78 year old male here for a Medicare wellness visit. Medicare Health Risk Assessment General Health Fair. Exercise: Minutes/Day None. Exercise: Days/Week None. Alcohol: Daily Use Not daily Alcohol: Drinks/Day Not daily Alcohol: 6 or more drinks Monthly. Feel off balance Yes. Concerns: Teeth/Dentures No. Concerns: Sexual function No. Troubled by feelings No. Frequency: Eating healthy diet Sometimes. ADLs requiring help No Safety precautions in home/vehicle Yes. Smoke, vape, chews tobacco Yes. Difficulty hearing No. Difficulty seeing Yes. Current Providers Specialists: I have reviewed specialist-related care of the patient in the medical record. Current care team: Patient Care Team: Tadeo Ferrer MD as PCP - General Outside specialists seen: Dr. Cruz, CHACHA. Dr. Snehal Carrasco, DPM. Medical/Family history review Reviewed and updated problem list, medical/surgical/family/social history, medications, and allergies. Opioid use review Opioid Medications (last 90 days) Some values may be hidden. Unless noted otherwise, only the newest values recorded on each date are displayed. Opioid Medications No data to display. Depression screening Depression Screening PHQ-2 Score 01/22/2023 0 Depression screening tool completed and reviewed. Based on score and interview, patient is not at risk for depression. Screening tool discussed with patient, and I recommended no further intervention at this time. Cognitive screening Mini Cog Score: 4 Functional Observation Was the patient's timed Up & Go test unsteady or ? 12 seconds? No Advance Care Planning Patient did not wish or was not able to name a surrogate decision maker or provide an advance care plan Measurements BP 120/62 Pulse 108 Temp (Src) 97.6 (Temporal) Resp 20 Ht 5' 4 (1.63m) Wt 184 lb (83.5kg) SpO2 93% BMI 31.57 kg/(m^2). Additional screenings: Vision Screening Right eye - Without correction: With correction: 20/70 Left eye - Without correction: With correction: 20/70 Both eyes - Without correction: With correction: 20/50 Assessment/Plan Medicare annual wellness visit, subsequent (Z00.00) - Counseled on healthy diet and regular exercise - Fall avoidance information provided - Personalized prevention plan provided - Discussed need for and benefit of weight loss. BMI 31.58 kg/(m^2) - Counseled patient on alcohol intake and associated health risks documented in this encounter [facility] 06-01-2023 Miscellaneous Notes Patient has been identified by name and date of : Yes, Oly Schmitt RN Date 06/01/2023 Time 2:31 pm Pharmacy phones for refill(s): Requested Prescriptions Pending Prescriptions Disp Refills ipratropium bromide (ATROVENT) 42 mcg (0.06 %) nasal spray 15 mL 3 Sig: Use 1 [place] in the nose three times daily. Date of last office visit with pcp: 01/22/2023 Future visit: 07/27/2023 Last 2 Encounter Wt Readings: Date: Wt: 04/16/2023 81.7 kg (180 lb 3.2 oz) 01/22/2023 85.3 kg (188 lb) Previous labs/tests for medication: Blood Pressure: BUN (mg/dL) Date Value 01/19/2023 15 06/21/2021 15 Sodium (mmol/L) Date Value 01/19/2023 138 06/21/2021 139 Last 1 Encounter BP Readings: Date: BP: 04/16/2023 146/80 Liver Function: ALT (U/L) Date Value 07/01/2022 19 06/21/2021 20 AST (U/L) Date Value 07/01/2022 19 06/21/2021 24 Please advise. Thank you. Oly Schmitt RN documented in this encounter [facility] 04-16-2023 History of Present illness Narrative Images from the original note were not included. Subjective HPI HPI Kalyn Valdovinos is a 77 year old male who presents today for CC of itchy rash. This started 1 week ago. Has tried otc medication for relief. Symptoms are worsened by nothing. Risk factors hx of this in past. Itching effecting sleep. .Patient presents with: Rash: Pt reported rash located face, neck x1 wk. PAST MEDICAL HISTORY Diagnosis Date abnormal chest x-ray Balanoposthitis Chronic airway obstruction, not elsewhere classified Chronic alcoholism (HCC) Esophageal reflux H/O asbestosis Impaired fasting glucose Nondependent alcohol abuse Nonspecific abnormal results of liver function study Nonspecific abnormal toxicology 02/16/2018 Inconsistent controlled medication use. Obesity, unspecified Other and unspecified hyperlipidemia Phlebitis and thrombophlebitis of unspecified site 1997 Polycythemia, secondary Tobacco use disorder PAST SURGICAL HISTORY Procedure Laterality Date RIGHT HEART CATHETERIZATION 2001 Cardiac cath, R heart ALLERGIES Patient has no known allergies. MEDICATIONS umeclidinium-vilanterol (ANORO ELLIPTA) 62.5-25 mcg/actuation inhaler Inhale 1 Inhalation as instructed once daily. Inhale one puff once daily. DO NOT CLICK OPEN UNTIL READY FOR DOSE ipratropium bromide (ATROVENT) 42 mcg (0.06 %) nasal spray Use 1 [place] in the nose three times daily. albuterol HFA (VENTOLIN HFA) 90 mcg/actuation inhaler Inhale 2 Puffs as instructed every 4 hours as needed for wheezing/shortness of breath. atorvastatin (LIPITOR) 20 mg tablet Take 1 tablet by mouth daily at bedtime. metFORMIN ER (GLUCOPHAGE XR) 500 mg 24 hr tablet Take 2 tablets by mouth daily with breakfast. sennosides (SENOKOT ORAL) Take by mouth. acetaminophen 650 mg CR tablet Take 650 mg by mouth every 8 hours as needed. folic acid 1 mg tablet Take 1 mg by mouth once daily. naproxen (NAPROSYN) 500 mg tablet Take 1 tablet by mouth twice daily as needed for Pain (for pain/inflammation). Take with food. ASPIRIN 81 MG TAB Take two tablet daily. ipratropium 20 mcg-albuterol 100 mcg (COMBIVENT RESPIMAT) 20-100 mcg/actuation inhaler Inhale 1 Puff as instructed four times daily. FAMILY HISTORY Problem Relation Age of Onset Cancer Father of liver cancer Alzheimer's Disease Mother Diabetes Mother Diabetes Sister Stroke Brother Carotid disease Asthma Brother Cancer Sister Cancer started in spine. Cancer Brother Lung, metastatic to spine, liver, nodes. Social History Tobacco Use Smoking status: Every Day Packs/day: 1.50 Years: 52.00 Total pack years: 78.00 Types: Cigarettes Start date: 1969 Smokeless tobacco: Never Vaping Use Vaping Use: Never used Substance Use Topics Alcohol use: Yes Alcohol/week: 13.8 standard drinks of alcohol Types: 6 Cans of Beer (12oz), 6 Mixed Drinks per week Comment: No blackouts, no shakes. Drug use: No Comment: Infrequent marijuana use. Review of Systems Constitutional: Negative for fever. Skin: Negative for itching and rash. Objective Blood pressure 146/80, pulse 72, temperature 36.9 C (98.4 F), temperature source Temporal, resp. rate 18, weight 81.7 kg (180 lb 3.2 oz), SpO2 96 %. Physical Exam Constitutional: General: He is not in acute distress. Appearance: He is not toxic-appearing or diaphoretic. HENT: Head: Normocephalic and atraumatic. Pulmonary: Effort: Pulmonary effort is normal. No accessory muscle usage or respiratory distress. Lymphadenopathy: Cervical: No cervical adenopathy. Right cervical: No superficial cervical adenopathy. Left cervical: No superficial cervical adenopathy. Neurological: Mental Status: He is alert and oriented to person, place, and time. ASSESSMENT/PLAN: 1. Rash - ICD9: 782.1, ICD10: R21 Use triamcinolone sparingly on face -use medication as prescribed -follow up if symptoms persist, worsen, change - METHYLPREDNISOLONE 4 MG TABLETS IN A DOSE PACK - TRIAMCINOLONE ACETONIDE 0.1 % TOPICAL CREAM Aj Hanson APRN.[employer]IVER documented in this encounter [facility] 03-11-2023 Miscellaneous Notes Pharmacy verified in [facility] Patient has been identified by name and date of : Yes Patient aware RX will be sent to pharmacy. No need to notify patient. Patient phones for refill(s): Requested Prescriptions Pending Prescriptions Disp Refills ipratropium bromide (ATROVENT) 42 mcg (0.06 %) nasal spray 15 mL 3 Sig: Use 1 [place] in the nose three times daily. Date of last office visit : 01/22/2023 Date of next office visit : 07/27/2023 Last 2 Encounter Wt Readings: Date: Wt: 01/22/2023 85.3 kg (188 lb) 07/16/2022 85.7 kg (189 lb) Please advise. Keyla Ahn documented in this encounter [facility] 10-23-2022 Miscellaneous Notes Patient has been identified by name and date of : Yes, Oly Schmitt RN Date 10/23/2022 Time 10:35 am Patient phones for refill(s): Requested Prescriptions Pending Prescriptions Disp Refills atorvastatin (LIPITOR) 20 mg tablet 90 tablet 3 Sig: Take 1 tablet by mouth daily at bedtime. Date of last office visit with pcp: 07/16/2022 Future appt: 01/16/2023 Last 2 Encounter Wt Readings: Date: Wt: 07/16/2022 85.7 kg (189 lb) 12/27/2021 85.3 kg (188 lb) Previous labs/tests for medication: Cholesterol: HDL Cholesterol (mg/dL) Date Value 07/01/2022 38 06/21/2021 43 LDL Cholesterol (mg/dL) Date Value 07/01/2022 88 06/21/2021 78 ALT (U/L) Date Value 07/01/2022 19 06/21/2021 20 Non HDL Cholesterol (mg/dL) Date Value 07/01/2022 118 06/21/2021 106 Blood Pressure: BUN (mg/dL) Date Value 07/01/2022 16 06/21/2021 15 Sodium (mmol/L) Date Value 07/01/2022 137 06/21/2021 139 Last 1 Encounter BP Readings: Date: BP: 07/16/2022 116/70 Liver Function: ALT (U/L) Date Value 07/01/2022 19 06/21/2021 20 AST (U/L) Date Value 07/01/2022 19 06/21/2021 24 Please advise. Thank you. Oly Schmitt RN documented in this encounter [facility] 10-15-2022 Miscellaneous Notes PA denied Symbicort is not on formulary. Please see list below of alternatives and send one to opt[employer]. Patient aware of inhaler change Budesonide-formoterol is denied because it is not on your plan's Drug List (formulary). Medication authorization requires the following: (1) You need to try five (5) of these covered drugs: (a) Anoro Ellipta. (b) Breo Ellipta. (c) Serevent Diskus. (d) Spiriva HandiHaler. (e) Stiolto Respimat. Electronic PA completed. Patient is calling in regards to his [facility] insurance will no longer cover the symbicort they provided him a phone number to call for a possible prior auth that number is [phone]. Please advise the patient. documented in this encounter [facility] 10-08-2022 Miscellaneous Notes Patient notified, verbalized understanding. Jaxon Mcdonnell Ma It is ordered as once a day but since he has been taking two and his HgbA1c has been better recommend continue with two tablets at breakfast. I will send updated prescription to reflect changes Araceli Yarbrough APRN.BRITTANY Patient calling he thought he was supposed to be taking Metformin ER 500 mg 2 tablets at breakfast. Now his pharmacy will not fill rx bottle says one tablet daily at breakfast. Patient said he has been taking two daily since December. Patient does not check his blood sugars at home so no idea what his blood sugars are running at all. Patient asking if he is to be taking one daily, he thought he heard PCP say two tablets daily? Please advise documented in this encounter [facility] 07-16-2022 History of Present illness Narrative This note was created using [employer]. Subjective Kalyn Valdovinos is a 77 year old male. He was getting more dyspneic but continued to smoke with no desire to quit. He was taking his inhalers. He declined pulmonary consult. We discussed doing a walking oximetry to see if he qualified for O2 but he declined. Alcohol consumption was unchanged. Review of Systems Constitutional: Negative. Respiratory: Positive for shortness of breath. Cardiovascular: Negative. Gastrointestinal: Negative. Genitourinary: Negative. Neurological: Negative. ACTIVE PROBLEM LIST Mixed Hyperlipidemia Polycythemia, Secondary Chronic Alcoholism ([facility]) Tobacco Use Disorder Copd (Chronic Obstructive Pulmonary Disease) ([facility]) Chronic Shoulder Pain Diabetes Mellitus Without Complication ([facility]) Obesity, Class I, Bmi 30-34.9 Current Outpatient Medications Medication Sig budesonide-formoterol (SYMBICORT) 160-4.5 mcg/actuation inhaler USE 2 PUFFS TWICE DAILY DIRECTED albuterol HFA (VENTOLIN HFA) 90 mcg/actuation inhaler Inhale 2 Puffs as instructed every 4 hours as needed for wheezing/shortness of breath. ipratropium bromide (ATROVENT) 42 mcg (0.06 %) nasal spray Use 1 [place] in the nose three times daily. metFORMIN ER (GLUCOPHAGE XR) 500 mg 24 hr tablet Take 1 tablet by mouth daily with breakfast. ipratropium 20 mcg-albuterol 100 mcg (COMBIVENT RESPIMAT) 20-100 mcg/actuation inhaler Inhale 1 Puff as instructed four times daily. atorvastatin (LIPITOR) 20 mg tablet Take 1 tablet by mouth daily at bedtime. sennosides (SENOKOT ORAL) Take by mouth. acetaminophen (TYLENOL 8 HOUR) 650 mg CR tablet Take 650 mg by mouth every 8 hours as needed. folic acid 1 mg tablet Take 1 mg by mouth once daily. naproxen (NAPROSYN) 500 mg tablet Take 1 tablet by mouth twice daily as needed for Pain (for pain/inflammation). Take with food. ASPIRIN 81 MG TAB Take two tablet daily. No current facility-administered medications for this visit. Objective BP 116/70 Pulse 93 Resp 18 Wt 85.7 kg (189 lb) SpO2 95% BMI 32.70 kg/m Physical Exam Constitutional: General: He is not in acute distress. HENT: Head: Normocephalic. Cardiovascular: Rate and Rhythm: Normal rate. Rhythm irregular. Heart sounds: No murmur heard. No gallop. Pulmonary: Effort: No respiratory distress. Breath sounds: Wheezing present. No rales. Musculoskeletal: Right lower leg: No edema. Left lower leg: No edema. Neurological: Mental Status: He is alert. Feet:Shoes and socks removed, No deformities, ulcers, calluses, normal distal pulses, sensitive to 10 gm monofilament, and nails notable for Crumbly, Deformed, Hypertrophic, or Yellowish. Dry scaly skin. Component Latest Ref Rng & Units 07/01/2022 Protein, Total 6.3 - 8.0 g/dL 7.3 Albumin 3.9 - 4.9 g/dL 4.1 Calcium 8.5 - 10.2 mg/dL 9.3 Bilirubin, Total 0.2 - 1.3 mg/dL 0.4 Alkaline Phosphatase 38 - 113 U/L 63 AST 14 - 40 U/L 19 ALT 10 - 54 U/L 19 Glucose 74 - 99 mg/dL 131 (H) BUN 9 - 24 mg/dL 16 Creatinine 0.73 - 1.22 mg/dL 0.80 Sodium 136 - 144 mmol/L 137 Potassium 3.7 - 5.1 mmol/L 4.5 Chloride 97 - 105 mmol/L 102 CO2 22 - 30 mmol/L 26 Anion Gap 9 - 18 mmol/L 9 eGFR >=60 mL/min/1.73m 92 WBC 3.70 - 11.00 k/uL 9.27 RBC 4.20 - 6.00 m/uL 4.88 Hemoglobin 13.0 - 17.0 g/dL 15.8 Hematocrit 39.0 - 51.0 % 48.2 MCV 80.0 - 100.0 fL 98.8 MCH 26.0 - 34.0 pg 32.4 MCHC 30.5 - 36.0 g/dL 32.8 RDW-CV 11.5 - 15.0 % 13.1 Platelet Count 150 - 400 k/uL 285 MPV 9.0 - 12.7 fL 9.8 Absolute nRBC <0.01 k/uL <0.01 Cholesterol, Total <200 mg/dL 156 Triglyceride <150 mg/dL 149 HDL Cholesterol >39 mg/dL 38 (L) Non HDL Cholesterol <130 mg/dL 118 Fasting Time hrs 10 VLDL Cholesterol <30 mg/dL 30 (H) TC:HDL Ratio <5.10 4.11 LDL Cholesterol <100 mg/dL 88 LDL:HDL Ratio <2.54 2.32 Creatinine, Ur Random (UCRR) 20.0 - 300.0 mg/dL 154.4 Albumin, Urine Random mg/L 14.9 Albumin/Creat Ratio <30 mg/g 10 Hemoglobin A1C 4.3 - 5.6 % 7.2 (H) Estimated Average Glucose mg/dL 160 EKG NSR, PACs. Assessment and Plan 1. Medicare annual wellness visit, subsequent - ICD9: V70.0, ICD10: Z00.00 (primary diagnosis) See wellness note. 2. Chronic obstructive pulmonary disease, unspecified COPD type (HCC) - ICD9: 496, ICD10: J44.9 Pulmonary consult declined. Walk test declined. 3. Diabetes mellitus without complication (HCC) - ICD9: 250.00, ICD10: E11.9 Controlled. - Continue current medications - ECG COMPLETE - BASIC METABOLIC PNL - HGB A1C 4. Mixed hyperlipidemia - ICD9: 272.2, ICD10: E78.2 - good control - Continue current medication. 5. Tobacco use disorder - ICD9: 305.1, ICD10: F17.200 - Cessation encouraged. 6. Chronic alcoholism (HCC) - ICD9: 303.90, ICD10: F10.20 Encouraged less than 2 drinks per day. 7. Need for COVID-19 vaccine - ICD9: V04.89, ICD10: Z23 - PFIZER-BIONTECH COVID-19 BIVALENT BOOSTER VACCINE, AGE 12+ YR 8. Colon cancer screening - ICD9: V76.51, ICD10: Z12.11 Cancelled. His screening was current till next year. - COLOGUAADRIANA Ferrer MD Medicare Yearly Visit Medical B eligibilty date 2012 Date of last exam 06/28/2021 PAST MEDICAL HISTORY Diagnosis Date abnormal chest x-ray Balanoposthitis Chronic airway obstruction, not elsewhere classified Chronic alcoholism (HCC) Esophageal reflux H/O asbestosis Impaired fasting glucose Nondependent alcohol abuse Nonspecific abnormal results of liver function study Nonspecific abnormal toxicology 02/16/2018 Inconsistent controlled medication use. Obesity, unspecified Other and unspecified hyperlipidemia Phlebitis and thrombophlebitis of unspecified site 1997 Polycythemia, secondary Tobacco use disorder PAST SURGICAL HISTORY Procedure Laterality Date RIGHT HEART CATHETERIZATION 2001 Cardiac cath, R heart ALLERGIES: Patient has no known allergies. Medications reviewed: Yes FAMILY HISTORY Problem Relation Age of Onset Cancer Father of liver cancer Alzheimer's Disease Mother Diabetes Mother Diabetes Sister Stroke Brother Carotid disease Asthma Brother Cancer Sister Cancer started in spine. Cancer Brother Lung, metastatic to spine, liver, nodes. SOCIAL HISTORY: Social History Tobacco Use Smoking status: Every Day Packs/day: 1.50 Years: 51.00 Pack years: 76.50 Types: Cigarettes Start date: 1969 Smokeless tobacco: Never Vaping Use Vaping Use: Never used Substance Use Topics Alcohol use: Yes Alcohol/week: 13.8 standard drinks Types: 6 Cans of Beer (12oz), 6 Mixed Drinks per week Comment: No blackouts, no shakes. Drug use: No Comment: Infrequent marijuana use. Kalyn is more or less sedentary occasionally exercising in the form of walking. He watches his diet for sodium, low fat and low cholesterol generally not very much. List of current specialists seen: Dr. Cruz, OD. End of Live Planning discussed including patients advanced directive wishes: Yes I am willing to follow Kalyn's advanced directives. None made. PHQ-2 / Depression screen He in the past two weeks denies having felt down, depressed, hopeless, or with little interest or pleasure in doing things. Functional Ability/Safety Screen 1. Was the patient's timed Up and Go test unsteady or longer than 30 seconds? No 2. Does the patient need help with the phone, transportation, shopping,preparing meals, housework, laundry, medications or managing money? No 3. Does your home have rugs in the hallway, lack of grab bars in the bathroom, lack of handrails on the stairs or have poor lighting? No Hearing Evaluation: within normal limits PHYSICAL EXAM BP 116/70 Pulse 93 Resp 18 Wt 85.7 kg (189 lb) SpO2 95% BMI 32.70 kg/m Alert and oriented X 3: YES Body mass index is 32.7 kg/m . Visual acuity: see optometry. ASSESSMENT/PLAN: 77 year old male The following prevention plan was discussed during the office visit and provided to the patient: - Discussed need for and benefit of weight loss. BMI 32.70 kg/(m^2) - Smoking cessation counseling - Fall avoidance - Vaccines recommended COVID-19 - Lung cancer screening with low-dose CT declined. - Depression screening - Alcohol misuse screening and counseling Tadeo Ferrer MD documented in this encounter [facility] 07-03-2022 Miscellaneous Notes Phoned patient. Patient reports no one told him the 07-04-22 appt was cancelled with pcp. States he never got a message about it. Patient verbalized frustration. Re-scheduled with pcp on 07-16-22. Patient called regarding appointment scheduled and canceled for tomorrow. He states he never received message and provider is not scheduling into next year. Patient requested to speak to clinical. documented in this encounter [facility] 05-05-2022 Miscellaneous Notes ALVAREZ: 12/27/2021 NOV: 07/04/2022 Patient has been identified by name and date of : Yes Patient phones for refill(s): Requested Prescriptions Pending Prescriptions Disp Refills budesonide-formoterol (SYMBICORT) 160-4.5 mcg/actuation inhaler 3 Inhaler 3 Sig: USE 2 PUFFS TWICE DAILY DIRECTED albuterol HFA (VENTOLIN HFA) 90 mcg/actuation inhaler 5 Each 1 Sig: Inhale 2 Puffs as instructed every 4 hours as needed for wheezing/shortness of breath. ipratropium bromide (ATROVENT) 42 mcg (0.06 %) nasal spray Sig: Use 1 [place] in the nose three times daily. Date of last office visit in primary care: 12-27-21 Last 2 Encounter Wt Readings: Date: Wt: 12/27/2021 85.3 kg (188 lb) 05/31/2020 86.3 kg (190 lb 3.2 oz) Previous labs/tests for medication: Not applicable Please advise. Thank you. Albertina Clark PT would like to note on the nasal spray he only needs one bottle not two this time. documented in this encounter [facility] 02-13-2022 History of Present illness Narrative Patient presents for COVID booster. Denies any problems at this time. Tolerated injection well. Marlyn Sidhu LPN documented in this encounter [facility] 07-07-2018 History of Past i llness Narrative Problem Noted Date Resolved Date Incidental pulmonary nodule, > 3mm and < 8mm 05/02/2020 Lateral epicondylitis, left elbow 11/20/2016 03/14/2019 Occult GI bleeding 09/28/2015 06/28/2021 Insomnia 12/05/2013 03/14/2019 LGI bleed 05/23/2011 04/05/2013 Balanoposthitis 06/30/2006 Esophageal reflux 06/30/2006 Phlebitis and thrombophlebitis of unspecified si te 06/30/2006 Nonspecific abnormal results of liver function s tudy 09/17/2015 Obesity, unspecified 05/08/2021 Impaired fasting glucose 015 documented as of this encounter (statuses as of 02/13/2022) [facility] History of Past illness Narrative* Problem Noted Date Resolved Date Incidental pulmonary nodule, > 3mm and < 8mm 05/02/2020 Lateral epicondylitis, left elbow 11/20/2016 03/14/2019 Occult GI bleeding 09/28/2015 06/28/2021 Insomnia 12/05/2013 03/14/2019 LGI bleed 05/23/2011 04/05/2013 Balanoposthitis 06/30/2006 Esophageal reflux 06/30/2006 Phlebitis and thrombophlebitis of unspecified si te 06/30/2006 Nonspecific abnormal results of liver function s dy 09/17/2015 Obesity, unspecified 05/08/2021 Impaired fasting glucose 015 documented as of this encounter (statuses as of 2022) [facility] History of Past illness Narrative* Problem Noted Date Resolved Date Incidental pulmonary nodule, > 3mm and < 8mm 05/02/2020 Lateral epicondylitis, left elbow 11/20/2016 03/14/2019 Occult GI bleeding 09/28/2015 06/28/2021 Insomnia 12/05/2013 03/14/2019 LGI bleed 05/23/2011 04/05/2013 Balanoposthitis 06/30/2006 Esophageal reflux 06/30/2006 Phlebitis and thrombophlebitis of unspecified si te 06/30/2006 Nonspecific abnormal results of liver function s dy 09/17/2015 Obesity, unspecified 05/08/2021 Impaired fasting glucose 015 documented as of this encounter (statuses as of 07/03/2022) [facility] History of Past illness Narrative* Problem Noted Date Resolved Date Incidental pulmonary nodule, > 3mm and < 8mm 05/02/2020 Lateral epicondylitis, left elbow 11/20/2016 03/14/2019 Occult GI bleeding 09/28/2015 06/28/2021 Insomnia 12/05/2013 03/14/2019 LGI bleed 05/23/2011 04/05/2013 Balanoposthitis 06/30/2006 Esophageal reflux 06/30/2006 Phlebitis and thrombophlebitis of unspecified si te 06/30/2006 Nonspecific abnormal results of liver function s tudy 09/17/2015 Obesity, unspecified 05/08/2021 Impaired fasting glucose 015 documented as of this encounter (statuses as of 07/11/2022) [facility] History of Past illness Narrative* Problem Noted Date Resolved Date Incidental pulmonary nodule, > 3mm and < 8mm 05/02/2020 Lateral epicondylitis, left elbow 11/20/2016 03/14/2019 Occult GI bleeding 09/28/2015 06/28/2021 Insomnia 12/05/2013 03/14/2019 LGI bleed 05/23/2011 04/05/2013 Balanoposthitis 06/30/2006 Esophageal reflux 06/30/2006 Phlebitis and thrombophlebitis of unspecified si te 06/30/2006 Nonspecific abnormal results of liver function s tudy 09/17/2015 Obesity, unspecified 05/08/2021 Impaired fasting glucose 015 documented as of this encounter (statuses as of 07/17/2022) [facility] History of Past illness Narrative* Problem Noted Date Resolved Date Incidental pulmonary nodule, > 3mm and < 8mm 05/02/2020 Lateral epicondylitis, left elbow 11/20/2016 03/14/2019 Occult GI bleeding 09/28/2015 06/28/2021 Insomnia 12/05/2013 03/14/2019 LGI bleed 05/23/2011 04/05/2013 Balanoposthitis 06/30/2006 Esophageal reflux 06/30/2006 Phlebitis and thrombophlebitis of unspecified si te 06/30/2006 Nonspecific abnormal results of liver function s tudy 09/17/2015 Obesity, unspecified 05/08/2021 Impaired fasting glucose 09/17/2 015 documented as of this encounter (statuses as of 10/09/2022) [facility] History of Past illness Narrative* Problem Noted Date Resolved Date Incidental pulmonary nodule, > 3mm and < 8mm 05/02/2020 Lateral epicondylitis, left elbow 11/20/2016 03/14/2019 Occult GI bleeding 09/28/2015 06/28/2021 Insomnia 12/05/2013 03/14/2019 LGI bleed 05/23/2011 04/05/2013 Balanoposthitis 06/30/2006 Esophageal reflux 06/30/2006 Phlebitis and thrombophlebitis of unspecified si te 06/30/2006 Nonspecific abnormal results of liver function s tudy 09/17/2015 Obesity, unspecified 05/08/2021 Impaired fasting glucose 015 documented as of this encounter (statuses as of 10/16/2022) [facility] History of Past illness Narrative* Problem Noted Date Resolved Date Incidental pulmonary nodule, > 3mm and < 8mm 05/02/2020 Lateral epicondylitis, left elbow 11/20/2016 03/14/2019 Occult GI bleeding 09/28/2015 06/28/2021 Insomnia 12/05/2013 03/14/2019 LGI bleed 05/23/2011 04/05/2013 Balanoposthitis 06/30/2006 Esophageal reflux 06/30/2006 Phlebitis and thrombophlebitis of unspecified si te 06/30/2006 Nonspecific abnormal results of liver function s tudy 09/17/2015 Obesity, unspecified 05/08/2021 Impaired fasting glucose 015 documented as of this encounter (statuses as of 10/23/2022) [facility] History of Past illness Narrative* Problem Noted Date Resolved Date Incidental pulmonary nodule, > 3mm and < 8mm 05/02/2020 Lateral epicondylitis, left elbow 11/20/2016 03/14/2019 Occult GI bleeding 09/28/2015 06/28/2021 Insomnia 12/05/2013 03/14/2019 LGI bleed 05/23/2011 04/05/2013 Balanoposthitis 06/30/2006 Esophageal reflux 06/30/2006 Phlebitis and thrombophlebitis of unspecified si te 06/30/2006 Nonspecific abnormal results of liver function s tudy 09/17/2015 Obesity, unspecified 05/08/2021 Impaired fasting glucose 015 documented as of this encounter (statuses as of 03/11/2023) [facility] History of Past illness Narrative* Problem Noted Date Diagnosed Date Resolved Date Incidental pulmonary nodule, > 3mm and < 8mm 8 05/02/2020 Lateral epicondylitis, left elbow 11/20/2016 03/14/2019 Occult GI bleeding 09/28/2015 1 Insomnia 12/05/2013 03/14/2019 LGI bleed 05/23/2011 04/05/2013 Balanoposthitis 06/30/2006 Esophageal reflux 06/30/2006 Phlebitis and thrombophlebit is of unspecified site 06/30/2006 Nonspecific abnormal results of liver function study 09/17/2015 Obesity, unspecified 021 Impaired fasting glucose documented as of this encounter (statuses as of 04/17/2023) [facility]10-17-2018 History of Past illness Narrative* Problem Noted Date Diagnosed Date Resolved Date Incidental pulmonary nodule, > 3mm and < 8mm 8 05/02/2020 Lateral epicondylitis, left elbow 11/20/2016 03/14/2019 Occult GI bleeding 09/28/2015 1 Insomnia 12/05/2013 03/14/2019 LGI bleed 05/23/2011 04/05/2013 Balanoposthitis 06/30/2006 Esophageal reflux 06/30/2006 Phlebitis and thrombophlebit is of unspecified site 06/30/2006 Nonspecific abnormal results of liver function study 09/17/2015 Obesity, unspecified 021 Impaired fasting glucose documented as of this encounter (statuses as of 06/02/2023) [facility]2018 History of Past illness Narrative* Problem Noted Date Diagnosed Date Resolved Date Incidental pulmonary nodule, > 3mm and < 8mm 8 05/02/2020 Lateral epicondylitis, left elbow 11/20/2016 03/14/2019 Occult GI bleeding 09/28/2015 1 Insomnia 12/05/2013 03/14/2019 LGI bleed 05/23/2011 04/05/2013 Balanoposthitis 06/30/2006 Esophageal reflux 06/30/2006 Phlebitis and thrombophlebit is of unspecified site 06/30/2006 Nonspecific abnormal results of liver function study 09/17/2015 Obesity, unspecified 021 Impaired fasting glucose documented as of this encounter (statuses as of 07/28/2023) [facility]2018 History of Past illness Narrative* Problem Noted Date Diagnosed Date Resolved Date Incidental pulmonary nodule, > 3mm and < 8mm 8 05/02/2020 Lateral epicondylitis, left elbow 11/20/2016 03/14/2019 Occult GI bleeding 09/28/2015 1 Insomnia 12/05/2013 03/14/2019 LGI bleed 05/23/2011 04/05/2013 Balanoposthitis 06/30/2006 Esophageal reflux 06/30/2006 Phlebitis and thrombophlebit is of unspecified site 06/30/2006 Nonspecific abnormal results of liver function study 09/17/2015 Obesity, unspecified 021 Impaired fasting glucose documented as of this encounter (statuses as of 08/13/2023) [facility] History of Past illness Narrative* Problem Noted Date Diagnosed Date Resolved Date Incidental pulmonary nodule, > 3mm and < 8mm 8 05/02/2020 Lateral epicondylitis, left elbow 11/20/2016 03/14/2019 Occult GI bleeding 09/28/2015 1 Insomnia 12/05/2013 03/14/2019 LGI bleed 05/23/2011 04/05/2013 Balanoposthitis 06/30/2006 Esophageal reflux 06/30/2006 Phlebitis and thrombophlebit is of unspecified site 06/30/2006 Nonspecific abnormal results of liver function study 09/17/2015 Obesity, unspecified 021 Impaired fasting glucose documented as of this encounter (statuses as of 09/05/2023) [facility] Diagnosis Need for vaccination- Primary Need for prophylactic vaccination and inoculation against unspecified single disease [facility] Diagnosis Chronic obstructive pulmonary disease with acute exacerbation (HCC) Obstructive chronic bronchitis with exacerbation Rhinitis, unspecified type [facility] Medicare annual wellness visit, subsequent- Primary Routine general medical examination at a health care facility Chronic obstructive pulmonary disease, unspecified COPD type (HCC) Diabetes mellitus without complication (HCC) Type II or unspecified type diabetes mellitus without mention of complication, not stated as uncontrolled Mixed hyperlipidemia Tobacco use disorder Chronic alcoholism (HCC) Other and unspecified alcohol dependence, unspecified drinking behavior Need for COVID-19 vaccine Colon cancer screening Special screening for malignant neoplasms, colon [facility]* Diagnosis Diabetes mellitus without complication (HCC) Type II or unspecified type diabetes mellitus without mention of complication, not stated as uncontrolled [facility] Diagnosis Chronic obstructive pulmonary disease, unspecified COPD type (HCC)- Primary [facility]* Diagnosis Rhinitis, unspecified type [facility] Diagnosis Rash- Primary Rash and other nonspecific skin eruption [facility] Diagnosis Rhinitis, unspecified type [facility] Diagnosis Medicare annual wellness visit, subsequent- Primary Routine general medical examination at a health care facility Need for influenza vaccination Need for prophylactic vaccination and inoculation against influenza Tobacco use disorder Chronic obstructive pulmonary disease, unspecified COPD type (HCC) Mixed hyperlipidemia Diabetes mellitus without complication (HCC) Type II or unspecified type diabetes mellitus without mention of complication, not stated as uncontrolled Chronic alcoholism (HCC) Other and unspecified alcohol dependence, unspecified drinking behavior Polycythemia, secondary Need for COVID-19 vaccine Screening for colon cancer Special screening for malignant neoplasms, colon [facility] Diagnosis Encounter for screening for lung cancer- Primary Tobacco use disorder [facility] Diagnosis Tobacco use disorder- Primary [facility] Diagnosis Need for COVID-19 vaccine- Primary Mixed hyperlipidemia Diabetes mellitus without complication (HCC) Type II or unspecified type diabetes mellitus without mention of complication, not stated as uncontrolled Chronic obstructive pulmonary disease, unspecified COPD type (HCC) Screening for prostate cancer Special screening for malignant neoplasm of prostate [facility] Diagnosis Leg swelling- Primary Swelling of limb [facility] Diagnosis Chronic obstructive pulmonary disease, unspecified COPD type (HCC) [facility] Diagnosis Chronic obstructive pulmonary disease with acute exacerbation (HCC) Obstructive chronic bronchitis with exacerbation [facility] Diagnosis Medicare annual wellness visit, subsequent- Primary Routine general medical examination at a health care facility Need for influenza vaccination Need for prophylactic vaccination and inoculation against influenza Screening for depression Encounter for screening examination for other mental health and behavioral disorders Need for COVID-19 vaccine Chronic alcoholism (HCC) Other and unspecified alcohol dependence, unspecified drinking behavior Chronic left shoulder pain Pain in joint, shoulder region Cardiac arrhythmia, unspecified cardiac arrhythmia type Tobacco use disorder Mixed hyperlipidemia Polycythemia, secondary Chronic obstructive pulmonary disease, unspecified COPD type (HCC) Diabetes mellitus without complication (HCC) Type II or unspecified type diabetes mellitus without mention of complication, not stated as uncontrolled [facility] Diagnosis Tobacco use disorder- Primary Encounter for screening for lung cancer [facility]* Diagnosis Multiple lung nodules- Primary Other nonspecific abnormal finding of lung field Encounter for screening for lung cancer Tobacco use disorder [facility]* Diagnosis Tobacco use disorder Encounter for screening for lung cancer [facility]* Diagnosis Chronic obstructive pulmonary disease with acute exacerbation (HCC) Obstructive chronic bronchitis with exacerbation [facility]* Diagnosis Chronic obstructive pulmonary disease, unspecified COPD type (HCC) [facility]* Diagnosis Chronic obstructive pulmonary disease with acute exacerbation (HCC) Obstructive chronic bronchitis with exacerbation Rhinitis, unspecified type [facility] Diagnosis Acute pain of left shoulder- Primary Chronic obstructive pulmonary disease, unspecified COPD type (HCC) Chronic alcoholism (HCC) Other and unspecified alcohol dependence, unspecified drinking behavior Diabetes mellitus without complication (HCC) Type II or unspecified type diabetes mellitus without mention of complication, not stated as uncontrolled Mixed hyperlipidemia Cardiac arrhythmia, unspecified cardiac arrhythmia type [facility]* Diagnosis Rash- Primary Rash and other nonspecific skin eruption documented in this encounter [facility] for referral (narrative)* Outpatient Procedure (Routine) - New Request Specialty Diagnoses / Procedures Referred By Lilly t Referred To [facility] Diagnoses Cardiac arrhythmia, unspecified cardiac arrhythmia type Procedures ECG COMPLETE ECG ROUTINE ECG W/LEAST 12 LDS W/I&R Tadeo Ferrer MD [address] [place] [address] [facility] [place] [address] [place] [id number] Referral ID Status Reason Start Date Expiration Date Visits Requested Visits Authorized [id number] New Request Auto-Generat ed Referral 07/28/2024 07/28/2025 1 1 [facility] Reason for Referral Specialty Diagnoses / Procedures Referred By Contac t Referred To Contact CT IMAGING Diagnoses Tobacco use disorder Procedures CT LUNG SCREEN WO IVCON COMPUTED TOMOGRAPHY THORAX LW DOSE LNG CA SCR Milagros- Abebe Dunlap, MILKING MACHINE TECHNICIAN.PICK UP TRUCK DRIVER [address] [place] [id number] [facility]95 Referral ID Status Reason Start Date Expiration Date Visits Requested Visits Authorized [id number] Pending Review Auto-Generat ed Referral 3 09/09/2024 1 1 Referral ID Status Reason Start Date Expiration Date Visits Requested Visits Authorized [id number] Pending Review Auto-Generat ed Referral 3 10/03/2024 1 1 Specialty Diagnoses / Procedures Referred By Contac t Referred To Contact CT IMAGING Diagnoses Tobacco use disorder Encounter for screening for lung cancer Procedures CT LUNG SCREEN WO IVCON COMPUTED TOMOGRAPHY THORAX LW DOSE LNG CA SCR Milagros- Abebe Dunlap, MILKING MACHINE TECHNICIAN.PICK UP TRUCK DRIVER [address] [place] [address] Ct Imaging [facility]95 Referral ID Status Reason Start Date Expiration Date Visits Requested Visits Authorized [id number] Authorized Auto-Generat ed Referral 09/30/2024 10/30/2025 1 1 Referral ID Status Reason Start Date Expiration Date V isits Requested Visits Authorized [id number] Closed Auto-Generate d Referral 09/30/2024 10/30/2025 1 1 Summary Purpose Family History No Family History Records FoundNo Family History Records FoundNo Family History Records Found Advance Directives No Advanced Directives Records FoundNo Advanced Directives Records FoundNo Advanced Directives Records Found Additional Source Comments Source Comments (unrecognize d section and content) In the event this informatio n is protected by the Federal Confidentiality of Alcohol and Drug Abuse Patient Records regulations: The Federal rules restrict any use of the information to criminally investigate or prosecute any alcohol or drug abuse patient.[facility] the event this information is protected by the Federal Confidentiality of Alcohol and Drug Abuse Patient Records regulations: The Federal rules restrict any use of the information to criminally investigate or prosecute any alcohol or drug abuse patient.[facility] the event this information is protected by the Federal Confidentiality of Alcohol and Drug Abuse Patient Records regulations: The Federal rules restrict any use of the information to criminally investigate or prosecute any alcohol or drug abuse patient.[facility] the event this information is protected by the Federal Confidentiality of Alcohol and Drug Abuse Patient Records regulations: The Federal rules restrict any use of the information to criminally investigate or prosecute any alcohol or drug abuse patient.[facility] the event this information is protected by the Federal Confidentiality of Alcohol and Drug Abuse Patient Records regulations: The Federal rules restrict any use of the information to criminally investigate or prosecute any alcohol or drug abuse patient.[facility] the event this information is protected by the Federal Confidentiality of Alcohol and Drug Abuse Patient Records regulations: The Federal rules restrict any use of the information to criminally investigate or prosecute any alcohol or drug abuse patient.[facility] the event this information is protected by the Federal Confidentiality of Alcohol and Drug Abuse Patient Records regulations: The Federal rules restrict any use of the information to criminally investigate or prosecute any alcohol or drug abuse patient.[facility] the event this information is protected by the Federal Confidentiality of Alcohol and Drug Abuse Patient Records regulations: The Federal rules restrict any use of the information to criminally investigate or prosecute any alcohol or drug abuse patient.[facility] the event this information is protected by the Federal Confidentiality of Alcohol and Drug Abuse Patient Records regulations: The Federal rules restrict any use of the information to criminally investigate or prosecute any alcohol or drug abuse patient.[facility] the event this information is protected by the Federal Confidentiality of Alcohol and Drug Abuse Patient Records regulations: The Federal rules restrict any use of the information to criminally investigate or prosecute any alcohol or drug abuse patient.[facility] the event this information is protected by the Federal Confidentiality of Alcohol and Drug Abuse Patient Records regulations: The Federal rules restrict any use of the information to criminally investigate or prosecute any alcohol or drug abuse patient.[facility] the event this information is protected by the Federal Confidentiality of Alcohol and Drug Abuse Patient Records regulations: The Federal rules restrict any use of the information to criminally investigate or prosecute any alcohol or drug abuse patient.[facility] the event this information is protected by the Federal Confidentiality of Alcohol and Drug Abuse Patient Records regulations: The Federal rules restrict any use of the information to criminally investigate or prosecute any alcohol or drug abuse patient.[facility] the event this information is protected by the Federal Confidentiality of Alcohol and Drug Abuse Patient Records regulations: The Federal rules restrict any use of the information to criminally investigate or prosecute any alcohol or drug abuse patient.[facility] the event this information is protected by the Federal Confidentiality of Alcohol and Drug Abuse Patient Records regulations: The Federal rules restrict any use of the information to criminally investigate or prosecute any alcohol or drug abuse patient.[facility] the event this information is protected by the Federal Confidentiality of Alcohol and Drug Abuse Patient Records regulations: The Federal rules restrict any use of the information to criminally investigate or prosecute any alcohol or drug abuse patient.[facility] the event this information is protected by the Federal Confidentiality of Alcohol and Drug Abuse Patient Records regulations: The Federal rules restrict any use of the information to criminally investigate or prosecute any alcohol or drug abuse patient.[facility] the event this information is protected by the Federal Confidentiality of Alcohol and Drug Abuse Patient Records regulations: The Federal rules restrict any use of the information to criminally investigate or prosecute any alcohol or drug abuse patient.[facility] the event this information is protected by the Federal Confidentiality of Alcohol and Drug Abuse Patient Records regulations: The Federal rules restrict any use of the information to criminally investigate or prosecute any alcohol or drug abuse patient.[facility] the event this information is protected by the Federal Confidentiality of Alcohol and Drug Abuse Patient Records regulations: The Federal rules restrict any use of the information to criminally investigate or prosecute any alcohol or drug abuse patient.[facility] the event this information is protected by the Federal Confidentiality of Alcohol and Drug Abuse Patient Records regulations: The Federal rules restrict any use of the information to criminally investigate or prosecute any alcohol or drug abuse patient.[facility] the event this information is protected by the Federal Confidentiality of Alcohol and Drug Abuse Patient Records regulations: The Federal rules restrict any use of the information to criminally investigate or prosecute any alcohol or drug abuse patient.[facility] the event this information is protected by the Federal Confidentiality of Alcohol and Drug Abuse Patient Records regulations: The Federal rules restrict any use of the information to criminally investigate or prosecute any alcohol or drug abuse patient.[facility] the event this information is protected by the Federal Confidentiality of Alcohol and Drug Abuse Patient Records regulations: The Federal rules restrict any use of the information to criminally investigate or prosecute any alcohol or drug abuse patient.[facility] the event this information is protected by the Federal Confidentiality of Alcohol and Drug Abuse Patient Records regulations: The Federal rules restrict any use of the information to criminally investigate or prosecute any alcohol or drug abuse patient.[facility] the event this information is protected by the Federal Confidentiality of Alcohol and Drug Abuse Patient Records regulations: The Federal rules restrict any use of the information to criminally investigate or prosecute any alcohol or drug abuse patient.[facility] the event this information is protected by the Federal Confidentiality of Alcohol and Drug Abuse Patient Records regulations: The Federal rules restrict any use of the information to criminally investigate or prosecute any alcohol or drug abuse patient.[facility] the event this information is protected by the Federal Confidentiality of Alcohol and Drug Abuse Patient Records regulations: The Federal rules restrict any use of the information to criminally investigate or prosecute any alcohol or drug abuse patient.[facility] Reason for Visit (unrecogniz ed section and content) Reason Comments Imm/Inj Reason Onset Date Comments Refill Request 05/05/2022 Reason Comments Returning Patient's Call Reason Comments Medicare Wellness Exam Reason Comments Medication Question Reason Onset Date Comments Refill Request 10/15/2022 Reason Onset Date Comments Refill Request 10/23/2022 Reason Onset Date Comments Refill Request 03/11/2023 Reason Comments Rash Pt reported rash loc ated face, neck x1 wk. Reason Onset Date Comments Refill Request 06/01/2023 Reason Onset Date Comments Medicare Wellness Exam F/U 6 months Immunizations 07/27/2023 Flu vaccination Reason Comments New Patient LCS Reason Comments Results Reason Comments F/U 6 months Reason Onset Date Comments Refill Request 05/05/2024 Reason Onset Date Comments Refill Request 06/27/2024 Reason Onset Date Comments Medicare Wellness Exam F/U 6 months Immunizations 07/28/2024 Flu vaccination Reason Comments Established Patient LCS Reason Comments Radiology CT Specialty Diagnoses / Procedures Referred By Lilly t Referred To Contact CT IMAGING Diagnoses Tobacco use disorder Encounter for screening for lung cancer Procedures CT LUNG SCREEN WO IVCON COMPUTED TOMOGRAPHY THORAX LW DOSE LNG CA SCR C- Abebe Dunlap, MILKING MACHINE TECHNICIAN.PICK UP TRUCK DRIVER [address] [place] [id number] Imaging [facility]95 Referral ID Status Reason Start Date Expiration Date V isits Requested Visits Authorized [id number] Closed Auto-Generate d Referral 09/30/2024 10/30/2025 1 1 Reason Onset Date Comments Refill Request 11/02/2024 Reason Onset Date Comments Refill Request 11/04/2024 Reason Onset Date Comments Refill Request 12/27/2024 Reason Comments Follow Up 6 months Reason Comments Rash X3 weeks Care Teams (unrecognized sec tion and content) Caster Helper Relationship Specialty Start Date End Date Tadeo Ferrer MD [address] [facility] [address] PCP - General 07/12/02 Caster Helper Relationship Specialty Start Date End Date Tadeo Ferrer MD [address] [place] [address] PCP - General 07/12/02 Caster Helper Relationship Specialty Start Date End Date Tadeo Ferrer MD [facility] [place] [address] PCP - General 07/12/02 Caster Helper Relationship Specialty Start Date End Date Tadeo Ferrer MD [address] [place] [address] [place] [address] PCP - General 07/12/02 Caster Helper Relationship Specialty Start Date End Date Tadeo Ferrer MD [facility] [place] [address] PCP - General 07/12/02 Caster Helper Relationship Specialty Start Date End Date Tadeo Ferrer MD [facility] [place] [address] PCP - General 07/12/02 Caster Helper Relationship Specialty Start Date End Date Tadeo Ferrer MD [address] [place] [address] [place] [address] PCP - General 07/12/02 Caster Helper Relationship Specialty [place] [address] [place] [address] [place] [address] PCP - General 07/12/02 Caster Helper Relationship Specialty Start Date End Date Tadeo Ferrer MD [address] [place] [address] PCP - General 07/12/02 Caster Helper Relationship Specialty Start Date End Date Tadeo Ferrer MD [address] [place] [address] PCP - General 07/12/02 Caster Helper Relationship Specialty Start Date End Date Tadeo Ferrer MD [address] [place] [address] PCP - General 07/12/02 Caster Helper Relationship Specialty Start Date End Date Tadeo Ferrer MD [address] [place] [address] PCP - General 07/12/02 Caster Helper Relationship Specialty Start Date End Date Tadeo Ferrer MD [address] [place] [address] PCP - General 07/12/02 Caster Helper Relationship Specialty Start Date End Date Tadeo Ferrer MD [address] [place] [address] PCP - General 07/12/02 Caster Helper Relationship Specialty Start Date End Date Tadeo Ferrer MD [address] [place], [place] [address] [phone] PCP - General 07/12/02 Caster Helper Relationship Specialty Start Date End Date Tadeo Ferrer MD [address] [place], [place] [address] [phone] PCP - General 07/12/02 Caster Helper Relationship Specialty Start Date End Date Tadeo Ferrer MD [address] [place] [address] PCP - General 07/12/02 Araceli Titus, MILKING MACHINE TECHNICIAN.PICK UP TRUCK DRIVER [address] [place] [address] [employer] Internal Medicine 08/29/24 Caster Helper Relationship Specialty Start Date End Date Tadeo Ferrer MD [address] [place] [address] PCP - General 07/12/02 Araceli Titus, MILKING MACHINE TECHNICIAN.PICK UP TRUCK DRIVER [address] [place] [address] [facility] Internal Medicine 08/29/24 Caster Helper Relationship Specialty Start Date End Date Tadeo Ferrer MD [address] [place] [address] PCP - General 07/12/02 Araceli Titus, MILKING MACHINE TECHNICIAN.PICK UP TRUCK DRIVER [address] [place] [address] [facility] Internal Medicine 08/29/24 Caster Helper Relationship Specialty Start Date End Date Tadeo Ferrer MD [address] [place] [address] PCP - General 07/12/02 Araceli Titus, MILKING MACHINE TECHNICIAN.PICK UP TRUCK DRIVER [address] [place] [address] [facility] Internal Medicine 08/29/24 Caster Helper Relationship Specialty Start Date End Date Tadeo Ferrer MD [address] [place] [address] PCP - General 07/12/02 Araceli Titus, MILKING MACHINE TECHNICIAN.PICK UP TRUCK DRIVER [address] [place] [address] [facility] Internal Medicine 08/29/24 Caster Helper Relationship Specialty Start Date End Date Tadeo Ferrer MD [address] [place] [address] PCP - General 07/12/02 Araceli Titus, MILKING MACHINE TECHNICIAN.PICK UP TRUCK DRIVER [address] [place] [address] [facility] Internal Medicine 08/29/24 Caster Helper Relationship Specialty Start Date End Date Tadeo Ferrer MD [address] [place] [address] PCP - General 07/12/02 Araceli Titus, MILKING MACHINE TECHNICIAN.PICK UP TRUCK DRIVER [address] [place] [address] [facility] Internal Medicine 08/29/24 Caster Helper Relationship Specialty Start Date End Date Tadeo Ferrer MD [address] [place] [address] PCP - General 07/12/02 Araceli Titus, MILKING MACHINE TECHNICIAN.PICK UP TRUCK DRIVER [address] [place] [address] [employer] Business Analyst Internal Medicine 08/29/24 (unrecognized sect ion and content) No Status Records FoundNo Status Records FoundNo Status Records Found INFORMATION SOURCE (unrecogn ized section and content) DATE CREATED AUTHOR 09/06/2023 [facility] nter DATE CREATED AUTHOR AUTHOR'S ORGANIZ ATION 04/04/2024 [facility] DATE CREATED AUTHOR AUTHOR'S ORGANIZ ATION 08/01/2025 [facility] FOR RECORDS PERTAINING TO PATIENTS WHO ARE OR HAVE BEEN ENROLLED IN A CHEMICAL DEPENDENCY/SUBSTANCEABUSE PROGRAM, SOME INFORMATION MAY BE OMITTED. This clinical summary was aggregated from multiple sources. Caution should be exercised in using it in the provision of clinical care. This summary normalizes information from multiple sources, and as a consequence, information in this document may materially change the coding, format and clinical context of patient data. In addition, data may be omitted in some cases. CLINICAL DECISIONS SHOULD BE BASED ON THE PRIMARY CLINICAL RECORDS. [facility]. provides no warranty or guarantee of the accuracy or completeness of information in this document.
[2025-08-14 20:02] LABS: Anion Gap 9 (5-15); BUN 22 mg/dL (4-19); BUN/Creat Ratio 25.5 RATIO (10-20); CRP 18.30 mg/L (0.0-3.0); Calcium,Total 9.6 mg/dL (7.6-11.0); Carbon Dioxide 25.6 mmol/L (21.0-32.0); Chloride 105 mmol/L (98-108); Estimated Creatinine Clearance 69.88 ml/min (50-250); Glucose 94 mg/dL (70-99); Potassium 5.0 mmol/L (3.3-5.1); Uric Acid 5.4 mg/dL (3.5-7.2)
--- NOTE | 2025-08-14 20:50 | EX.ED.UPPERE ---
HPI History of Present Illness Chief Complaint: Upper Extremity Injury Detail of Chief Complaint: Pain swelling right hand Informant: patient and spouse/S.O. Limited: other ( has the supplements and she has impaired memory) Occured/Mechanism Comment: No history of trauma. Onset/Context/Timing Onset: Days (Onset , August 09) Context: Sudden Onset Timing: Continuous Quality of Pain: Dull and Aching Location: MCP joint of the index and long finger right hand Current Severity: Moderate Maximum Severity: Severe Worsened by: Use of his right hand Relieved by: Nothing Associated Symptoms Associated Symptoms: Negative for Parasthesia or Weakness Narrative Narrative: Patient is a 80-year-old male. He has history of type 2 diabetes, COPD, alcohol use, and obesity with a BMI of 30.2. He was seen at urgent care on Thursday. He was placed on doxycycline. He was not placed on a steroid which I initially thought he was. clarified. Of note patient has not very accurate and specific with regards to detail regarding days, duration etc. Patient denies fever, chills night sweats. Patient [place] history of gout or pseudogout. Patient states since Thursday he has had increased swelling of his hand and increased pain. He denies paresthesia, anesthesia or motor weakness. Prior similar symptoms: Yes Recent [facility] Medical History Hyperlipemia Diabetes COPD (chronic obstructive pulmonary disease) Home Medications ?Medication ?Instructions ?Recorded ?Last Taken ?Type albuterol sulfate 90 mcg/actuation 2 puff inhalation Q4H PRN PRN 03/09/17 Unknown History aerosol inhaler (ProAir HFA) Shortness Of Breath aspirin 81 mg tablet,delayed 81 mg PO DAILY heart health 03/09/17 06/19/18 History release (Aspir-Low) atorvastatin 20 mg tablet 20 mg PO QHS chlosterol 03/09/17 06/18/18 History ipratropium 20 mcg-albuterol 100 1 puff inhalation 4X/DAY PRN PRN 03/09/17 06/19/18 History mcg/actuation mist for inhalation Sob &/Or Wheezing (Combivent Respimat) metformin 500 mg 24 hr 500 mg PO DAILY DM2 03/09/17 06/19/18 History tablet,extended release (gastric retention) folic acid 1 mg tablet 1 mg PO DAILY@0800 06/21/18 Unknown Rx guaifenesin 100 mg/5 mL oral liquid 10 ml PO Q4H PRN PRN COUGH 06/21/18 Unknown Rx insulin glargine 100 unit/mL (3 75 unit (0.75 mL) SQ QHS ##1 06/21/18 Unknown Rx mL) subcutaneous pen insulin lispro 100 unit/mL See Protocol SQ ACHS 06/21/18 Unknown Rx subcutaneous pen (Humalog KwikPen (U-100) Insulin) multivitamin,ab-lgov-iptnlssy 27 1 tab PO DAILYCM 06/21/18 Unknown Rx mg-0.4 mg tablet (Therems-M) nicotine (polacrilex) 2 mg gum 2 mg PO Q2H PRN PRN nicotine 06/21/18 Unknown Rx craving breakthrough nicotine 21 mg/24 hr daily 21 mg TRANSDERM. DAILY 06/21/18 Unknown Rx transdermal patch hydrocodone-acetaminophen 5-325mg 1 tab PO Q6H PRN PRN Pain 3 days 03/18/24 Unknown Rx 5mg-325mg #10 TABLETS ketorolac 10 mg tablet 10 mg PO Q8H #10 tabs 08/14/25 Unknown Rx Allergy/AdvReac Type Severity Reaction Status Date / Time No Known Allergies Allergy Verified 08/14/25 19:08 Social History household members: spouse housing: house current occupational status: retired Smoking Status: Current every day smoker tobacco type: cigarettes ROS ROS ED Constitutional Constitutional ED: Denies chills, fever(s), subjective, sweats or weight loss Eyes Eyes: Denies blurry vision or change in vision ENT ENT ED: Denies ear pain, rhinorrhea or sore throat Cardiovascular Cardiovascular: Denies chest pain or palpitations Respiratory/Chest Respiratory/Chest: Denies cough, dyspnea or dyspnea on exertion Gastrointestinal Gastrointestinal: Denies nausea or vomiting Musculoskeletal Musculoskeletal: Reports other Details: Detailed HPI narrative and physical exam ; Denies myalgias or neck pain Integumentary Reports other Details: Discoloration of the right hand. ; Denies rash Neurologic Neurologic: Denies paresthesias or weakness Hematologic/Lymphatic Hematologic/Lymphatic: Denies easy bleeding or easy bruising EXAM Physical Exam Const Vital Signs: 08/14/25 19:07 Temperature 97.8 F Temperature Source Oral Pulse Rate 93 Respiratory Rate 16 Blood Pressure 151/85 H Blood Pressure Mean 107 Pulse Ox 94 Oxygen Delivery Method Room Air Positive well nourished and well developed General Appearance ED: well developed and NAD HEENT Reports moist mucous membranes normocephalic and atraumatic Eyes PERRL and EOMs intact bilaterally Neck full ROM and supple Resp normal respiratory effort and clear to auscultation bilaterally Cardio regular rate, regular rhythm, S1 normal heart sound, S2 normal heart sound and no murmurs GI non-tender Extremity Negative for normal to inspection or full ROM Extremity Narrative: Patient has swelling of his right index finger and long finger. The swelling of the hand. There is significant tenderness to palpation over the MCP joint of the right long finger. Passive range of motion causes him significant discomfort. Capillary fill is normal. Sensation is normal. There is no warmth or induration. There is some slight discoloration but the it is a more of a violaceous hue than red. There is no lymphangitis. There is no epitrochlear or axillary lymphadenopathy. Median, radial and ulnar function intact. Neuro oriented x3, CN's II-XII intact bilaterally, moves all extremities, no focal motor deficits and no sensory deficits noted Sensorium / Orientation: alert Psych mental status grossly normal Skin General Skin Exam: Negative for petechiae Lesions: no lesions Trauma: no lacerations or abrasions MDM MDM MDM Narrative Medical decision making narrative: Differential diagnosis would include crystal induced versus pyogenic arthritis versus polyarthralgia due to connective tissue disorder. Exam is somewhat compounded due to the fact that he was placed on antibiotic. He did have an x-ray obtained at the [facility] urgent care. The x-ray was interpreted radiologist as negative for any acute process. I was unable to review the x-ray. Patient does not give history of elevated blood sugars from baseline. Lab Data Attestation: I reviewed the patient's lab results. Lab results narrative: White count is normal. Differential is normal. BMP is unremarkable. BUN is slightly elevated with elevated BUN to creatinine ratio of 26:1. ESR is normal with days of symptoms. C-reactive protein is elevated 18.3. Uncertain what this means exactly. Labs: Laboratory Results - last 24 hr 08/14/25 19:25 WBC 7.9 RBC 4.86 Hgb 15.6 Hct 48.2 MCV 99.2 H MCH 32.1 H MCHC 32.4 RDW Std Deviation 50.4 H RDW Coeff of Capo 13.7 Plt Count 277 MPV 9.2 Immature Gran % (Auto) 0.500 Neut % (Auto) 57.6 Lymph % (Auto) 22.6 Wilkin % (Auto) 11.8 H Eos % (Auto) 7.0 H Baso % (Auto) 0.5 Absolute Neuts (auto) 4.6 Absolute Lymphs (auto) 1.79 Nucleated RBC % 0 ESR 12 Sodium 140 Potassium 5.0 Chloride 105 Carbon Dioxide 25.6 Anion Gap 9 BUN 22 H Creatinine 0.86 Estim Creat Clear Calc 69.88 Est GFR (MDRD) Non-Af 89 BUN/Creatinine Ratio 25.5 H Glucose 94 Uric Acid 5.4 Calcium 9.6 C-React Prot Ext Range 18.30 H Treatment and Re-Evaluation Narrative: Since his glucose is normal and renal function is normal he was treated with 15 mg of ketorolac IV push. He was reassessed 30 minutes later. He states his pain had improved markedly. Uncertain whether this is a crystal induced arthropathy. Would not expect him to have such marked and quick improvement if this was pyogenic. Will treat with systemic steroids and short course of NSAIDs. He has been given specific instructions regarding follow-up and when to return. His was also given the instructions since he is forgetful. Discharge Plan Triage Chief Complaint: Upper Extremity Injury ED Provider: Danny Bernard Dx/Rx/DC Orders Clinical Impression: Monoarticular arthritis, Type 2 diabetes mellitus, Obesity (BMI 30.0-34.9), Chronic pain syndrome, HLD (hyperlipidemia) Instructions: ED Arthralgia Prescriptions: New ketorolac 10 mg tablet 10 mg PO Q8H Qty: 10 0RF Rx Instructions: maximum total duration of 5 days from all oral, intranasal, or parenteral formulations (patient received parenteral ketorolac in the ED) No Action atorvastatin 20 MG tablet 20 mg PO QHS aspirin [Aspir-Low] 81 MG tablet,delayed release (DR/EC) 81 mg PO DAILY albuterol sulfate [ProAir HFA] 1 PUFF inhaler 2 puff inhalation Q4H PRN PRN (Reason: Shortness Of Breath) metformin 500 MG tablet,ER marcel.retention 24 hr 500 mg PO DAILY Combivent Respimat 1 PUFF inhaler 1 puff inhalation 4X/DAY PRN PRN (Reason: Sob &/Or Wheezing) nicotine (polacrilex) 2 MG gum 2 mg PO Q2H PRN PRN (Reason: nicotine craving breakthrough) 0RF nicotine 21 MG patch 21 mg TRANSDERM. DAILY 0RF folic acid 1 MG tablet 1 mg PO DAILY@0800 0RF Therems-M 1 TABLET tablet 1 tab PO DAILYCM 0RF guaifenesin 10 ML liquid 10 ml PO Q4H PRN PRN (Reason: COUGH) 0RF insulin lispro [Humalog KwikPen Insulin] 100 UNIT/ML insulin pen See Protocol SQ ACHS 0RF Protocol: 4. Sliding Scale Insulin High-Med Dosing Condition: 150-199 mg/dl = 2 units Condition: 200-259 mg/dl = 4 units Condition: 260-324 mg/dl = 6 units Condition: 325-374 mg/dl = 8 units Condition: 375-409 mg/dl = 10 units Condition: 410-449 mg/dl = 11 units Condition: Greater than 449 call physician Protocol Text: - Use for Total Daily Dose of Insulin 56-80 units - Patient who are insulin resistant or septic HIGH MEDIUM DOSING ALGORITHM insulin glargine 100 UNIT/ML insulin pen 75 unit SQ QHS Qty: 1 0RF Rx Instructions: Hold if H is glucose is less than 130 mg/dL hydrocodone-acetaminophen 5-325 mg tablet 1 tab PO Q6H PRN PRN (Reason: Pain) 3 Days Qty: 10 0RF Primary Care Provider: Tadeo Ferrer Referrals: Tadeo Ferrer MD [Primary Care Provider, Internal Medicine] - 1-2 Days if not improving Activity Restrictions/Additional Instructions: 1. If you develop temperature greater than 100, shaking chills, red line going towards your elbow return to the emergency department immediately 2. If there is no improvement in 48 hours see your doctor or return to the emergency department Print Language: Albanian Disposition Disposition: Home, Self Care
== END 2025-08-14 21:13 | disposition home or self-care (01) ==
PROVIDERS: Emergency Provider Emergency Medicine; PCP Internal Medicine; Visit Provider Emergency Medicine
DX: M13.141 Monoarthritis, not elsewhere classified, right hand (principal); J44.9 Chronic obstructive pulmonary disease, unspecified; E11.9 Type 2 diabetes mellitus without complications; G89.4 Chronic pain syndrome; Z68.30 Body mass index [BMI] 30.0-30.9, adult; E66.9 Obesity, unspecified; F17.210 Nicotine dependence, cigarettes, uncomplicated; E78.5 Hyperlipidemia, unspecified
CPT/HCPCS: 80048; 84550; 85025; 85652; 86140; 96372; 96374; 96375; 99283; A4216; J2405